=== PATIENT | male | born 1960 | race Caucasian/White ===

== ENCOUNTER 2019-06-27 16:36 | Outpatient (CLI) | payer MEDICARE, SELFPAY ==
--- NOTE | 2019-06-27 | XR_ITS ---
WS: [id number] Left shoulder, 3 views, 06/27/2019 Clinical Data: LEFT SHOULDER PAIN Comparison: None. Findings: No fractures or dislocations are seen. The AC joint is normal. The adjacent left clavicle, left scapu la and ribs are normal. The soft tissues are unremarkable. XR/XR shoulder LT min 2V* [id number] Impression: Negative left shoulder.
== END 2019-06-27 16:37 | disposition home or self-care (01) ==
LOC: RAD 16:43
PROVIDERS: Family Provider Nurse Practitioner Family; PCP Internal Medicine Cardiovascular Disease
DX: M25.512 Pain in left shoulder (principal)
CPT/HCPCS: 73030

== ENCOUNTER 2019-06-27 17:43 | Emergency (ER) | payer MEDICARE, SELFPAY ==
[2019-06-27 17:45] VITALS: BP 108/89; PULSE 104; RESP 16; TEMP 36.8; O2SAT 98; BMI 22.6
--- NOTE | 2019-06-27 17:57 | ED_ITS ---
HPI - Chest Pain General: Chief Complaint: Chest Pain Stated Complaint: Chest pain Time Seen by Provider: 06/27/19 17:54 History of Present Illness: HPI narrative: Patient is a 51-year-old male who comes to the ED for chest pain. He describes the chest pain and its sharp and in the epigastric region and the pain only lasts for about 5 seconds. He has had 2 episodes of this chest pain today and decided to come in to get evaluated. Both times the pain occurred patient was sitting down and not being active. While in the ED currently did not have any chest pain. Patient saw his rehabilitation teacher 2-3 weeks ago and had coronary angiography procedure. Patient was told that the results showed no blockages. Denies any shortness of breath, nausea, vomiting, abdominal pain, dysuria, hematuria, diarrhea, constipation, blood in the stool, fever, chills, upper respiratory symptoms. Review of Systems General: Reports: 10 or more systems reviewed and unremarkable except in HPI and below PFSH ED PFSH: Statuses (acute, chronic, etc) shown below reflect problem list status a s previously entered and may not be historically accurate Medical History Anxiety (Acute) CAD (coronary artery disease) (Acute) Carotid stenosis (Acute) Chest pain (Acute) CKD (chronic kidney disease) (Acute) COPD (chronic obstructive pulmonary disease) (Acute) CVA (cerebral vascular accident) (Acute) Epigastric abdominal pain (Acute) GERD (gastroesophageal reflux disease) (Acute) HTN (hypertension) (Acute) Hyperlipidemia (Acute) Hypoxia (Acute) Iliac artery occlusion (Acute) Obstructive apnea (Acute) Palpitation (Acute) PVD (peripheral vascular disease) (Acute) Shortness of breath (Acute) Umbilical hernia (Acute) Family History Other CAD (coronary artery disease) Cancer Social History Smoking and tobacco status: current every day smoker Quit status (tobacco): has quit using tobacco Year quit tobacco: 2009 Physical Exam Const: COMMON NORMALS: oriented x3 HENMT: COMMON NORMALS: normocephalic HEAD & SCALP: normocephalic MOUTH: oral and palatal mucosa normal THROAT: posterior oropharynx normal and uvula midline Neck/C-Spine: COMMON NORMALS: supple GENERAL: Yes normal visual inspection Resp: COMMON NORMALS: normal respiratory effort, no retractions, no use of accessory muscles and clear to auscultation bilaterally AUSCULTATION: clear to auscultation bilaterally and diminished lung sounds (bases) bilateral Cardio: COMMON NORMALS: regular rate, regular rhythm, S1 normal heart sound, S2 normal heart sound, no gallops, no clicks, no murmurs and peripheral pulses 2+ throughout RATE: regular rate RHYTHM: regular rhythm HEART SOUNDS: S1 normal and S2 normal PERIPHERAL PULSES: pulses 2+ throughout GI: COMMON NORMALS: normal to inspection, nondistended, normoactive bowel sounds, soft to palpation, non-tender and no masses PALPATION: Yes soft : COMMON NORMALS: Yes no CVA tenderness BLADDER/KIDNEY EXAM: Yes no CVA tenderness Back/Pelvis: COMMON NORMALS: no CVA tenderness Neuro: COMMON NORMALS: oriented x3 and moves all extremities Course ED course: EKG showed normal sinus rhythm and troponin was negative. Ruling out any cardiac cause of chest pain. Vital Signs: Vital signs: Vital Signs Temperature 98.4 F 06/27/19 19:37 Pulse Rate 88 06/27/19 19:37 Respiratory Rate 14 06/27/19 19:37 Blood Pressure 132/79 06/27/19 19:37 Pulse Oximetry 97 06/27/19 19:37 MDM - Chest Pain Lab Data: Attestation: I reviewed the patient's lab results. Labs: Lab Results 06/27/19 06/27/19 06/27/19 Range/Units 18:29 18:29 18:29 WBC 11.7 H (4.0-10.0) 10^3/ uL RBC 5.30 (4.1-5.3) 10^6/u L Hgb 15.3 (11.7-16.6) g/dL Hct 48.2 (42.0-52.0) % MCV 90.9 (80-94) fL MCH 28.9 (28.0-34.0) pg MCHC 31.7 (30.0-36.0) g/dL RDW 13.3 (12.1-15.1) % Plt Count 316 (130-400) 10^3/c mm MPV 11.1 H (7.4-10.4) fL Neut % (Auto) 73.4 % Lymph % (Auto) 15.7 % [place] % (Auto) 8.0 % Eos % (Auto) 2.0 % Baso % (Auto) 0.6 % Neut # (Auto) 8.6 H (1.8-7.7) 10^3/u L Lymph # (Auto) 1.8 (0.8-4.8) 10^3/u L [place] # (Auto) 0.9 (0.2-0.9) 10^3/u L Eos # (Auto) 0.2 (0.0-0.8) 10^3/u L Baso # (Auto) 0.1 (0.0-0.1) 10^3/u L Nucleated RBC % (a uto) 0 % Nucleated RBCs # 0.0 /100WBC Sodium 139 (136-145) mmol/L Potassium 3.5 (3.5-5.1) mmol/L Chloride 100 (98-107) mmol/L Carbon Dioxide 25 (22-29) mmol/L Anion Gap 17.5 (5-19) BUN 10 (6-20) mg/dL Creatinine 1.0 (0.7-1.2) mg/dL GFR Calculation 76.7 L (90-130) mL/min Glucose 124 H (74-109) mg/dL Calcium 10.3 H (8.6-10.0) mg/Dl Total Bilirubin 0.4 (0.15-1.2) mg/dL AST 18 (0-40) U/L ALT 18 (0-41) U/L Alkaline Phosphata se 121 (40-130) IU/L Troponin T Baselin e 11 (0-15) ng/mL Total Protein 7.8 (6.6-8.7) g/dL Albumin 4.6 (3.5-5.2) g/dL Globulin 3.2 (1.3-4.6) g/dL Imaging Data^: CXR: Attestation: I personally reviewed and interpreted this imaging study as follow s: My impression: No acute findings. Patient has hyperinflated lungs bilaterally. Pending final radiology report. EKG Data^: EKG 1: Attestation: I personally reviewed and interpreted this EKG as follows: EKG interpretation date: 06/27/19 Interpretation: Normal sinus rhythm with a rate of [address] elevation or depression seen. P waves present throughout. Computer generated interpretation: Normal sinus rhythm Discharge Plan Discharge Patient Disposition: Home, Self-Care Clinical Impression: Chest pain, precordial Condition: Stable Prescriptions: No Action aspirin [Adult Low Dose Aspirin] 81 mg tablet,delayed release (DR/EC) 81 mg PO QDAY RF: 0 Symbicort 160-4.5 mcg/actuation HFA aerosol inhaler 2 puff INHALATION BID RF: 0 albuterol sulfate 2.5 mg /3 mL (0.083 %) solution for nebulization 2.5 mg INHALATION Q4H PRNRF: 0 amlodipine 10 mg tablet 10 mg PO QDAY RF: 0 clonidine HCl 0.1 mg tablet 0.1 mg PO DAILY PRN (Reason: hypertensive emergency) RF: 0 Discharge Orders: Discharge Order (Routine); Ordered 06/27/19 Ordered By: João Lane Referrals: Didi Olivares APN [Family Provider] - Maira Arana MD [Primary Care Provider] - Discharge Diet: Regular Discharge Activity: Resume usual activity Activity Restrictions/Additional Instructions: Follow-up with your primary care doctor in 7 days for reevaluation. We were able to rule out cardiac cause of chest pain. Talk with your primary care doctor about this epigastric pain to discuss possible medication options for indigestion treatment. Discharge Date/Time: 06/27/19 19:38 Coding Level of Care Code ED Nanotechnology Engineering Technologist for Kedar Mae
--- NOTE | 2019-06-27 18:07 | ECG_ITS ---
Measurements Intervals [place] Rate: 85 P: 67 IA: 173 QRS: 87 QRSD: 86 T: 73 QT: 354 QTc: 421 SINUS RHYTHM WARNING: DATA QUALITY MAY AFFECT INTERPRETATION Compared to ECG 06/08/2019 16:03:23 ST (T wave) deviation no longer present Electronically Signed On 06-28-2019 10:51:25 MACHINE HEDDLE CLEANER by Maira Arana M.D. [id number] f
--- NOTE | 2019-06-27 18:07 | XR_ITS ---
WS: [id number] Portable AP upright chest, 06/27/2019 Clinical Data: chest pain Comparison: Portable chest, 06/08/2019. Findings: No nodules, masses or effusions are seen. The heart is normal. The pulmonary vascularity is not increased. No pneumonia or pneumothorax is seen. Monitor leads on the chest wall. The diaphragms are flattened. The aortic arch is mildly tortuous. XR/XR chest 1V portable [id number] Impression: Atherosclerosis and hyperinflation.
[2019-06-27] MEDS: sodium chloride 0.9% 500 ML 999 ML IV (18:21)
[2019-06-27 18:38] LABS: Basophils # 0.1 10^3/uL (0.0-0.1); Basophils % 0.6 %; Eosinophils # 0.2 10^3/uL (0.0-0.8); Hematocrit 48.2 % (42.0-52.0); Hemoglobin 15.3 g/dL (11.7-16.6); Lymphocytes # 1.8 10^3/uL (0.8-4.8); Lymphocytes % 15.7 %; Mean Corpuscular HGB Conc 31.7 g/dL (30.0-36.0); Mean Corpuscular Hemoglobin 28.9 pg (28.0-34.0); Mean Corpuscular Volume 90.9 fL (80-94); Mean Platelet Volume 11.1 fL (7.4-10.4); Monocytes # 0.9 10^3/uL (0.2-0.9); Neutrophils # 8.6 10^3/uL (1.8-7.7); Neutrophils % 73.4 %; Nucleated Red Blood Cells % 0 %; Platelet Count 316 10^3/cmm (130-400); Red Cell Distribution Width 13.3 % (12.1-15.1); White Blood Count 11.7 10^3/uL (4.0-10.0)
[2019-06-27 18:54] LABS: Alanine Aminotransferase 18 U/L (0-41); Albumin Level 4.6 g/dL (3.5-5.2); Alkaline Phosphatase 121 IU/L (40-130); Anion Gap 17.5 (5-19); Aspartate Amino Transferase 18 U/L (0-40); Blood Urea Nitrogen 10 mg/dL (6-20); Calcium 10.3 mg/Dl (8.6-10.0); Carbon Dioxide 25 mmol/L (22-29); Chloride 100 mmol/L (98-107); Globulin 3.2 g/dL (1.3-4.6); Glomerular Filtration Rate 76.7 mL/min (90-130); Glucose 124 mg/dL (74-109); Potassium 3.5 mmol/L (3.5-5.1); Sodium 139 mmol/L (136-145); Total Bilirubin 0.4 mg/dL (0.15-1.2); Total Protein 7.8 g/dL (6.6-8.7)
[2019-06-27 18:55] LABS: Troponin(5th) Baseline 11 ng/mL (0-15)
[2019-06-27 19:37] VITALS: BP 132/79; PULSE 88; RESP 14; TEMP 36.9; O2SAT 97
--- NOTE | 2019-06-28 14:07 | DCPLANNER ---
loan operations manager had message to schedule a follow up appointment for patient with [facility]. loan operations manager called [facility], spoke with Ruthy, a follow up appointment is scheduled for 2019 at 12:45 with CLAMP JIG ASSEMBLER, Yazmin Rodriguez. loan operations manager called patient at the phone number [phone], unable to speak with patient or leave a voicemail, does not have a voicemail box set up. loan operations manager called the phone number [phone], Em, a friend listed on face sheet. loan operations manager left a phone number for patient to call. loan operations manager sent a letter to patient with the appointment information.
--- NOTE | 2019-07-16 11:11 | DCPLANNER ---
Patient did not attend the appointment scheduled for 2.3.
--- NOTE | 2019-08-13 14:06 | DCPLANNER ---
Patient did not attend appointment scheduled for 07.15.19 at [facility].
== END 2019-06-27 19:38 | disposition home or self-care (01) ==
PROVIDERS: Emergency Provider Physician Assistant; Family Provider Nurse Practitioner Family; PCP Internal Medicine Cardiovascular Disease
DX: R07.2 Precordial pain (principal); Z79.82 Long term (current) use of aspirin; I25.10 Atherosclerotic heart disease of native coronary artery without angina pectoris; J44.9 Chronic obstructive pulmonary disease, unspecified; Z86.73 Personal history of transient ischemic attack (TIA), and cerebral infarction without residual deficits; I10 Essential (primary) hypertension; E78.5 Hyperlipidemia, unspecified; F17.210 Nicotine dependence, cigarettes, uncomplicated; K21.9 Gastro-esophageal reflux disease without esophagitis
CPT/HCPCS: 71045; 80053; 84484; 85025; 93005; 96360; 99282; J7040

== ENCOUNTER 2019-06-29 00:48 | Emergency (ER) | payer MEDICARE, SELFPAY ==
[2019-06-29 00:49] VITALS: BP 138/73; PULSE 81; RESP 86; TEMP 37.1
[2019-06-29 00:50] VITALS: BP 135/85; PULSE 107; RESP 20; O2SAT 94; BMI 22.6
--- NOTE | 2019-06-29 01:09 | ECG_ITS ---
Measurements Intervals [place] Rate: 94 P: 75 TN: 144 QRS: 91 QRSD: 90 T: 75 QT: 329 QTc: 412 SINUS RHYTHM BORDERLINE RIGHT AXIS DEVIATION [QRS AXIS > 90] Compared to ECG 06/27/2019 17:58:18 No significant changes Electronically Signed On 06-29-2019 11:28:57 HOT STICK MAN by Chris Perez M.D. [id number] f
--- NOTE | 2019-06-29 01:09 | ED_ITS ---
HPI - Chest Pain General: Chief Complaint: Chest Pain Stated Complaint: CHEST PAINS Time Seen by Provider: 06/29/19 01:02 History of Present Illness: HPI narrative: Patient complains of chest pain substernal central chest happened once yesterday and happen again tonight lasted for about 1 to 2 minutes he said is very sharp had a angiogram done couple weeks ago he has only 20% blockage in one vessel the rest of heart looks good. Patient denies any relation to heartburn. That he has been taking acetaminophen 500 mg once a day and thinks that might be the cause but unsure. Denies any shortness of breath. MD complaint: chest pain Timing of current episode: episodic and now resolved Onset: during rest Pain location: substernal Pain radiation: none Severity: severe Pain scale (0-10): 15 Quality: sharp Relieving factors: nothing Exacerbating factors: nothing Associated symptoms: Reports no associated symptoms; Deny abdominal pain, dyspnea, fever(s), nausea or vomiting Review of Systems Const: Denies: fever, chills or body aches Eyes: Denies: change in vision or blurry vision ENMT: Denies: throat pain or nasal congestion Card: Reports: chest pain (Intermittent chest pains 2 over the last 24 hours lasting briefly); Denies: shortness of breath on exertion Resp: Denies: shortness of breath, productive cough or non-productive cough GI: Denies: abdominal pain, nausea or vomiting : Denies: difficulty urinating Musc: Denies: extremity pain Skin/Breast: Denies: rash Neuro: Denies: headache Psych: Denies: anxiety or depression Gera/Lymph: Denies: easy bruising PFSH ED PFSH: Statuses (acute, chronic, etc) shown below reflect problem list status as previously entered and may not be historically accurate Social History Smoking and tobacco status: former smoker Quit status (tobacco): has quit using tobacco Year quit tobacco: 2009 Physical Exam Const: COMMON NORMALS: no apparent distress, average body habitus and oriented x3 HENMT: COMMON NORMALS: normocephalic HEAD & SCALP: normal to inspection and normocephalic FACE & SINUS: normal facial exam Eye: COMMON NORMALS: conjunctivae normal GENERAL EYE: normal appearance of both eyes CONJUNCTIVA: Yes conjunctivae normal Neck/C-Spine: COMMON NORMALS: no JVD Chest: COMMONS NORMALS: inspection of chest normal Resp: COMMON NORMALS: normal respiratory effort and clear to auscultation bilaterally AUSCULTATION: clear to auscultation bilaterally Cardio: COMMON NORMALS: no JVD, regular rate and regular rhythm RATE: regular rate RHYTHM: regular rhythm GI: COMMON NORMALS: normal to inspection, nondistended, normoactive bowel sounds Extremity: COMMON NORMALS: normal to inspection and full ROM Neuro: COMMON NORMALS: oriented x3 Course Vital Signs: Vital signs: Vital Signs Pulse Rate 107 H 06/29/19 00:50 Respiratory Rate 20 H 06/29/19 00:50 Blood Pressure 135/85 06/29/19 00:50 Pulse Oximetry 94 06/29/19 00:50 Discharge Plan Discharge Prescriptions: No Action aspirin [Adult Low Dose Aspirin] 81 mg tablet,delayed release (DR/EC) 81 mg PO QDAY RF: 0 Symbicort 160-4.5 mcg/actuation HFA aerosol inhaler 2 puff INHALATION BID RF: 0 albuterol sulfate 2.5 mg /3 mL (0.083 %) solution for nebulization 2.5 mg INHALATION Q4H PRNRF: 0 amlodipine 10 mg tablet 10 mg PO QDAY RF: 0 clonidine HCl 0.1 mg tablet 0.1 mg PO DAILY PRN (Reason: hypertensive emergency) RF: 0 Coding Level of Care Code ED Hospital Cleaning Specialist for Kedar Mae
[2019-06-29 01:24] LABS: Basophils # 0.1 10^3/uL (0.0-0.1); Basophils % 0.5 %; Eosinophils # 0.5 10^3/uL (0.0-0.8); Eosinophils % 4.2 %; Hemoglobin 14.8 g/dL (11.7-16.6); Lymphocytes # 2.3 10^3/uL (0.8-4.8); Lymphocytes % 19.7 %; Mean Corpuscular HGB Conc 32.2 g/dL (30.0-36.0); Mean Corpuscular Hemoglobin 28.4 pg (28.0-34.0); Mean Corpuscular Volume 88.1 fL (80-94); Mean Platelet Volume 10.8 fL (7.4-10.4); Monocytes # 1.2 10^3/uL (0.2-0.9); Monocytes % 10.5 %; Neutrophils # 7.7 10^3/uL (1.8-7.7); Neutrophils % 64.8 %; Nucleated Red Blood Cells % 0 %; Platelet Count 313 10^3/cmm (130-400); Red Blood Count 5.22 10^6/uL (4.1-5.3); Red Cell Distribution Width 13.2 % (12.1-15.1); White Blood Count 11.9 10^3/uL (4.0-10.0)
--- NOTE | 2019-06-29 01:41 | PC.NURSE ---
Introduced self to patient and initiated vital signs. Pt is A&O x 4 and agreeable. Pt states that the reason for the ER visit today is due to chest pain which has been going on for quite some time. Pt also complaining of ....... Reassured patient of needs and will continue to monitor. Awaiting provider at bedside.
[2019-06-29 01:50] LABS: Alanine Aminotransferase 20 U/L (0-41); Albumin Level 4.5 g/dL (3.5-5.2); Alkaline Phosphatase 119 IU/L (40-130); Anion Gap 18.7 (5-19); Aspartate Amino Transferase 16 U/L (0-40); Blood Urea Nitrogen 18 mg/dL (6-20); Calcium 10.3 mg/Dl (8.6-10.0); Carbon Dioxide 22 mmol/L (22-29); Chloride 102 mmol/L (98-107); Globulin 2.5 g/dL (1.3-4.6); Glomerular Filtration Rate 48.1 mL/min (90-130); Glucose 120 mg/dL (74-109); Potassium 3.7 mmol/L (3.5-5.1); Sodium 139 mmol/L (136-145); Total Bilirubin 0.2 mg/dL (0.15-1.2)
[2019-06-29 01:52] LABS: Troponin T (5th) Once 9 ng/mL (0-15)
--- NOTE | 2019-07-01 10:38 | DCPLANNER ---
it applications manager attempted to call patient again, phone number [phone] (does not have a voicemail set up) was unable to speak with patient or leave a voicemail. it applications manager called [phone] (Em a friend) a voicemail was left for patient to return casework specialist phone call. it applications manager was going to inform patient of the appointment scheduled for him in July. Please refer to notes on visit 06.27.19, that has appointment information.
== END 2019-06-29 02:22 | disposition home or self-care (01) ==
PROVIDERS: Nurse Practitioner Family; Emergency Provider Emergency Medicine; Family Provider Nurse Practitioner Family; PCP Internal Medicine Cardiovascular Disease
DX: R07.9 Chest pain, unspecified (principal); Z79.82 Long term (current) use of aspirin; Z87.891 Personal history of nicotine dependence
CPT/HCPCS: 80053; 84484; 85025; 93005; 99281; 99282

== ENCOUNTER 2019-07-13 01:19 | Emergency (ER) | payer MEDICARE, SELFPAY ==
[2019-07-13 01:32] VITALS: BP 143/74; PULSE 95; RESP 18; TEMP 36.4; O2SAT 96; BMI 22.4
--- NOTE | 2019-07-13 01:36 | ED_ITS ---
Entered by Anila Gomez, acting as scribe for Ariel Azar DO Jul 13, 2019 01:19 HPI - Chest Pain General: Chief Complaint: Chest Pain Stated Complaint: CHEST PAIN Time Seen by Provider: 07/13/19 01:36 Source: patient Mode of arrival: ambulatory Limitations: no limitations History of Present Illness: HPI narrative: 59 yo m came to the er for chest pa in. Onset was 2 days ago. Pt states that he has a flutter in his chest. Pt states that he has not been having pain. The fluttering has been hapening on and off for 2 days. MD complaint: other (chest flutter) Onset (ago): day(s) (2 days ago) Timing of current episode: episodic Onset: during rest Pain radiation: none Severity: mild Exacerbating factors: nothing Associated symptoms: Reports dyspnea, nausea and palpitations; Deny abdominal pain, fever(s) or vomiting Risk Factors: Coronary artery disease risk factors: none Review of Systems Const: Denies: fever or chills Eyes: Denies: change in vision or blurry vision ENMT: Denies: post nasal drip or facial/sinus pain Card: Reports: palpitations, edema, swelling of feet/ankles and shortness of breath on exertion; Denies: chest pain, irregular heart rhythm or shortness of breath when lying down Resp: Reports: shortness of breath, non-productive cough and wheezing; Denies: productive cough GI: Reports: nausea; Denies: abdominal pain, vomiting, rectal pain or black tarry stool : Denies: difficulty urinating Musc: Reports: neck pain and back pain; Denies: redness or joint warmth Skin/Breast: Denies: rash, itching or redness Neuro: Denies: headache, dizziness, vertigo or confusion Psych: Reports: anxiety PFSH ED PFSH: Statuses (acute, chronic, etc) shown below reflect problem list status as previously entered and may not be historically accurate Medical History Anxiety (Acute) CAD (coronary artery disease) (Acute) Carotid stenosis (Acute) Chest pain (Acute) CKD (chronic kidney disease) (Acute) COPD (chronic obstructive pulmonary disease) (Acute) CVA (cerebral vascular accident) (Acute) Epigastric abdominal pain (Acute) GERD (gastroesophageal reflux disease) (Acute) HTN (hypertension) (Acute) Hyperlipidemia (Acute) Hypoxia (Acute) Iliac artery occlusion (Acute) Obstructive apnea (Acute) Palpitation (Acute) PVD (peripheral vascular disease) (Acute) Shortness of breath (Acute) Umbilical hernia (Acute) Family History Other CAD (coronary artery disease) Cancer Social History Smoking and tobacco status: former smoker Quit status (tobacco): has quit using tobacco Year quit tobacco: 2009 Physical Exam Const: GENERAL APPEARANCE: well developed ORIENTATION/CONSCIOUSNESS: Yes oriented to person, Yes oriented to place and Yes oriented to time HENMT: COMMON NORMALS: normocephalic, external ears normal and external nose normal HEAD & SCALP: normocephalic; no scalp tenderness FACE & SINUS: normal facial exam NOSE: external nose normal and no nasal discharge EXTERNAL EAR: Yes external ears normal Eye: COMMON NORMALS: PERRL and EOMs intact bilaterally EYELID: eyelids normal PUPIL: Yes PERRL Neck/C-Spine: COMMON NORMALS: full ROM GENERAL: No tracheal deviation Chest: COMMONS NORMALS: inspection of chest normal CHEST: Yes tenderness Resp: COMMON NORMALS: clear to auscultation bilaterally EFFORT & INSPECTION: No tachypneic, No respiratory distress, No retractions, No uses accessory muscles and No tracheal deviation AUSCULTATION: clear to auscultation bilaterally, no rhonchi, no wheezes and lung sounds not diminished Cardio: COMMON NORMALS: regular rate and regular rhythm RATE: regular rate RHYTHM: regular rhythm HEART SOUNDS: no murmurs PERIPHERAL PULSES: radial pulses present GI: INSPECTION: No abdominal distension AUSCULTATION: No hyperactive bowel sounds and No hypoactive bowel sounds PALPATION: No guarding and No rigid PERCUSSION: no dullness to percussion and no tympanic to percussion Neuro: SENSORIUM/ORIENTATION: Yes oriented to person, Yes oriented to place and Yes oriented to time Psych: COMMON NORMALS: mental status grossly normal Skin: COMMON NORMALS: no rashes or lesions noted GENERAL SKIN EXAM: no rashes or lesions noted Course ED course: Patient's resting heart rate was around 100 when he got here. Saturations normal. He refused metoprolol for rate control. He also refused a GI cocktail. His chest x-ray shows chronic COPD changes. His EKG is completely normal. His troponin Vital Signs: Vital signs: Vital Signs Temperature 97.6 F 07/13/19 01:32 Pulse Rate 92 07/13/19 04:34 Respiratory Rate 18 07/13/19 04:34 Blood Pressure 134/62 07/13/19 04:34 Pulse Oximetry 97 07/13/19 04:34 MDM - Chest Pain Lab Data: Labs: Lab Results 07/13/19 07/13/19 07/13/19 Range/Units 01:52 01:52 01:52 WBC 10.7 H (4.0-10.0) 10^3/ uL RBC 5.08 (4.1-5.3) 10^6/u L Hgb 14.1 (11.7-16.6) g/dL Hct 44.6 (42.0-52.0) % MCV 87.8 (80-94) fL MCH 27.8 L (28.0-34.0) pg MCHC 31.6 (30.0-36.0) g/dL RDW 13.2 (12.1-15.1) % Plt Count 337 (130-400) 10^3/c mm MPV 10.3 (7.4-10.4) fL Neut % (Auto) 61.2 % Lymph % (Auto) 22.0 % [place] % (Auto) 11.1 % Eos % (Auto) 4.6 % Baso % (Auto) 0.7 % Neut # (Auto) 6.6 (1.8-7.7) 10^3/u L Lymph # (Auto) 2.4 (0.8-4.8) 10^3/u L [place] # (Auto) 1.2 H (0.2-0.9) 10^3/u L Eos # (Auto) 0.5 (0.0-0.8) 10^3/u L Baso # (Auto) 0.1 (0.0-0.1) 10^3/u L Nucleated RBC % (a uto) 0 % Nucleated RBCs # 0.0 /100WBC Sodium 140 (136-145) mmol/L Potassium 4.0 (3.5-5.1) mmol/L Chloride 102 (98-107) mmol/L Carbon Dioxide 27 (22-29) mmol/L Anion Gap 15.0 (5-19) BUN 17 (6-20) mg/dL Creatinine 1.1 (0.7-1.2) mg/dL GFR Calculation 68.8 L (90-130) mL/min Glucose 115 H (74-109) mg/dL Calcium 10.3 (8.5-10.5) mg/dL Total Bilirubin 0.2 (0.15-1.2) mg/dL AST 22 (0-40) U/L ALT 30 (0-41) U/L Alkaline Phosphata se 130 (40-130) IU/L Creatine Kinase 59 (39-308) U/L Troponin T Baselin e 10 (0-15) ng/mL Total Protein 7.1 (6.6-8.7) g/dL Albumin 4.4 (3.5-5.2) g/dL Globulin 2.7 (1.3-4.6) g/dL Discharge Plan Discharge Patient Disposition: Home, Self-Care Clinical Impression: Heart palpitations Condition: Stable Prescriptions: No Action aspirin [Adult Low Dose Aspirin] 81 mg tablet,delayed release (DR/EC) 81 mg PO QDAY RF: 0 Symbicort 160-4.5 mcg/actuation HFA aerosol inhaler 2 puff INHALATION BID RF: 0 amlodipine 10 mg tablet 10 mg PO QDAY RF: 0 clonidine HCl 0.1 mg tablet 0.1 mg PO DAILY PRN (Reason: hypertensive emergency) RF: 0 albuterol sulfate 2.5 mg /3 mL (0.083 %) solution for nebulization 2.5 mg INHALATION Q4H PRN (Reason: shortness of breath or wheezing) Qty: 180 RF: 0 Discharge Orders: Discharge Order (Routine); Ordered 07/13/19 Ordered By: Ariel Azar Referrals: Maira Arana MD [Primary Care Provider] - Discharge Diet: Usual diet Discharge Activity: Increase activity as tolerated Patient Instructions: Palpitations (ED) Discharge Date/Time: 07/13/19 04:31 Coding Level of Care Code ED Warp Knitter Helper for Chg Fwryan The documentation recorded by the Jason miller Stephanie Lyn, accurately reflects the service I personally performed and the decisions made by me, Ariel Azar, Jul 13, 2019 01:19
--- NOTE | 2019-07-13 01:38 | PC.NURSE ---
Performed EKG at 0135 and shown to ER doctor and took UA to lab.
--- NOTE | 2019-07-13 01:44 | XRR_ITS ---
PROCEDURE INFORMATION: Exam: XR Chest, 1 View Exam date and time: 07/13/2019 1:58 AM Age: 59 years old Clinical indication: Other: Palpatations; Patient HX: HX copd; Additional info: Palpitations TECHNIQUE: Imaging protocol: XR of the chest Views: 1 view. COMPARISON: CR XR chest 1V portable [id number] 06/27/2019 6:17 PM FINDINGS: Lungs: COPD without infiltrate. Pleural space: Unremarkable. No pleural effusion. No pneumothorax. Heart/Mediastinum: Unremarkable. No cardiomegaly. Bones/joints: No acute fracture. XR/XR chest 1V portable [id number] IMPRESSION: COPD without infiltrate.
--- NOTE | 2019-07-13 01:44 | ECG_ITS ---
Measurements Intervals [place] Rate: 85 P: 65 MI: 148 QRS: 84 QRSD: 86 T: 77 QT: 344 QTc: 411 SINUS RHYTHM Compared to ECG 06/29/2019 01:00:48 No significant changes Electronically Signed On 07-13-2019 16:23:37 SENIOR ELECTRICAL DESIGN ENGINEER by Jose Alejandro Patterson M.D. [id number] f
--- NOTE | 2019-07-13 02:05 | PC.NURSE ---
Patient refused metoprolol, states he doesn't need it because his heart rate is always that high and doesn't want it to bring his blood pressure down low and feel like crap. Also refused the GI cocktail because his stomach is fine right now.
[2019-07-13 02:16] LABS: Basophils # 0.1 10^3/uL (0.0-0.1); Basophils % 0.7 %; Eosinophils # 0.5 10^3/uL (0.0-0.8); Eosinophils % 4.6 %; Hematocrit 44.6 % (42.0-52.0); Hemoglobin 14.1 g/dL (11.7-16.6); Lymphocytes # 2.4 10^3/uL (0.8-4.8); Mean Corpuscular HGB Conc 31.6 g/dL (30.0-36.0); Mean Corpuscular Hemoglobin 27.8 pg (28.0-34.0); Mean Corpuscular Volume 87.8 fL (80-94); Mean Platelet Volume 10.3 fL (7.4-10.4); Monocytes # 1.2 10^3/uL (0.2-0.9); Monocytes % 11.1 %; Neutrophils # 6.6 10^3/uL (1.8-7.7); Neutrophils % 61.2 %; Nucleated Red Blood Cells % 0 %; Platelet Count 337 10^3/cmm (130-400); Red Blood Count 5.08 10^6/uL (4.1-5.3); Red Cell Distribution Width 13.2 % (12.1-15.1); White Blood Count 10.7 10^3/uL (4.0-10.0)
[2019-07-13 02:35] LABS: Alanine Aminotransferase 30 U/L (0-41); Albumin Level 4.4 g/dL (3.5-5.2); Alkaline Phosphatase 130 IU/L (40-130); Aspartate Amino Transferase 22 U/L (0-40); Blood Urea Nitrogen 17 mg/dL (6-20); Calcium 10.3 mg/dL (8.5-10.5); Carbon Dioxide 27 mmol/L (22-29); Chloride 102 mmol/L (98-107); Creatine Phosphokinase 59 U/L (39-308); Globulin 2.7 g/dL (1.3-4.6); Glomerular Filtration Rate 68.8 mL/min (90-130); Glucose 115 mg/dL (74-109); Sodium 140 mmol/L (136-145); Total Bilirubin 0.2 mg/dL (0.15-1.2); Total Protein 7.1 g/dL (6.6-8.7)
[2019-07-13 03:20] VITALS: PULSE 84; RESP 17; O2SAT 96
[2019-07-13 03:26] VITALS: PULSE 83; O2SAT 98
[2019-07-13 03:27] LABS: Troponin(5th) Baseline 10 ng/mL (0-15)
[2019-07-13 04:34] VITALS: BP 134/62; PULSE 92; RESP 18; O2SAT 97
--- NOTE | 2019-07-16 11:19 | DCPLANNER ---
nutrition manager had message to schedule a follow up appointment for patient with [facility]. nutrition manager had scheduled a follow up appointment for patient with [facility], was unable to reach patient by phone, sent patient a letter with the appointment information, scheduled for 07.15.19 and patient did not attend the appointment. nutrition manager spoke with Coby, it was decided that keycase assembler would mail patient a letter asking patient to call keycase assembler to talk about scheduling a follow up appointment. Patient does have appointments scheduled with [facility] in the future.
== END 2019-07-13 04:31 | disposition home or self-care (01) ==
PROVIDERS: Emergency Provider Emergency Medicine; PCP Internal Medicine Cardiovascular Disease
DX: R00.2 Palpitations (principal); Z79.82 Long term (current) use of aspirin; I25.10 Atherosclerotic heart disease of native coronary artery without angina pectoris; J44.9 Chronic obstructive pulmonary disease, unspecified; Z86.73 Personal history of transient ischemic attack (TIA), and cerebral infarction without residual deficits; I10 Essential (primary) hypertension; E78.5 Hyperlipidemia, unspecified; I73.9 Peripheral vascular disease, unspecified; Z87.891 Personal history of nicotine dependence; K21.9 Gastro-esophageal reflux disease without esophagitis
CPT/HCPCS: 71045; 80053; 82550; 84484; 85025; 93005; 94640; 99281; 99284; J7611

== ENCOUNTER 2019-07-16 09:13 | Outpatient (CLI) | payer MEDICARE, SELFPAY ==
--- NOTE | 2019-07-16 09:23 | MR_ITS ---
WS: [id number] MRI LEFT SHOULDER HISTORY: SHOULDER PAIN COMPARISON: 06/27/2019 TECHNIQUE: Multiplanar sequences of the shoulder joint are submitted. Study is significantly compromised by breathing. There is significant breathing artifact due to patie nt's emphysema. Osteochondral lesion involving the superior humeral head extends over a width of 3.3 cm. There is flu id like signal around the osteochondral lesion but no loose fragment or displacement. Moderate AC joint hypertrophy. Bone and soft tissue hypertrophy without significant encroachment upon the rotator cuff. No significant subacromial or subdeltoid bursal distention. There is a 3 mm osteop hyte along the distal undersurface of the acromion with only minimal impingement upon the distal rota tor cuff. No definite rotator cuff tears are identified. No muscle atrophy or retraction. Mild increa sed signal along the bursal surface of the supraspinatus at the level of the acromion osteophyte. No labral tear or abnormality is appreciated. Biceps tendon remains in normal position at the bicipital groove. MR/MR shoulder LT wo con* [id number] IMPRESSION: 1. Moderate-sized osteochondral lesion involving the superior humeral head wit h a maximum diameter of 3.3 cm. No loose fragment at this time. 2. Mild encroachment upon the distal supraspinatus tendon by a and acromion os teophyte. 3. No rotator cuff tear is identified. 4. Mild AC joint arthritis. 5. Study is moderately compromised by breathing artifact.
== END 2019-07-16 09:14 | disposition home or self-care (01) ==
DX: M25.512 Pain in left shoulder (principal); M75.92 Shoulder lesion, unspecified, left shoulder; M13.812 Other specified arthritis, left shoulder
CPT/HCPCS: 73221

== ENCOUNTER 2019-07-16 10:11 | Outpatient (CLI) | payer MEDICARE, SELFPAY ==
--- NOTE | 2019-07-16 11:30 | USCV_ITS ---
Hai Aparicio Age: 59 Gender: M : 1960 Exam Date: 07/16/2019 11:35 Ordering Phys: Maira Arana MD ([email or web address]) Technologist: Deny Miller [place] [facility] [place]: CAROTID STENOSIS Risk Factors: Previous Vascular Surgery: Right Brachial BP: / Left Brachial BP: / Right Left Velocity (cm/s) Spectral Plaque Velocity (cm/s) Spectral Plaque Syst/Diast Broadening Syst/Diast Broadening 157.10/18.10 Prox CCA 140.00/ 26.10 112.40/21.80 Mid CCA 115.90/ 24.00 106.30/20.60 Distal CCA 82.00 / 20.50 78.80/ 17.40 Prox ICA 101.40/ 18.70 100.40/22.40 Mid ICA 78.30 / 19.80 86.30/ 24.10 Distal ICA 145.90/ 38.10 167.20 ECA 127.90 0.89 ICA/CCA 1.26 Antegrade Vertebral Antegrade 77.10/ 17.40 cm/s 99.90/ 31.60 cm/s Bi Subclavian Bi 100.6 131.5 0 0 FINDINGS Moderate atherosclerotic change of both carotid bifurcations and internal carotid artery origins. CONCLUSIONS Negative for occlusions or significant right internal carotid artery stenosis. Mild stenosis of the left internal carotid artery origin. Dr. Violetta Cancino MD (Electronically Signed) Final Date: 16 July 2019 14:52 S
== END 2019-07-16 10:12 | disposition home or self-care (01) ==
LOC: RAD 10:15
PROVIDERS: Visit Provider Internal Medicine Cardiovascular Disease
DX: I65.22 Occlusion and stenosis of left carotid artery (principal)
CPT/HCPCS: 93880

== ENCOUNTER 2019-07-16 12:28 | Emergency (ER) | payer MEDICARE, SELFPAY ==
[2019-07-16 13:05] VITALS: BP 127/99; PULSE 102; RESP 16; TEMP 36.5; O2SAT 97; BMI 22.4
== END 2019-07-16 19:09 | disposition left against medical advice (07) ==
PROVIDERS: Emergency Provider Emergency Medicine
DX: M79.632 Pain in left forearm (principal); F41.9 Anxiety disorder, unspecified; R00.2 Palpitations; G47.33 Obstructive sleep apnea (adult) (pediatric); E78.5 Hyperlipidemia, unspecified; J44.9 Chronic obstructive pulmonary disease, unspecified; I73.9 Peripheral vascular disease, unspecified; I25.10 Atherosclerotic heart disease of native coronary artery without angina pectoris; I10 Essential (primary) hypertension; Z53.21 Procedure and treatment not carried out due to patient leaving prior to being seen by health care provider
CPT/HCPCS: 99281

== ENCOUNTER → 2019-08-12 11:08 | Outpatient (BNVA) | payer MEDICARE, SELFPAY | PROVIDERS: Visit Provider Specialist | DX: M25.512 Pain in left shoulder (principal); G89.29 Other chronic pain | CPT/HCPCS: 73030 ==

== ENCOUNTER 2019-08-29 12:50 | Emergency (ER) | payer MEDICARE, SELFPAY ==
[2019-08-29 13:08] VITALS: BP 129/90; PULSE 103; RESP 16; TEMP 36.6; O2SAT 95; BMI 22.4
--- NOTE | 2019-08-29 13:31 | W.ED.NAVMDI ---
Documented by User: ALEAH Maria 08/30/19 07:14 HPI - Nausea/Vomiting/Diarrhea General: Chief complaint: Nausea/Vomiting/Diarrhea Stated complaint: Poss C-diff Time Seen by Provider: 08/29/19 13:31 Source: patient Mode of arrival: ambulatory Limitations: no limitations History of Present Illness: HPI Narrative: Patient comes in today for complaints of 3-day history of nausea and diarrhea. Patient reports previous history with C. difficile. Patient also reports that his girlfriend has been dealing with the infection for the last month. Patient appears mildly unwell. Patient appears in no acute distress. Patient has a history of anxiety, peripheral vascular disease, hyperlipidemia, hypertension, and CAD. Patient appears in no pain. Associated nausea: Yes Associated symtoms: Reports nausea Review of Systems General: Reports: 10 or more systems reviewed and unremarkable except in HPI and below GI: Reports: nausea and diarrhea [facility] ED PFSH: Medical History Anxiety CAD (coronary artery disease) Carotid stenosis Chest pain CKD (chronic kidney disease) COPD (chronic obstructive pulmonary disease) CVA (cerebral vascular accident) Epigastric abdominal pain GERD (gastroesophageal reflux disease) HTN (hypertension) Hyperlipidemia Hypoxia Iliac artery occlusion Obstructive apnea Palpitation PVD (peripheral vascular disease) Shortness of breath Umbilical hernia Family History Other CAD (coronary artery disease) Cancer Social History Smoking and tobacco status: former smoker Quit status (tobacco): has quit using tobacco Year quit tobacco: 2009 Alcohol intake: never Physical Exam Const: COMMON NORMALS: no apparent distress and oriented x3 GENERAL APPEARANCE: cooperative HENMT: COMMON NORMALS: normocephalic, external ears normal, EAC's normal, TM's normal bilaterally and external nose normal HEAD & SCALP: normal to inspection and normocephalic FACE & SINUS: normal facial exam NOSE: external nose normal GENERAL EAR: hearing not grossly impaired EXTERNAL EAR: Yes external ears normal EXTERNAL AUDITORY CANAL: EAC's normal TYMPANIC MEMBRANE: TM's normal bilaterally MOUTH: oral and palatal mucosa normal THROAT: posterior oropharynx normal Eye: COMMON NORMALS: PERRL and EOMs intact bilaterally PUPIL: Yes PERRL Neck/C-Spine: COMMON NORMALS: full ROM and no lymphadenopathy Lymph: LYMPHATIC: no lymphedema noted Chest: COMMONS NORMALS: inspection of chest normal and palpation of chest normal Resp: COMMON NORMALS: normal respiratory effort and clear to auscultation bilaterally AUSCULTATION: clear to auscultation bilaterally Cardio: COMMON NORMALS: regular rate and regular rhythm RATE: regular rate RHYTHM: regular rhythm GI: COMMON NORMALS: normal to inspection, nondistended, normoactive bowel sounds and non-tender : COMMON NORMALS: Yes no CVA tenderness BLADDER/KIDNEY EXAM: Yes no CVA tenderness Back/Pelvis: COMMON NORMALS: no CVA tenderness and thoracic and lumbar spine normal to inspection Extremity: COMMON NORMALS: normal to inspection GENERAL: No edema Neuro: COMMON NORMALS: oriented x3, moves all extremities and no focal motor deficits Psych: COMMON NORMALS: mental status grossly normal and cooperative Skin: COMMON NORMALS: no rashes or lesions noted GENERAL SKIN EXAM: no rashes or lesions noted Course Vital Signs: Vital signs: Vital Signs Temperature 98 F 08/29/19 13:08 Pulse Rate 73 08/29/19 19:12 Respiratory Rate 17 08/29/19 19:12 Blood Pressure 146/58 08/29/19 19:12 Pulse Oximetry 96 08/29/19 19:12 MDM - Nausea/Vomiting/Diarrhea MDM Narrative: Medical decision making narrative: Patient comes in today with complaints of nausea and diarrhea for the last 3 days. Exam noted abdomen soft nontender. Bowel sounds were present. Skin is warm and dry. Vital signs are normal. Differential diagnosis gastroenteritis, C. difficile colitis, diverticulitis, dehydration. Laboratory values were not significant for abnormalities. C. difficile by PCR was negative. Laboratory values were reviewed with patient recommendations for treatment and follow-up. Patient reported understanding. Lab Data: Labs: Lab Results 08/29/19 08/29/19 Range/Units 13:51 13:51 WBC 9.8 (4.0-10.0) 10^3/ uL RBC 5.73 H (4.1-5.3) 10^6/u L Hgb 16.1 (11.7-16.6) g/dL Hct 50.2 (42.0-52.0) % MCV 87.6 (80-94) fL MCH 28.1 (28.0-34.0) pg MCHC 32.1 (30.0-36.0) g/dL RDW 13.4 (12.1-15.1) % Plt Count 325 (130-400) 10^3/c mm MPV 10.8 H (7.4-10.4) fL Neut % (Auto) 74.5 % Lymph % (Auto) 15.2 % [place] % (Auto) 8.5 % Eos % (Auto) 1.0 % Baso % (Auto) 0.6 % Neut # (Auto) 7.3 (1.8-7.7) 10^3/u L Lymph # (Auto) 1.5 (0.8-4.8) 10^3/u L [place] # (Auto) 0.8 (0.2-0.9) 10^3/u L Eos # (Auto) 0.1 (0.0-0.8) 10^3/u L Baso # (Auto) 0.1 (0.0-0.1) 10^3/u L Nucleated RBC % (a uto) 0 % Nucleated RBCs # 0.0 /100WBC Sodium 141 (136-145) mmol/L Potassium 4.1 (3.5-5.1) mmol/L Chloride 101 (98-107) mmol/L Carbon Dioxide 32 H (22-29) mmol/L Anion Gap 12.1 (5-19) BUN 9 (6-20) mg/dL Creatinine 1.2 (0.7-1.2) mg/dL GFR Calculation 62.2 L (90-130) mL/min Glucose 109 (65-115) mg/dL Calculated Osmolal ity 289 (285-295) mOsm/k g Calcium 10.2 (8.5-10.5) mg/dL Total Bilirubin 0.5 (0.15-1.2) mg/dL AST 17 (0-40) U/L ALT 15 (0-41) U/L Alkaline Phosphata se 125 (40-130) IU/L Total Protein 7.9 (6.6-8.7) g/dL Albumin 4.2 (3.5-5.2) g/dL Globulin 3.7 (1.3-4.6) g/dL Lipase 27 (13-60) U/L Discharge Plan Discharge Patient Disposition: Home, Self-Care Clinical Impression: Gastroenteritis Condition: Stable Prescriptions: No Action aspirin [Adult Low Dose Aspirin] 81 mg tablet,delayed release (DR/EC) 81 mg PO DAILY RF: 0 Symbicort 160-4.5 mcg/actuation HFA aerosol inhaler 2 puff INHALATION BID RF: 0 clonidine HCl 0.1 mg tablet 0.1 mg PO DAILY PRN (Reason: hypertensive emergency) RF: 0 albuterol sulfate 2.5 mg /3 mL (0.083 %) solution for nebulization 2.5 mg INHALATION Q4H PRN (Reason: shortness of breath or wheezing) Qty: 225 RF: 1 amlodipine 10 mg tablet 10 mg PO DAILY RF: 0 Discharge Orders: Discharge Order (Routine); Ordered 08/29/19 Ordered By: João Lane Referrals: Huan Limon [Primary Care Provider] - Discharge Diet: Regular Discharge Activity: Resume usual activity Patient Instructions: Gastroenteritis (ED) Activity Restrictions/Additional Instructions: Follow-up with primary care doctor in 5 to 7 days for reevaluation. Drink plenty of fluids and stay hydrated. Take Tylenol or ibuprofen for fevers. Discharge Date/Time: 08/29/19 19:13 Sign Out Sign Out Data: Patient Sign Out occurred on 08/29/19 at 17:10. Patient's care was discussed, and care was transferred from Quentin Cain to KYLAH Wellington. Sign Out Comment: Awaiting for C.Diff result, treat as needed. and home, wjw Last updated by Quentin Cain FNP at 08/29/19 17:06 Coding Level of Care Code ED Retail Assistant for Chg Fwd Exam Comprehensive Documented by User: KYLAH Wellington 08/30/19 03:42 HPI - Nausea/Vomiting/Diarrhea General: Chief complaint: Nausea/Vomiting/Diarrhea Stated complaint: Poss C-diff Time Seen by Provider: 08/29/19 13:31 PFSH ED PFSH: Medical History Anxiety CAD (coronary artery disease) Carotid stenosis Chest pain CKD (chronic kidney disease) COPD (chronic obstructive pulmonary disease) CVA (cerebral vascular accident) Epigastric abdominal pain GERD (gastroesophageal reflux disease) HTN (hypertension) Hyperlipidemia Hypoxia Iliac artery occlusion Obstructive apnea Palpitation PVD (peripheral vascular disease) Shortness of breath Umbilical hernia Family History Other CAD (coronary artery disease) Cancer Social History Smoking and tobacco status: former smoker Quit status (tobacco): has quit using tobacco Year quit tobacco: 2009 Alcohol intake: never Course Vital Signs: Vital signs: Vital Signs Temperature 98 F 08/29/19 13:08 Pulse Rate 73 08/29/19 19:12 Respiratory Rate 17 08/29/19 19:12 Blood Pressure 146/58 08/29/19 19:12 Pulse Oximetry 96 08/29/19 19:12 MDM - Nausea/Vomiting/Diarrhea Lab Data: Attestation: I reviewed the patient's lab results. Labs: Lab Results 08/29/19 08/29/19 Range/Units 13:51 13:51 WBC 9.8 (4.0-10.0) 10^3/ uL RBC 5.73 H (4.1-5.3) 10^6/u L Hgb 16.1 (11.7-16.6) g/dL Hct 50.2 (42.0-52.0) % MCV 87.6 (80-94) fL MCH 28.1 (28.0-34.0) pg MCHC 32.1 (30.0-36.0) g/dL RDW 13.4 (12.1-15.1) % Plt Count 325 (130-400) 10^3/c mm MPV 10.8 H (7.4-10.4) fL Neut % (Auto) 74.5 % Lymph % (Auto) 15.2 % [place] % (Auto) 8.5 % Eos % (Auto) 1.0 % Baso % (Auto) 0.6 % Neut # (Auto) 7.3 (1.8-7.7) 10^3/u L Lymph # (Auto) 1.5 (0.8-4.8) 10^3/u L [place] # (Auto) 0.8 (0.2-0.9) 10^3/u L Eos # (Auto) 0.1 (0.0-0.8) 10^3/u L Baso # (Auto) 0.1 (0.0-0.1) 10^3/u L Nucleated RBC % (a uto) 0 % Nucleated RBCs # 0.0 /100WBC Sodium 141 (136-145) mmol/L Potassium 4.1 (3.5-5.1) mmol/L Chloride 101 (98-107) mmol/L Carbon Dioxide 32 H (22-29) mmol/L Anion Gap 12.1 (5-19) BUN 9 (6-20) mg/dL Creatinine 1.2 (0.7-1.2) mg/dL GFR Calculation 62.2 L (90-130) mL/min Glucose 109 (65-115) mg/dL Calculated Osmolal ity 289 (285-295) mOsm/k g Calcium 10.2 (8.5-10.5) mg/dL Total Bilirubin 0.5 (0.15-1.2) mg/dL AST 17 (0-40) U/L ALT 15 (0-41) U/L Alkaline Phosphata se 125 (40-130) IU/L Total Protein 7.9 (6.6-8.7) g/dL Albumin 4.2 (3.5-5.2) g/dL Globulin 3.7 (1.3-4.6) g/dL Lipase 27 (13-60) U/L C-Diff lab was negative. Discharge Plan Discharge Patient Disposition: Home, Self-Care Clinical Impression: Gastroenteritis Condition: Stable Prescriptions: No Action aspirin [Adult Low Dose Aspirin] 81 mg tablet,delayed release (DR/EC) 81 mg PO DAILY RF: 0 Symbicort 160-4.5 mcg/actuation HFA aerosol inhaler 2 puff INHALATION BID RF: 0 clonidine HCl 0.1 mg tablet 0.1 mg PO DAILY PRN (Reason: hypertensive emergency) RF: 0 albuterol sulfate 2.5 mg /3 mL (0.083 %) solution for nebulization 2.5 mg INHALATION Q4H PRN (Reason: shortness of breath or wheezing) Qty: 225 RF: 1 amlodipine 10 mg tablet 10 mg PO DAILY RF: 0 Discharge Orders: Discharge Order (Routine); Ordered 08/29/19 Ordered By: João Lane Referrals: Huan Limon [Primary Care Provider] - Discharge Diet: Regular Discharge Activity: Resume usual activity Patient Instructions: Gastroenteritis (ED) Activity Restrictions/Additional Instructions: Follow-up with primary care doctor in 5 to 7 days for reevaluation. Drink plenty of fluids and stay hydrated. Take Tylenol or ibuprofen for fevers. Discharge Date/Time: 08/29/19 19:13 Sign Out Sign Out Data: Patient Sign Out occurred on 08/29/19 at 17:10. Patient's care was discussed, and care was transferred from Quentin Cain to KYLA[facility] Wellington. Sign Out Comment: Awaiting for C.Diff result, treat as needed. and home, wjw Last updated by Quentin Cain FNP at 08/29/19 17:06 Coding Level of Care Code ED Retail Assistant for Chg Fwd Exam Comprehensive
--- NOTE | 2019-08-29 13:56 | XR_ITS ---
WS: [id number] XR chest 1V portable [id number] REASON FOR EXAM: CoPd, cough FINDINGS: Hyper aerated lungs are seen. The heart is not enlarged. A mild scoliotic curve convex to the right. The hilum and apices are normal. There is no pneumonia, pleural effusion, pulmonary edema, or mass effect. [place] no pneumothorax. XR/XR chest 1V portable [id number] IMPRESSION: Obstructive pulmonary disease.
[2019-08-29 14:07] LABS: Basophils # 0.1 10^3/uL (0.0-0.1); Basophils % 0.6 %; Eosinophils # 0.1 10^3/uL (0.0-0.8); Hematocrit 50.2 % (42.0-52.0); Hemoglobin 16.1 g/dL (11.7-16.6); Lymphocytes # 1.5 10^3/uL (0.8-4.8); Lymphocytes % 15.2 %; Mean Corpuscular HGB Conc 32.1 g/dL (30.0-36.0); Mean Corpuscular Hemoglobin 28.1 pg (28.0-34.0); Mean Corpuscular Volume 87.6 fL (80-94); Mean Platelet Volume 10.8 fL (7.4-10.4); Monocytes # 0.8 10^3/uL (0.2-0.9); Monocytes % 8.5 %; Neutrophils # 7.3 10^3/uL (1.8-7.7); Neutrophils % 74.5 %; Nucleated Red Blood Cells % 0 %; Platelet Count 325 10^3/cmm (130-400); Red Blood Count 5.73 10^6/uL (4.1-5.3); Red Cell Distribution Width 13.4 % (12.1-15.1); White Blood Count 9.8 10^3/uL (4.0-10.0)
[2019-08-29] MEDS: sodium chloride 0.9% 1,000 ML 999 ML IV (14:08)
[2019-08-29] MEDS: ondansetron 2 mg/ML SDV 2 mL 4 MG IVP (14:10)
[2019-08-29 14:21] LABS: Alanine Aminotransferase 15 U/L (0-41); Albumin Level 4.2 g/dL (3.5-5.2); Alkaline Phosphatase 125 IU/L (40-130); Anion Gap 12.1 (5-19); Aspartate Amino Transferase 17 U/L (0-40); Blood Urea Nitrogen 9 mg/dL (6-20); Calcium 10.2 mg/dL (8.5-10.5); Carbon Dioxide 32 mmol/L (22-29); Chloride 101 mmol/L (98-107); Globulin 3.7 g/dL (1.3-4.6); Glomerular Filtration Rate 62.2 mL/min (90-130); Glucose 109 mg/dL (65-115); Lipase 27 U/L (13-60); Osmolality Calculated 289 mOsm/kg (285-295); Potassium 4.1 mmol/L (3.5-5.1); Sodium 141 mmol/L (136-145); Total Bilirubin 0.5 mg/dL (0.15-1.2); Total Protein 7.9 g/dL (6.6-8.7)
--- NOTE | 2019-08-29 16:29 | PC.NURSE ---
PT DOES NOT WANT 8MG ZOFRAN, ASKING FOR 4 INSTEAD, SPOKE WITH JANIA, JANIA SAID IT IS OK TO GIVE 4MG
[2019-08-29] MEDS: ondansetron 2 mg/ML SDV 2 mL 8 MG IVP (16:37)
[2019-08-29 19:12] VITALS: BP 146/58; PULSE 73; RESP 17; O2SAT 96
== END 2019-08-29 19:13 | disposition home or self-care (01) ==
PROVIDERS: Emergency Medicine; Emergency Provider Physician Assistant
DX: K52.9 Noninfective gastroenteritis and colitis, unspecified (principal); E78.5 Hyperlipidemia, unspecified; I25.10 Atherosclerotic heart disease of native coronary artery without angina pectoris; I12.9 Hypertensive chronic kidney disease with stage 1 through stage 4 chronic kidney disease, or unspecified chronic kidney disease; N18.9 Chronic kidney disease, unspecified; J44.9 Chronic obstructive pulmonary disease, unspecified; Z79.51 Long term (current) use of inhaled steroids; Z86.73 Personal history of transient ischemic attack (TIA), and cerebral infarction without residual deficits; Z87.891 Personal history of nicotine dependence
CPT/HCPCS: 12345; 36415; 71045; 80053; 83690; 85025; 87493; 96361; 96374; 96375; 96376; 99283; J2405; J7030

== ENCOUNTER 2019-09-22 14:22 | Emergency (ER) | payer MEDICARE, SELFPAY ==
[2019-09-22 14:36] VITALS: BP 140/90; PULSE 100; RESP 18; TEMP 36.6; O2SAT 98; BMI 22.6
--- NOTE | 2019-09-22 15:02 | ECG_ITS ---
Measurements Intervals [place] Rate: 79 P: 67 LA: 148 QRS: 91 QRSD: 90 T: 75 QT: 348 QTc: 400 SINUS RHYTHM WITH SINUS ARRHYTHMIA BORDERLINE RIGHT AXIS DEVIATION [QRS AXIS > 90] Compared to ECG 07/13/2019 01:37:10 No significant changes Electronically Signed On 09-23-2019 7:59:33 CDT by Chris Perez M.D. [email or web address]
--- NOTE | 2019-09-22 15:03 | XR_ITS ---
WS: [id number] CHEST 2 VIEWS HISTORY: chest pain, SOB COMPARISON: 08/29/2019 Lungs: Moderate pulmonary hyperinflation. No pneumonia. Normal vasculature. Cardiac size: Normal. Mediastinum/Aorta: Normal mediastinum. Bones: Normal. XR/XR chest 2V* [id number] IMPRESSION: Chronic emphysema. No pneumonia.
[2019-09-22 15:21] LABS: Basophils % 0.4 %; Eosinophils # 0.1 10^3/uL (0.0-0.8); Eosinophils % 1.3 %; Hematocrit 50.7 % (42.0-52.0); Lymphocytes # 1.5 10^3/uL (0.8-4.8); Lymphocytes % 13.8 %; Mean Corpuscular HGB Conc 31.6 g/dL (30.0-36.0); Mean Corpuscular Hemoglobin 27.8 pg (28.0-34.0); Mean Corpuscular Volume 88.2 fL (80-94); Mean Platelet Volume 10.4 fL (7.4-10.4); Monocytes % 8.9 %; Neutrophils # 8.4 10^3/uL (1.8-7.7); Neutrophils % 75.2 %; Nucleated Red Blood Cells % 0 %; Platelet Count 330 10^3/cmm (130-400); Red Blood Count 5.75 10^6/uL (4.1-5.3); Red Cell Distribution Width 13.7 % (12.1-15.1); White Blood Count 11.1 10^3/uL (4.0-10.0)
--- NOTE | 2019-09-22 15:29 | W.ED.CHESTPA ---
HPI - Chest Pain General: Chief Complaint: Chest Pain Stated Complaint: cp Time Seen by Provider: 09/22/19 14:36 Source: patient Mode of arrival: EMS Limitations: no limitations History of Present Illness: HPI narrative: Patient presents with chest pain and occasional difficulty breathing that started yesterday. He states that he has a friend who has someone living in his basement who was diagnosed with the coronavirus infection. He went outside of the house to olive picker his car 16 days ago. He is slightly concerned about the infection. No difficulty breathing. No fever. MD complaint: chest pain Onset (ago): day(s) (1) Timing of current episode: episodic Prior episodes: Yes Onset: during rest Pain location: substernal Pain radiation: none Severity: moderate Quality: tightness Relieving factors: nothing Exacerbating factors: nothing Associated symptoms: Reports no associated symptoms; Deny abdominal pain, dyspnea, fever(s), nausea, palpitations or vomiting Treatment prior to arrival: none Review of Systems General: Reports: 10 or more systems reviewed and unremarkable except in HPI and below Const: Denies: fever, chills or body aches Eyes: Denies: change in vision or blurry vision ENMT: Denies: throat pain, enlarged tonsils, painful swallowing, hoarseness, mouth pain or swelling of lips/tongue Card: Reports: chest pain; Denies: palpitations, irregular heart rhythm, edema or swelling of feet/ankles Resp: Denies: shortness of breath, productive cough or non-productive cough GI: Denies: abdominal pain, nausea or vomiting : Denies: flank pain, painful urination, urinary frequency, urinary urgency or urinary hesitancy Musc: Denies: neck pain, back pain or extremity swelling Skin/Breast: Denies: rash, itching or redness Neuro: Denies: headache, numbness in extremities or weakness in extremities Endo: Denies: excessive urination, excessive thirst or tired all the time PFSH ED PFSH: Social History Smoking and tobacco status: former smoker Quit status (tobacco): has quit using tobacco Year quit tobacco: 2009 Alcohol intake: never Physical Exam Const: COMMON NORMALS: no apparent distress, average body habitus, oriented x3, no limitations, healthy appearing, alert and well nourished HENMT: COMMON NORMALS: normocephalic, head/scalp atraumatic and moist oral mucous membranes HEAD & SCALP: normocephalic and atraumatic Eye: COMMON NORMALS: PERRL, EOMs intact bilaterally, conjunctivae normal and no scleral icterus CONJUNCTIVA: Yes conjunctivae normal PUPIL: Yes PERRL Neck/C-Spine: COMMON NORMALS: full ROM, supple, no meningeal signs, no JVD and no carotid bruits Chest: COMMONS NORMALS: inspection of chest normal and palpation of chest normal Resp: COMMON NORMALS: normal respiratory effort, no retractions, no use of accessory muscles, clear to auscultation bilaterally and percussion normal AUSCULTATION: clear to auscultation bilaterally PERCUSSION: percussion normal Cardio: COMMON NORMALS: no JVD, regular rate, regular rhythm, S1 normal heart sound, S2 normal heart sound, no gallops, no clicks, no murmurs, no rub and peripheral pulses 2+ throughout RATE: regular rate RHYTHM: regular rhythm HEART SOUNDS: S1 normal and S2 normal PERIPHERAL PULSES: pulses 2+ throughout GI: COMMON NORMALS: normal to inspection, nondistended, normoactive bowel sounds, soft to palpation, non-tender, no hepatosplenomegaly, no masses and no bruits PALPATION: Yes soft and Yes no hepatosplenomegaly : COMMON NORMALS: Yes no CVA tenderness BLADDER/KIDNEY EXAM: Yes no CVA tenderness Back/Pelvis: COMMON NORMALS: no CVA tenderness Extremity: COMMON NORMALS: normal to inspection, full ROM, normal capillary refill, no calf tenderness and no pedal edema Neuro: COMMON NORMALS: oriented x3 SENSORIUM/ORIENTATION: Yes alert MENINGEAL SIGNS: Yes no meningeal signs Skin: COMMON NORMALS: no rashes or lesions noted, no wounds, skin turgor normal, no jaundice, no petechiae and no mottling GENERAL SKIN EXAM: no rashes or lesions noted and turgor normal Course Reevaluation(s): Reevaluation #1: Discussed his lab and imaging findings with him. Negative for acute findings. Negative high-sensitivity troponin. Negative influenza and strep throat. Advised that due to his clinical status there is no indication to test him for the coronavirus, however he should self isolate for the next 14 days. He voiced understanding and is in agreement with the plan. Time: 16:47 Vital Signs: Vital signs: Vital Signs Temperature 97.8 F 09/22/19 14:36 Pulse Rate 72 09/22/19 16:35 Respiratory Rate 14 09/22/19 16:35 Blood Pressure 137/66 09/22/19 16:35 Pulse Oximetry 95 09/22/19 16:35 MDM - Chest Pain MDM Narrative: Medical decision making narrative: 59-year-old male who presents to the emergency department with chest pain on concerns that he has been exposed to a patient with COVID-19. Evaluation in the ED was unremarkable. I explained to him that there was no indication to test him as clinically he looks good. He is however advised to self isolate for 14 days. He is to return for any concerns. Medical Records: Attestation: I reviewed the patient's medical records. Lab Data: Labs: Lab Results 09/22/19 09/22/19 09/22/19 Range/Units 15:13 15:13 15:13 WBC 11.1 H (4.0-10.0) 10^3/ uL RBC 5.75 H (4.1-5.3) 10^6/u L Hgb 16.0 (11.7-16.6) g/dL Hct 50.7 (42.0-52.0) % MCV 88.2 (80-94) fL MCH 27.8 L (28.0-34.0) pg MCHC 31.6 (30.0-36.0) g/dL RDW 13.7 (12.1-15.1) % Plt Count 330 (130-400) 10^3/c mm MPV 10.4 (7.4-10.4) fL Neut % (Auto) 75.2 % Lymph % (Auto) 13.8 % [place] % (Auto) 8.9 % Eos % (Auto) 1.3 % Baso % (Auto) 0.4 % Neut # (Auto) 8.4 H (1.8-7.7) 10^3/u L Lymph # (Auto) 1.5 (0.8-4.8) 10^3/u L [place] # (Auto) 1.0 H (0.2-0.9) 10^3/u L Eos # (Auto) 0.1 (0.0-0.8) 10^3/u L Baso # (Auto) 0.0 (0.0-0.1) 10^3/u L Nucleated RBC % (a uto) 0 % Nucleated RBCs # 0.0 /100WBC Sodium 138 (136-145) mmol/L Potassium 4.0 (3.5-5.1) mmol/L Chloride 99 (98-107) mmol/L Carbon Dioxide 26 (22-29) mmol/L Anion Gap 17.0 (5-19) BUN 11 (6-20) mg/dL Creatinine 1.0 (0.7-1.2) mg/dL GFR Calculation 76.7 L (90-130) mL/min Glucose 107 (65-115) mg/dL Calculated Osmolal ity 283 L (285-295) mOsm/k g Calcium 10.4 (8.5-10.5) mg/dL Total Bilirubin 0.4 (0.15-1.2) mg/dL AST 20 (0-40) U/L ALT 24 (0-41) U/L Alkaline Phosphata se 127 (40-130) IU/L Troponin T Baselin e 13 (0-15) ng/mL NT-Pro-B Natriuret Pep 21 (0-125) pg/mL Total Protein 7.4 (6.6-8.7) g/dL Albumin 4.3 (3.5-5.2) g/dL Globulin 3.1 (1.3-4.6) g/dL Lipase 31 (13-60) U/L Influenza Type A A g (Negative) Influenza Type B A g (Negative) Group A Strep Rapi d (Negative) 09/22/19 09/22/19 Range/Units 15:35 15:35 WBC (4.0-10.0) 10^3/ uL RBC (4.1-5.3) 10^6/u L Hgb (11.7-16.6) g/dL Hct (42.0-52.0) % MCV (80-94) fL MCH (28.0-34.0) pg MCHC (30.0-36.0) g/dL RDW (12.1-15.1) % Plt Count (130-400) 10^3/c mm MPV (7.4-10.4) fL Neut % (Auto) % Lymph % (Auto) % [place] % (Auto) % Eos % (Auto) % Baso % (Auto) % Neut # (Auto) (1.8-7.7) 10^3/u L Lymph # (Auto) (0.8-4.8) 10^3/u L [place] # (Auto) (0.2-0.9) 10^3/u L Eos # (Auto) (0.0-0.8) 10^3/u L Baso # (Auto) (0.0-0.1) 10^3/u L Nucleated RBC % (a uto) % Nucleated RBCs # /100WBC Sodium (136-145) mmol/L Potassium (3.5-5.1) mmol/L Chloride (98-107) mmol/L Carbon Dioxide (22-29) mmol/L Anion Gap (5-19) BUN (6-20) mg/dL Creatinine (0.7-1.2) mg/dL GFR Calculation (90-130) mL/min Glucose (65-115) mg/dL Calculated Osmolal ity (285-295) mOsm/k g Calcium (8.5-10.5) mg/dL Total Bilirubin (0.15-1.2) mg/dL AST (0-40) U/L ALT (0-41) U/L Alkaline Phosphata se (40-130) IU/L Troponin T Baselin e (0-15) ng/mL NT-Pro-B Natriuret Pep (0-125) pg/mL Total Protein (6.6-8.7) g/dL Albumin (3.5-5.2) g/dL Globulin (1.3-4.6) g/dL Lipase (13-60) U/L Influenza Type A A g Negative (Negative) Influenza Type B A g Negative (Negative) Group A Strep Rapi d Negative (Negative) Imaging Data^: CXR: Attestation: I personally reviewed and interpreted this imaging study as follows: My impression: No acute findings. No consolidation, effusion or other abnormality noted. EKG Data^: EKG 1: Attestation: I personally reviewed and interpreted this EKG as follows: EKG interpretation date: 09/22/19 EKG interpretation time: 14:52 Prior EKG tracings: not available for review Interpretation: Sinus rhythm with sinus arrhythmia. Heart rate 79 bpm Right axis deviation. No ST changes. Discharge Plan Discharge Patient Disposition: Home, Self-Care Clinical Impression: Exposure to COVID-19 virus Chest pain Qualifiers: Chest pain type: other chest pain Qualified Code(s): R07.89 - Other chest pain Condition: Stable Prescriptions: Continued aspirin [Adult Low Dose Aspirin] 81 mg tablet,delayed release (DR/EC) 81 mg PO DAILY RF: 0 Symbicort 160-4.5 mcg/actuation HFA aerosol inhaler 2 puff INHALATION BID RF: 0 clonidine HCl 0.1 mg tablet 0.1 mg PO DAILY PRN (Reason: hypertensive emergency) RF: 0 albuterol sulfate 2.5 mg /3 mL (0.083 %) solution for nebulization 2.5 mg INHALATION Q4H PRN (Reason: shortness of breath or wheezing) Qty: 225 RF: 1 amlodipine 10 mg tablet 10 mg PO DAILY RF: 0 Discharge Orders: Discharge Order (Routine); Ordered 09/22/19 Ordered By: Charline Avila Referrals: Huan Limon [Primary Care Provider] - 4-7 days Discharge Diet: Advance as tolerated and Usual diet Discharge Activity: Increase activity as tolerated Patient Instructions: Chest Pain (ED) Activity Restrictions/Additional Instructions: Return for any new or worsening symptoms. Follow-up with your primary care provider by phone within the next week. You need to self isolate for the next 14 days since you have an exposure to the infection. Continue home medications as before. Discharge Date/Time: 09/22/19 17:04 Coding Level of Care Code ED Mud Jack Nozzle Worker for Chg Fwd Exam Comprehensive
[2019-09-22 16:15] LABS: Rapid Strep A Test Negative (Negative)
[2019-09-22 16:26] LABS: Influenza A by IFA Negative (Negative); Influenza B by IFA Negative (Negative)
[2019-09-22 16:28] LABS: Troponin(5th) Baseline 13 ng/mL (0-15)
[2019-09-22 16:35] VITALS: BP 137/66; PULSE 72; RESP 14; O2SAT 95
[2019-09-22 16:36] LABS: Alanine Aminotransferase 24 U/L (0-41); Albumin Level 4.3 g/dL (3.5-5.2); Alkaline Phosphatase 127 IU/L (40-130); Aspartate Amino Transferase 20 U/L (0-40); Blood Urea Nitrogen 11 mg/dL (6-20); Calcium 10.4 mg/dL (8.5-10.5); Carbon Dioxide 26 mmol/L (22-29); Chloride 99 mmol/L (98-107); Globulin 3.1 g/dL (1.3-4.6); Glomerular Filtration Rate 76.7 mL/min (90-130); Glucose 107 mg/dL (65-115); Lipase 31 U/L (13-60); NT Pro B Type Natriuretic Pept 21 pg/mL (0-125); Osmolality Calculated 283 mOsm/kg (285-295); Sodium 138 mmol/L (136-145); Total Bilirubin 0.4 mg/dL (0.15-1.2); Total Protein 7.4 g/dL (6.6-8.7)
== END 2019-09-22 17:04 | disposition home or self-care (01) ==
PROVIDERS: Emergency Provider Family Medicine
DX: R07.89 Other chest pain (principal); Z20.828 Contact with and (suspected) exposure to other viral communicable diseases; Z79.82 Long term (current) use of aspirin; Z87.891 Personal history of nicotine dependence
CPT/HCPCS: 12345; 36415; 71046; 80053; 83690; 83880; 84484; 85025; 87081; 87804; 87880; 93005; 99282; 99284

== ENCOUNTER 2019-11-05 13:20 | Emergency (ER) | payer MEDICARE, SELFPAY ==
--- NOTE | 2019-11-05 13:22 | XR_ITS ---
WS: [id number] PORTABLE CHEST HISTORY: cp COMPARISON: 09/22/2019 Pulmonary hyperinflation. No pneumonia. Normal vasculature. No pleural effusion or pneumothorax. Cardiac size: Normal. Mediastinum/Aorta: Mild atherosclerosis aorta. No osseous abnormality seen. XR/XR chest 1V portable [id number] IMPRESSION: Severe chronic emphysema. No pneumonia.
--- NOTE | 2019-11-05 13:22 | ECG_ITS ---
Measurements Intervals [place] Rate: 77 P: 66 OK: 151 QRS: 85 QRSD: 90 T: 69 QT: 341 QTc: 386 SINUS RHYTHM Compared to ECG 09/22/2019 14:52:41 Sinus arrhythmia no longer present Electronically Signed On 11-05-2019 21:57:17 CDT by Maira Arana M.D. [id number]
[2019-11-05 13:35] VITALS: BP 143/109; PULSE 81; RESP 14; TEMP 37; BMI 22.8
[2019-11-05 13:40] VITALS: BP 130/80; PULSE 77; RESP 18; O2SAT 98
--- NOTE | 2019-11-05 13:42 | W.ED.CHESTPA ---
HPI - Chest Pain General: Chief Complaint: Chest Pain Stated Complaint: chest pain Time Seen by Provider: 11/05/19 13:31 Source: patient Mode of arrival: ambulatory Limitations: no limitations History of Present Illness: HPI narrative: 59-year-old male states he has been having chest pain over the last 3 days. He states the pain is been sharp in nature and hit him in the center of the chest. Denies any worsening or improving factors. Denies any nausea or shortness of breath. MD complaint: chest pain Onset (ago): day(s) Timing of current episode: episodic Pain radiation: none Severity: moderate Relieving factors: nothing Exacerbating factors: nothing Associated symptoms: Deny abdominal pain, dyspnea, fever(s), nausea or vomiting Review of Systems Const: Denies: fever(s), chills, body aches or change in appetite Eyes: Denies: blurry vision or eye discomfort ENMT: Denies: throat pain or dental pain Card: Reports: chest pain Resp: Denies: dyspnea GI: Denies: abdominal pain, nausea, vomiting or diarrhea : Denies: dysuria Musc: Denies: neck pain or back pain Skin/Breast: Denies: rash Neuro: Denies: headache(s) Psych: Denies: depression Gera/Lymph: Denies: easy bruising All/Imm: Denies: urticaria PFSH ED PFSH: Medical History Anxiety CAD (coronary artery disease) Carotid stenosis Chest pain CKD (chronic kidney disease) COPD (chronic obstructive pulmonary disease) CVA (cerebral vascular accident) Epigastric abdominal pain GERD (gastroesophageal reflux disease) HTN (hypertension) Hyperlipidemia Hypoxia Iliac artery occlusion Obstructive apnea Palpitation PVD (peripheral vascular disease) Shortness of breath Umbilical hernia Family History Other CAD (coronary artery disease) Cancer Social History Smoking and tobacco status: former smoker Quit status (tobacco): has quit using tobacco Year quit tobacco: 2009 Alcohol intake: never Physical Exam Const: COMMON NORMALS: no acute distress, patient oriented x3 and healthy appearing HENMT: COMMON NORMALS: normocephalic and atraumatic HEAD & SCALP: normocephalic and atraumatic Eye: COMMON NORMALS: Equal, round and reactive pupils present and EOMs intact bilaterally PUPIL: Yes Equal, round and reactive pupils present Neck/C-Spine: COMMON NORMALS: full ROM and supple Chest: COMMONS NORMALS: normal inspection of the chest and normal palpation of entire chest wall Resp: COMMON NORMALS: normal respiratory effort, No retractions, No use of accessory muscles and clear to auscultation bilaterally AUSCULTATION: clear to auscultation bilaterally Cardio: COMMON NORMALS: regular rate, regular rhythm and No murmurs present (Cardio) RATE: regular rate RHYTHM: regular rhythm GI: COMMON NORMALS: Normal to inspection, nondistended, normoactive bowel sounds present, Soft to palpation, non-tender and no masses PALPATION: Yes Soft to palpation Extremity: COMMON NORMALS: normal to inspection and full ROM Neuro: COMMON NORMALS: patient oriented x3, moves all extremities and no focal motor deficits Psych: COMMON NORMALS: mental status grossly normal, Normal thought process present and cooperative THOUGHT PROCESS: Normal thought process present Skin: COMMON NORMALS: no rashes or lesions noted and no wounds GENERAL SKIN EXAM: no rashes or lesions noted Course Vital Signs: Vital signs: Vital Signs Temperature 98.6 F 11/05/19 13:35 Pulse Rate 92 11/05/19 14:41 Respiratory Rate 18 11/05/19 14:41 Blood Pressure 134/66 11/05/19 14:41 Pulse Oximetry 96 11/05/19 14:41 MDM - Chest Pain MDM Narrative: Medical decision making narrative: Patient presents here with chest pain that is atypical in nature. Patient's lab work here is normal including normal troponin. Patient's EKG and x-ray are normal. Patient is stable for discharge and is to follow-up with primary care doctor in 3 to 5 days and return if worsening Lab Data: Labs: Lab Results 11/05/19 11/05/19 11/05/19 Range/Units 13:45 13:45 13:45 WBC 10.5 H (4.0-10.0) 10^3/ uL RBC 5.56 H (4.1-5.3) 10^6/u L Hgb 16.0 (11.7-16.6) g/dL Hct 49.7 (42.0-52.0) % MCV 89.4 (80-94) fL MCH 28.8 (28.0-34.0) pg MCHC 32.2 (30.0-36.0) g/dL RDW 14.3 (12.1-15.1) % Plt Count 300 (130-400) 10^3/c mm MPV 10.7 H (7.4-10.4) fL Neut % (Auto) 70.5 % Lymph % (Auto) 16.9 % [place] % (Auto) 8.4 % Eos % (Auto) 2.9 % Baso % (Auto) 0.7 % Neut # (Auto) 7.4 (1.8-7.7) 10^3/u L Lymph # (Auto) 1.8 (0.8-4.8) 10^3/u L [place] # (Auto) 0.9 (0.2-0.9) 10^3/u L Eos # (Auto) 0.3 (0.0-0.8) 10^3/u L Baso # (Auto) 0.1 (0.0-0.1) 10^3/u L Nucleated RBC % (a uto) 0 % Nucleated RBCs # 0.0 /100WBC Sodium 139 (136-145) mmol/L Potassium 4.1 (3.5-5.1) mmol/L Chloride 101 (98-107) mmol/L Carbon Dioxide 25 (22-29) mmol/L Anion Gap 17.1 (5-19) BUN 9 (6-20) mg/dL Creatinine 0.9 (0.7-1.2) mg/dL GFR Calculation 86.7 L (90-130) mL/min Glucose 99 (65-115) mg/dL Calculated Osmolal ity 284 L (285-295) mOsm/k g Calcium 9.4 (8.5-10.5) mg/dL Total Bilirubin 0.4 (0.15-1.2) mg/dL AST 17 (0-40) U/L ALT 19 (0-41) U/L Alkaline Phosphata se 120 (40-130) IU/L Troponin T Baselin e 10 (0-15) ng/mL Total Protein 7.3 (6.6-8.7) g/dL Albumin 4.4 (3.5-5.2) g/dL Globulin 2.9 (1.3-4.6) g/dL Imaging Data^: CXR: Attestation: I personally reviewed and interpreted this imaging study as follows: My impression: no acute abnormality EKG Data^: EKG 1: Attestation: I personally reviewed and interpreted this EKG as follows: EKG interpretation date: 11/05/19 EKG interpretation time: 13:33 Interpretation: nsr hr77 with [address] or t wave abnormalities qrs 90 qtc 372 Discharge Plan Discharge Patient Disposition: Home, Self-Care Clinical Impression: Chest pain Qualifiers: Chest pain type: unspecified Qualified Code(s): R07.9 - Chest pain, unspecified Condition: Stable Prescriptions: No Action aspirin [Adult Low Dose Aspirin] 81 mg tablet,delayed release (DR/EC) 81 mg PO DAILY RF: 0 Symbicort 160-4.5 mcg/actuation HFA aerosol inhaler 2 puff INHALATION BID RF: 0 clonidine HCl 0.1 mg tablet 0.1 mg PO DAILY PRN (Reason: hypertensive emergency) RF: 0 albuterol sulfate 2.5 mg /3 mL (0.083 %) solution for nebulization 2.5 mg INHALATION Q4H PRN (Reason: shortness of breath or wheezing) Qty: 225 RF: 1 amlodipine 10 mg tablet 10 mg PO DAILY RF: 0 Discharge Orders: Discharge Order (Routine); Ordered 11/05/19 Ordered By: Ruth Palm Referrals: Huan Limon [Primary Care Provider] - 4-7 days Discharge Diet: Advance as tolerated Discharge Activity: Resume usual activity Patient Instructions: Chest Pain (ED) Discharge Date/Time: 11/05/19 14:41 Coding Level of Care Code ED Clinical Support Manager for Chg Fwd Exam Comprehensive
[2019-11-05 13:53] LABS: Basophils # 0.1 10^3/uL (0.0-0.1); Basophils % 0.7 %; Eosinophils # 0.3 10^3/uL (0.0-0.8); Eosinophils % 2.9 %; Hematocrit 49.7 % (42.0-52.0); Lymphocytes # 1.8 10^3/uL (0.8-4.8); Lymphocytes % 16.9 %; Mean Corpuscular HGB Conc 32.2 g/dL (30.0-36.0); Mean Corpuscular Hemoglobin 28.8 pg (28.0-34.0); Mean Corpuscular Volume 89.4 fL (80-94); Mean Platelet Volume 10.7 fL (7.4-10.4); Monocytes # 0.9 10^3/uL (0.2-0.9); Monocytes % 8.4 %; Neutrophils # 7.4 10^3/uL (1.8-7.7); Neutrophils % 70.5 %; Nucleated Red Blood Cells % 0 %; Platelet Count 300 10^3/cmm (130-400); Red Blood Count 5.56 10^6/uL (4.1-5.3); Red Cell Distribution Width 14.3 % (12.1-15.1); White Blood Count 10.5 10^3/uL (4.0-10.0)
[2019-11-05 14:09] VITALS: PULSE 86; RESP 20; O2SAT 98
[2019-11-05 14:11] LABS: Alanine Aminotransferase 19 U/L (0-41); Albumin Level 4.4 g/dL (3.5-5.2); Alkaline Phosphatase 120 IU/L (40-130); Anion Gap 17.1 (5-19); Aspartate Amino Transferase 17 U/L (0-40); Blood Urea Nitrogen 9 mg/dL (6-20); Calcium 9.4 mg/dL (8.5-10.5); Carbon Dioxide 25 mmol/L (22-29); Chloride 101 mmol/L (98-107); Globulin 2.9 g/dL (1.3-4.6); Glomerular Filtration Rate 86.7 mL/min (90-130); Glucose 99 mg/dL (65-115); Osmolality Calculated 284 mOsm/kg (285-295); Potassium 4.1 mmol/L (3.5-5.1); Sodium 139 mmol/L (136-145); Total Bilirubin 0.4 mg/dL (0.15-1.2); Total Protein 7.3 g/dL (6.6-8.7)
[2019-11-05 14:12] LABS: Troponin(5th) Baseline 10 ng/mL (0-15)
[2019-11-05 14:18] VITALS: PULSE 79; RESP 20; O2SAT 96
[2019-11-05 14:41] VITALS: BP 134/66; PULSE 92; RESP 18; O2SAT 96
== END 2019-11-05 14:41 | disposition home or self-care (01) ==
PROVIDERS: Emergency Provider Emergency Medicine
DX: R07.9 Chest pain, unspecified (principal); Z79.82 Long term (current) use of aspirin; I25.10 Atherosclerotic heart disease of native coronary artery without angina pectoris; J44.9 Chronic obstructive pulmonary disease, unspecified; Z86.73 Personal history of transient ischemic attack (TIA), and cerebral infarction without residual deficits; I10 Essential (primary) hypertension; E78.5 Hyperlipidemia, unspecified; Z87.891 Personal history of nicotine dependence
CPT/HCPCS: 12345; 36415; 71045; 80053; 84484; 85025; 93005; 94640; 99282; 99284; J7611

== ENCOUNTER 2019-11-06 20:05 | Emergency (ER) | payer MEDICARE, SELFPAY ==
--- NOTE | 2019-11-06 20:12 | XR_ITS ---
WS: [id number] PORTABLE CHEST HISTORY: Chest pain COMPARISON: 11/05/2019 Hyperexpanded lungs with emphysema. No pneumonia. Normal vasculature. No pleural effusion or pneumoth orax. Cardiac size: Normal. Mediastinum/Aorta: Normal mediastinum. No osseous abnormality seen. XR/XR chest 1V portable [id number] IMPRESSION: Chronic emphysema with no pneumonia.
--- NOTE | 2019-11-06 20:13 | ECG_ITS ---
Measurements Intervals [place] Rate: 73 P: 50 RI: 157 QRS: 80 QRSD: 90 T: 69 QT: 370 QTc: 410 SINUS RHYTHM Unusual R wave progression, leads V1 and V2 are likely reversed. Compared to ECG 11/05/2019 13:33:55 Electronically Signed On 11-07-2019 11:47:02 CDT by Chris Perez M.D. [id number]
[2019-11-06 20:42] VITALS: BP 131/83; PULSE 93; RESP 22; TEMP 36.6; O2SAT 97; BMI 23.1
[2019-11-06 21:41] LABS: Basophils # 0.1 10^3/uL (0.0-0.1); Basophils % 0.6 %; Eosinophils # 0.3 10^3/uL (0.0-0.8); Eosinophils % 2.5 %; Hematocrit 50.7 % (42.0-52.0); Hemoglobin 16.4 g/dL (11.7-16.6); Lymphocytes # 2.1 10^3/uL (0.8-4.8); Lymphocytes % 18.5 %; Mean Corpuscular HGB Conc 32.3 g/dL (30.0-36.0); Mean Corpuscular Hemoglobin 28.8 pg (28.0-34.0); Mean Corpuscular Volume 88.9 fL (80-94); Monocytes % 8.8 %; Neutrophils # 7.9 10^3/uL (1.8-7.7); Neutrophils % 69.1 %; Nucleated Red Blood Cells % 0 %; Platelet Count 330 10^3/cmm (130-400); Red Cell Distribution Width 14.4 % (12.1-15.1); White Blood Count 11.5 10^3/uL (4.0-10.0)
[2019-11-06] MEDS: aspirin 325 mg Tablet PO (22:04)
--- NOTE | 2019-11-06 22:06 | W.ED.CHESTPA ---
HPI - Chest Pain General: Chief Complaint: Chest Pain Stated Complaint: cp Time Seen by Provider: 11/06/19 21:38 History of Present Illness: HPI narrative: Hai is a nice 59-year-old male, very well-known to me from previous visits. Comes in complaining of right-sided chest pain described as an ache. States pain lasts just a few seconds and then is gone. He has no other associated symptoms with this. He denies any cough, fever, radiation of his pain, nausea, vomiting, diaphoresis, or worsening of his pain with exertion. He describes the pain as mild and intermittent. Patient states he was seen here yesterday for a different type of pain which was diagnosed as esophageal spasm. He denies having any of that pain today. He is unaware of anything that makes his symptoms better or worse. Associated symptoms: Deny abdominal pain, diaphoresis, dyspnea, fever(s), nausea, palpitations, syncope or vomiting Review of Systems Const: Denies: fever(s), chills, body aches, fatigue, malaise, night sweats or diaphoresis Eyes: Denies: change in vision, blurry vision or blind spots ENMT: Denies: throat pain, odynophagia, hoarseness, ear or mastoid pain, ear discharge, change in hearing or nasal discharge Card: Reports: chest pain; Denies: palpitations, irregular heart rhythm, lightheadedness, syncope, pre-syncope, dyspnea on exertion or orthopnea Resp: Denies: dyspnea, productive cough, non-productive cough, wheezing, hemoptysis or chest congestion GI: Denies: abdominal pain, nausea, vomiting, hematemesis, coffee ground emesis, heartburn, diarrhea, constipation, GI cramping, hematochezia or melena : Denies: flank pain, dysuria, urinary frequency, urinary urgency, oliguria, urinary incontinence or hematuria Musc: Denies: neck pain, back pain, extremity pain, extremity swelling, joint pain, joint swelling, joint redness, joint warmth or joint stiffness Skin/Breast: Denies: rash, pruritus, erythema, skin tenderness or jaundice Neuro: Denies: headache(s), numbness in extremities, weakness in extremities, sensory changes, lack of coordination, difficulty walking, dizziness, vertigo, confusion or Slurred speech present Endo: Denies: polyuria, polydipsia, tired all the time, cold intolerance, excessive sweating, flushing, hot flashes or heat intolerance Gera/Lymph: Denies: easy bruising, easy bleeding, petechiae, purpura or enlarged lymph nodes All/Imm: Denies: urticaria, throat swelling, tongue swelling, facial swelling or acute wheezing PFSH ED PFSH: Medical History Anxiety CAD (coronary artery disease) Carotid stenosis Chest pain CKD (chronic kidney disease) COPD (chronic obstructive pulmonary disease) CVA (cerebral vascular accident) Epigastric abdominal pain GERD (gastroesophageal reflux disease) HTN (hypertension) Hyperlipidemia Hypoxia Iliac artery occlusion Obstructive apnea Palpitation PVD (peripheral vascular disease) Shortness of breath Umbilical hernia Family History Other CAD (coronary artery disease) Cancer Social History Smoking and tobacco status: former smoker Quit status (tobacco): has quit using tobacco Year quit tobacco: 2009 Alcohol intake: never Physical Exam Const: COMMON NORMALS: no acute distress, patient oriented x3, no limitations, healthy appearing and well nourished EXAM LIMITATIONS: no altered mental status GENERAL APPEARANCE: cooperative, well kempt and well developed HENMT: COMMON NORMALS: normocephalic, atraumatic, hearing grossly normal bilaterally, external ears normal, EAC's normal, Normal external nose present and moist oral mucous membranes HEAD & SCALP: normal to inspection, normocephalic and atraumatic FACE & SINUS: normal facial exam and face symmetric NOSE: Normal external nose present and Normal nares present EXTERNAL EAR: Yes external ears normal EXTERNAL AUDITORY CANAL: EAC's normal MOUTH: Normal oral and palatal mucosa present, lip normal and tongue normal Eye: COMMON NORMALS: Equal, round and reactive pupils present, EOMs intact bilaterally, conjunctivae normal and no scleral icterus GENERAL EYE: appearance normal, both eyes and all related structures ALIGNMENT: Yes alignment normal PERIORBITAL: periorbital findings normal EYELID: eyelids normal CONJUNCTIVA: Yes conjunctivae normal SCLERA: sclerae normal PUPIL: Yes Equal, round and reactive pupils present Neck/C-Spine: COMMON NORMALS: full ROM, no lymphadenopathy, supple, no meningeal signs and no JVD GENERAL: Yes normal visual inspection and Yes trachea midline CERVICAL SPINE: Yes cervical ROM normal Chest: COMMONS NORMALS: normal inspection of the chest and normal palpation of entire chest wall Resp: COMMON NORMALS: normal respiratory effort, No retractions, No use of accessory muscles and clear to auscultation bilaterally EFFORT & INSPECTION: Yes able to speak in complete sentences AUSCULTATION: clear to auscultation bilaterally, no crackles, no rales, no rhonchi and no wheezes Cardio: COMMON NORMALS: no JVD, regular rate, regular rhythm, S1 normal heart sound present, S2 normal heart sound present, No gallops present (Cardio), No clicks present (Cardio), No murmurs present (Cardio) and No rub (Cardio) RATE: regular rate RHYTHM: regular rhythm HEART SOUNDS: S1 normal heart sound present, S2 normal heart sound present, no click, no gallops, no murmurs and no rubs GI: COMMON NORMALS: Soft to palpation, non-tender, No hepatosplenomegaly present and no masses PALPATION: Yes Soft to palpation, No Tenderness to palpation present (GI), No Guarding due to palpation present (GI), No Rigid due to palpation, Yes No hepatosplenomegaly present, No Hernia present, No Palpable mass present and No Pulsatile mass present : COMMON NORMALS: Yes no CVA tenderness BLADDER/KIDNEY EXAM: Yes no CVA tenderness Back/Pelvis: COMMON NORMALS: no CVA tenderness, thoracic and lumbar spine normal to inspection, no thoracic nor lumbar tenderness and thoraco-lumbar ROM normal Extremity: COMMON NORMALS: normal to inspection, full ROM, capillary refill normal, no joint enlargement, no clubbing, cyanosis or edema and no calf tenderness Neuro: COMMON NORMALS: patient oriented x3, CN's II-XII intact bilaterally, moves all extremities, no focal motor deficits and no sensory deficits noted MENINGEAL SIGNS: Yes no meningeal signs SPEECH: speech normal Psych: COMMON NORMALS: mental status grossly normal, Normal thought process present, cooperative, normal affect, speech normal and activity/motor behavior normal APPEARANCE: Yes well kempt SPEECH: Yes normal speech THOUGHT PROCESS: Normal thought process present Skin: COMMON NORMALS: no rashes or lesions noted, turgor normal, no jaundice, no petechiae and no mottling GENERAL SKIN EXAM: no rashes or lesions noted and turgor normal Course Vital Signs: Vital signs: Vital Signs Temperature 97.8 F 11/06/19 20:42 Pulse Rate 69 11/07/19 00:29 Respiratory Rate 16 11/07/19 00:29 Blood Pressure 147/85 11/07/19 00:29 Pulse Oximetry 96 11/07/19 00:29 MDM - Chest Pain MDM Narrative: Medical decision making narrative: Hai is feeling better and is ready to go home. He agrees to wait at least until his next troponin is resulted. I have reviewed a heart cath that he had performed in May of last year which shows only a 20% LAD lesion. Because of the location of this I reviewed that finding with Dr. Perez who states that it is no different than a 20% lesion anywhere else. Patient's d-dimer is negative and he continues to have the pain intermittently but his chest x-ray is clear. I do not feel this is likely an acute coronary syndrome, a pulmonary embolism as he is low risk per Wells criteria and his d-dimer is negative. I believe he is safe for discharge and he would like to go home. I will give him 1 dose of Toradol here before he goes and he agrees to return should his symptoms change or worsen. Lab Data: Attestation: I reviewed the patient's lab results. Labs: Lab Results 11/06/19 11/06/19 11/06/19 Range/Units 21:17 21:17 21:17 WBC 11.5 H (4.0-10.0) 10^3/ uL RBC 5.70 H (4.1-5.3) 10^6/u L Hgb 16.4 (11.7-16.6) g/dL Hct 50.7 (42.0-52.0) % MCV 88.9 (80-94) fL MCH 28.8 (28.0-34.0) pg MCHC 32.3 (30.0-36.0) g/dL RDW 14.4 (12.1-15.1) % Plt Count 330 (130-400) 10^3/c mm MPV 11.0 H (7.4-10.4) fL Neut % (Auto) 69.1 % Lymph % (Auto) 18.5 % [place] % (Auto) 8.8 % Eos % (Auto) 2.5 % Baso % (Auto) 0.6 % Neut # (Auto) 7.9 H (1.8-7.7) 10^3/u L Lymph # (Auto) 2.1 (0.8-4.8) 10^3/u L [place] # (Auto) 1.0 H (0.2-0.9) 10^3/u L Eos # (Auto) 0.3 (0.0-0.8) 10^3/u L Baso # (Auto) 0.1 (0.0-0.1) 10^3/u L Nucleated RBC % (a uto) 0 % Nucleated RBCs # 0.0 /100WBC D-Dimer (0-0.59) ug/mIFE U Sodium 137 (136-145) mmol/L Potassium 3.8 (3.5-5.1) mmol/L Chloride 99 (98-107) mmol/L Carbon Dioxide 24 (22-29) mmol/L Anion Gap 17.8 (5-19) BUN 11 (6-20) mg/dL Creatinine 1.0 (0.7-1.2) mg/dL GFR Calculation 76.7 L (90-130) mL/min Glucose 100 (65-115) mg/dL Calculated Osmolal ity 280 L (285-295) mOsm/k g Calcium 9.8 (8.5-10.5) mg/dL Magnesium 1.9 (1.7-2.3) mg/dL Total Bilirubin 0.4 (0.15-1.2) mg/dL AST 16 (0-40) U/L ALT 17 (0-41) U/L Alkaline Phosphata se 124 (40-130) IU/L Troponin T Baselin e 11 (0-15) ng/mL Troponin T 120 Min smiley (0-15) ng/mL Delta Troponin T (0-10) ABS# Total Protein 7.6 (6.6-8.7) g/dL Albumin 4.6 (3.5-5.2) g/dL Globulin 3.0 (1.3-4.6) g/dL Lipase 29 (13-60) U/L 11/06/19 11/06/19 Range/Units 21:17 23:27 WBC (4.0-10.0) 10^3/ uL RBC (4.1-5.3) 10^6/u L Hgb (11.7-16.6) g/dL Hct (42.0-52.0) % MCV (80-94) fL MCH (28.0-34.0) pg MCHC (30.0-36.0) g/dL RDW (12.1-15.1) % Plt Count (130-400) 10^3/c mm MPV (7.4-10.4) fL Neut % (Auto) % Lymph % (Auto) % [place] % (Auto) % Eos % (Auto) % Baso % (Auto) % Neut # (Auto) (1.8-7.7) 10^3/u L Lymph # (Auto) (0.8-4.8) 10^3/u L [place] # (Auto) (0.2-0.9) 10^3/u L Eos # (Auto) (0.0-0.8) 10^3/u L Baso # (Auto) (0.0-0.1) 10^3/u L Nucleated RBC % (a uto) % Nucleated RBCs # /100WBC D-Dimer <= 0.27 (0-0.59) ug/mIFE U Sodium (136-145) mmol/L Potassium (3.5-5.1) mmol/L Chloride (98-107) mmol/L Carbon Dioxide (22-29) mmol/L Anion Gap (5-19) BUN (6-20) mg/dL Creatinine (0.7-1.2) mg/dL GFR Calculation (90-130) mL/min Glucose (65-115) mg/dL Calculated Osmolal ity (285-295) mOsm/k g Calcium (8.5-10.5) mg/dL Magnesium (1.7-2.3) mg/dL Total Bilirubin (0.15-1.2) mg/dL AST (0-40) U/L ALT (0-41) U/L Alkaline Phosphata se (40-130) IU/L Troponin T Baselin e (0-15) ng/mL Troponin T 120 Min smiley 9.35 (0-15) ng/mL Delta Troponin T -1.65 L (0-10) ABS# Total Protein (6.6-8.7) g/dL Albumin (3.5-5.2) g/dL Globulin (1.3-4.6) g/dL Lipase (13-60) U/L Imaging Data^: CXR: My impression: No acute cardiopulmonary findings. Findings consistent with COPD. EKG Data^: EKG 1: Attestation: I personally reviewed and interpreted this EKG as follows: EKG interpretation date: 11/06/19 EKG interpretation time: 20:54 Interpretation: Normal sinus rhythm at 83 beats a minute, no acute ST or T wave changes. Similar to previous. EKG 2: Attestation: I personally reviewed and interpreted this EKG as follows: EKG interpretation date: 11/06/19 EKG interpretation time: 22:17 Interpretation: Normal sinus rhythm at 73 beats a minute, nonspecific ST-T wave changes. Similar to previous. Discharge Plan Discharge Patient Disposition: Home, Self-Care Clinical Impression: Costalchondritis Chest pain Qualifiers: Chest pain type: chest pain on breathing Qualified Code(s): R07.1 - Chest pain on breathing Condition: Stable Prescriptions: No Action aspirin [Adult Low Dose Aspirin] 81 mg tablet,delayed release (DR/EC) 81 mg PO DAILY RF: 0 Symbicort 160-4.5 mcg/actuation HFA aerosol inhaler 2 puff INHALATION BID RF: 0 clonidine HCl 0.1 mg tablet 0.1 mg PO DAILY PRN (Reason: hypertensive emergency) RF: 0 albuterol sulfate 2.5 mg /3 mL (0.083 %) solution for nebulization 2.5 mg INHALATION Q4H PRN (Reason: shortness of breath or wheezing) Qty: 225 RF: 1 amlodipine 10 mg tablet 10 mg PO DAILY RF: 0 Discharge Orders: Discharge Order (Routine); Ordered 11/06/19 Ordered By: Tawnya Talley Referrals: Huan Limon [Primary Care Provider] - 1-3 days Discharge Diet: Advance as tolerated Discharge Activity: Increase activity as tolerated Patient Instructions: Chest Pain (ED), Costochondritis (ED) Activity Restrictions/Additional Instructions: Please return to the ER immediately for any of the signs or symptoms listed on your discharge instruction sheets, worsening/changing of your symptoms, you are not getting better as quickly as expected, or for ANY other cause or concerns. You are welcome to return at any time for recheck of your heart or for any further cause for concern. Discharge Date/Time: 11/07/19 00:34 Coding Level of Care Code ED Video Production Coordinator for Kedar Fwryan Exam Comprehensive
[2019-11-06] MEDS: sodium chloride 0.9% 1,000 ML 100 ML IV (22:11)
--- NOTE | 2019-11-06 22:13 | ECG_ITS ---
Measurements Intervals [place] Rate: 83 P: 51 ND: 143 QRS: 76 QRSD: 83 T: 64 QT: 350 QTc: [address] ELEVATION, inferior leads consider injury versus early repolarization INTERPRETATION BASED ON A DEFAULT AGE OF 40 YEARS Compared to ECG 11/05/2019 13:33:55 ST (T wave) deviation now present Electronically Signed On 11-07-2019 11:48:58 CDT by Chris Perez M.D. [id number]
[2019-11-06 22:15] LABS: Alanine Aminotransferase 17 U/L (0-41); Albumin Level 4.6 g/dL (3.5-5.2); Alkaline Phosphatase 124 IU/L (40-130); Anion Gap 17.8 (5-19); Aspartate Amino Transferase 16 U/L (0-40); Blood Urea Nitrogen 11 mg/dL (6-20); Calcium 9.8 mg/dL (8.5-10.5); Carbon Dioxide 24 mmol/L (22-29); Chloride 99 mmol/L (98-107); Glomerular Filtration Rate 76.7 mL/min (90-130); Glucose 100 mg/dL (65-115); Lipase 29 U/L (13-60); Magnesium 1.9 mg/dL (1.7-2.3); Osmolality Calculated 280 mOsm/kg (285-295); Potassium 3.8 mmol/L (3.5-5.1); Sodium 137 mmol/L (136-145); Total Bilirubin 0.4 mg/dL (0.15-1.2); Total Protein 7.6 g/dL (6.6-8.7)
--- NOTE | 2019-11-06 22:15 | PC.NURSE ---
rn in room at this time
[2019-11-06 22:17] LABS: Troponin(5th) Baseline 11 ng/mL (0-15)
[2019-11-06 22:40] LABS: D Dimer <= 0.27 ug/mIFEU (0-0.59)
[2019-11-06 23:41] VITALS: BP 138/82; PULSE 79; RESP 20; O2SAT 97
[2019-11-06 23:45] LABS: Troponin 5 2HR 9.35 ng/mL (0-15)
[2019-11-06 23:46] LABS: Troponin 5 2HR Delta -1.65 ABS# (0-10)
[2019-11-07] MEDS: ketorolac 30 mg/mL INJ 10 MG IVP (00:25)
[2019-11-07 00:29] VITALS: BP 147/85; PULSE 69; RESP 16; O2SAT 96
== END 2019-11-07 00:34 | disposition home or self-care (01) ==
PROVIDERS: Emergency Provider Emergency Medicine
DX: M94.0 Chondrocostal junction syndrome [Tietze] (principal); R07.1 Chest pain on breathing; Z79.82 Long term (current) use of aspirin; I25.10 Atherosclerotic heart disease of native coronary artery without angina pectoris; J44.9 Chronic obstructive pulmonary disease, unspecified; Z86.73 Personal history of transient ischemic attack (TIA), and cerebral infarction without residual deficits; I10 Essential (primary) hypertension; E78.5 Hyperlipidemia, unspecified; Z87.891 Personal history of nicotine dependence
CPT/HCPCS: 12345; 36415; 71045; 80053; 83690; 83735; 84484; 85025; 85378; 93005; 96361; 96374; 99283; 99284; J1885; J7030

== ENCOUNTER 2019-12-17 16:21 | Emergency (ER) | payer MEDICARE, SELFPAY ==
[2019-12-17 16:34] VITALS: BMI 23.7
[2019-12-17 16:37] VITALS: BP 144/85; PULSE 94; RESP 18; TEMP 36.5; O2SAT 97
--- NOTE | 2019-12-17 17:12 | W.ED.BACK ---
HPI - Back Pain/Injury General: Chief Complaint: Back Pain/Injury Stated Complaint: BACK PAIN Time Seen by Provider: 12/17/19 17:12 History of Present Illness: HPI Narrative: Patient is a 16-year-old male who comes to the ED with thoracic back pain. Symptoms started 2 days ago. He denies any acute injury, trauma or accident to cause pain. He states that he has been active and has been lifting some things and possibly strained his back. Associated symptoms: Deny abdominal pain, chills, dysuria, fatigue, fever(s), hematuria, nausea or vomiting Review of Systems Const: Denies: fever(s), chills or fatigue Eyes: Denies: change in vision or eye discomfort ENMT: Denies: throat pain, odynophagia, nasal discharge or nasal congestion Card: Denies: chest pain, palpitations, edema, swelling of feet/ankles, dyspnea on exertion or orthopnea Resp: Denies: dyspnea, productive cough or non-productive cough GI: Denies: abdominal pain, nausea, vomiting, diarrhea, constipation or hematochezia : Denies: flank pain, difficulty urinating, dysuria or hematuria Musc: Reports: back pain; Denies: neck pain or extremity swelling Skin/Breast: Denies: rash or new lesions Neuro: Denies: headache(s), numbness in extremities or weakness in extremities PFS ED PFSH: Medical History Anxiety CAD (coronary artery disease) Carotid stenosis Chest pain CKD (chronic kidney disease) COPD (chronic obstructive pulmonary disease) CVA (cerebral vascular accident) Epigastric abdominal pain GERD (gastroesophageal reflux disease) HTN (hypertension) Hyperlipidemia Hypoxia Iliac artery occlusion Obstructive apnea Palpitation PVD (peripheral vascular disease) Shortness of breath Umbilical hernia Family History Other CAD (coronary artery disease) Cancer Social History Smoking and tobacco status: former smoker Quit status (tobacco): has quit using tobacco Year quit tobacco: 2009 Alcohol intake: never Physical Exam Const: COMMON NORMALS: no acute distress and patient oriented x3 GENERAL APPEARANCE: cooperative and comfortable HENMT: COMMON NORMALS: normocephalic HEAD & SCALP: normocephalic MOUTH: Normal oral and palatal mucosa present THROAT: posterior oropharynx normal and uvula midline Neck/C-Spine: COMMON NORMALS: supple GENERAL: Yes normal visual inspection Resp: COMMON NORMALS: normal respiratory effort, No retractions, No use of accessory muscles and clear to auscultation bilaterally AUSCULTATION: clear to auscultation bilaterally Cardio: COMMON NORMALS: regular rate, regular rhythm, S1 normal heart sound present, S2 normal heart sound present, No gallops present (Cardio), No clicks present (Cardio), No murmurs present (Cardio) and Peripheral pulses 2+ throughout RATE: regular rate RHYTHM: regular rhythm HEART SOUNDS: S1 normal heart sound present and S2 normal heart sound present PERIPHERAL PULSES: Peripheral pulses 2+ throughout GI: COMMON NORMALS: Normal to inspection, nondistended, normoactive bowel sounds present, Soft to palpation, non-tender and no masses PALPATION: Yes Soft to palpation : COMMON NORMALS: Yes no CVA tenderness BLADDER/KIDNEY EXAM: Yes no CVA tenderness Back/Pelvis: COMMON NORMALS: no CVA tenderness THORACIC SPINE/UPPER BACK: Yes paraspinal muscle tenderness Extremity: COMMON NORMALS: normal to inspection and no pedal edema Neuro: COMMON NORMALS: patient oriented x3 and moves all extremities Skin: COMMON NORMALS: no rashes or lesions noted GENERAL SKIN EXAM: no rashes or lesions noted and dry skin Course Vital Signs: Vital signs: Vital Signs Temperature 97.7 F 12/17/19 16:37 Pulse Rate 75 12/17/19 18:23 Respiratory Rate 16 12/17/19 18:23 Blood Pressure 144/85 12/17/19 16:37 Pulse Oximetry 97 12/17/19 16:37 MDM - Back Pain/Injury MDM Narrative: Medical decision making narrative: Patient is a 59-year-old male comes to the ED with thoracic back pain. Physical exam showed bilateral para spinal muscle tenderness on back. Chest x-ray showed no acute findings and EKG showed normal sinus rhythm with no ST segment elevation or depression seen. Patient was given injection of Toradol and his back pain improved. Patient was diagnosed with thoracic back pain and discharged and told to follow-up with PCP in 7 to 10 days for reevaluation. He was told to take ibuprofen for pain and apply ice and/or heat on back to help with symptoms. Return to the ED if symptoms worsen. Patient understood and agreed with plan. Imaging Data^: CXR: Attestation: I personally reviewed and interpreted this imaging study as follows: My impression: Chest x-ray showed no acute findings. Pending final radiology report. EKG Data^: EKG 1: Attestation: I personally reviewed and interpreted this EKG as follows: EKG interpretation date: 12/17/19 Interpretation: Normal sinus rhythm, 73 bpm, no ST segment elevation or depression seen. Discharge Plan Discharge Patient Disposition: Home, Self-Care Clinical Impression: Back pain, thoracic Qualifiers: Chronicity: acute Back pain laterality: bilateral Qualified Code(s): M54.6 - Pain in thoracic spine Condition: Stable Prescriptions: No Action aspirin [Adult Low Dose Aspirin] 81 mg tablet,delayed release (DR/EC) 81 mg PO DAILY RF: 0 clonidine HCl 0.1 mg tablet 0.1 mg PO DAILY PRN (Reason: hypertensive emergency) RF: 0 Symbicort 160-4.5 mcg/actuation HFA aerosol inhaler 2 puff INHALATION BID Qty: 10.2 RF: 3 amlodipine 10 mg tablet 10 mg PO DAILY Qty: 90 RF: 1 albuterol sulfate 2.5 mg /3 mL (0.083 %) solution for nebulization 2.5 mg INHALATION Q4H PRN (Reason: shortness of breath or wheezing) Qty: 225 RF: 1 Discharge Orders: Discharge Order (Routine); Ordered 12/17/19 Ordered By: João Lane Referrals: Huan Limon [Primary Care Provider] - Discharge Diet: Regular Discharge Activity: Increase activity as tolerated Patient Instructions: Back Pain (ED) Activity Restrictions/Additional Instructions: Follow-up with medical provider as directed in 7-10 days. Take ibuprofen up to 800 mg dose 3 times a day. Rest and apply ice and/or heat on back to help with pain. Return to the ER or your medical provider if condition worsens. Please read and understand discharge instructions. If any questions, please ask. 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
--- NOTE | 2019-12-17 17:21 | ECG_ITS ---
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 Measurements Intervals [place] Rate: 73 P: 72 TX: 162 QRS: 87 QRSD: 92 T: 75 QT: 350 QTc: 387 Interpretive Statements SINUS RHYTHM POSSIBLE RIGHT VENTRICULAR CONDUCTION DELAY [RSR (QR) IN V1/V2] SEPTAL MYOCARDIAL INFARCTION , OF INDETERMINATE AGE [40+ ms Q WAVE IN V1/V2] Compared to ECG 11/06/2019 22:17:27 Myocardial infarct finding now present Poor R-wave progression no longer present Electronically Signed On 12-19-2019 17:14:53 CDT by Maira Arana M.D. [id number]
--- NOTE | 2019-12-17 17:21 | XR_ITS ---
WS: [id number] PORTABLE CHEST HISTORY: left lower rib pain COMPARISON: 11/06/2019 Mild pulmonary hyperinflation. No pneumonia. Normal vasculature. No pleural effusion or pneumothorax. Cardiac size: Normal. Mediastinum/Aorta: Normal mediastinum. No osseous abnormality seen. XR/XR chest 1V portable [id number] IMPRESSION: Chronic emphysema. No pneumonia.
[2019-12-17] MEDS: ketorolac 30 mg/mL INJ IM (17:45)
[2019-12-17 18:23] VITALS: PULSE 75; RESP 16
== END 2019-12-17 18:23 | disposition home or self-care (01) ==
PROVIDERS: Emergency Provider Physician Assistant
DX: M54.6 Pain in thoracic spine (principal); Z79.02 Long term (current) use of antithrombotics/antiplatelets; I25.10 Atherosclerotic heart disease of native coronary artery without angina pectoris; J44.9 Chronic obstructive pulmonary disease, unspecified; Z86.73 Personal history of transient ischemic attack (TIA), and cerebral infarction without residual deficits; I10 Essential (primary) hypertension; E78.5 Hyperlipidemia, unspecified; Z87.891 Personal history of nicotine dependence
CPT/HCPCS: 12345; 71045; 93005; 96372; 99281; 99283; J1885

== ENCOUNTER 2019-12-18 03:17 | Emergency (ER) | payer MEDICARE, SELFPAY ==
[2019-12-18] VITALS (7 sets, daily range): BP systolic 116–155; BP diastolic 60–99; PULSE 68–98; RESP 16–18; TEMP 36.4–36.7; O2SAT 96–99; BMI 23.7
--- NOTE | 2019-12-18 03:28 | XR_ITS ---
WS: [id number] PORTABLE CHEST HISTORY: cp COMPARISON: 12/17/2019 Moderate pulmonary hyperexpansion. No pulmonary mass or nodule. Normal vascularity. No pleural effusi on or pneumothorax. Cardiac size: Normal. Mediastinum/Aorta: Normal mediastinum. No osseous abnormality seen. XR/XR chest 1V portable [id number] IMPRESSION: Mild chronic emphysema. No acute cardiopulmonary disease.
--- NOTE | 2019-12-18 03:29 | ECG_ITS ---
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 Measurements Intervals [place] Rate: 93 P: 66 AR: 153 QRS: 92 QRSD: 90 T: 63 QT: 284 QTc: 355 Interpretive Statements SINUS RHYTHM BORDERLINE RIGHT AXIS DEVIATION [QRS AXIS > 90] SEPTAL MYOCARDIAL INFARCTION , OF INDETERMINATE AGE [40+ ms Q WAVE IN V1/V2] Compared to ECG 12/17/2019 17:37:35 No significant changes Electronically Signed On 12-19-2019 17:12:02 CDT by Maira Arana M.D. [id number]
--- NOTE | 2019-12-18 03:32 | W.ED.CHESTPA ---
Documented by User: Tawnya Talley 12/18/19 05:43 HPI - Chest Pain General: Chief Complaint: Chest Pain Stated Complaint: cp Time Seen by Provider: 12/18/19 03:26 Source: patient Mode of arrival: ambulatory Limitations: no limitations History of Present Illness: HPI narrative: Hai is a 59-year-old male well-known to me who comes in complaining of chest pain. He describes the pain as a sharp left-sided chest pain that does not radiate. He denies any shortness of breath, nausea vomiting, diaphoresis, or exertional component that makes his pain better or worse. Patient has had this pain numerous times in the past and has been worked up numerous times but no cause can be found. Patient had a heart cath in May of last year which showed only a 20% left main blockage but otherwise no abnormalities were seen. Associated symptoms: Deny abdominal pain, diaphoresis, dyspnea, fever(s), nausea, palpitations, syncope or vomiting Review of Systems Const: Denies: fever(s), chills, body aches, fatigue, malaise or diaphoresis Eyes: Denies: change in vision, blurry vision, blind spots, photophobia, eye discharge or eye redness ENMT: Denies: throat pain, odynophagia, hoarseness, swelling of lips/tongue, oral sores, ear or mastoid pain, ear discharge, change in hearing or nasal discharge Card: Reports: chest pain; Denies: palpitations, irregular heart rhythm, edema, lightheadedness, syncope, pre-syncope, dyspnea on exertion or orthopnea Resp: Denies: dyspnea, productive cough, non-productive cough, wheezing, hemoptysis or chest congestion GI: Denies: abdominal pain, nausea, vomiting, hematemesis, coffee ground emesis, heartburn, diarrhea, constipation, GI cramping, hematochezia or melena : Denies: flank pain, dysuria, urinary frequency, urinary urgency or hematuria Musc: Denies: neck pain, back pain, extremity pain, extremity swelling, joint pain, joint swelling, joint redness, joint warmth or joint stiffness Skin/Breast: Denies: rash, pruritus, erythema, skin tenderness or jaundice Neuro: Denies: headache(s), numbness in extremities, weakness in extremities, sensory changes, lack of coordination, difficulty walking, dizziness, vertigo, confusion, Slurred speech present or seizure-like activity Gera/Lymph: Denies: easy bruising, easy bleeding, petechiae, purpura or enlarged lymph nodes All/Imm: Denies: urticaria, throat swelling, tongue swelling, facial swelling or acute wheezing PFSH ED PFSH: Medical History Anxiety CAD (coronary artery disease) Carotid stenosis Chest pain CKD (chronic kidney disease) COPD (chronic obstructive pulmonary disease) CVA (cerebral vascular accident) Epigastric abdominal pain GERD (gastroesophageal reflux disease) HTN (hypertension) Hyperlipidemia Hypoxia Iliac artery occlusion Obstructive apnea Palpitation PVD (peripheral vascular disease) Shortness of breath Umbilical hernia Family History Other CAD (coronary artery disease) Cancer Social History Smoking and tobacco status: former smoker Quit status (tobacco): has quit using tobacco Year quit tobacco: 2009 Alcohol intake: never Physical Exam Const: COMMON NORMALS: no acute distress, patient oriented x3, no limitations, healthy appearing and well nourished GENERAL APPEARANCE: cooperative, well kempt and well developed HENMT: COMMON NORMALS: normocephalic, atraumatic, external ears normal, EAC's normal and Normal external nose present HEAD & SCALP: normal to inspection, normocephalic and atraumatic FACE & SINUS: normal facial exam and face symmetric NOSE: Normal external nose present and Normal nares present EXTERNAL EAR: Yes external ears normal EXTERNAL AUDITORY CANAL: EAC's normal MOUTH: Normal oral and palatal mucosa present, lip normal and tongue normal Eye: COMMON NORMALS: Equal, round and reactive pupils present and conjunctivae normal GENERAL EYE: appearance normal, both eyes and all related structures ALIGNMENT: Yes alignment normal PERIORBITAL: periorbital findings normal EYELID: eyelids normal CONJUNCTIVA: Yes conjunctivae normal SCLERA: sclerae normal PUPIL: Yes Equal, round and reactive pupils present Neck/C-Spine: COMMON NORMALS: full ROM, no lymphadenopathy, supple, no meningeal signs and no JVD GENERAL: Yes normal visual inspection and Yes trachea midline Chest: COMMONS NORMALS: normal inspection of the chest CHEST: Yes tenderness costochondral junction (Left side) Resp: COMMON NORMALS: normal respiratory effort, No retractions and No use of accessory muscles EFFORT & INSPECTION: Yes able to speak in complete sentences and Yes symmetric chest movement AUSCULTATION: no crackles, no rales, no rhonchi and no wheezes Cardio: COMMON NORMALS: no JVD, regular rate, regular rhythm, S1 normal heart sound present and S2 normal heart sound present RATE: regular rate RHYTHM: regular rhythm HEART SOUNDS: S1 normal heart sound present, S2 normal heart sound present, no click, no gallops, no murmurs, no rubs and abnormal split S2 GI: COMMON NORMALS: Soft to palpation and No hepatosplenomegaly present PALPATION: Yes Soft to palpation, No Tenderness to palpation present (GI), No Guarding due to palpation present (GI), No Rigid due to palpation, Yes No hepatosplenomegaly present, No Hernia present, No Palpable mass present and No Pulsatile mass present : COMMON NORMALS: Yes no CVA tenderness BLADDER/KIDNEY EXAM: Yes no CVA tenderness Back/Pelvis: COMMON NORMALS: no CVA tenderness, thoracic and lumbar spine normal to inspection, no thoracic nor lumbar tenderness and thoraco-lumbar ROM normal Extremity: COMMON NORMALS: normal to inspection, full ROM, capillary refill normal, no joint enlargement, no clubbing, cyanosis or edema and no calf tenderness Neuro: COMMON NORMALS: patient oriented x3, CN's II-XII intact bilaterally, moves all extremities, no focal motor deficits and no sensory deficits noted MENINGEAL SIGNS: Yes no meningeal signs SPEECH: speech normal Psych: COMMON NORMALS: mental status grossly normal, Normal thought process present, cooperative, normal affect, speech normal and activity/motor behavior normal APPEARANCE: Yes well kempt SPEECH: Yes normal speech THOUGHT PROCESS: Normal thought process present Skin: COMMON NORMALS: no rashes or lesions noted, turgor normal, no jaundice, no petechiae and no mottling GENERAL SKIN EXAM: no rashes or lesions noted and turgor normal Course Vital Signs: Vital signs: Vital Signs Temperature 98.1 F 12/18/19 06:43 Pulse Rate 84 12/18/19 06:43 Respiratory Rate 18 12/18/19 06:43 Blood Pressure 122/76 12/18/19 06:43 Pulse Oximetry 99 12/18/19 06:43 MDM - Chest Pain MDM Narrative: Medical decision making narrative: Patient has no sign of blockage here. First troponin and EKG were normal. The second EKG and troponin are normal we will discharge the patient home. Currently he is chest pain-free. Lab Data: Labs: Lab Results 12/18/19 12/18/19 12/18/19 Range/Units 03:40 03:40 03:40 WBC 10.3 H (4.0-10.0) 10^3/ uL RBC 5.37 H (4.1-5.3) 10^6/u L Hgb 15.4 (11.7-16.6) g/dL Hct 48.4 (42.0-52.0) % MCV 90.1 (80-94) fL MCH 28.7 (28.0-34.0) pg MCHC 31.8 (30.0-36.0) g/dL RDW 14.2 (12.1-15.1) % Plt Count 296 (130-400) 10^3/c mm MPV 10.9 H (7.4-10.4) fL Neut % (Auto) 62.7 % Lymph % (Auto) 20.7 % [place] % (Auto) 11.3 % Eos % (Auto) 4.3 % Baso % (Auto) 0.6 % Neut # (Auto) 6.5 (1.8-7.7) 10^3/u L Lymph # (Auto) 2.1 (0.8-4.8) 10^3/u L [place] # (Auto) 1.2 H (0.2-0.9) 10^3/u L Eos # (Auto) 0.4 (0.0-0.8) 10^3/u L Baso # (Auto) 0.1 (0.0-0.1) 10^3/u L Nucleated RBC % (a uto) 0 % Nucleated RBCs # 0.0 /100WBC D-Dimer (0-0.59) ug/mIFE U Sodium 140 (136-145) mmol/L Potassium 3.8 (3.5-5.1) mmol/L Chloride 102 (98-107) mmol/L Carbon Dioxide 26 (22-29) mmol/L Anion Gap 15.8 (5-19) BUN 12 (6-20) mg/dL Creatinine 1.0 (0.7-1.2) mg/dL GFR Calculation 76.7 L (90-130) mL/min Glucose 118 H (65-115) mg/dL Calculated Osmolal ity 287 (285-295) mOsm/k g Calcium 10.4 (8.5-10.5) mg/dL Magnesium 1.7 (1.7-2.3) mg/dL Total Bilirubin 0.2 (0.15-1.2) mg/dL AST 24 (0-40) U/L ALT 26 (0-41) U/L Alkaline Phosphata se 116 (40-130) IU/L Troponin T Baselin e 11 (0-15) ng/L Troponin T 120 Min [place] (0-15) ng/L Delta Troponin T (0-10) ABS# Total Protein 7.0 (6.6-8.7) g/dL Albumin 4.5 (3.5-5.2) g/dL Globulin 2.5 (1.3-4.6) g/dL Lipase 40 (13-60) U/L 12/18/19 12/18/19 Range/Units 03:40 05:25 WBC (4.0-10.0) 10^3/ uL RBC (4.1-5.3) 10^6/u L Hgb (11.7-16.6) g/dL Hct (42.0-52.0) % MCV (80-94) fL MCH (28.0-34.0) pg MCHC (30.0-36.0) g/dL RDW (12.1-15.1) % Plt Count (130-400) 10^3/c mm MPV (7.4-10.4) fL Neut % (Auto) % Lymph % (Auto) % [place] % (Auto) % Eos % (Auto) % Baso % (Auto) % Neut # (Auto) (1.8-7.7) 10^3/u L Lymph # (Auto) (0.8-4.8) 10^3/u L [place] # (Auto) (0.2-0.9) 10^3/u L Eos # (Auto) (0.0-0.8) 10^3/u L Baso # (Auto) (0.0-0.1) 10^3/u L Nucleated RBC % (a uto) % Nucleated RBCs # /100WBC D-Dimer <= 0.27 (0-0.59) ug/mIFE U Sodium (136-145) mmol/L Potassium (3.5-5.1) mmol/L Chloride (98-107) mmol/L Carbon Dioxide (22-29) mmol/L Anion Gap (5-19) BUN (6-20) mg/dL Creatinine (0.7-1.2) mg/dL GFR Calculation (90-130) mL/min Glucose (65-115) mg/dL Calculated Osmolal ity (285-295) mOsm/k g Calcium (8.5-10.5) mg/dL Magnesium (1.7-2.3) mg/dL Total Bilirubin (0.15-1.2) mg/dL AST (0-40) U/L ALT (0-41) U/L Alkaline Phosphata se (40-130) IU/L Troponin T Baselin e (0-15) ng/L Troponin T 120 Min [place] 9.91 (0-15) ng/L Delta Troponin T -1.09 L (0-10) ABS# Total Protein (6.6-8.7) g/dL Albumin (3.5-5.2) g/dL Globulin (1.3-4.6) g/dL Lipase (13-60) U/L Imaging Data^: CXR: My impression: No acute cardiopulmonary findings. EKG Data^: EKG 1: Attestation: I personally reviewed and interpreted this EKG as follows: EKG interpretation date: 12/18/19 EKG interpretation time: 03:38 Interpretation: Normal sinus rhythm and 93 beats a minute, normal axis, no acute ST-T wave changes. Discharge Plan Discharge Patient Disposition: Home, Self-Care Clinical Impression: Atypical chest pain Condition: Stable Prescriptions: No Action aspirin [Adult Low Dose Aspirin] 81 mg tablet,delayed release (DR/EC) 81 mg PO DAILY RF: 0 clonidine HCl 0.1 mg tablet 0.1 mg PO DAILY PRN (Reason: hypertensive emergency) RF: 0 Symbicort 160-4.5 mcg/actuation HFA aerosol inhaler 2 puff INHALATION BID Qty: 10.2 RF: 3 amlodipine 10 mg tablet 10 mg PO DAILY Qty: 90 RF: 1 albuterol sulfate 2.5 mg /3 mL (0.083 %) solution for nebulization 2.5 mg INHALATION Q4H PRN (Reason: shortness of breath or wheezing) Qty: 225 RF: 1 Referrals: Huan Limon [Primary Care Provider] - Discharge Diet: Advance as tolerated Discharge Activity: Resume usual activity Activity Restrictions/Additional Instructions: Follow-up with your primary care doctor as needed Discharge Date/Time: 12/18/19 06:44 Sign Out Sign Out Data: Patient Sign Out occurred on 12/18/19 at 06:10. Patient's care was discussed, and care was transferred from Tawnya Talley to Elvis Sharma DO. Sign Out Comment: Case turned over to Dr. Sharma at change of shift. Last updated by Tawnya Talley at 12/18/19 05:46 Coding Level of Care Code ED Blow Molding Machine Tender for Chg Fwd Exam Comprehensive Documented by User: Elvis Sharma DO 12/18/19 08:54 HPI - Chest Pain General: Chief Complaint: Chest Pain Stated Complaint: cp Time Seen by Provider: 12/18/19 03:26 PFSH ED PFSH: Medical History Anxiety CAD (coronary artery disease) Carotid stenosis Chest pain CKD (chronic kidney disease) COPD (chronic obstructive pulmonary disease) CVA (cerebral vascular accident) Epigastric abdominal pain GERD (gastroesophageal reflux disease) HTN (hypertension) Hyperlipidemia Hypoxia Iliac artery occlusion Obstructive apnea Palpitation PVD (peripheral vascular disease) Shortness of breath Umbilical hernia Family History Other CAD (coronary artery disease) Cancer Social History Smoking and tobacco status: former smoker Quit status (tobacco): has quit using tobacco Year quit tobacco: 2009 Alcohol intake: never Course Vital Signs: Vital signs: Vital Signs Temperature 98.1 F 12/18/19 06:43 Pulse Rate 84 12/18/19 06:43 Respiratory Rate 18 12/18/19 06:43 Blood Pressure 122/76 12/18/19 06:43 Pulse Oximetry 99 12/18/19 06:43 MDM - Chest Pain MDM Narrative: Medical decision making narrative: Hai is well-known to our services. He is second troponin is negative EKG shows no changes we will go and discharge him home continue his current regimen for medical management and have him follow-up with his primary care doctor. Reviewing his chart the only thing I am seeing that he would benefit from is being placed on a statin. He does not listed as an allergy. 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 He states he took a statin in the past but it made him ache a lot. I did not start him in the emergency room on 1 based on that. I did encourage him to take continue take his aspirin daily. Lab Data: Labs: Lab Results 12/18/19 12/18/19 12/18/19 Range/Units 03:40 03:40 03:40 WBC 10.3 H (4.0-10.0) 10^3/ uL RBC 5.37 H (4.1-5.3) 10^6/u L Hgb 15.4 (11.7-16.6) g/dL Hct 48.4 (42.0-52.0) % MCV 90.1 (80-94) fL MCH 28.7 (28.0-34.0) pg MCHC 31.8 (30.0-36.0) g/dL RDW 14.2 (12.1-15.1) % Plt Count 296 (130-400) 10^3/c mm MPV 10.9 H (7.4-10.4) fL Neut % (Auto) 62.7 % Lymph % (Auto) 20.7 % [place] % (Auto) 11.3 % Eos % (Auto) 4.3 % Baso % (Auto) 0.6 % Neut # (Auto) 6.5 (1.8-7.7) 10^3/u L Lymph # (Auto) 2.1 (0.8-4.8) 10^3/u L [place] # (Auto) 1.2 H (0.2-0.9) 10^3/u L Eos # (Auto) 0.4 (0.0-0.8) 10^3/u L Baso # (Auto) 0.1 (0.0-0.1) 10^3/u L Nucleated RBC % (a uto) 0 % Nucleated RBCs # 0.0 /100WBC D-Dimer (0-0.59) ug/mIFE U Sodium 140 (136-145) mmol/L Potassium 3.8 (3.5-5.1) mmol/L Chloride 102 (98-107) mmol/L Carbon Dioxide 26 (22-29) mmol/L Anion Gap 15.8 (5-19) BUN 12 (6-20) mg/dL Creatinine 1.0 (0.7-1.2) mg/dL GFR Calculation 76.7 L (90-130) mL/min Glucose 118 H (65-115) mg/dL Calculated Osmolal ity 287 (285-295) mOsm/k g Calcium 10.4 (8.5-10.5) mg/dL Magnesium 1.7 (1.7-2.3) mg/dL Total Bilirubin 0.2 (0.15-1.2) mg/dL AST 24 (0-40) U/L ALT 26 (0-41) U/L Alkaline Phosphata se 116 (40-130) IU/L Troponin T Baselin e 11 (0-15) ng/L Troponin T 120 Min [place] (0-15) ng/L Delta Troponin T (0-10) ABS# Total Protein 7.0 (6.6-8.7) g/dL Albumin 4.5 (3.5-5.2) g/dL Globulin 2.5 (1.3-4.6) g/dL Lipase 40 (13-60) U/L 12/18/19 12/18/19 Range/Units 03:40 05:25 WBC (4.0-10.0) 10^3/ uL RBC (4.1-5.3) 10^6/u L Hgb (11.7-16.6) g/dL Hct (42.0-52.0) % MCV (80-94) fL MCH (28.0-34.0) pg MCHC (30.0-36.0) g/dL RDW (12.1-15.1) % Plt Count (130-400) 10^3/c mm MPV (7.4-10.4) fL Neut % (Auto) % Lymph % (Auto) % [place] % (Auto) % Eos % (Auto) % Baso % (Auto) % Neut # (Auto) (1.8-7.7) 10^3/u L Lymph # (Auto) (0.8-4.8) 10^3/u L [place] # (Auto) (0.2-0.9) 10^3/u L Eos # (Auto) (0.0-0.8) 10^3/u L Baso # (Auto) (0.0-0.1) 10^3/u L Nucleated RBC % (a uto) % Nucleated RBCs # /100WBC D-Dimer <= 0.27 (0-0.59) ug/mIFE U Sodium (136-145) mmol/L Potassium (3.5-5.1) mmol/L Chloride (98-107) mmol/L Carbon Dioxide (22-29) mmol/L Anion Gap (5-19) BUN (6-20) mg/dL Creatinine (0.7-1.2) mg/dL GFR Calculation (90-130) mL/min Glucose (65-115) mg/dL Calculated Osmolal ity (285-295) mOsm/k g Calcium (8.5-10.5) mg/dL Magnesium (1.7-2.3) mg/dL Total Bilirubin (0.15-1.2) mg/dL AST (0-40) U/L ALT (0-41) U/L Alkaline Phosphata se (40-130) IU/L Troponin T Baselin e (0-15) ng/L Troponin T 120 Min [place] 9.91 (0-15) ng/L Delta Troponin T -1.09 L (0-10) ABS# Total Protein (6.6-8.7) g/dL Albumin (3.5-5.2) g/dL Globulin (1.3-4.6) g/dL Lipase (13-60) U/L Discharge Plan Discharge Patient Disposition: Home, Self-Care Clinical Impression: Atypical chest pain Condition: Stable Prescriptions: No Action aspirin [Adult Low Dose Aspirin] 81 mg tablet,delayed release (DR/EC) 81 mg PO DAILY RF: 0 clonidine HCl 0.1 mg tablet 0.1 mg PO DAILY PRN (Reason: hypertensive emergency) RF: 0 Symbicort 160-4.5 mcg/actuation HFA aerosol inhaler 2 puff INHALATION BID Qty: 10.2 RF: 3 amlodipine 10 mg tablet 10 mg PO DAILY Qty: 90 RF: 1 albuterol sulfate 2.5 mg /3 mL (0.083 %) solution for nebulization 2.5 mg INHALATION Q4H PRN (Reason: shortness of breath or wheezing) Qty: 225 RF: 1 Referrals: Huan Limon [Primary Care Provider] - Discharge Diet: Advance as tolerated Discharge Activity: Resume usual activity Activity Restrictions/Additional Instructions: Follow-up with your primary care doctor as needed Discharge Date/Time: 12/18/19 06:44 Sign Out Sign Out Data: Patient Sign Out occurred on 12/18/19 at 06:10. Patient's care was discussed, and care was transferred from Tawnya Talley to Elvis Sharma DO. Sign Out Comment: Case turned over to Dr. Sharma at change of shift. Last updated by Tawnya Talley at 12/18/19 05:46 Coding Level of Care Code ED Blow Molding Machine Tender for Chg Fwd Exam Comprehensive
[2019-12-18] MEDS: ondansetron 2 mg/ML SDV 2 mL 4 MG IVP (03:54)
[2019-12-18 03:59] LABS: Basophils # 0.1 10^3/uL (0.0-0.1); Basophils % 0.6 %; Eosinophils # 0.4 10^3/uL (0.0-0.8); Eosinophils % 4.3 %; Hematocrit 48.4 % (42.0-52.0); Hemoglobin 15.4 g/dL (11.7-16.6); Lymphocytes # 2.1 10^3/uL (0.8-4.8); Lymphocytes % 20.7 %; Mean Corpuscular HGB Conc 31.8 g/dL (30.0-36.0); Mean Corpuscular Hemoglobin 28.7 pg (28.0-34.0); Mean Corpuscular Volume 90.1 fL (80-94); Mean Platelet Volume 10.9 fL (7.4-10.4); Monocytes # 1.2 10^3/uL (0.2-0.9); Monocytes % 11.3 %; Neutrophils # 6.5 10^3/uL (1.8-7.7); Neutrophils % 62.7 %; Nucleated Red Blood Cells % 0 %; Platelet Count 296 10^3/cmm (130-400); Red Blood Count 5.37 10^6/uL (4.1-5.3); Red Cell Distribution Width 14.2 % (12.1-15.1); White Blood Count 10.3 10^3/uL (4.0-10.0)
[2019-12-18 04:15] LABS: Alanine Aminotransferase 26 U/L (0-41); Albumin Level 4.5 g/dL (3.5-5.2); Alkaline Phosphatase 116 IU/L (40-130); Anion Gap 15.8 (5-19); Aspartate Amino Transferase 24 U/L (0-40); Blood Urea Nitrogen 12 mg/dL (6-20); Calcium 10.4 mg/dL (8.5-10.5); Carbon Dioxide 26 mmol/L (22-29); Chloride 102 mmol/L (98-107); Creatinine Clr Calc Pharmacy 91.7931; D Dimer <= 0.27 ug/mIFEU (0-0.59); Globulin 2.5 g/dL (1.3-4.6); Glomerular Filtration Rate 76.7 mL/min (90-130); Glucose 118 mg/dL (65-115); Lipase 40 U/L (13-60); Magnesium 1.7 mg/dL (1.7-2.3); Osmolality Calculated 287 mOsm/kg (285-295); Potassium 3.8 mmol/L (3.5-5.1); Sodium 140 mmol/L (136-145); Total Bilirubin 0.2 mg/dL (0.15-1.2)
[2019-12-18 04:17] LABS: Troponin(5th) Baseline 11 ng/L (0-15)
[2019-12-18 04:19] LABS: Slide Review Slide Review Perform
[2019-12-18] MEDS: morphine 4 mg/mL SDV 1 mL IVP (04:35)
[2019-12-18] MEDS: morphine 4 mg/mL SDV 1 mL 2 MG IVP (05:07)
--- NOTE | 2019-12-18 05:29 | ECG_ITS ---
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 Measurements Intervals [place] Rate: 61 P: 61 NH: 160 QRS: 78 QRSD: 93 T: 73 QT: 390 QTc: 395 Interpretive Statements SINUS RHYTHM EARLY REPOLARIZATION [ST ELEVATION WITH NORMALLY INFLECTED T WAVE] Compared to ECG 12/18/2019 03:38:40 Early repolarization now present Myocardial infarct finding no longer present Electronically Signed On 12-19-2019 17:24:30 CDT by Maira Arana M.D. [id number]
[2019-12-18 06:09] LABS: Troponin 5 2HR 9.91 ng/L (0-15)
[2019-12-18 06:24] LABS: Troponin 5 2HR Delta -1.09 ABS# (0-10)
== END 2019-12-18 06:44 | disposition home or self-care (01) ==
PROVIDERS: Emergency Medicine; Emergency Provider Family Medicine
DX: R07.89 Other chest pain (principal); Z79.82 Long term (current) use of aspirin; I25.10 Atherosclerotic heart disease of native coronary artery without angina pectoris; J44.9 Chronic obstructive pulmonary disease, unspecified; Z86.73 Personal history of transient ischemic attack (TIA), and cerebral infarction without residual deficits; I10 Essential (primary) hypertension; E78.5 Hyperlipidemia, unspecified; Z87.891 Personal history of nicotine dependence
CPT/HCPCS: 12345; 71045; 80053; 83690; 83735; 84484; 85025; 85378; 93005; 96374; 96375; 96376; 99283; 99284; J2270; J2405

== ENCOUNTER 2020-01-01 09:34 | Emergency (ER) | payer MEDICARE, SELFPAY ==
[2020-01-01 09:48] VITALS: BP 139/86; PULSE 91; RESP 18; TEMP 37.1; O2SAT 98; BMI 23.7
--- NOTE | 2020-01-01 09:59 | ECG_ITS ---
[facility] Test Date: 2020-01-01 Pat Name: Hai Aparicio Department: Room: Gender: Male Director Of Rehabilitation: : 1960 Requested By: Elvis Mahmood Order Number: [id number] Zay MD: Jose Alejandro Patterson M.D. Measurements Intervals [place] Rate: 78 P: 60 CO: 156 QRS: 85 QRSD: 88 T: 69 QT: 342 QTc: 391 Interpretive Statements SINUS RHYTHM WITH SINUS ARRHYTHMIA EARLY REPOLARIZATION [ST ELEVATION WITH NORMALLY INFLECTED T WAVE] Compared to ECG 12/18/2019 05:43:02 No significant changes Electronically Signed On 01-01-2020 20:31:51 CDT by Jose Alejandro Patterson M.D. [id number]
[2020-01-01 10:01] VITALS: O2SAT 97
[2020-01-01 10:16] LABS: Basophils # 0.1 10^3/uL (0.0-0.1); Basophils % 0.6 %; Eosinophils # 0.2 10^3/uL (0.0-0.8); Eosinophils % 2.4 %; Hematocrit 49.8 % (42.0-52.0); Hemoglobin 15.6 g/dL (11.7-16.6); Lymphocytes # 1.7 10^3/uL (0.8-4.8); Lymphocytes % 16.6 %; Mean Corpuscular HGB Conc 31.3 g/dL (30.0-36.0); Mean Corpuscular Hemoglobin 28.3 pg (28.0-34.0); Mean Corpuscular Volume 90.4 fL (80-94); Mean Platelet Volume 10.6 fL (7.4-10.4); Monocytes # 0.9 10^3/uL (0.2-0.9); Monocytes % 8.9 %; Neutrophils # 7.13 10^3/uL (1.8-7.7); Nucleated Red Blood Cells % 0 %; Platelet Count 326 10^3/cmm (130-400); Red Blood Count 5.51 10^6/uL (4.1-5.3); Red Cell Distribution Width 13.9 % (12.1-15.1)
[2020-01-01 10:35] LABS: Alanine Aminotransferase 24 U/L (0-41); Albumin Level 4.5 g/dL (3.5-5.2); Alkaline Phosphatase 125 IU/L (40-130); Anion Gap 14.1 (5-19); Aspartate Amino Transferase 25 U/L (0-40); Blood Urea Nitrogen 9 mg/dL (6-20); Calcium 9.5 mg/dL (8.5-10.5); Carbon Dioxide 30 mmol/L (22-29); Chloride 102 mmol/L (98-107); Creatinine Clr Calc Pharmacy 91.7931; Globulin 3.3 g/dL (1.3-4.6); Glomerular Filtration Rate 76.7 mL/min (90-130); Glucose 110 mg/dL (65-115); Osmolality Calculated 291 mOsm/kg (285-295); Potassium 4.1 mmol/L (3.5-5.1); Sodium 142 mmol/L (136-145); Total Bilirubin 0.2 mg/dL (0.15-1.2); Total Protein 7.8 g/dL (6.6-8.7)
[2020-01-01 10:36] LABS: Troponin(5th) Baseline 11 ng/L (0-15)
[2020-01-01 11:21] VITALS: BP 129/68; PULSE 77; RESP 21; O2SAT 98
--- NOTE | 2020-01-01 11:59 | ECG_ITS ---
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 Measurements Intervals [place] Rate: 77 P: 65 VT: 158 QRS: 89 QRSD: 88 T: 79 QT: 348 QTc: 395 Interpretive Statements SINUS RHYTHM POSSIBLE RIGHT VENTRICULAR CONDUCTION DELAY [RSR (QR) IN V1/V2] MODERATE ST DEPRESSION [0.05+ mV ST DEPRESSION] Compared to ECG 01/01/2020 10:58:17 ST (T wave) deviation now present Sinus arrhythmia no longer present Early repolarization no longer present Electronically Signed On 01-01-2020 20:38:30 CDT by Jose Alejandro Patterson M.D. [id number]
--- NOTE | 2020-01-01 12:40 | W.ED.CHESTPA ---
HPI - Chest Pain General: Chief Complaint: Chest Pain Stated Complaint: cp Time Seen by Provider: 01/01/20 09:45 History of Present Illness: HPI narrative: 39-year-old male who is well-known to the department comes in today complaining of left-sided chest pain is reproducible with palpation across the left pectoral muscle and medially. He has frequent complaints of chest pain he has had extensive cardiac work-up in the past including a normal angiogram. He does have COPD. MD complaint: chest pain Onset (ago): hour(s) Timing of current episode: episodic Prior episodes: Yes Onset: during rest Pain location: left chest Pain radiation: none Severity: moderate Quality: sharp Relieving factors: nothing Exacerbating factors: palpation and movement Associated symptoms: Reports sense of impending doom; Deny abdominal pain, dyspnea, fever(s), nausea or vomiting Treatment prior to arrival: none Review of Systems Const: Denies: fever(s), chills, body aches, change in appetite, fatigue or malaise ENMT: Denies: throat pain, ear or mastoid pain, nasal discharge or nasal congestion Card: Denies: chest pain, edema, dyspnea on exertion or orthopnea Resp: Denies: dyspnea, productive cough or non-productive cough GI: Denies: abdominal pain, nausea, vomiting, hematemesis, coffee ground emesis, diarrhea, constipation, bloating, hematochezia or melena : Denies: flank pain, dysuria, urinary frequency or urinary urgency Skin/Breast: Denies: rash or pruritus PFSH ED PFSH: Medical History Anxiety CAD (coronary artery disease) Carotid stenosis Chest pain CKD (chronic kidney disease) COPD (chronic obstructive pulmonary disease) CVA (cerebral vascular accident) Epigastric abdominal pain GERD (gastroesophageal reflux disease) HTN (hypertension) Hyperlipidemia Hypoxia Iliac artery occlusion Obstructive apnea Palpitation PVD (peripheral vascular disease) Shortness of breath Umbilical hernia Family History Other CAD (coronary artery disease) Cancer Social History Smoking and tobacco status: former smoker Quit status (tobacco): has quit using tobacco Year quit tobacco: 2010 Alcohol intake: never Physical Exam Const: COMMON NORMALS: no acute distress GENERAL APPEARANCE: cooperative and comfortable ORIENTATION/CONSCIOUSNESS: Yes awake, Yes oriented to person, Yes oriented to place and Yes oriented to time Eye: COMMON NORMALS: Equal, round and reactive pupils present, EOMs intact bilaterally, conjunctivae normal and no scleral icterus CONJUNCTIVA: Yes conjunctivae normal PUPIL: Yes Equal, round and reactive pupils present Neck/C-Spine: COMMON NORMALS: full ROM, no lymphadenopathy, supple and no JVD Lymph: LYMPHATIC: no lymphadenopathy noted and no lymphedema noted Chest: OTHER: Palpation of the left chest wall along the pectoralis muscle at the level of the nipple line reproduces the chest pain. Resp: COMMON NORMALS: normal respiratory effort, No retractions, No use of accessory muscles and clear to auscultation bilaterally AUSCULTATION: clear to auscultation bilaterally Cardio: COMMON NORMALS: no JVD, regular rate, regular rhythm and No murmurs present (Cardio) RATE: regular rate RHYTHM: regular rhythm GI: COMMON NORMALS: Soft to palpation and No hepatosplenomegaly present AUSCULTATION: Yes normoactive bowel sounds PALPATION: Yes Soft to palpation, No Tenderness to palpation present (GI), No Guarding due to palpation present (GI) and Yes No hepatosplenomegaly present Extremity: COMMON NORMALS: normal to inspection, capillary refill normal, no clubbing, cyanosis or edema, no calf tenderness and no pedal edema Neuro: SENSORIUM/ORIENTATION: Yes oriented to person, Yes oriented to place and Yes oriented to time Skin: COMMON NORMALS: no rashes or lesions noted GENERAL SKIN EXAM: no rashes or lesions noted Course Vital Signs: Vital signs: Vital Signs Temperature 98.7 F 01/01/20 09:48 Pulse Rate 77 01/01/20 11:21 Respiratory Rate 21 H 01/01/20 11:21 Blood Pressure 129/68 01/01/20 11:21 Pulse Oximetry 98 01/01/20 11:21 MDM - Chest Pain MDM Narrative: Medical decision making narrative: Chest pain reproducible with palpation serial enzymes negative we will go ahead and discharge home follow-up with primary care doctor can use ice or heat [id number] Tylenol ibuprofen for the discomfort chest and is completely reproducible with palpation today. Lab Data: Labs: Lab Results 01/01/20 01/01/20 01/01/20 Range/Units 10:10 10:10 10:10 WBC 10.0 (4.0-10.0) 10^3/ uL RBC 5.51 H (4.1-5.3) 10^6/u L Hgb 15.6 (11.7-16.6) g/dL Hct 49.8 (42.0-52.0) % MCV 90.4 (80-94) fL MCH 28.3 (28.0-34.0) pg MCHC 31.3 (30.0-36.0) g/dL RDW 13.9 (12.1-15.1) % Plt Count 326 (130-400) 10^3/c mm MPV 10.6 H (7.4-10.4) fL Neut % (Auto) 71.0 % Lymph % (Auto) 16.6 % [place] % (Auto) 8.9 % Eos % (Auto) 2.4 % Baso % (Auto) 0.6 % Neut # (Auto) 7.13 (1.8-7.7) 10^3/u L Lymph # (Auto) 1.7 (0.8-4.8) 10^3/u L [place] # (Auto) 0.9 (0.2-0.9) 10^3/u L Eos # (Auto) 0.2 (0.0-0.8) 10^3/u L Baso # (Auto) 0.1 (0.0-0.1) 10^3/u L Nucleated RBC % (a uto) 0 % Nucleated RBCs # 0.0 /100WBC Sodium 142 (136-145) mmol/L Potassium 4.1 (3.5-5.1) mmol/L Chloride 102 (98-107) mmol/L Carbon Dioxide 30 H (22-29) mmol/L Anion Gap 14.1 (5-19) BUN 9 (6-20) mg/dL Creatinine 1.0 (0.7-1.2) mg/dL GFR Calculation 76.7 L (90-130) mL/min Glucose 110 (65-115) mg/dL Calculated Osmolal ity 291 (285-295) mOsm/k g Calcium 9.5 (8.5-10.5) mg/dL Total Bilirubin 0.2 (0.15-1.2) mg/dL AST 25 (0-40) U/L ALT 24 (0-41) U/L Alkaline Phosphata se 125 (40-130) IU/L Troponin T Baselin e 11 (0-15) ng/L Troponin T 120 Min [place] (0-15) ng/L Delta Troponin T (0-10) ABS# Total Protein 7.8 (6.6-8.7) g/dL Albumin 4.5 (3.5-5.2) g/dL Globulin 3.3 (1.3-4.6) g/dL 01/01/20 Range/Units 12:19 WBC (4.0-10.0) 10^3/ uL RBC (4.1-5.3) 10^6/u L Hgb (11.7-16.6) g/dL Hct (42.0-52.0) % MCV (80-94) fL MCH (28.0-34.0) pg MCHC (30.0-36.0) g/dL RDW (12.1-15.1) % Plt Count (130-400) 10^3/c mm MPV (7.4-10.4) fL Neut % (Auto) % Lymph % (Auto) % [place] % (Auto) % Eos % (Auto) % Baso % (Auto) % Neut # (Auto) (1.8-7.7) 10^3/u L Lymph # (Auto) (0.8-4.8) 10^3/u L [place] # (Auto) (0.2-0.9) 10^3/u L Eos # (Auto) (0.0-0.8) 10^3/u L Baso # (Auto) (0.0-0.1) 10^3/u L Nucleated RBC % (a uto) % Nucleated RBCs # /100WBC Sodium (136-145) mmol/L Potassium (3.5-5.1) mmol/L Chloride (98-107) mmol/L Carbon Dioxide (22-29) mmol/L Anion Gap (5-19) BUN (6-20) mg/dL Creatinine (0.7-1.2) mg/dL GFR Calculation (90-130) mL/min Glucose (65-115) mg/dL Calculated Osmolal ity (285-295) mOsm/k g Calcium (8.5-10.5) mg/dL Total Bilirubin (0.15-1.2) mg/dL AST (0-40) U/L ALT (0-41) U/L Alkaline Phosphata se (40-130) IU/L Troponin T Baselin e (0-15) ng/L Troponin T 120 Min [place] 10.35 (0-15) ng/L Delta Troponin T -0.65 L (0-10) ABS# Total Protein (6.6-8.7) g/dL Albumin (3.5-5.2) g/dL Globulin (1.3-4.6) g/dL Discharge Plan Discharge Patient Disposition: Home, Self-Care Clinical Impression: Chest wall pain Condition: Stable Prescriptions: No Action aspirin [Adult Low Dose Aspirin] 81 mg tablet,delayed release (DR/EC) 81 mg PO DAILY RF: 0 clonidine HCl 0.1 mg tablet 0.1 mg PO DAILY PRN (Reason: hypertensive emergency) RF: 0 Symbicort 160-4.5 mcg/actuation HFA aerosol inhaler 2 puff INHALATION BID Qty: 10.2 RF: 3 amlodipine 10 mg tablet 10 mg PO DAILY Qty: 90 RF: 1 albuterol sulfate 2.5 mg /3 mL (0.083 %) solution for nebulization 2.5 mg INHALATION Q4H PRN (Reason: shortness of breath or wheezing) Qty: 225 RF: 1 Referrals: Huan Limon [Primary Care Provider] - Discharge Diet: Advance as tolerated Discharge Activity: Resume usual activity Activity Restrictions/Additional Instructions: Follow-up with your primary care doctor as needed Coding Level of Care Code 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
[2020-01-01 12:42] LABS: Troponin 5 2HR 10.35 ng/L (0-15)
--- NOTE | 2020-01-01 12:43 | XR_ITS ---
WS: [id number] PORTABLE CHEST HISTORY: dyspnea/cough COMPARISON: 12/18/2019 Hyperexpanded lungs. No pneumonia. Normal vasculature. No pleural effusion or pneumothorax. Cardiac size: Normal. Mediastinum/Aorta: Normal mediastinum. No osseous abnormality seen. XR/XR chest 1V portable [id number] IMPRESSION: Emphysema. No pneumonia.
[2020-01-01 12:56] LABS: Troponin 5 2HR Delta -0.65 ABS# (0-10)
[2020-01-01] MEDS: acetaminophen 500 mg Tablet 1000 MG PO (13:33)
[2020-01-01 13:35] VITALS: BP 132/81; PULSE 89; RESP 18; O2SAT 97
== END 2020-01-01 13:35 | disposition home or self-care (01) ==
PROVIDERS: Emergency Provider Family Medicine
DX: R07.89 Other chest pain (principal); Z79.82 Long term (current) use of aspirin; I25.10 Atherosclerotic heart disease of native coronary artery without angina pectoris; J44.9 Chronic obstructive pulmonary disease, unspecified; Z86.73 Personal history of transient ischemic attack (TIA), and cerebral infarction without residual deficits; I10 Essential (primary) hypertension; E78.5 Hyperlipidemia, unspecified; Z87.891 Personal history of nicotine dependence
CPT/HCPCS: 12345; 36415; 71045; 80053; 84484; 85025; 93005; 99282; 99284

== ENCOUNTER 2020-01-31 13:41 | Outpatient (CLI) | payer MEDICARE, SELFPAY ==
--- NOTE | 2020-01-31 13:49 | XR_ITS ---
WS: [id number] EXAM: Chest: PA and lateral DATE OF EXAMINATION: 01/31/2020, 1406 hours COMPARISON: Chest x-ray from 01/01/2020 HISTORY: Patient is 59 years old with acute back pain. FINDINGS: The heart size is normal. The mediastinal contours are similar. Slight calcified plaque in the aorta . Pulmonary vascularity is within normal limits. Slight chronic lung changes seen. Lungs are hyperinf lated but otherwise clear. No effusion, or pneumothorax. Scattered changes of arthritis are seen in the spine. XR/XR chest 2V* [id number] IMPRESSION: Chronic lung changes with slight hyperinflation. NO ACUTE PULMONARY DISEASE.
== END 2020-01-31 13:42 | disposition home or self-care (01) ==
LOC: RADWPI 13:47
PROVIDERS: Family Provider Family Medicine
DX: M54.6 Pain in thoracic spine (principal)
CPT/HCPCS: 71046

== ENCOUNTER → 2020-03-09 10:07 | Outpatient (BNVA) | payer MEDICARE, SELFPAY | PROVIDERS: Family Provider Family Medicine; Visit Provider Family Medicine | DX: J44.9 Chronic obstructive pulmonary disease, unspecified (principal) | CPT/HCPCS: 71046 ==

== ENCOUNTER 2020-03-10 11:19 | Emergency (ER) | payer MEDICARE, SELFPAY ==
[2020-03-10 11:24] VITALS: BP 128/81; PULSE 92; RESP 24; TEMP 36.4; O2SAT 98; BMI 23.7
--- NOTE | 2020-03-10 11:25 | XRR_ITS ---
PROCEDURE INFORMATION: Exam: XR Chest, 1 View Exam date and time: 03/10/2020 11:50 AM Age: 60 years old Clinical indication: Chest pain; Additional info: Cp TECHNIQUE: Imaging protocol: XR of the chest Views: 1 view. COMPARISON: CR XR chest 2V* [id number] 03/09/2020 10:10 AM FINDINGS: Lungs: Emphysema Lungs are well aerated without a focal area of consolidation. Pleural space: Unremarkable. No pleural effusion. No pneumothorax. Heart/Mediastinum: Unremarkable. No cardiomegaly. Bones/joints: Unremarkable. XR/XR chest 1V portable [id number] IMPRESSION: Lungs are well aerated without a focal area of consolidation.
--- NOTE | 2020-03-10 11:26 | ECG_ITS ---
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 Measurements Intervals [place] Rate: 85 P: 63 ND: 161 QRS: 83 QRSD: 88 T: 66 QT: 350 QTc: 417 Interpretive Statements SINUS RHYTHM WITH SINUS ARRHYTHMIA POSSIBLE RIGHT VENTRICULAR CONDUCTION DELAY [RSR (QR) IN V1/V2] Compared to ECG 01/01/2020 12:10:16 ST (T wave) deviation no longer present Electronically Signed On 03-11-2020 18:35:03 CDT by Lauren Freeman M.D. [id number] f
--- NOTE | 2020-03-10 11:43 | ED_ITS ---
HPI - Chest Pain General: Chief Complaint: Chest Pain Stated Complaint: CHEST PAIN Time Seen by Provider: 03/10/20 11:39 Source: patient Mode of arrival: ambulatory Limitations: no limitations History of Present Illness: HPI narrative: Hai is a 60-year-old male who is well-known to the ER states he has been having chest pain for the last 2 weeks. He states is episodic in nature and is a cramping type pain in his left chest. He denies any worsening or improving factors. Denies any shortness of breath. He states pain is sharp in nature currently and rates it a 7 out of 10. Denies any vomiting or diarrhea. Associated symptoms: Deny abdominal pain, dyspnea, fever(s), nausea or vomiting Review of Systems Const: Denies: fever(s), chills, body aches or change in appetite Eyes: Denies: blurry vision or eye discomfort ENMT: Denies: throat pain or dental pain Card: Reports: chest pain Resp: Denies: dyspnea GI: Denies: abdominal pain, nausea, vomiting or diarrhea : Denies: dysuria Musc: Denies: neck pain or back pain Skin/Breast: Denies: rash Neuro: Denies: headache(s) Psych: Denies: depression Gera/Lymph: Denies: easy bruising All/Imm: Denies: urticaria PFSH ED PFSH: Medical History Anxiety CAD (coronary artery disease) Carotid stenosis Chest pain CKD (chronic kidney disease) COPD (chronic obstructive pulmonary disease) CVA (cerebral vascular accident) Epigastric abdominal pain GERD (gastroesophageal reflux disease) HTN (hypertension) Hyperlipidemia Hypoxia Iliac artery occlusion Obstructive apnea Palpitation PVD (peripheral vascular disease) Shortness of breath Umbilical hernia Family History Other CAD (coronary artery disease) Cancer Social History Smoking and tobacco status: former smoker Quit status (tobacco): has quit using tobacco Year quit tobacco: 2009 Alcohol intake: never Physical Exam 2 Const: COMMON NORMALS: no acute distress, patient oriented x3 and healthy appearing HENMT: COMMON NORMALS: normocephalic and atraumatic HEAD & SCALP: normocephalic and atraumatic Eye: COMMON NORMALS: Equal, round and reactive pupils present and EOMs intact bilaterally PUPIL: Yes Equal, round and reactive pupils present Neck/C-Spine: COMMON NORMALS: full ROM and supple Chest: COMMONS NORMALS: normal inspection of the chest and normal palpation of entire chest wall Resp: COMMON NORMALS: normal respiratory effort, No retractions, No use of accessory muscles and clear to auscultation bilaterally AUSCULTATION: clear to auscultation bilaterally Cardio: COMMON NORMALS: regular rate, regular rhythm and No murmurs present (Cardio) RATE: regular rate RHYTHM: regular rhythm GI: COMMON NORMALS: Normal to inspection, nondistended, normoactive bowel sounds present, Soft to palpation, non-tender and no masses PALPATION: Yes Soft to palpation Extremity: COMMON NORMALS: normal to inspection and full ROM Neuro: COMMON NORMALS: patient oriented x3, moves all extremities and no focal motor deficits Psych: COMMON NORMALS: mental status grossly normal, Normal thought process present and cooperative THOUGHT PROCESS: Normal thought process present Skin: COMMON NORMALS: no rashes or lesions noted and no wounds GENERAL SKIN EXAM: no rashes or lesions noted Course Vital Signs: Vital signs: Vital Signs Temperature 97.6 F 03/10/20 11:24 Pulse Rate 92 03/10/20 11:24 Respiratory Rate 24 H 03/10/20 11:24 Blood Pressure 128/81 03/10/20 11:24 Pulse Oximetry 98 03/10/20 11:24 MDM - Chest Pain MDM Narrative: Medical decision making narrative: Hai presents here with chest pain that is atypical in nature. He is well-appearing here and troponin EKG and x-ray are normal. Patient's pain is been going on for weeks. He has no signs of coronary cause and no signs of pulmonary embolism or dissection. Patient is stable for discharge and return if worsening. Lab Data: Labs: Lab Results 03/10/20 03/10/20 03/10/20 Range/Units 11:39 11:39 11:39 WBC 10.0 (4.0-10.0) 10^3/ uL RBC 5.73 H (4.1-5.3) 10^6/u L Hgb 16.4 (11.7-16.6) g/dL Hct 50.7 (42.0-52.0) % MCV 88.5 (80-94) fL MCH 28.6 (28.0-34.0) pg MCHC 32.3 (30.0-36.0) g/dL RDW 14.1 (12.1-15.1) % Plt Count 319 (130-400) 10^3/c mm MPV 10.7 H (7.4-10.4) fL Neut % (Auto) 69.3 % Lymph % (Auto) 18.2 % [place] % (Auto) 9.1 % Eos % (Auto) 2.2 % Baso % (Auto) 0.6 % Neut # (Auto) 6.92 (1.8-7.7) 10^3/u L Lymph # (Auto) 1.8 (0.8-4.8) 10^3/u L [place] # (Auto) 0.9 (0.2-0.9) 10^3/u L Eos # (Auto) 0.2 (0.0-0.8) 10^3/u L Baso # (Auto) 0.1 (0.0-0.1) 10^3/u L Nucleated RBC % (a uto) 0 % Nucleated RBCs # 0.0 /100WBC Sodium 138 (136-145) mmol/L Potassium 4.2 (3.5-5.1) mmol/L Chloride 102 (98-107) mmol/L Carbon Dioxide 24 (22-29) mmol/L Anion Gap 16.2 (5-19) BUN 11 (6-20) mg/dL Creatinine 1.0 (0.7-1.2) mg/dL GFR Calculation 76.5 L (90-130) mL/min Glucose 107 (65-115) mg/dL Calculated Osmolal ity 286 (285-295) mOsm/k g Calcium 10.3 (8.5-10.5) mg/dL Total Bilirubin 0.3 (0.15-1.2) mg/dL AST 23 (0-40) U/L ALT 23 (0-41) U/L Alkaline Phosphata se 123 (40-130) IU/L Troponin T Baselin e 13 (0-15) ng/L Total Protein 7.5 (6.6-8.7) g/dL Albumin 4.4 (3.5-5.2) g/dL Globulin 3.1 (1.3-4.6) g/dL Imaging Data^: CXR: Attestation: I personally reviewed and interpreted this imaging study as follows: My impression: no acute abnormality EKG Data^: EKG 1: Attestation: I personally reviewed and interpreted this EKG as follows: EKG interpretation date: 03/10/20 EKG interpretation time: 11:25 Interpretation: nsr hr [address] or t wave abnormalities qrs 85 qtc 392 Discharge Plan Discharge Patient Disposition: Home Clinical Impression: Atypical chest pain Condition: Stable Prescriptions: No Action aspirin [Adult Low Dose Aspirin] 81 mg tablet,delayed release (DR/EC) 81 mg PO DAILY RF: 0 clonidine HCl 0.1 mg tablet 0.1 mg PO DAILY PRN (Reason: hypertensive emergency) RF: 0 Symbicort 160-4.5 mcg/actuation HFA aerosol inhaler 2 puff INHALATION BID Qty: 10.2 RF: 3 amlodipine 10 mg tablet 10 mg PO DAILY Qty: 90 RF: 1 albuterol sulfate 2.5 mg /3 mL (0.083 %) solution for nebulization 2.5 mg INHALATION Q4H PRN (Reason: shortness of breath or wheezing) Qty: 225 RF: 1 Discharge Orders: Discharge Order (Routine); Ordered 03/10/20 Ordered By: Ruth Palm Referrals: Huan Limon [Primary Care Provider] - Aniket Encinas MD [Family Provider] - Discharge Diet: Advance as tolerated Discharge Activity: Resume usual activity Patient Instructions: Chest Pain (ED) Coding Level of Care Code ED Housekeeping/Laundry for Chg Fwd Exam Comprehensive
[2020-03-10 11:46] LABS: Basophils # 0.1 10^3/uL (0.0-0.1); Basophils % 0.6 %; Eosinophils # 0.2 10^3/uL (0.0-0.8); Eosinophils % 2.2 %; Hematocrit 50.7 % (42.0-52.0); Hemoglobin 16.4 g/dL (11.7-16.6); Lymphocytes # 1.8 10^3/uL (0.8-4.8); Lymphocytes % 18.2 %; Mean Corpuscular HGB Conc 32.3 g/dL (30.0-36.0); Mean Corpuscular Hemoglobin 28.6 pg (28.0-34.0); Mean Corpuscular Volume 88.5 fL (80-94); Mean Platelet Volume 10.7 fL (7.4-10.4); Monocytes # 0.9 10^3/uL (0.2-0.9); Monocytes % 9.1 %; Neutrophils # 6.92 10^3/uL (1.8-7.7); Neutrophils % 69.3 %; Nucleated Red Blood Cells % 0 %; Platelet Count 319 10^3/cmm (130-400); Red Blood Count 5.73 10^6/uL (4.1-5.3); Red Cell Distribution Width 14.1 % (12.1-15.1)
[2020-03-10 12:01] LABS: Alanine Aminotransferase 23 U/L (0-41); Albumin Level 4.4 g/dL (3.5-5.2); Alkaline Phosphatase 123 IU/L (40-130); Blood Urea Nitrogen 11 mg/dL (6-20); Calcium 10.3 mg/dL (8.5-10.5); Carbon Dioxide 24 mmol/L (22-29); Chloride 102 mmol/L (98-107); Globulin 3.1 g/dL (1.3-4.6); Glomerular Filtration Rate 76.5 mL/min (90-130); Glucose 107 mg/dL (65-115); Osmolality Calculated 286 mOsm/kg (285-295); Sodium 138 mmol/L (136-145); Total Bilirubin 0.3 mg/dL (0.15-1.2); Total Protein 7.5 g/dL (6.6-8.7)
[2020-03-10 12:02] LABS: Troponin(5th) Baseline 13 ng/L (0-15)
[2020-03-10 12:04] LABS: Anion Gap 16.2 (5-19); Aspartate Amino Transferase 23 U/L (0-40); Potassium 4.2 mmol/L (3.5-5.1)
[2020-03-10] MEDS: ketorolac 30 mg/mL INJ 15 MG IM (12:48)
[2020-03-10 13:03] VITALS: BP 135/67; PULSE 82; RESP 18; O2SAT 99
== END 2020-03-10 13:06 | disposition home or self-care (01) ==
PROVIDERS: Emergency Provider Emergency Medicine; Family Provider Family Medicine
DX: R07.89 Other chest pain (principal); Z79.82 Long term (current) use of aspirin; I25.10 Atherosclerotic heart disease of native coronary artery without angina pectoris; J44.9 Chronic obstructive pulmonary disease, unspecified; Z86.73 Personal history of transient ischemic attack (TIA), and cerebral infarction without residual deficits; I10 Essential (primary) hypertension; E78.5 Hyperlipidemia, unspecified; Z87.891 Personal history of nicotine dependence
CPT/HCPCS: 12345; 36415; 71045; 80053; 84484; 85025; 93005; 96372; 99281; 99283; J1885

== ENCOUNTER 2020-03-18 05:51 | Emergency (ER) | payer MEDICARE, SELFPAY ==
[2020-03-18 05:58] VITALS: BP 125/95; PULSE 79; RESP 16; TEMP 36.3; O2SAT 97; BMI 23.7
--- NOTE | 2020-03-18 06:10 | XR_ITS ---
WS: [id number] XR chest 1V portable [id number] REASON FOR EXAM: sob FINDINGS: The heart and mediastinum are within normal limits. No active pulmonary parenchymal pleural disease is noted. The chest is unchanged compared to previous examination of 03/10/2020. XR/XR chest 1V portable [id number] IMPRESSION: No acute chest abnormality.
[2020-03-18 06:11] VITALS: BP 125/95; PULSE 82; O2SAT 96
--- NOTE | 2020-03-18 06:11 | ECG_ITS ---
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 Measurements Intervals [place] Rate: 76 P: 68 VA: 159 QRS: 85 QRSD: 89 T: 77 QT: 371 QTc: 418 Interpretive Statements SINUS RHYTHM Compared to ECG 03/10/2020 11:25:03 Sinus arrhythmia no longer present Electronically Signed On 03-18-2020 21:32:06 CDT by Jose Alejandro Patterson M.D. [id number]
--- NOTE | 2020-03-18 06:28 | ED_ITS ---
HPI - SOB/Dyspnea General: Chief Complaint: Shortness of Breath/Dyspnea Stated Complaint: cp Time Seen by Provider: 03/18/20 06:10 History of Present Illness: HPI Narrative: 60-year-old male presents emergency room with complaint of shortness of breath and left-sided chest pain. Patient states he has had this pain intermittently for the last month or more and it is been worse this morning. He has not sharp what he describes as tapping like a stabbing pain or every 10 to 15 seconds it was stabbing on the left side and through his back. Is worse when he takes a deep breath. He denies any fever cough but has had some diarrhea overnight. Unfortunately patient has had multiple visits to the emergency room chart reviewed including his cardiology note earlier this year. He continually presents with complaints of chest pain. He has had thorough cardiac work-up he had 20% ostial disease of the left main according to cardiology notes. His description of his chest pain is noncardiac in nature describing it again as jolts of pain that are tapping like his describe it this way similarly in the past. MD elicited complaint: shortness of breath and chest pain Pertinent past history: COPD Onset (ago): week(s) Context: anxiety Timing: intermittent Severity: mild Exacerbating factors: nothing Relieving factors: nothing Associated symptoms: Reports chest pain and palpitations; Deny abdominal pain, chest congestion, cough, diaphoresis, dizziness, extremity pain, fever(s), hemoptysis, lightheadedness, myalgias, nausea, orthopnea, paresthesias, polydipsia, polyuria, rash, sense of impending doom, syncope or vomiting Treatment prior to arrival: none Review of Systems Const: Denies: fever(s) or diaphoresis ENMT: Denies: throat pain, ear or mastoid pain, nasal discharge or nasal congestion Card: Reports: chest pain and palpitations; Denies: lightheadedness, syncope or orthopnea Resp: Denies: hemoptysis or chest congestion GI: Reports: diarrhea; Denies: abdominal pain, nausea or vomiting : Denies: flank pain, dysuria, urinary frequency or urinary urgency Musc: Denies: extremity pain Skin/Breast: Denies: rash or pruritus Neuro: Denies: dizziness Endo: Denies: polyuria or polydipsia PFS ED PFSH: Medical History Anxiety CAD (coronary artery disease) Carotid stenosis Chest pain CKD (chronic kidney disease) COPD (chronic obstructive pulmonary disease) CVA (cerebral vascular accident) Epigastric abdominal pain GERD (gastroesophageal reflux disease) HTN (hypertension) Hyperlipidemia Hypoxia Iliac artery occlusion Obstructive apnea Palpitation PVD (peripheral vascular disease) Shortness of breath Umbilical hernia Family History Other CAD (coronary artery disease) Cancer Social History Smoking and tobacco status: former smoker Quit status (tobacco): has quit using tobacco Year quit tobacco: 2009 Alcohol intake: never Physical Exam Const: COMMON NORMALS: no acute distress GENERAL APPEARANCE: cooperative and comfortable ORIENTATION/CONSCIOUSNESS: Yes awake, Yes oriented to person, Yes oriented to place and Yes oriented to time HENMT: COMMON NORMALS: normocephalic, atraumatic and hearing grossly normal bilaterally HEAD & SCALP: normocephalic and atraumatic Neck/C-Spine: COMMON NORMALS: no JVD Resp: COMMON NORMALS: normal respiratory effort, No retractions, No use of accessory muscles and clear to auscultation bilaterally AUSCULTATION: clear to auscultation bilaterally Cardio: COMMON NORMALS: no JVD, regular rate, regular rhythm and No murmurs present (Cardio) RATE: regular rate RHYTHM: regular rhythm GI: COMMON NORMALS: Soft to palpation and No hepatosplenomegaly present AUSCULTATION: Yes normoactive bowel sounds PALPATION: Yes Soft to palpation, No Tenderness to palpation present (GI), No Guarding due to palpation present (GI) and Yes No hepatosplenomegaly present Extremity: COMMON NORMALS: normal to inspection, capillary refill normal, no clubbing, cyanosis or edema, no calf tenderness and no pedal edema Neuro: SENSORIUM/ORIENTATION: Yes oriented to person, Yes oriented to place and Yes oriented to time Skin: COMMON NORMALS: no rashes or lesions noted GENERAL SKIN EXAM: no rashes or lesions noted Course Vital Signs: Vital signs: Vital Signs Temperature 97.3 F L 03/18/20 05:58 Pulse Rate 69 03/18/20 08:05 Respiratory Rate 18 03/18/20 08:05 Blood Pressure 137/79 03/18/20 08:05 Pulse Oximetry 96 03/18/20 08:05 MDM - SOB/Dyspnea Lab Data: Labs: Lab Results 03/18/20 03/18/20 03/18/20 Range/Units 06:41 06:41 06:41 WBC 11.7 H (4.0-10.0) 10^3/ uL RBC 5.48 H (4.1-5.3) 10^6/u L Hgb 15.6 (11.7-16.6) g/dL Hct 49.0 (42.0-52.0) % MCV 89.4 (80-94) fL MCH 28.5 (28.0-34.0) pg MCHC 31.8 (30.0-36.0) g/dL RDW 14.1 (12.1-15.1) % Plt Count 311 (130-400) 10^3/c mm MPV 11.0 H (7.4-10.4) fL Neut % (Auto) 72.7 % Lymph % (Auto) 14.6 % [place] % (Auto) 8.7 % Eos % (Auto) 3.0 % Baso % (Auto) 0.7 % Neut # (Auto) 8.50 H (1.8-7.7) 10^3/u L Lymph # (Auto) 1.7 (0.8-4.8) 10^3/u L [place] # (Auto) 1.0 H (0.2-0.9) 10^3/u L Eos # (Auto) 0.4 (0.0-0.8) 10^3/u L Baso # (Auto) 0.1 (0.0-0.1) 10^3/u L Nucleated RBC % (a uto) 0 % Nucleated RBCs # 0.0 /100WBC PT 11.80 L (12.1-14.9) SECO NDS INR 0.84 (0.8-1.2) Specimen Type Sample Site ABG pH (7.35-7.45) ABG pCO2 (35-45) mmHg ABG pO2 (80.0-100.0) mmH g ABG HCO3 (22-26) mmol/L ABG Base Excess (-2.0-2.0) mmol/ L Jorge Test Hematocrit (42-52) % O2 Delivery Device O2 Liters/Min % Brush Loader And Handle Attacher ID Sodium 140 (136-145) mmol/L Potassium 4.3 (3.5-5.1) mmol/L Chloride 104 (98-107) mmol/L Carbon Dioxide 22 (22-29) mmol/L Anion Gap 18.3 (5-19) BUN 14 (6-20) mg/dL Creatinine 0.9 (0.7-1.2) mg/dL GFR Calculation 86.4 L (90-130) mL/min Glucose 117 H (65-115) mg/dL Calculated Osmolal ity 292 (285-295) mOsm/k g Lactic Acid (0.5-2.2) mmol/L Calcium 10.2 (8.5-10.5) mg/dL Magnesium 1.8 (1.7-2.3) mg/dL Total Bilirubin 0.2 (0.15-1.2) mg/dL AST 24 (0-40) U/L ALT 30 (0-41) U/L Alkaline Phosphata se 127 (40-130) IU/L Troponin T Baselin e (0-15) ng/L Troponin T 120 Min augustine (0-15) ng/L Delta Troponin T (0-10) ABS# NT-Pro-B Natriuret Pep 22 (0-125) pg/mL Total Protein 7.0 (6.6-8.7) g/dL Albumin 4.7 (3.5-5.2) g/dL Globulin 2.3 (1.3-4.6) g/dL SARS-CoV-2 RNA (RT -PCR) (NOT DETECTED) 03/18/20 03/18/20 03/18/20 Range/Units 06:41 06:41 06:41 WBC (4.0-10.0) 10^3/ uL RBC (4.1-5.3) 10^6/u L Hgb (11.7-16.6) g/dL Hct (42.0-52.0) % MCV (80-94) fL MCH (28.0-34.0) pg MCHC (30.0-36.0) g/dL RDW (12.1-15.1) % Plt Count (130-400) 10^3/c mm MPV (7.4-10.4) fL Neut % (Auto) % Lymph % (Auto) % [place] % (Auto) % Eos % (Auto) % Baso % (Auto) % Neut # (Auto) (1.8-7.7) 10^3/u L Lymph # (Auto) (0.8-4.8) 10^3/u L [place] # (Auto) (0.2-0.9) 10^3/u L Eos # (Auto) (0.0-0.8) 10^3/u L Baso # (Auto) (0.0-0.1) 10^3/u L Nucleated RBC % (a uto) % Nucleated RBCs # /100WBC PT (12.1-14.9) SECO NDS INR (0.8-1.2) Specimen Type Sample Site ABG pH (7.35-7.45) ABG pCO2 (35-45) mmHg ABG pO2 (80.0-100.0) mmH g ABG HCO3 (22-26) mmol/L ABG Base Excess (-2.0-2.0) mmol/ L Jorge Test Hematocrit (42-52) % O2 Delivery Device O2 Liters/Min % Brush Loader And Handle Attacher ID Sodium (136-145) mmol/L Potassium (3.5-5.1) mmol/L Chloride (98-107) mmol/L Carbon Dioxide (22-29) mmol/L Anion Gap (5-19) BUN (6-20) mg/dL Creatinine (0.7-1.2) mg/dL GFR Calculation (90-130) mL/min Glucose (65-115) mg/dL Calculated Osmolal ity (285-295) mOsm/k g Lactic Acid 1.4 (0.5-2.2) mmol/L Calcium (8.5-10.5) mg/dL Magnesium (1.7-2.3) mg/dL Total Bilirubin (0.15-1.2) mg/dL AST (0-40) U/L ALT (0-41) U/L Alkaline Phosphata se (40-130) IU/L Troponin T Baselin e 8 (0-15) ng/L Troponin T 120 Min augustine (0-15) ng/L Delta Troponin T (0-10) ABS# NT-Pro-B Natriuret Pep (0-125) pg/mL Total Protein (6.6-8.7) g/dL Albumin (3.5-5.2) g/dL Globulin (1.3-4.6) g/dL SARS-CoV-2 RNA (RT -PCR) Not detected (NOT DETECTED) 03/18/20 03/18/20 Range/Units 06:47 07:55 WBC (4.0-10.0) 10^3/ uL RBC (4.1-5.3) 10^6/u L Hgb (11.7-16.6) g/dL Hct (42.0-52.0) % MCV (80-94) fL MCH (28.0-34.0) pg MCHC (30.0-36.0) g/dL RDW (12.1-15.1) % Plt Count (130-400) 10^3/c mm MPV (7.4-10.4) fL Neut % (Auto) % Lymph % (Auto) % [place] % (Auto) % Eos % (Auto) % Baso % (Auto) % Neut # (Auto) (1.8-7.7) 10^3/u L Lymph # (Auto) (0.8-4.8) 10^3/u L [place] # (Auto) (0.2-0.9) 10^3/u L Eos # (Auto) (0.0-0.8) 10^3/u L Baso # (Auto) (0.0-0.1) 10^3/u L Nucleated RBC % (a uto) % Nucleated RBCs # /100WBC PT (12.1-14.9) SECO NDS INR (0.8-1.2) Specimen Type Arterial Sample Site Brachial, left ABG pH 7.42 (7.35-7.45) ABG pCO2 40.0 (35-45) mmHg ABG pO2 78.3 L (80.0-100.0) mmH g ABG HCO3 26.0 (22-26) mmol/L ABG Base Excess 1.4 (-2.0-2.0) mmol/ L Jorge Test N/a Hematocrit 48.0 (42-52) % O2 Delivery Device Nc O2 Liters/Min 3.0 % Brush Loader And Handle Attacher ID Harkr Sodium (136-145) mmol/L Potassium (3.5-5.1) mmol/L Chloride (98-107) mmol/L Carbon Dioxide (22-29) mmol/L Anion Gap (5-19) BUN (6-20) mg/dL Creatinine (0.7-1.2) mg/dL GFR Calculation (90-130) mL/min Glucose (65-115) mg/dL Calculated Osmolal ity (285-295) mOsm/k g Lactic Acid (0.5-2.2) mmol/L Calcium (8.5-10.5) mg/dL Magnesium (1.7-2.3) mg/dL Total Bilirubin (0.15-1.2) mg/dL AST (0-40) U/L ALT (0-41) U/L Alkaline Phosphata se (40-130) IU/L Troponin T Baselin e (0-15) ng/L Troponin T 120 Min augustine 8.53 (0-15) ng/L Delta Troponin T 0.53 (0-10) ABS# NT-Pro-B Natriuret Pep (0-125) pg/mL Total Protein (6.6-8.7) g/dL Albumin (3.5-5.2) g/dL Globulin (1.3-4.6) g/dL SARS-CoV-2 RNA (RT -PCR) (NOT DETECTED) Discharge Plan Discharge Patient Disposition: Home Clinical Impression: Atypical chest pain, COPD (chronic obstructive pulmonary disease) Condition: Stable Prescriptions: No Action aspirin [Adult Low Dose Aspirin] 81 mg tablet,delayed release (DR/EC) 81 mg PO DAILY RF: 0 clonidine HCl 0.1 mg tablet 0.1 mg PO DAILY PRN (Reason: hypertensive emergency) RF: 0 Symbicort 160-4.5 mcg/actuation HFA aerosol inhaler 2 puff INHALATION BID Qty: 10.2 RF: 3 amlodipine 10 mg tablet 10 mg PO DAILY Qty: 90 RF: 1 albuterol sulfate 2.5 mg /3 mL (0.083 %) solution for nebulization 2.5 mg INHALATION Q4H PRN (Reason: shortness of breath or wheezing) Qty: 225 RF: 1 Discharge Orders: Discharge Order (Routine); Ordered 03/18/20 Ordered By: Elvis Sharma Referrals: Huan Limon [Primary Care Provider] - Discharge Diet: Usual diet Discharge Activity: Limit activity as instructed Activity Restrictions/Additional Instructions: You were tested for COVID-19 today. Please maintain self quarantine until the results are available. You will be called in 2 to 3 days when they are result ed. Discharge Date/Time: 03/18/20 08:05 Coding Level of Care Code ED Web Content & Social Media Manager for Sandrag Fwd Exam Comprehensive
[2020-03-18 06:48] VITALS: BP 148/84; PULSE 75; O2SAT 96
[2020-03-18 06:58] LABS: ABG PH Result 7.42 (7.35-7.45); Base Excess ABG 1.4 mmol/L (-2.0-2.0); Blood Gas Operator Identificat HARKR; Blood Gas Sample Site Brachial, left; Blood Gas Sample Type Arterial; Oxygen Device NC; PO2 ABG 78.3 mmHg (80.0-100.0)
[2020-03-18 06:58] LABS: Basophils # 0.1 10^3/uL (0.0-0.1); Basophils % 0.7 %; Eosinophils # 0.4 10^3/uL (0.0-0.8); Hemoglobin 15.6 g/dL (11.7-16.6); Lymphocytes # 1.7 10^3/uL (0.8-4.8); Lymphocytes % 14.6 %; Mean Corpuscular HGB Conc 31.8 g/dL (30.0-36.0); Mean Corpuscular Hemoglobin 28.5 pg (28.0-34.0); Mean Corpuscular Volume 89.4 fL (80-94); Monocytes % 8.7 %; Neutrophils % 72.7 %; Nucleated Red Blood Cells % 0 %; Platelet Count 311 10^3/cmm (130-400); Red Blood Count 5.48 10^6/uL (4.1-5.3); Red Cell Distribution Width 14.1 % (12.1-15.1); White Blood Count 11.7 10^3/uL (4.0-10.0)
[2020-03-18 07:18] LABS: INR 0.84 (0.8-1.2); Lactic Sepsis W/Reflex 1.4 mmol/L (0.5-2.2)
[2020-03-18 07:22] LABS: Troponin(5th) Baseline 8 ng/L (0-15)
[2020-03-18 07:31] LABS: Alanine Aminotransferase 30 U/L (0-41); Albumin Level 4.7 g/dL (3.5-5.2); Alkaline Phosphatase 127 IU/L (40-130); Anion Gap 18.3 (5-19); Aspartate Amino Transferase 24 U/L (0-40); Blood Urea Nitrogen 14 mg/dL (6-20); Calcium 10.2 mg/dL (8.5-10.5); Carbon Dioxide 22 mmol/L (22-29); Chloride 104 mmol/L (98-107); Creatinine Clr Calc Pharmacy 100.7485; Globulin 2.3 g/dL (1.3-4.6); Glomerular Filtration Rate 86.4 mL/min (90-130); Glucose 117 mg/dL (65-115); Magnesium 1.8 mg/dL (1.7-2.3); NT Pro B Type Natriuretic Pept 22 pg/mL (0-125); Osmolality Calculated 292 mOsm/kg (285-295); Potassium 4.3 mmol/L (3.5-5.1); Sodium 140 mmol/L (136-145); Total Bilirubin 0.2 mg/dL (0.15-1.2)
[2020-03-18 07:37] VITALS: BP 137/79; PULSE 64; RESP 18; O2SAT 96
[2020-03-18 08:05] VITALS: BP 137/79; PULSE 69; RESP 18; O2SAT 96
[2020-03-18 08:15] LABS: Troponin 5 2HR 8.53 ng/L (0-15); Troponin 5 2HR Delta 0.53 ABS# (0-10)
[2020-03-20 14:43] LABS: Quest SARS-CoV-2 RNA NOT DETECTED (NOT DETECTED)
--- NOTE | 2020-03-21 12:28 | PC.NURSE ---
Pt called and notified of negative COVID result.
== END 2020-03-18 08:05 | disposition home or self-care (01) ==
PROVIDERS: Emergency Medicine; Emergency Provider Family Medicine
DX: J44.9 Chronic obstructive pulmonary disease, unspecified (principal); R07.89 Other chest pain; Z79.82 Long term (current) use of aspirin; I25.10 Atherosclerotic heart disease of native coronary artery without angina pectoris; Z86.73 Personal history of transient ischemic attack (TIA), and cerebral infarction without residual deficits; I10 Essential (primary) hypertension; E78.5 Hyperlipidemia, unspecified; Z87.891 Personal history of nicotine dependence
CPT/HCPCS: 12345; 36600; 71045; 80053; 82803; 83605; 83735; 83880; 84484; 85025; 85610; 87635; 93005; 99283; 99284

== ENCOUNTER 2020-04-05 19:13 | Emergency (ER) | payer MEDICARE, SELFPAY ==
[2020-04-05 19:19] VITALS: BP 125/82; PULSE 108; RESP 20; TEMP 36.4; O2SAT 97; BMI 23.7
--- NOTE | 2020-04-05 19:24 | ECG_ITS ---
[facility] Test Date: 2020-04-05 Pat Name: Hai Aparicio Department: Room: Gender: Male Engraver Automatic: : 1960 Requested By: Charline Avila I Order Number: [id number] Zay MD: Maira Arana M.D. Measurements Intervals [place] Rate: 92 P: 58 MO: 155 QRS: 84 QRSD: 84 T: 68 QT: 334 QTc: 415 Interpretive Statements SINUS RHYTHM Compared to ECG 03/18/2020 05:59:19 No significant changes Electronically Signed On 04-07-2020 7:22:33 CDT by Maira Arana M.D. [id number]
[2020-04-05 20:19] VITALS: BP 123/79; PULSE 105; RESP 20; O2SAT 96
--- NOTE | 2020-04-05 20:43 | XR_ITS ---
WS: [id number] PORTABLE CHEST HISTORY: Acute chest pain. COMPARISON: 03/18/2020 Marked pulmonary hyperexpansion. No pneumonia. No pleural effusion or pneumothorax. Cardiac size: Normal. Mediastinum/Aorta: Normal mediastinum. No osseous abnormality seen. XR/XR chest 1V portable [id number] IMPRESSION: Chronic emphysema with no pneumonia.
[2020-04-05 21:09] VITALS: BP 164/128; PULSE 91; RESP 17; O2SAT 97
[2020-04-05 21:13] LABS: Basophils # 0.1 10^3/uL (0.0-0.1); Basophils % 0.7 %; Eosinophils # 0.2 10^3/uL (0.0-0.8); Eosinophils % 1.8 %; Hematocrit 47.5 % (42.0-52.0); Hemoglobin 15.3 g/dL (11.7-16.6); Lymphocytes # 2.3 10^3/uL (0.8-4.8); Lymphocytes % 17.7 %; Mean Corpuscular HGB Conc 32.2 g/dL (30.0-36.0); Mean Corpuscular Hemoglobin 28.7 pg (28.0-34.0); Mean Corpuscular Volume 89.1 fL (80-94); Mean Platelet Volume 10.8 fL (7.4-10.4); Monocytes # 1.1 10^3/uL (0.2-0.9); Monocytes % 8.2 %; Neutrophils # 9.23 10^3/uL (1.8-7.7); Neutrophils % 71.1 %; Nucleated Red Blood Cells % 0 %; Platelet Count 324 10^3/cmm (130-400); Red Blood Count 5.33 10^6/uL (4.1-5.3)
[2020-04-05 21:27] LABS: D Dimer <= 0.27 ug/mIFEU (0-0.59)
[2020-04-05 21:33] LABS: Troponin(5th) Baseline 9 ng/L (0-15)
[2020-04-05 21:41] LABS: Alanine Aminotransferase 29 U/L (0-41); Albumin Level 4.4 g/dL (3.5-5.2); Alkaline Phosphatase 123 IU/L (40-130); Aspartate Amino Transferase 22 U/L (0-40); Blood Urea Nitrogen 12 mg/dL (6-20); Calcium 9.4 mg/dL (8.5-10.5); Carbon Dioxide 24 mmol/L (22-29); Chloride 101 mmol/L (98-107); Creatine Phosphokinase 68 U/L (39-308); Globulin 2.9 g/dL (1.3-4.6); Glomerular Filtration Rate 98.9 mL/min (90-130); Glucose 106 mg/dL (65-115); NT Pro B Type Natriuretic Pept 39 pg/mL (0-125); Osmolality Calculated 286 mOsm/kg (285-295); Sodium 138 mmol/L (136-145); Total Bilirubin 0.2 mg/dL (0.15-1.2); Total Protein 7.3 g/dL (6.6-8.7)
[2020-04-05 21:54] LABS: Anion Gap 16.8 (5-19); Potassium 3.8 mmol/L (3.5-5.1)
--- NOTE | 2020-04-05 22:05 | W.ED.CHESTPA ---
HPI - Chest Pain General: Chief Complaint: Chest Pain Stated Complaint: CP/ feels like hes being shocked Time Seen by Provider: 04/05/20 20:15 History of Present Illness: HPI narrative: 60-year-old male, a patient in the ER frequently because of chest pain related complaints, presents with chest discomfort. He notes there is a pain in the left side of his chest that is very intermittent. There are 2 different types of pain, one that is more dull and deep, and causes him nausea. Another is in the left upper chest, and is a newer pain. He says it is like an electric shock. It does not provoke the nausea the other pain does. These are very short-lived, maybe 10 seconds, and intermittent. He has not had any more pain since he is checked into the ER. He denies any fever, overt short of breath, chest congestion, etc. He does have a history of COPD. He had a recent cardiac catheterization showing only 20% minimal stenosis of his ostium MD complaint: chest pain Onset (ago): hour(s) Timing of current episode: episodic Prior episodes: Yes Onset: during rest Pain location: left chest Pain radiation: back Quality: sharp and dull Relieving factors: nothing Exacerbating factors: nothing Associated symptoms: Reports nausea; Deny diaphoresis, dyspnea, fever(s), leg edema, palpitations or vomiting Treatment prior to arrival: none Review of Systems Const: Denies: fever(s) or diaphoresis Eyes: Denies: change in vision ENMT: Denies: odynophagia, epistaxis or sinus pain Card: Denies: palpitations Resp: Denies: dyspnea or wheezing GI: Reports: nausea; Denies: vomiting : Denies: difficulty urinating or hematuria Musc: Reports: back pain; Denies: neck pain Skin/Breast: Denies: rash or erythema Neuro: Denies: headache(s), dizziness or vertigo Psych: Denies: anxiety PFSH ED PFSH: Medical History (Updated 04/05/20 @ 22:21 by Ariel Azar DO) Anxiety CAD (coronary artery disease) Carotid stenosis Chest pain CKD (chronic kidney disease) COPD (chronic obstructive pulmonary disease) CVA (cerebral vascular accident) Epigastric abdominal pain GERD (gastroesophageal reflux disease) HTN (hypertension) Hyperlipidemia Hypoxia Iliac artery occlusion Obstructive apnea Palpitation PVD (peripheral vascular disease) Shortness of breath Umbilical hernia Family History Other CAD (coronary artery disease) Cancer Social History Smoking and tobacco status: former smoker Quit status (tobacco): has quit using tobacco Year quit tobacco: 2009 Alcohol intake: never Physical Exam Const: GENERAL APPEARANCE: well developed ORIENTATION/CONSCIOUSNESS: Yes oriented to person, Yes oriented to place and Yes oriented to time HENMT: COMMON NORMALS: normocephalic, external ears normal and Normal external nose present HEAD & SCALP: normocephalic FACE & SINUS: normal facial exam NOSE: Normal external nose present and No nasal discharge present EXTERNAL EAR: Yes external ears normal Eye: COMMON NORMALS: Equal, round and reactive pupils present, EOMs intact bilaterally and conjunctivae normal EYELID: eyelids normal CONJUNCTIVA: Yes conjunctivae normal PUPIL: Yes Equal, round and reactive pupils present Neck/C-Spine: GENERAL: No tracheal deviation Chest: COMMONS NORMALS: normal inspection of the chest CHEST: No tenderness Resp: COMMON NORMALS: clear to auscultation bilaterally EFFORT & INSPECTION: No tachypneic, No respiratory distress, No retractions, No uses accessory muscles and No tracheal deviation AUSCULTATION: clear to auscultation bilaterally, no rhonchi, no wheezes and lung sounds not diminished Cardio: COMMON NORMALS: regular rate and regular rhythm RATE: regular rate RHYTHM: regular rhythm HEART SOUNDS: no murmurs PERIPHERAL PULSES: radial pulses present GI: INSPECTION: No abdominal distension AUSCULTATION: No Hyperactive bowel sounds present and No Hypoactive bowel sounds present PALPATION: No Guarding due to palpation present (GI) and No Rigid due to palpation PERCUSSION: no dullness to percussion and no tympanic to percussion Neuro: SENSORIUM/ORIENTATION: Yes oriented to person, Yes oriented to place and Yes oriented to time Psych: COMMON NORMALS: mental status grossly normal Skin: COMMON NORMALS: no rashes or lesions noted GENERAL SKIN EXAM: no rashes or lesions noted Course Vital Signs: Vital signs: Vital Signs Temperature 97.5 F L 04/05/20 19:19 Pulse Rate 95 04/05/20 23:02 Respiratory Rate 20 H 04/05/20 23:02 Blood Pressure 117/69 04/05/20 23:02 Pulse Oximetry 95 04/05/20 23:02 MDM - Chest Pain MDM Narrative: Medical decision making narrative: Tenderness is not really reproducible. Patient has been sinus rhythm in the 90s on the monitor. Blood pressures have been normal, 131/77 currently. Saturations 95% on room air. He is having no trouble breathing. He is in no distress. White blood cell count is 13 with no shift. His other laboratory including troponin and D-dimer are normal. His EKG shows a sinus rhythm with a normal axis and a rate of [address] changes. He will be allowed home. I do not know if this is a pleuritic pain, anxiety, or much less likely GI related. His chest x-ray is negative Lab Data: Labs: Lab Results 04/05/20 04/05/20 04/05/20 Range/Units 21:08 21:08 21:08 WBC 13.0 H (4.0-10.0) 10^3/ uL RBC 5.33 H (4.1-5.3) 10^6/u L Hgb 15.3 (11.7-16.6) g/dL Hct 47.5 (42.0-52.0) % MCV 89.1 (80-94) fL MCH 28.7 (28.0-34.0) pg MCHC 32.2 (30.0-36.0) g/dL RDW 14.0 (12.1-15.1) % Plt Count 324 (130-400) 10^3/c mm MPV 10.8 H (7.4-10.4) fL Neut % (Auto) 71.1 % Lymph % (Auto) 17.7 % [place] % (Auto) 8.2 % Eos % (Auto) 1.8 % Baso % (Auto) 0.7 % Neut # (Auto) 9.23 H (1.8-7.7) 10^3/u L Lymph # (Auto) 2.3 (0.8-4.8) 10^3/u L [place] # (Auto) 1.1 H (0.2-0.9) 10^3/u L Eos # (Auto) 0.2 (0.0-0.8) 10^3/u L Baso # (Auto) 0.1 (0.0-0.1) 10^3/u L Nucleated RBC % (a uto) 0 % Nucleated RBCs # 0.0 /100WBC D-Dimer <= 0.27 (0-0.59) ug/mIFE U Sodium 138 (136-145) mmol/L Potassium 3.8 (3.5-5.1) mmol/L Chloride 101 (98-107) mmol/L Carbon Dioxide 24 (22-29) mmol/L Anion Gap 16.8 (5-19) BUN 12 (6-20) mg/dL Creatinine 0.8 (0.7-1.2) mg/dL GFR Calculation 98.9 (90-130) mL/min Glucose 106 (65-115) mg/dL Calculated Osmolal ity 286 (285-295) mOsm/k g Calcium 9.4 (8.5-10.5) mg/dL Total Bilirubin 0.2 (0.15-1.2) mg/dL AST 22 (0-40) U/L ALT 29 (0-41) U/L Alkaline Phosphata se 123 (40-130) IU/L Creatine Kinase 68 (39-308) U/L Troponin T Baselin e (0-15) ng/L NT-Pro-B Natriuret Pep 39 (0-125) pg/mL Total Protein 7.3 (6.6-8.7) g/dL Albumin 4.4 (3.5-5.2) g/dL Globulin 2.9 (1.3-4.6) g/dL 1025/20 Range/Units 21:08 WBC (4.0-10.0) 10^3/ uL RBC (4.1-5.3) 10^6/u L Hgb (11.7-16.6) g/dL Hct (42.0-52.0) % MCV (80-94) fL MCH (28.0-34.0) pg MCHC (30.0-36.0) g/dL RDW (12.1-15.1) % Plt Count (130-400) 10^3/c mm MPV (7.4-10.4) fL Neut % (Auto) % Lymph % (Auto) % [place] % (Auto) % Eos % (Auto) % Baso % (Auto) % Neut # (Auto) (1.8-7.7) 10^3/u L Lymph # (Auto) (0.8-4.8) 10^3/u L [place] # (Auto) (0.2-0.9) 10^3/u L Eos # (Auto) (0.0-0.8) 10^3/u L Baso # (Auto) (0.0-0.1) 10^3/u L Nucleated RBC % (a uto) % Nucleated RBCs # /100WBC D-Dimer (0-0.59) ug/mIFE U Sodium (136-145) mmol/L Potassium (3.5-5.1) mmol/L Chloride (98-107) mmol/L Carbon Dioxide (22-29) mmol/L Anion Gap (5-19) BUN (6-20) mg/dL Creatinine (0.7-1.2) mg/dL GFR Calculation (90-130) mL/min Glucose (65-115) mg/dL Calculated Osmolal ity (285-295) mOsm/k g Calcium (8.5-10.5) mg/dL Total Bilirubin (0.15-1.2) mg/dL AST (0-40) U/L ALT (0-41) U/L Alkaline Phosphata se (40-130) IU/L Creatine Kinase (39-308) U/L Troponin T Baselin e 9 (0-15) ng/L NT-Pro-B Natriuret Pep (0-125) pg/mL Total Protein (6.6-8.7) g/dL Albumin (3.5-5.2) g/dL Globulin (1.3-4.6) g/dL Discharge Plan Discharge Patient Disposition: Home Clinical Impression: Atypical chest pain Condition: Stable Prescriptions: New prednisone 10 mg tablets,dose pack See Rx Instructions .ROUTE .COMPLEX Qty: 21 RF: 0 No Action aspirin [Adult Low Dose Aspirin] 81 mg tablet,delayed release (DR/EC) 81 mg PO DAILY RF: 0 clonidine HCl 0.1 mg tablet 0.1 mg PO DAILY PRN (Reason: hypertensive emergency) RF: 0 Symbicort 160-4.5 mcg/actuation HFA aerosol inhaler 2 puff INHALATION BID Qty: 10.2 RF: 3 amlodipine 10 mg tablet 10 mg PO DAILY Qty: 90 RF: 1 meloxicam 15 mg tablet 15 mg PO DAILY Qty: 30 RF: 0 albuterol sulfate 2.5 mg /3 mL (0.083 %) solution for nebulization 2.5 mg INHALATION Q4H PRN (Reason: shortness of breath or wheezing) Qty: 225 RF: 1 Discharge Orders: Discharge Order (Routine); Ordered 04/05/20 Ordered By: Ariel Azar Referrals: Huan Limon [Primary Care Provider] - 4-7 days Discharge Diet: Advance as tolerated Discharge Activity: Increase activity as tolerated Patient Instructions: Chest Pain (ED) Activity Restrictions/Additional Instructions: Medication as directed for pleuritic chest pain. Return for shortness of breath, worsening chest pain despite treatment, fever greater than 100, cough, sputum production, other concerning symptoms. Discharge Date/Time: 04/05/20 23:03 Coding Level of Care Code ED Visual Aid Expert for Sandrag Fwd Exam Comprehensive
[2020-04-05 23:02] VITALS: BP 117/69; PULSE 95; RESP 20; O2SAT 95
== END 2020-04-05 23:03 | disposition home or self-care (01) ==
PROVIDERS: Emergency Provider Emergency Medicine
DX: R07.89 Other chest pain (principal); Z79.82 Long term (current) use of aspirin; I25.10 Atherosclerotic heart disease of native coronary artery without angina pectoris; J44.9 Chronic obstructive pulmonary disease, unspecified; Z86.73 Personal history of transient ischemic attack (TIA), and cerebral infarction without residual deficits; I10 Essential (primary) hypertension; E78.5 Hyperlipidemia, unspecified; Z87.891 Personal history of nicotine dependence
CPT/HCPCS: 12345; 71045; 80053; 82550; 83880; 84484; 85025; 85378; 93005; 99283

== ENCOUNTER 2020-08-27 16:50 | Emergency (ER) | payer MEDICARE, SELFPAY ==
[2020-08-27 17:30] VITALS: BP 105/75; PULSE 111; RESP 18; TEMP 36.6; O2SAT 94; BMI 25.0
--- NOTE | 2020-08-27 19:15 | ECG_ITS ---
[facility] Test Date: 2020-08-27 Pat Name: Hai Aparicio Department: Room: Gender: Male Ship Pilot: : 1960 Requested By: Ruth Palm Order Number: [id number] Zay MD: Jose Alejandro Patterson M.D. Measurements Intervals [place] Rate: 80 P: 76 [place]: 159 QRS: 92 QRSD: 89 T: 78 QT: 350 QTc: 404 Interpretive Statements SINUS RHYTHM WITH OCCASIONAL SUPRAVENTRICULAR PREMATURE COMPLEXES BORDERLINE RIGHT AXIS DEVIATION [QRS AXIS > 90] POSSIBLE RIGHT VENTRICULAR CONDUCTION DELAY [RSR (QR) IN V1/V2] SEPTAL MYOCARDIAL INFARCTION , OF INDETERMINATE AGE [40+ ms Q WAVE IN V1/V2] Compared to ECG 04/05/2020 19:27:52 Myocardial infarct finding now present Electronically Signed On 08-28-2020 23:07:37 CDT by Jose Alejandro Patterson M.D. [id number]
--- NOTE | 2020-08-27 19:15 | XR_ITS ---
WS: [id number] XR chest 1V portable [id number] REASON FOR EXAM: cough FINDINGS: Chest is unchanged compared to previous examination of 04/05/2020. Mild tortuosity of the thoracic ao rta without aneurysmal dilatation. Normal heart size. Calcified granulomatous changes in both hemithoraces. No active pulmonary parenchymal or pleural disease. There is flattening of both hemidiaphragms indica ting hyperexpansion/obstructive lung disease. No significant abnormality of the bony thorax. XR/XR chest 1V portable [id number] IMPRESSION: No acute chest abnormality.
--- NOTE | 2020-08-27 19:16 | ED_ITS ---
HPI - General Adult General: Chief complaint: General Medical Stated complaint: General Sickness/Weak/COPD Time Seen by Provider: 08/27/20 19:04 Source: patient Mode of arrival: ambulatory Limitations: no limitations History of Present Illness: HPI narrative: 60-year-old male who states that he has been having generalized malaise and not feeling well over the last 2 to 3 days. He states he has felt like he had the flu but he has been afebrile and has not had a cough. He states he just feels very weak and is felt sick and has had a very low energy. He states he had his blood donor shot 2 weeks ago and felt ill for 1 day after that but is felt improved until last 3 days. He has had no sick contacts. Again denies any vomiting or diarrhea denies any fevers. Associated symptoms: Reports malaise and nausea; Deny chest pain, dyspnea, headache(s), rash or vomiting Review of Systems Const: Reports: body aches and malaise; Denies: fever(s), chills or change in appetite Eyes: Denies: blurry vision or eye discomfort ENMT: Denies: throat pain or dental pain Card: Denies: chest pain Resp: Denies: dyspnea GI: Reports: nausea; Denies: abdominal pain, vomiting or diarrhea : Denies: dysuria Musc: Denies: neck pain or back pain Skin/Breast: Denies: rash Neuro: Denies: headache(s) Psych: Denies: depression Gera/Lymph: Denies: easy bruising All/Imm: Denies: urticaria PFSH ED PFSH: Medical History (Updated 08/27/20 @ 20:32 by Ruth Palm MD) Anxiety CAD (coronary artery disease) Carotid stenosis Chest pain CKD (chronic kidney disease) COPD (chronic obstructive pulmonary disease) CVA (cerebral vascular accident) Epigastric abdominal pain GERD (gastroesophageal reflux disease) HTN (hypertension) Hyperlipidemia Hypoxia Iliac artery occlusion Obstructive apnea Palpitation PVD (peripheral vascular disease) Shortness of breath Umbilical hernia Family History Other CAD (coronary artery disease) Cancer Social History Smoking and tobacco status: former smoker Quit status (tobacco): has quit using tobacco Year quit tobacco: 2009 - 2PPD x 37 Years Alcohol intake: never Caregiver/support person: Yes Household members: none Marital status: Unknown Current occupational status: unemployed Previous occupational history: [employer] History of recent travel: No Current gender identity: Male Physical Exam Const: COMMON NORMALS: no acute distress, patient oriented x3 and healthy appearing HENMT: COMMON NORMALS: normocephalic and atraumatic HEAD & SCALP: normocephalic and atraumatic Eye: COMMON NORMALS: Equal, round and reactive pupils present and EOMs intact bilaterally PUPIL: Yes Equal, round and reactive pupils present Neck/C-Spine: COMMON NORMALS: full ROM and supple Chest: COMMONS NORMALS: normal inspection of the chest and normal palpation of entire chest wall Resp: COMMON NORMALS: normal respiratory effort, No retractions, No use of accessory muscles and clear to auscultation bilaterally AUSCULTATION: clear to auscultation bilaterally Cardio: COMMON NORMALS: regular rate, regular rhythm and No murmurs present (Cardio) RATE: regular rate RHYTHM: regular rhythm GI: COMMON NORMALS: Normal to inspection, nondistended, normoactive bowel sounds present, Soft to palpation, non-tender and no masses PALPATION: Yes Soft to palpation Extremity: COMMON NORMALS: normal to inspection and full ROM Neuro: COMMON NORMALS: patient oriented x3, moves all extremities and no focal motor deficits Psych: COMMON NORMALS: mental status grossly normal, Normal thought process present and cooperative THOUGHT PROCESS: Normal thought process present Skin: COMMON NORMALS: no rashes or lesions noted and no wounds GENERAL SKIN EXAM: no rashes or lesions noted Course Vital Signs: Vital signs: Vital Signs Temperature 97.9 F 08/27/20 20:53 Pulse Rate 98 08/27/20 20:53 Respiratory Rate 21 H 08/27/20 20:53 Blood Pressure 131/85 08/27/20 20:53 Pulse Oximetry 99 08/27/20 20:53 MDM - General Adult MDM Narrative: Medical decision making narrative: Hai presents here with generalized illness. He is well-appearing here and has no fever and his vital signs are all normal. He has no signs of pneumonia and his x-ray is normal. Patient is stable for discharge and return if worsening. Lab Data: Labs: Lab Results 08/27/20 08/27/20 08/27/20 Range/Units 19:25 19:25 19:28 WBC 11.8 H (4.0-10.0) 10^3/ uL RBC 6.18 H (4.1-5.3) 10^6/u L Hgb 17.5 H (11.7-16.6) g/dL Hct 53.6 H (42.0-52.0) % MCV 86.7 (80-94) fL MCH 28.3 (28.0-34.0) pg MCHC 32.6 (30.0-36.0) g/dL RDW 13.3 (12.1-15.1) % Plt Count 354 (130-400) 10^3/c mm MPV 10.7 H (7.4-10.4) fL Neut % (Auto) 70.4 % Lymph % (Auto) 18.6 % Sebastian % (Auto) 8.3 % Eos % (Auto) 1.7 % Baso % (Auto) 0.6 % Neut # (Auto) 8.30 H (1.8-7.7) 10^3/u L Lymph # (Auto) 2.2 (0.8-4.8) 10^3/u L Sebastian # (Auto) 1.0 H (0.2-0.9) 10^3/u L Eos # (Auto) 0.2 (0.0-0.8) 10^3/u L Baso # (Auto) 0.1 (0.0-0.1) 10^3/u L Nucleated RBC % (a uto) 0 % Nucleated RBCs # 0.0 /100WBC Sodium 137 (136-145) mmol/L Potassium 3.6 (3.5-5.1) mmol/L Chloride 99 (98-107) mmol/L Carbon Dioxide 25 (22-29) mmol/L Anion Gap 16.6 (5-19) BUN 12 (6-20) mg/dL Creatinine 1.0 (0.7-1.2) mg/dL GFR Calculation 76.5 L (90-130) mL/min Glucose 99 (65-115) mg/dL Calculated Osmolal ity 284 L (285-295) mOsm/k g Calcium 10.0 (8.5-10.5) mg/dL Total Bilirubin 0.3 (0.15-1.2) mg/dL AST 19 (0-40) U/L ALT 27 (0-41) U/L Alkaline Phosphata se 141 H (40-130) IU/L Total Protein 8.0 (6.6-8.7) g/dL Albumin 4.5 (3.5-5.2) g/dL Globulin 3.5 (1.3-4.6) g/dL Urine Color (Yellow) Urine Appearance (CLEAR) Urine pH (5-7) Ur Specific Gravit y (1.005-1.030) Urine Protein (Negative) Urine Glucose (UA) (Normal) Urine Ketones (Negative) Urine Blood (Negative) Urine Nitrate (Negative) Urine Bilirubin (Negative) Urine Urobilinogen (Negative) mg/dL Ur Leukocyte [place] (Negative) Influenza Type A A g Negative (Negative) Influenza Type B A g Negative (Negative) 08/27/20 Range/Units 20:15 WBC (4.0-10.0) 10^3/ uL RBC (4.1-5.3) 10^6/u L Hgb (11.7-16.6) g/dL Hct (42.0-52.0) % MCV (80-94) fL MCH (28.0-34.0) pg MCHC (30.0-36.0) g/dL RDW (12.1-15.1) % Plt Count (130-400) 10^3/c mm MPV (7.4-10.4) fL Neut % (Auto) % Lymph % (Auto) % Sebastian % (Auto) % Eos % (Auto) % Baso % (Auto) % Neut # (Auto) (1.8-7.7) 10^3/u L Lymph # (Auto) (0.8-4.8) 10^3/u L Sebastian # (Auto) (0.2-0.9) 10^3/u L Eos # (Auto) (0.0-0.8) 10^3/u L Baso # (Auto) (0.0-0.1) 10^3/u L Nucleated RBC % (a uto) % Nucleated RBCs # /100WBC Sodium (136-145) mmol/L Potassium (3.5-5.1) mmol/L Chloride (98-107) mmol/L Carbon Dioxide (22-29) mmol/L Anion Gap (5-19) BUN (6-20) mg/dL Creatinine (0.7-1.2) mg/dL GFR Calculation (90-130) mL/min Glucose (65-115) mg/dL Calculated Osmolal ity (285-295) mOsm/k g Calcium (8.5-10.5) mg/dL Total Bilirubin (0.15-1.2) mg/dL AST (0-40) U/L ALT (0-41) U/L Alkaline Phosphata se (40-130) IU/L Total Protein (6.6-8.7) g/dL Albumin (3.5-5.2) g/dL Globulin (1.3-4.6) g/dL Urine Color Yellow (Yellow) Urine Appearance Clear (CLEAR) Urine pH 5 (5-7) Ur Specific Gravit y 1.015 (1.005-1.030) Urine Protein Neg (Negative) Urine Glucose (UA) Norm (Normal) Urine Ketones Negative (Negative) Urine Blood Neg (Negative) Urine Nitrate Negative (Negative) Urine Bilirubin Neg (Negative) Urine Urobilinogen Norm (Negative) mg/dL Ur Leukocyte [place] Negative (Negative) Influenza Type A A g (Negative) Influenza Type B A g (Negative) Discharge Plan Discharge Patient Disposition: Home Clinical Impression: General ill feeling Condition: Stable Prescriptions: No Action aspirin [Adult Low Dose Aspirin] 81 mg tablet,delayed release (DR/EC) See Rx Instructions .ROUTE .COMPLEX RF: 0 clonidine HCl 0.1 mg tablet 0.1 mg PO DAILY PRN (Reason: hypertensive emergency) RF: 0 meloxicam 15 mg tablet 15 mg PO DAILY Qty: 30 RF: 0 albuterol sulfate 2.5 mg /3 mL (0.083 %) solution for nebulization 2.5 mg INHALATION Q4H PRN (Reason: Shortness Of Breath) RF: 0 Trelegy Ellipta 100-62.5-25 mcg blister with device 1 inh INHALATION Q24H 30 Days Qty: 60 RF: 3 Tylenol Extra Strength 500 mg Tablet 500 mg PO PRN RF: 0 amlodipine 10 mg tablet 10 mg PO DAILY@14 RF: 0 Symbicort 160-4.5 mcg/actuation HFA aerosol inhaler 2 puff inhalation BID RF: 0 Discharge Orders: Discharge ED (Routine); Ordered 08/27/20 Ordered By: Ruth Palm Referrals: Huan Limon [Primary Care Provider] - 1-3 days Discharge Diet: Advance as tolerated Discharge Activity: Resume usual activity Patient Instructions: Viral Syndrome (ED) Coding Level of Care Code ED Kennel Assistant for Sandrag Fwd Exam Comprehensive
[2020-08-27] MEDS: sodium chloride 0.9% 1,000 ML 999 ML IV (19:29)
[2020-08-27 19:42] LABS: Basophils # 0.1 10^3/uL (0.0-0.1); Basophils % 0.6 %; Eosinophils # 0.2 10^3/uL (0.0-0.8); Eosinophils % 1.7 %; Hematocrit 53.6 % (42.0-52.0); Hemoglobin 17.5 g/dL (11.7-16.6); Lymphocytes # 2.2 10^3/uL (0.8-4.8); Lymphocytes % 18.6 %; Mean Corpuscular HGB Conc 32.6 g/dL (30.0-36.0); Mean Corpuscular Hemoglobin 28.3 pg (28.0-34.0); Mean Corpuscular Volume 86.7 fL (80-94); Mean Platelet Volume 10.7 fL (7.4-10.4); Monocytes % 8.3 %; Neutrophils % 70.4 %; Nucleated Red Blood Cells % 0 %; Platelet Count 354 10^3/cmm (130-400); Red Blood Count 6.18 10^6/uL (4.1-5.3); Red Cell Distribution Width 13.3 % (12.1-15.1); White Blood Count 11.8 10^3/uL (4.0-10.0)
[2020-08-27 19:47] VITALS: BP 134/90; PULSE 88; RESP 27; O2SAT 98
[2020-08-27 20:00] VITALS: BP 150/98; PULSE 99; RESP 21; O2SAT 98
[2020-08-27 20:02] LABS: Alanine Aminotransferase 27 U/L (0-41); Albumin Level 4.5 g/dL (3.5-5.2); Alkaline Phosphatase 141 IU/L (40-130); Anion Gap 16.6 (5-19); Aspartate Amino Transferase 19 U/L (0-40); Blood Urea Nitrogen 12 mg/dL (6-20); Carbon Dioxide 25 mmol/L (22-29); Chloride 99 mmol/L (98-107); Globulin 3.5 g/dL (1.3-4.6); Glomerular Filtration Rate 76.5 mL/min (90-130); Glucose 99 mg/dL (65-115); Osmolality Calculated 284 mOsm/kg (285-295); Potassium 3.6 mmol/L (3.5-5.1); Sodium 137 mmol/L (136-145); Total Bilirubin 0.3 mg/dL (0.15-1.2)
[2020-08-27 20:04] LABS: Influenza A by IFA Negative (Negative); Influenza B by IFA Negative (Negative)
[2020-08-27 20:42] LABS: Add Urine Microscopic? NO; Bilirubin Urine Neg (Negative); Blood Urine Neg (Negative); Glucose Urine UA Norm (Normal); Ketones Urine Negative (Negative); Leukocyte Esterase Urine Negative (Negative); Nitrate Urine Negative (Negative); Protein Urine Neg (Negative); Specific Gravity, Urine 1.015 (1.005-1.030); Urine Appearance Clear (CLEAR); Urine Color Yellow (Yellow); Urobilinogen Urine Norm (Negative); pH Urine 5 (5-7)
[2020-08-27 20:53] VITALS: BP 131/85; PULSE 98; RESP 21; TEMP 36.6; O2SAT 99
== END 2020-08-27 20:56 | disposition home or self-care (01) ==
PROVIDERS: Emergency Provider Emergency Medicine
DX: R53.81 Other malaise (principal); I25.10 Atherosclerotic heart disease of native coronary artery without angina pectoris; J44.9 Chronic obstructive pulmonary disease, unspecified; Z86.73 Personal history of transient ischemic attack (TIA), and cerebral infarction without residual deficits; I10 Essential (primary) hypertension; E78.5 Hyperlipidemia, unspecified; Z87.891 Personal history of nicotine dependence
CPT/HCPCS: 71045; 80053; 81003; 85025; 87804; 93005; 96360; 99283; J7030

== ENCOUNTER → 2020-09-29 09:06 | Outpatient (BNVA) | payer MEDICARE, SELFPAY | PROVIDERS: Visit Provider Orthopaedic Surgery | DX: M54.5 Low back pain (principal) | CPT/HCPCS: 72110 ==

== ENCOUNTER 2020-10-22 03:05 | Emergency (ER) | payer MEDICARE, SELFPAY ==
--- NOTE | 2020-10-22 03:07 | XRR_ITS ---
PROCEDURE INFORMATION: Exam: XR Chest Exam date and time: 10/22/2020 3:13 AM Age: 60 years old Clinical indication: Chest pressure; Patient HX: Chest pain; Additional info: Cp TECHNIQUE: Imaging protocol: XR of the chest. Views: 1 view. COMPARISON: CR XR chest 1V portable [id number] 08/27/2020 7:21 PM FINDINGS: Lungs: The lungs are somewhat hyperinflated, likely representing COPD. No evidence of focal consolidation to suggest pneumonia. Pleural spaces: Unremarkable. No pleural effusion. No pneumothorax. Heart/Mediastinum: Stable cardiomediastinal silhouette. Bones/joints: Unremarkable. XR/XR chest 1V portable [id number] IMPRESSION: No evidence of focal consolidation. COPD changes.
--- NOTE | 2020-10-22 03:07 | ECG_ITS ---
[facility] Test Date: 2020-10-22 Pat Name: Hai Aparicio Department: Room: Gender: Male Manager Unit: : 1960 Requested By: Ruth Palm Order Number: [id number] Zay MD: Ivan Graves M.D. Measurements Intervals [place] Rate: 73 P: 131 NC: 155 QRS: 102 QRSD: 92 T: 113 QT: 372 QTc: 412 Interpretive Statements SINUS RHYTHM ARM LEADS REVERSED [INVERTED P AND QRS IN I] INTERPRETATION BASED ON A DEFAULT AGE OF 40 YEARS Compared to ECG 08/27/2020 19:33:29 Myocardial infarct finding no longer present Electronically Signed On 10-22-2020 19:26:31 CDT by Ivan Graves M.D. [id number] f
[2020-10-22 03:19] VITALS: BP 146/82; PULSE 87; RESP 16; TEMP 36.4; O2SAT 98; BMI 24.4
--- NOTE | 2020-10-22 03:28 | ED_ITS ---
HPI - Chest Pain General: Chief Complaint: Chest Pain Stated Complaint: chest pain Time Seen by Provider: 10/22/20 03:11 Source: patient Mode of arrival: ambulatory Limitations: no limitations History of Present Illness: HPI narrative: 60-year-old male who has a history of chronic chest pain. He states he started having a sharp pain in his chest roughly 4 hours ago. He states that it subsided he has been pain-free but he was concerned as it was very sharp and severe when he had it. He states it lasted just minutes. He denies any shortness of breath. Denies any worsening improving factors. Denies any vomiting or diarrhea. Associated symptoms: Deny abdominal pain, dyspnea, fever(s), nausea or vomiting Review of Systems Const: Denies: fever(s), chills, body aches or change in appetite Eyes: Denies: blurry vision or eye discomfort ENMT: Denies: throat pain or dental pain Card: Reports: chest pain Resp: Denies: dyspnea GI: Denies: abdominal pain, nausea, vomiting or diarrhea : Denies: dysuria Musc: Denies: neck pain or back pain Skin/Breast: Denies: rash Neuro: Denies: headache(s) Psych: Denies: depression Gera/Lymph: Denies: easy bruising All/Imm: Denies: urticaria PFSH ED PFSH: Medical History (Updated 10/22/20 @ 04:10 by Ruth Palm MD) Anxiety CAD (coronary artery disease) Carotid stenosis Chest pain CKD (chronic kidney disease) COPD (chronic obstructive pulmonary disease) CVA (cerebral vascular accident) Epigastric abdominal pain GERD (gastroesophageal reflux disease) HTN (hypertension) Hyperlipidemia Hypoxia Iliac artery occlusion Obstructive apnea Palpitation PVD (peripheral vascular disease) Shortness of breath Umbilical hernia Family History Other CAD (coronary artery disease) Cancer Social History Smoking and tobacco status: former smoker Quit status (tobacco): has quit using tobacco Year quit tobacco: 2009 - 2PPD x 37 Years Alcohol intake: never Caregiver/support person: Yes Household members: none Marital status: Unknown Current occupational status: unemployed Previous occupational history: [employer] History of recent travel: No Current gender identity: Male Physical Exam Const: COMMON NORMALS: no acute distress, patient oriented x3 and healthy appearing HENMT: COMMON NORMALS: normocephalic and atraumatic HEAD & SCALP: normocep halic and atraumatic Eye: COMMON NORMALS: Equal, round and reactive pupils present and EOMs intact bilaterally PUPIL: Yes Equal, round and reactive pupils present Neck/C-Spine: COMMON NORMALS: full ROM and supple Chest: COMMONS NORMALS: normal inspection of the chest and normal palpation of entire chest wall Resp: COMMON NORMALS: normal respiratory effort, No retractions, No use of accessory muscles and clear to auscultation bilaterally AUSCULTATION: clear to auscultation bilaterally Cardio: COMMON NORMALS: regular rate, regular rhythm and No murmurs present (Cardio) RATE: regular rate RHYTHM: regular rhythm GI: COMMON NORMALS: Normal to inspection, nondistended, normoactive bowel sounds present, Soft to palpation, non-tender and no masses PALPATION: Yes Soft to palpation Extremity: COMMON NORMALS: normal to inspection and full ROM Neuro: COMMON NORMALS: patient oriented x3, moves all extremities and no focal motor deficits Psych: COMMON NORMALS: mental status grossly normal, Normal thought process present and cooperative THOUGHT PROCESS: Normal thought process present Skin: COMMON NORMALS: no rashes or lesions noted and no wounds GENERAL SKIN EXAM: no rashes or lesions noted Course Vital Signs: Vital signs: Vital Signs Temperature 97.6 F 10/22/20 03:19 Pulse Rate 87 10/22/20 03:19 Respiratory Rate 16 10/22/20 03:19 Blood Pressure 146/82 10/22/20 03:19 Pulse Oximetry 98 10/22/20 03:19 MDM - Chest Pain MDM Narrative: Medical decision making narrative: Hai presents with chest pain with atypical in nature. His troponin here is negative. He had a stress test in the last year that was normal. 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 He has no signs of pulmonary embolism or aortic dissection. He has no signs of acute coronary syndrome. Lab Data: Labs: Lab Results 10/22/20 10/22/20 10/22/20 Range/Units 03:36 03:36 03:36 WBC 11.1 H (4.0-10.0) 10^3/ uL RBC 5.60 H (4.1-5.3) 10^6/u L Hgb 15.9 (11.7-16.6) g/dL Hct 48.9 (42.0-52.0) % MCV 87.3 (80-94) fL MCH 28.4 (28.0-34.0) pg MCHC 32.5 (30.0-36.0) g/dL RDW 13.9 (12.1-15.1) % Plt Count 363 (130-400) 10^3/c mm MPV 10.5 H (7.4-10.4) fL Neut % (Auto) 70.4 % Lymph % (Auto) 16.7 % [place] % (Auto) 8.8 % Eos % (Auto) 2.8 % Baso % (Auto) 0.8 % Neut # (Auto) 7.82 H (1.8-7.7) 10^3/u L Lymph # (Auto) 1.9 (0.8-4.8) 10^3/u L [place] # (Auto) 1.0 H (0.2-0.9) 10^3/u L Eos # (Auto) 0.3 (0.0-0.8) 10^3/u L Baso # (Auto) 0.1 (0.0-0.1) 10^3/u L Nucleated RBC % (a uto) 0 % Nucleated RBCs # 0.0 /100WBC Sodium 137 (136-145) mmol/L Potassium 4.1 (3.5-5.1) mmol/L Chloride 101 (98-107) mmol/L Carbon Dioxide 27 (22-29) mmol/L Anion Gap 13.1 (5-19) BUN 14 (6-20) mg/dL Creatinine 1.1 (0.7-1.2) mg/dL GFR Calculation 68.5 L (90-130) mL/min Glucose 113 (65-115) mg/dL Calculated Osmolal ity 285 (285-295) mOsm/k g Calcium 9.2 (8.5-10.5) mg/dL Total Bilirubin 0.3 (0.15-1.2) mg/dL AST 16 (0-40) U/L ALT 19 (0-41) U/L Alkaline Phosphata se 117 (40-130) IU/L Troponin T Baselin e 9 (0-15) ng/L Total Protein 7.2 (6.6-8.7) g/dL Albumin 4.4 (3.5-5.2) g/dL Globulin 2.8 (1.3-4.6) g/dL Imaging Data^: CXR: Attestation: I personally reviewed and interpreted this imaging study as follows: My impression: no acute abnormality EKG Data^: EKG 1: Attestation: I personally reviewed and interpreted this EKG as follows: EKG interpretation date: 10/22/20 EKG interpretation time: 03:45 Interpretation: Sinus rhythm heart rate [address] elevation QRS 86 QTC 388 Discharge Plan Discharge Patient Disposition: Home Clinical Impression: Chest pain Qualifiers: Chest pain type: unspecified Qualified Code(s): R07.9 - Chest pain, unspecified Condition: Stable Prescriptions: No Action prednisone 20 mg tablet 20 mg PO BID 5 Days Qty: 10 RF: 0 aspirin [Adult Low Dose Aspirin] 81 mg tablet,delayed release (DR/EC) See Rx Instructions .ROUTE .COMPLEX RF: 0 clonidine HCl 0.1 mg tablet 0.1 mg PO DAILY PRN (Reason: hypertensive emergency) RF: 0 meloxicam 15 mg tablet 15 mg PO DAILY Qty: 30 RF: 0 albuterol sulfate 2.5 mg /3 mL (0.083 %) solution for nebulization 2.5 mg INHALATION Q4H PRN (Reason: Shortness Of Breath) RF: 0 Trelegy Ellipta 100-62.5-25 mcg blister with device 1 inh INHALATION Q24H 30 Days Qty: 60 RF: 3 Tylenol Extra Strength 500 mg Tablet 500 mg PO PRN RF: 0 amlodipine 10 mg tablet 10 mg PO DAILY@14 RF: 0 Symbicort 160-4.5 mcg/actuation HFA aerosol inhaler 2 puff inhalation BID RF: 0 Discharge Orders: Discharge ED (Routine); Ordered 10/22/20 Ordered By: Ruth Palm Discharge Diet: Advance as tolerated Discharge Activity: Resume usual activity Patient Instructions: Chest Pain (ED) Coding Level of Care Code ED Creative Services Specialist for Chg Fwd Exam Comprehensive
[2020-10-22 03:50] LABS: Basophils # 0.1 10^3/uL (0.0-0.1); Basophils % 0.8 %; Eosinophils # 0.3 10^3/uL (0.0-0.8); Eosinophils % 2.8 %; Hematocrit 48.9 % (42.0-52.0); Hemoglobin 15.9 g/dL (11.7-16.6); Lymphocytes # 1.9 10^3/uL (0.8-4.8); Lymphocytes % 16.7 %; Mean Corpuscular HGB Conc 32.5 g/dL (30.0-36.0); Mean Corpuscular Hemoglobin 28.4 pg (28.0-34.0); Mean Corpuscular Volume 87.3 fL (80-94); Mean Platelet Volume 10.5 fL (7.4-10.4); Monocytes % 8.8 %; Neutrophils # 7.82 10^3/uL (1.8-7.7); Neutrophils % 70.4 %; Nucleated Red Blood Cells % 0 %; Platelet Count 363 10^3/cmm (130-400); Red Cell Distribution Width 13.9 % (12.1-15.1); White Blood Count 11.1 10^3/uL (4.0-10.0)
[2020-10-22 04:01] LABS: Alanine Aminotransferase 19 U/L (0-41); Albumin Level 4.4 g/dL (3.5-5.2); Alkaline Phosphatase 117 IU/L (40-130); Anion Gap 13.1 (5-19); Aspartate Amino Transferase 16 U/L (0-40); Blood Urea Nitrogen 14 mg/dL (6-20); Calcium 9.2 mg/dL (8.5-10.5); Carbon Dioxide 27 mmol/L (22-29); Chloride 101 mmol/L (98-107); Globulin 2.8 g/dL (1.3-4.6); Glomerular Filtration Rate 68.5 mL/min (90-130); Glucose 113 mg/dL (65-115); Osmolality Calculated 285 mOsm/kg (285-295); Potassium 4.1 mmol/L (3.5-5.1); Sodium 137 mmol/L (136-145); Total Bilirubin 0.3 mg/dL (0.15-1.2); Total Protein 7.2 g/dL (6.6-8.7)
[2020-10-22 04:03] LABS: Troponin(5th) Baseline 9 ng/L (0-15)
[2020-10-22 04:30] VITALS: BP 135/80; PULSE 85; RESP 18; O2SAT 98
== END 2020-10-22 04:30 | disposition home or self-care (01) ==
PROVIDERS: Emergency Provider Emergency Medicine
DX: R07.9 Chest pain, unspecified (principal); Z79.82 Long term (current) use of aspirin; I25.10 Atherosclerotic heart disease of native coronary artery without angina pectoris; J44.9 Chronic obstructive pulmonary disease, unspecified; Z86.73 Personal history of transient ischemic attack (TIA), and cerebral infarction without residual deficits; I10 Essential (primary) hypertension; E78.5 Hyperlipidemia, unspecified; Z87.891 Personal history of nicotine dependence
CPT/HCPCS: 71045; 80053; 84484; 85025; 93005; 99283

== ENCOUNTER 2020-10-26 12:20 | Outpatient (CLI) | payer MEDICARE, SELFPAY ==
[2020-10-26] MEDS: iohexol 300 mg/mL 100 mL Btl IV (12:52)
--- NOTE | 2020-10-26 13:00 | CT_ITS ---
WS: [id number] CT ABDOMEN AND PELVIS WITH CONTRAST HISTORY: Acute flank pain/Abd pain TECHNIQUE: Imaging performed of the abdomen and pelvis with IV contrast. Single phase imaging of the abdomen. Coronal and sagittal reformats are submitted. All CT scans at [facility] use at least one of these dose optimization techniques: automated exposure control; mA and/or kV adjustment per patient size (includes targeted exams where dose is matched to clinical indication); or iterativ e reconstruction. IV CONTRAST: Omnipaque 300; 95 mL IV. Oral contrast: No DLP: 706.34 mGy.cm COMPARISON: 03/11/2019 Lower thorax: Chronic emphysematous changes at the lung bases. Heart is normal size. Small hiatal her rose. Liver/biliary system: Normal size with no intrahepatic dilatation. Gallbladder: Normal. No gallstones or wall thickening. No pericholecystic fluid. Pancreas: Normal size pancreas and pancreatic duct. No adjacent inflammation. Spleen: Normal size spleen with several granulomata. Adrenal glands: Mild nodularity medial limb of the RIGHT adrenal gland. Nodule measures 9 mm and is u nchanged. Negative LEFT adrenal gland. Right kidney: Normal. Left kidney: Normal. Aorta: Hepatic and splenic arteries arise separately from the aorta. Normal SMA. Mild atherosclerosis aorta. Lymphadenopathy: None. Free fluid: None. GI tract: Normal appendix. Appendix is just medial to the RIGHT lower lobe of the liver. Mild constip ation. No wall thickening or GI tract obstruction. No significant diverticular disease. Abdominal wall: Fat containing umbilical hernia. Pelvis: No free fluid or adenopathy within the pelvis. Heavily calcified and occluded LEFT common marky ac arteries similar to the prior study. Reconstitution over the humeral head. Bones: Bilateral femoral head osteonecrosis. Similar to the prior examination. CT/CT abdomen pelvis w con* [id number] IMPRESSION: 1. No acute abdominal or pelvic abnormalities are identified. 2. No renal obstruction. 3. Normal appendix. 4. Known chronic occlusion of the LEFT common iliac artery.
== END 2020-10-26 12:21 | disposition home or self-care (01) ==
LOC: RADWPI 12:24
PROVIDERS: Visit Provider Nurse Practitioner Family
DX: R10.32 Left lower quadrant pain (principal); I74.5 Embolism and thrombosis of iliac artery
CPT/HCPCS: 74177; 80053; 81000; 84443; 85025; Q9967

== ENCOUNTER 2020-11-18 13:40 | Outpatient (CLI) | payer MEDICARE, SELFPAY ==
--- NOTE | 2020-11-18 13:54 | XR_ITS ---
WS: [id number] Left hip, 2 views, 11/18/2020 Clinical Data: Pain Comparison: Pelvis and left hip, 01/08/2019. Findings: There are sclerotic lines in the left femoral head consistent with osteonecrosis. These lines appear the same when compared with the prior study. No fractures are seen. There is an acetabular lip. The l eft SI joint and pubic symphysis are unremarkable. Soft tissues are normal. XR/XR hip LT 2-3V wo/w pel* [id number] Impression: Osteonecrosis of the left femoral head unchanged. Tonnis classification: grade 1: sclerosis of femoral head and acetabulum or sli ght joint space narrowing or slight lipping at joint margins
== END 2020-11-18 13:41 | disposition home or self-care (01) ==
PROVIDERS: Visit Provider Nurse Practitioner Family
DX: M25.552 Pain in left hip (principal); M87.852 Other osteonecrosis, left femur
CPT/HCPCS: 73502

== ENCOUNTER → 2020-12-18 15:47 | Outpatient (BNVA) | payer MEDICARE, SELFPAY | PROVIDERS: PCP Internal Medicine; Visit Provider Nurse Practitioner Family | DX: I10 Essential (primary) hypertension (principal); J44.9 Chronic obstructive pulmonary disease, unspecified; R07.81 Pleurodynia; E78.5 Hyperlipidemia, unspecified; I25.10 Atherosclerotic heart disease of native coronary artery without angina pectoris | CPT/HCPCS: 80053; 80061; 84443; 85025 ==

== ENCOUNTER 2021-03-19 21:48 | Emergency (ER) | payer MEDICARE, SELFPAY ==
[2021-03-19 22:00] VITALS: BP 162/79; PULSE 92; RESP 18; TEMP 36.5; O2SAT 96
[2021-03-19 22:20] VITALS: BP 145/86; PULSE 89; RESP 16; O2SAT 96
--- NOTE | 2021-03-19 22:34 | XRR_ITS ---
PROCEDURE INFORMATION: Exam: XR Chest Exam date and time: 03/19/2021 10:34 PM Age: 61 years old Clinical indication: Chest wall pain; Additional info: Cp TECHNIQUE: Imaging protocol: XR of the chest. Views: 1 view. COMPARISON: CR XR chest 1V portable [id number] 10/22/2020 3:12 AM FINDINGS: Lungs: The lungs are hyperinflated, consistent with COPD. No consolidative pulmonary infiltrates are noted. Pleural spaces: No pleural effusion. No pneumothorax. Heart/Mediastinum: No cardiomegaly. Bones/joints: Unremarkable. XR/XR chest 1V portable [id number] IMPRESSION: 1. The lungs are hyperinflated, consistent with COPD. 2. No acute abnormality demonstrated. 3. There is no interval change from the prior examination. Radiation Dose CTDIVOL = (mGy): DLP = (mGy-cm)
--- NOTE | 2021-03-19 22:34 | ECG_ITS ---
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 Measurements Intervals [place] Rate: 85 P: 65 SC: 162 QRS: 87 QRSD: 85 T: 79 QT: 337 QTc: 401 Interpretive Statements SINUS RHYTHM Compared to ECG 10/22/2020 03:47:50 NO SIGNIFICANT CHANGES ARE NOTED Electronically Signed On 03-20-2021 21:30:05 CDT by Ivan Graves M.D. [email or web address] [email or web address]/store/[id number] f
[2021-03-19 22:40] LABS: Basophils # 0.1 10^3/uL (0.0-0.1); Basophils % 0.6 %; Eosinophils # 0.3 10^3/uL (0.0-0.8); Eosinophils % 2.7 %; Hematocrit 49.6 % (42.0-52.0); Hemoglobin 16.3 g/dL (11.7-16.6); Lymphocytes # 2.2 10^3/uL (0.8-4.8); Lymphocytes % 22.9 %; Mean Corpuscular HGB Conc 32.9 g/dL (30.0-36.0); Mean Corpuscular Hemoglobin 28.6 pg (28.0-34.0); Mean Corpuscular Volume 87.2 fl (80-94); Mean Platelet Volume 10.3 fL (7.4-10.4); Monocytes # 0.9 10^3/uL (0.2-0.9); Monocytes % 9.8 %; Neutrophils # 5.99 10^3/uL (1.8-7.7); Neutrophils % 63.5 %; Nucleated Red Blood Cells % 0 %; Platelet Count 329 10^3/cmm (130-400); Red Blood Count 5.69 10^6/uL (4.1-5.3); Red Cell Distribution Width 13.8 % (12.1-15.1); White Blood Count 9.4 10^3/uL (4.0-10.0)
[2021-03-19 23:00] LABS: Troponin(5th) Baseline 9 ng/L (0-15)
[2021-03-19 23:08] LABS: Alanine Aminotransferase 26 U/L (0-41); Albumin Level 4.1 g/dL (3.5-5.2); Alkaline Phosphatase 136 IU/L (40-130); Anion Gap 13.1 (5-19); Aspartate Amino Transferase 18 U/L (0-40); Blood Urea Nitrogen 13 mg/dL (8-23); Calcium 9.4 mg/dL (8.5-10.5); Carbon Dioxide 25 mmol/L (22-29); Chloride 102 mmol/L (98-107); Globulin 2.8 g/dL (1.3-4.6); Glomerular Filtration Rate 86.1 mL/min (90-130); Glucose 110 mg/dL (65-115); NT Pro B Type Natriuretic Pept 22 pg/mL (0-125); Osmolality Calculated 283 mOsm/kg (285-295); Potassium 4.1 mmol/L (3.5-5.1); Sodium 136 mmol/L (136-145); Total Bilirubin 0.2 mg/dL (0.15-1.2); Total Protein 6.9 g/dL (6.6-8.7)
--- NOTE | 2021-03-19 23:52 | W.ED.CHESTPA ---
HPI - Chest Pain General: Chief Complaint: Chest Pain Stated Complaint: cp Time Seen by Provider: 03/19/21 22:26 History of Present Illness: HPI narrative: 61-year-old male with a long history of chest discomfort on and off. He presents to the emergency room with left-sided sharp chest pain that seems to come and go in waves he is not overly short of breath. Is not been coughing more than usual no fever. Nothing seems to relieve the pain. He gets these pains from time to time, but they usually only last for a few minutes and then are gone. He notes about an hour and 1/2 to 2 hours of pain prior to coming into the hospital MD complaint: chest pain Pertinent past history: coronary artery disease (Nonocclusive 10% on last cath in 2019.) Onset (ago): hour(s) Prior episodes: Yes Onset: during rest Pain location: left chest Pain radiation: none Quality: sharp Associated symptoms: Deny abdominal pain, dyspnea, fever(s), leg edema, palpitations or vomiting Treatment prior to arrival: aspirin Review of Systems Const: Denies: fever(s) Card: Reports: chest pain; Denies: palpitations or edema Resp: Denies: dyspnea GI: Denies: abdominal pain or vomiting [facility] ED PFSH: Medical History Anxiety CAD (coronary artery disease) Carotid stenosis Chest pain CKD (chronic kidney disease) COPD (chronic obstructive pulmonary disease) CVA (cerebral vascular accident) Epigastric abdominal pain GERD (gastroesophageal reflux disease) HTN (hypertension) Hyperlipidemia Hypoxia Iliac artery occlusion Obstructive apnea Palpitation PVD (peripheral vascular disease) Shortness of breath Umbilical hernia Family History Other CAD (coronary artery disease) Cancer Social History Quit status (tobacco): has quit using tobacco Year quit tobacco: 2009 - 2PPD x 37 Years Second hand smoke exposure: No Alcohol intake: never Caregiver/support person: Yes Lives independently: Yes Household members: none Marital status: Unknown service: No Current occupational status: unemployed Previous occupational history: [employer] History of recent travel: No Current gender identity: Male Special karli needs: No Physical Exam Const: COMMON NORMALS: patient oriented x3 and alert GENERAL APPEARANCE: anxious Chest: COMMONS NORMALS: normal inspection of the chest CHEST: Yes tenderness (Left chest wall tenderness reproduces left-sided chest pain.) Breast/axilla inspection: Yes no chest deformity, asymmetry, normal contours, no nodules, masses, tenderness Resp: COMMON NORMALS: normal respiratory effort and No use of accessory muscles Cardio: COMMON NORMALS: regular rate RATE: regular rate GI: COMMON NORMALS: Normal to inspection, nondistended, normoactive bowel sounds present, Soft to palpation and non-tender PALPATION: Yes Soft to palpation Neuro: COMMON NORMALS: patient oriented x3 SENSORIUM/ORIENTATION: Yes alert Course Vital Signs: Vital signs: Vital Signs Temperature 97.7 F 03/19/21 22:00 Pulse Rate 89 03/19/21 22:20 Respiratory Rate 16 03/19/21 22:20 Blood Pressure 145/86 03/19/21 22:20 Pulse Oximetry 96 03/19/21 22:20 MDM - Chest Pain MDM Narrative: Medical decision making narrative: 61-year-old man presenting with pleuritic left-sided chest pain. He is nonhypoxic, nontachycardic. Pain is reproducible on palpation of the chest wall his EKG shows a normal sinus rhythm without acute ST-T wave changes. His chest x-ray is negative. His troponin is 9. His other laboratory is benign. He will be allowed discharge to follow-up as an outpatient. Lab Data: Labs: Lab Results 03/19/21 03/19/21 03/19/21 22:30 22:30 22:30 WBC 9.4 10^3/uL 10^3/ uL (4.0-10.0) RBC 5.69 10^6/uL H 10 ^6/uL (4.1-5.3) Hgb 16.3 g/dL g/dL (11.7-16.6) Hct 49.6 % % (42.0-52.0) MCV 87.2 fl fl (80-94) MCH 28.6 pg pg (28.0-34.0) MCHC 32.9 g/dL g/dL (30.0-36.0) RDW 13.8 % % (12.1-15.1) Plt Count 329 10^3/cmm 10^3 /cmm (130-400) MPV 10.3 fL fL (7.4-10.4) Neut % (Auto) 63.5 % % Lymph % (Auto) 22.9 % % [place] % (Auto) 9.8 % % Eos % (Auto) 2.7 % % Baso % (Auto) 0.6 % % Neut # (Auto) 5.99 10^3/uL 10^3 /uL (1.8-7.7) Lymph # (Auto) 2.2 10^3/uL 10^3/ uL (0.8-4.8) [place] # (Auto) 0.9 10^3/uL 10^3/ uL (0.2-0.9) Eos # (Auto) 0.3 10^3/uL 10^3/ uL (0.0-0.8) Baso # (Auto) 0.1 10^3/uL 10^3/ uL (0.0-0.1) Nucleated RBC % (a uto) 0 % % Nucleated RBCs # 0.0 /100WBC /100W BC Sodium 136 mmol/L mmol/L (136-145) Potassium 4.1 mmol/L mmol/L (3.5-5.1) Chloride 102 mmol/L mmol/L (98-107) Carbon Dioxide 25 mmol/L mmol/L (22-29) Anion Gap 13.1 (5-19) BUN 13 mg/dL mg/dL (8-23) Creatinine 0.9 mg/dL mg/dL (0.7-1.2) GFR Calculation 86.1 mL/min L mL/ min (90-130) Glucose 110 mg/dL mg/dL (65-115) Calculated Osmolal ity 283 mOsm/kg L mOs m/kg (285-295) Calcium 9.4 mg/dL mg/dL (8.5-10.5) Total Bilirubin 0.2 mg/dL mg/dL (0.15-1.2) AST 18 U/L U/L (0-40) ALT 26 U/L U/L (0-41) Alkaline Phosphata se 136 IU/L H IU/L (40-130) Troponin T Baselin e 9 ng/L ng/L (0-15) NT-Pro-B Natriuret Pep 22 pg/mL pg/mL (0-125) Total Protein 6.9 g/dL g/dL (6.6-8.7) Albumin 4.1 g/dL g/dL (3.5-5.2) Globulin 2.8 g/dL g/dL (1.3-4.6) Discharge Plan Discharge Patient Disposition: Home Clinical Impression: Atypical chest pain Condition: Stable Prescriptions: No Action aspirin [Adult Low Dose Aspirin] 81 mg tablet,delayed release (DR/EC) See Rx Instructions .ROUTE .COMPLEX RF: 0 amlodipine 10 mg tablet 10 mg PO DAILY Qty: 90 RF: 1 Symbicort 160-4.5 mcg/actuation HFA aerosol inhaler 2 puff inhalation BID Qty: 10.2 RF: 5 prednisone 10 mg tablets,dose pack See Rx Instructions PO PER PKG DIR Qty: 21 RF: 0 amoxicillin-pot clavulanate [Augmentin] 875-125 mg tablet 1 tab PO BID 10 Days Qty: 20 RF: 0 Tylenol Extra Strength 500 mg Tablet 500 mg PO PRN RF: 0 Discharge Orders: Discharge ED (Routine); Ordered 03/19/21 Ordered By: Ariel Azar Referrals: Humberto Mcintyre MD [Primary Care Provider] - 1-3 days Discharge Diet: Advance as tolerated Discharge Activity: Increase activity as tolerated Patient Instructions: Chest Pain (ED) Activity Restrictions/Additional Instructions: Return for worsening shortness of breath, worsening pain, fever greater than 100, other concerning symptoms. Coding Level of Care Code ED Polymerization Kettle Operator for Kedar Fwd Exam Detailed
[2021-03-20 00:05] VITALS: BP 146/77; PULSE 77; RESP 19; O2SAT 95
[2021-03-20] MEDS: acetaminophen 325 mg Tablet 650 MG PO (00:14)
[2021-03-20 00:17] VITALS: BP 146/77; PULSE 77; RESP 19; TEMP 36.5; O2SAT 95
== END 2021-03-20 00:17 | disposition home or self-care (01) ==
PROVIDERS: Emergency Provider Emergency Medicine; PCP Internal Medicine
DX: R07.89 Other chest pain (principal); Z79.82 Long term (current) use of aspirin; I25.10 Atherosclerotic heart disease of native coronary artery without angina pectoris; J44.9 Chronic obstructive pulmonary disease, unspecified; Z86.73 Personal history of transient ischemic attack (TIA), and cerebral infarction without residual deficits; I10 Essential (primary) hypertension; E78.5 Hyperlipidemia, unspecified; Z87.891 Personal history of nicotine dependence
CPT/HCPCS: 71045; 80053; 83880; 84484; 85025; 93005; 99283

== ENCOUNTER 2021-05-13 01:00 | Emergency (ER) | payer MEDICARE, SELFPAY ==
--- NOTE | 2021-05-13 01:11 | ECG_ITS ---
[facility] Test Date: 2021-05-13 Pat Name: Hai Aparicio Department: Room: Gender: Male Industrial Therapist: : 1960 Requested By: Ruth Palm Order Number: [id number] Zay MD: Maira Arana M.D. Measurements Intervals Novelty Rate: 78 P: 64 CT: 158 QRS: 84 QRSD: 86 T: 76 QT: 355 QTc: 407 Interpretive Statements SINUS RHYTHM POSSIBLE RIGHT VENTRICULAR CONDUCTION DELAY [RSR (QR) IN V1/V2] Compared to ECG 03/19/2021 21:59:05 No significant changes Electronically Signed On 05-13-2021 16:04:40 GERIATRIC CARE MANAGER by Maira Arana M.D. [id number]
--- NOTE | 2021-05-13 01:11 | XRR_ITS ---
PROCEDURE INFORMATION: Exam: XR Chest Exam date and time: 05/13/2021 1:11 AM Age: 61 years old Clinical indication: Chest pressure; Patient HX: Anterior chest pain. History of copd. ; Additional info: Cp TECHNIQUE: Imaging protocol: XR of the chest. Views: 1 view. COMPARISON: CR XR chest 1V portable [id number] 03/19/2021 10:39 PM FINDINGS: Lungs: Continued hyperinflation of the lungs. Interval appearance of minimal atelectasis along the lateral aspect of the left hemidiaphragm. Small calcified granulomata in the medial right upper lobe still possible. No change in the slight fullness of the left hilum. Still no consolidation. Pleural spaces: Still no pneumothorax or apparent pleural fluid. Heart/Mediastinum: Still no cardiomegaly. Bones/joints: Diffuse osteopenia still likely. No suggestion of acute bony disease. XR/XR chest 1V portable [id number] IMPRESSION: Emphysema again apparent. Interval minimal atelectasis in the left lateral lung base. Other findings detailed above. Radiation Dose CTDIVOL = (mGy): DLP = (mGy-cm)
--- NOTE | 2021-05-13 01:15 | ED_ITS ---
HPI - Chest Pain General: Stated Complaint: Quivering In Chest Time Seen by Provider: 05/13/21 01:11 History of Present Illness: HPI narrative: 61-year-old male patient comes in tonight with complaints of left sided chest discomfort. Patient reports that this is not pain. It just feels like quivering in his chest. Patient has a history of COPD, coronary artery disease, hypertension, hyperlipidemia. Patient had recent cardio angiogram that just showed a 20% reduction in the artery flow. Patient does report a history of PACs but does not think this is the problem. Patient just came in to be checked out. Patient appears well. Patient appears in no pain. Patient states nothing makes the pain better or worse. No event makes the symptoms come on. Associated symptoms: Reports palpitations Review of Systems General: Reports: 10 or more systems reviewed and unremarkable except in HPI and below Card: Reports: palpitations PFS ED PFSH: Medical History Anxiety CAD (coronary artery disease) Carotid stenosis Chest pain CKD (chronic kidney disease) COPD (chronic obstructive pulmonary disease) CVA (cerebral vascular accident) Epigastric abdominal pain GERD (gastroesophageal reflux disease) HTN (hypertension) Hyperlipidemia Hypoxia Iliac artery occlusion Obstructive apnea Palpitation PVD (peripheral vascular disease) Shortness of breath Umbilical hernia Family History Other CAD (coronary artery disease) Cancer Social History Smoking and tobacco status: former smoker Quit status (tobacco): has quit using tobacco Year quit tobacco: 2009 - 2PPD x 37 Years Second hand smoke exposure: No Alcohol intake: never Caregiver/support person: Yes Lives independently: Yes Household members: none Marital status: Unknown service: No Current occupational status: unemployed Previous occupational history: [employer] History of recent travel: No Current gender identity: Male Special karli needs: No Physical Exam Const: COMMON NORMALS: no acute distress and patient oriented x3 GENERAL APPEARANCE: cooperative HENMT: COMMON NORMALS: normocephalic, TM's normal bilaterally and Normal external nose present HEAD & SCALP: normal to inspection and normocephalic NOSE: Normal external nose present TYMPANIC MEMBRANE: TM's normal bilaterally MOUTH: Normal oral and palatal mucosa present THROAT: posterior oropharynx normal Eye: GENERAL EYE: other (Abnormal right eye which is chronic) Neck/C-Spine: COMMON NORMALS: full ROM Lymph: LYMPHATIC: no lymphadenopathy noted Chest: COMMONS NORMALS: normal inspection of the chest Resp: COMMON NORMALS: normal respiratory effort EFFORT & INSPECTION: Yes able to speak in complete sentences Cardio: COMMON NORMALS: regular rate and regular rhythm RATE: regular rate RHYTHM: regular rhythm GI: COMMON NORMALS: non-tender : COMMON NORMALS: Yes no CVA tenderness BLADDER/KIDNEY EXAM: Yes no CVA tenderness Back/Pelvis: COMMON NORMALS: no CVA tenderness and thoracic and lumbar spine normal to inspection Extremity: COMMON NORMALS: normal to inspection Neuro: COMMON NORMALS: patient oriented x3 and moves all extremities Psych: COMMON NORMALS: mental status grossly normal and cooperative Skin: COMMON NORMALS: no rashes or lesions noted GENERAL SKIN EXAM: no rashes or lesions noted Course Vital Signs: Vital signs: Vital Signs Pulse Rate 74 05/13/21 01:50 Respiratory Rate 16 05/13/21 01:50 Blood Pressure 143/70 05/13/21 01:50 Pulse Oximetry 96 05/13/21 01:50 MDM - Chest Pain MDM Narrative: Medical decision making narrative: Patient comes in today with complaints of some quivering in my chest . Patient states that it does not feel like pain. Patient does have a history of coronary artery disease and COPD. On exam lungs are clear to auscultation. Heart rates regular. Skin is warm and dry. No edema is noted. Vital signs are normal. Differential diagnosis includes but not limited to ACS, ectopic beats, palpitations, anxiety, electrolyte imbalance. Laboratory values were unremarkable except for some mild decrease in his potassium at 3.4. Chest x-ray was normal. We will go ahead and treat for hypokalemia with 10 mEq in the ER today and then 8 mEq daily for 1 week. Recommend recheck with primary care in 1 week for repeat potassium level. This may be the patient's cause of his palpitations but most likely I believe it could be his anxiety. Recommended patient strongly talk with his primary care if he does have improvement and resolution of the palpitation most likely that this was secondary to some mild hypokalemia. May want to consider Holter monitor for 7 to 28 days. Lab Data: Labs: Lab Results 12/08/0205/13/21 05/13/21 01:35 01:35 01:35 WBC 10.4 10^3/uL H 10 ^3/uL (4.0-10.0) RBC 5.57 10^6/uL H 10 ^6/uL (4.1-5.3) Hgb 15.5 g/dL g/dL (11.7-16.6) Hct 47.7 % % (42.0-52.0) MCV 85.6 fl fl (80-94) MCH 27.8 pg L pg (28.0-34.0) MCHC 32.5 g/dL g/dL (30.0-36.0) RDW 14.0 % % (12.1-15.1) Plt Count 331 10^3/cmm 10^3 /cmm (130-400) MPV 10.4 fL fL (7.4-10.4) Neut % (Auto) 64.4 % % Lymph % (Auto) 21.4 % % [place] % (Auto) 10.3 % % Eos % (Auto) 2.8 % % Baso % (Auto) 0.8 % % Neut # (Auto) 6.70 10^3/uL 10^3 /uL (1.8-7.7) Lymph # (Auto) 2.2 10^3/uL 10^3/ uL (0.8-4.8) [place] # (Auto) 1.1 10^3/uL H 10^ 3/uL (0.2-0.9) Eos # (Auto) 0.3 10^3/uL 10^3/ uL (0.0-0.8) Baso # (Auto) 0.1 10^3/uL 10^3/ uL (0.0-0.1) Nucleated RBC % (a uto) 0 % % Nucleated RBCs # 0.0 /100WBC /100W BC Sodium 138 mmol/L mmol/L (136-145) Potassium 3.4 mmol/L L mmol /L (3.5-5.1) Chloride 103 mmol/L mmol/L (98-107) Carbon Dioxide 22 mmol/L mmol/L (22-29) Anion Gap 16.4 (5-19) BUN 12 mg/dL mg/dL (8-23) Creatinine 0.7 mg/dL mg/dL (0.7-1.2) GFR Calculation 115.0 mL/min mL/m in (90-130) Glucose 96 mg/dL mg/dL (65-115) Calculated Osmolal ity 286 mOsm/kg mOsm/ kg (285-295) Calcium 8.9 mg/dL mg/dL (8.5-10.5) Total Bilirubin 0.2 mg/dL mg/dL (0.15-1.2) AST 24 U/L U/L (0-40) ALT 31 U/L U/L (0-41) Alkaline Phosphata se 128 IU/L IU/L (40-130) Troponin T Baselin e 8 ng/L ng/L (0-15) Total Protein 6.4 g/dL L g/dL (6.6-8.7) Albumin 4.3 g/dL g/dL (3.5-5.2) Globulin 2.1 g/dL g/dL (1.3-4.6) EKG Data^: EKG 1: Attestation: I personally reviewed and interpreted this EKG as follows: (EKG shows a sinus rhythm with a regular rate at [address] elevation or ectopy is noted. There is mild artifact on the EKG reading. Computer interpretation reports a right ventricular conduction delay. No prior exam was available for comparison at this time.) Discharge Plan Discharge Patient Disposition: Home Clinical Impression: Palpitation, Hypokalemia Condition: Stable Prescriptions: New potassium chloride 8 mEq capsule, extended release 8 meq PO DAILY Qty: 7 RF: 0 No Action diclofenac sodium [Voltaren Arthritis Pain] 1 % gel 2 g topical QID Qty: 100 RF: 0 aspirin [Adult Low Dose Aspirin] 81 mg tablet,delayed release (DR/EC) See Rx Instructions .ROUTE .COMPLEX RF: 0 amlodipine 10 mg tablet 10 mg PO DAILY Qty: 90 RF: 1 Symbicort 160-4.5 mcg/actuation HFA aerosol inhaler 2 puff inhalation BID Qty: 10.2 RF: 5 Tylenol Extra Strength 500 mg Tablet 500 mg PO PRN RF: 0 Discharge Orders: Discharge ED (Routine); Ordered 05/13/21 Ordered By: Quentin Cain Referrals: Humberto Mcintyre MD [Primary Care Provider] - Discharge Diet: Usual diet Discharge Activity: Increase activity as tolerated Patient Instructions: Hypokalemia (ED), Opioid Safety Activity Restrictions/Additional Instructions: Healthy diet and activity. Continue with routine medications. Follow-up with primary care in 1 week for recheck of potassium level. Return to the ER for new concerns such as high fever, chest pain, or shortness of breath. Coding Level of Care Code ED Scientologist for Kedar Fwd Exam Comprehensive
[2021-05-13 01:18] VITALS: BP 169/70; PULSE 78; RESP 18; O2SAT 97; BMI 24.5
[2021-05-13 01:50] VITALS: BP 143/70; PULSE 74; RESP 16; O2SAT 96
[2021-05-13 01:50] LABS: Basophils # 0.1 10^3/uL (0.0-0.1); Basophils % 0.8 %; Eosinophils # 0.3 10^3/uL (0.0-0.8); Eosinophils % 2.8 %; Hematocrit 47.7 % (42.0-52.0); Hemoglobin 15.5 g/dL (11.7-16.6); Lymphocytes # 2.2 10^3/uL (0.8-4.8); Lymphocytes % 21.4 %; Mean Corpuscular HGB Conc 32.5 g/dL (30.0-36.0); Mean Corpuscular Hemoglobin 27.8 pg (28.0-34.0); Mean Corpuscular Volume 85.6 fl (80-94); Mean Platelet Volume 10.4 fL (7.4-10.4); Monocytes # 1.1 10^3/uL (0.2-0.9); Monocytes % 10.3 %; Neutrophils % 64.4 %; Nucleated Red Blood Cells % 0 %; Platelet Count 331 10^3/cmm (130-400); Red Blood Count 5.57 10^6/uL (4.1-5.3); White Blood Count 10.4 10^3/uL (4.0-10.0)
[2021-05-13 02:08] LABS: Troponin(5th) Baseline 8 ng/L (0-15)
[2021-05-13 02:09] LABS: Alanine Aminotransferase 31 U/L (0-41); Albumin Level 4.3 g/dL (3.5-5.2); Alkaline Phosphatase 128 IU/L (40-130); Anion Gap 16.4 (5-19); Aspartate Amino Transferase 24 U/L (0-40); Blood Urea Nitrogen 12 mg/dL (8-23); Calcium 8.9 mg/dL (8.5-10.5); Carbon Dioxide 22 mmol/L (22-29); Chloride 103 mmol/L (98-107); Globulin 2.1 g/dL (1.3-4.6); Glucose 96 mg/dL (65-115); Osmolality Calculated 286 mOsm/kg (285-295); Potassium 3.4 mmol/L (3.5-5.1); Sodium 138 mmol/L (136-145); Total Bilirubin 0.2 mg/dL (0.15-1.2); Total Protein 6.4 g/dL (6.6-8.7)
[2021-05-13] MEDS: potassium chloride ER 10 mEq Tablet PO (02:39)
[2021-05-13 02:40] VITALS: BP 127/72; PULSE 84; RESP 18; O2SAT 97
== END 2021-05-13 02:47 | disposition home or self-care (01) ==
PROVIDERS: Emergency Medicine; Emergency Provider Nurse Practitioner Family; PCP Internal Medicine
DX: R00.2 Palpitations (principal); E87.6 Hypokalemia; Z79.82 Long term (current) use of aspirin; I25.10 Atherosclerotic heart disease of native coronary artery without angina pectoris; J44.9 Chronic obstructive pulmonary disease, unspecified; Z86.73 Personal history of transient ischemic attack (TIA), and cerebral infarction without residual deficits; I10 Essential (primary) hypertension; E78.5 Hyperlipidemia, unspecified; Z87.891 Personal history of nicotine dependence
CPT/HCPCS: 71045; 80053; 84484; 85025; 93005; 99284

== ENCOUNTER → 2021-07-07 17:44 | Outpatient (BNVA) | payer MEDICARE, SELFPAY | PROVIDERS: PCP Internal Medicine; Visit Provider Nurse Practitioner Family | DX: I10 Essential (primary) hypertension (principal); J44.9 Chronic obstructive pulmonary disease, unspecified; M54.6 Pain in thoracic spine; R07.81 Pleurodynia; L98.9 Disorder of the skin and subcutaneous tissue, unspecified; E78.2 Mixed hyperlipidemia | CPT/HCPCS: 80053; 80061; 82306; 82607; 84443; 85025 ==

== ENCOUNTER 2021-07-09 13:18 | Outpatient (CLI) | payer MEDICARE, SELFPAY ==
--- NOTE | 2021-07-09 13:30 | XRR_ITS ---
PROCEDURE INFORMATION: Exam: XR Thoracic Spine Exam date and time: 07/09/2021 1:30 PM Age: 61 years old Clinical indication: Pain/pleurodynia. Pain in upper back and ribs when taking deep breaths. TECHNIQUE: Imaging protocol: XR of the thoracic spine. Views: 3 views. COMPARISON: CR XR chest 1V portable [id number] 05/13/2021 1:26 AM FINDINGS: Bones/joints: The thoracic kyphosis is maintained. Mild wedging of a lower thoracic vertebral body appears chronic or physiologic. No acute appearing fracture is identified. Mild degenerative disc disease. Soft tissues: No gross soft tissue swelling XR/XR thoracic spine 3V* [id number] IMPRESSION: No acute appearing fracture is identified.
--- NOTE | 2021-07-09 13:30 | XRR_ITS ---
PROCEDURE INFORMATION: Exam: XR Chest Exam date and time: 07/09/2021 1:30 PM Age: 61 years old Clinical indication: Pain/pleurodynia. TECHNIQUE: Imaging protocol: XR of the chest. Views: 1 view. COMPARISON: CR XR chest 1V portable [id number] 05/13/2021 1:26 AM FINDINGS: Lungs: The lungs appear hyperinflated; query COPD, asthma or other obstructive lung disease. Mild scarring at the left base. No lew consolidation is appreciated. Pleural spaces: No pleural effusion. No pneumothorax. Heart/Mediastinum: The cardiac silhouette is unchanged. No gross evidence of pneumomediastinum. Bones/joints: No gross fracture. Soft tissues: No gross soft tissue swelling. XR/XR ribs BI mn 4V w CXR1V [id number] IMPRESSION: 1. The lungs appear hyperinflated; query COPD, asthma or other obstructive lung disease. 2. No gross acute fracture is identified.
== END 2021-07-09 13:19 | disposition home or self-care (01) ==
LOC: RAD 13:24
PROVIDERS: PCP Internal Medicine; Visit Provider Nurse Practitioner Family
DX: M54.6 Pain in thoracic spine (principal); R07.81 Pleurodynia
CPT/HCPCS: 71111; 72072

== ENCOUNTER → 2021-10-18 15:58 | Outpatient (BNVA) | payer MEDICARE, SELFPAY | PROVIDERS: PCP Internal Medicine; Visit Provider Nurse Practitioner Family | DX: M87.852 Other osteonecrosis, left femur (principal); M25.552 Pain in left hip | CPT/HCPCS: 73502 ==

== ENCOUNTER 2021-10-26 06:00 | Outpatient (RCR) | payer MEDICARE, SELFPAY | END 2021-11-09 23:59 | disposition home or self-care (01) | LOC: TPT 06:00 | PROVIDERS: PCP Internal Medicine; Referring Provider Nurse Practitioner Family; Visit Provider Nurse Practitioner Family | DX: M25.552 Pain in left hip (principal) | CPT/HCPCS: 97032; 97110; 97163 ==

== ENCOUNTER 2021-11-10 06:00 | Outpatient (RCR) | payer MEDICARE, SELFPAY | END 2021-12-09 23:59 | disposition home or self-care (01) | LOC: TPT 06:00 | PROVIDERS: PCP Internal Medicine; Referring Provider Nurse Practitioner Family; Visit Provider Nurse Practitioner Family | DX: M25.552 Pain in left hip (principal) | CPT/HCPCS: 97032; 97110; 97140 ==

== ENCOUNTER → 2021-11-29 13:40 | Outpatient (BNVA) | payer MEDICARE, SELFPAY | PROVIDERS: PCP Internal Medicine; Visit Provider Internal Medicine Cardiovascular Disease | DX: R07.9 Chest pain, unspecified (principal); R00.2 Palpitations; I25.10 Atherosclerotic heart disease of native coronary artery without angina pectoris; I73.9 Peripheral vascular disease, unspecified; I10 Essential (primary) hypertension; E78.2 Mixed hyperlipidemia; G47.33 Obstructive sleep apnea (adult) (pediatric); F41.9 Anxiety disorder, unspecified; J44.9 Chronic obstructive pulmonary disease, unspecified; Z87.891 Personal history of nicotine dependence | CPT/HCPCS: 99214 ==

== ENCOUNTER 2021-12-17 14:35 | Outpatient (RCR) | payer MEDICARE, SELFPAY | END 2022-01-09 23:59 | disposition home or self-care (01) | LOC: TPT 14:35 | PROVIDERS: PCP Internal Medicine; Referring Provider Nurse Practitioner Family; Visit Provider Nurse Practitioner Family | DX: M25.552 Pain in left hip (principal) | CPT/HCPCS: 97032; 97110 ==

== ENCOUNTER 2021-12-22 07:32 | Outpatient (CLI) | payer MEDICARE, SELFPAY ==
--- NOTE | 2021-12-22 12:00 | USCV_ITS ---
Hai Aparicio Age: 61 Gender: M : 1960 Exam Date: 12/22/2021 09:29 Ordering Phys: Maira Arana MD ([email or web address]) Technologist: Exam Location: [facility] [place] Indication: perf arterial disease RIGHT LEFT Brachial 131.00 mmHg Brachial 131.00 mmHg Pressure (mmHg) Waveform Pressure (mmHg) Waveform 151.00 Above Knee 141.00 159.00 Below Knee 178.00 140.00 SCRAP CRUSHER 93.00 136.00 DPA 97.00 1.20 Ankle/Brachial Index 0.74 133.00 Pre-Exercise Toe Pressure 0.74 1.20 Pre-Exercise Toe/Brachial Index 0.52 FINDINGS Resting SARAHI of 1.2 on the right and 0.74 on the left resting TBI of 1.2 on the right and 0.52 on the left Well PVR waveforms revealed a low amplitude waveforms on the left side CONCLUSIONS 1. Features of moderate peripheral artery disease in the left side 2. No significant arterial obstruction on the right side of the Dr Jose Alejandro Patterson MD [facility] (Electronically Signed) Final Date: 22 December 2021 22:03 S
== END 2021-12-22 07:33 | disposition home or self-care (01) ==
PROVIDERS: PCP Internal Medicine; Visit Provider Internal Medicine Cardiovascular Disease
DX: I25.10 Atherosclerotic heart disease of native coronary artery without angina pectoris (principal); I74.5 Embolism and thrombosis of iliac artery; I73.9 Peripheral vascular disease, unspecified
CPT/HCPCS: 93923

== ENCOUNTER 2021-12-22 07:39 | Outpatient (CLI) | payer MEDICARE, SELFPAY ==
--- NOTE | 2021-12-22 08:00 | MR_ITS ---
WS: [id number] MRI LEFT HIP NONCONTRAST TECHNIQUE: Axial T1, axial T2 fat sat, coronal T1, coronal STIR, sagittal T2 fat sat, sagittal T1, an d sagittal T2 fat sat, of both hips. CLINICAL INFORMATION: M87.852 - Other osteonecrosis, left femur COMPARISON: None. FINDINGS: Again seen is serpiginous decreased T1 and increased T2 signal involving the LEFT femoral head compat ible with avascular necrosis. This does not appear significantly changed since the CT abdomen pelvis October 26, 2020. No displaced osteochondral fragments. No fragmentation or subchondral collapse.Small am ount of edema involving the LEFT greater trochanter can be seen with trochanteric bursitis. Additional small bony infarct involving the LEFT proximal femur. This is unchanged from the prior rad iograph.. Similar-appearing avascular necrosis involving the RIGHT femoral head. No subchondral collapse. Mild edema. Visualized sacrum and pelvic bony structures appear normal. MR/MR hip LT wo con* [id number] IMPRESSION: 1. Avascular necrosis involving both femoral heads involving the articular brett face. Mild associated edema. No evidence of fragmentation or subchondral collap se. 2. Small stable bone infarct involving the LEFT proximal femur measuring 15 mm . 3. Small amount of edema involving the LEFT greater trochanter can be seen wit h trochanteric bursitis. 4. No other acute findings.
== END 2021-12-22 07:40 | disposition home or self-care (01) ==
PROVIDERS: PCP Internal Medicine; Visit Provider Family Medicine
DX: M25.552 Pain in left hip (principal); M87.852 Other osteonecrosis, left femur; M87.851 Other osteonecrosis, right femur; M25.452 Effusion, left hip
CPT/HCPCS: 73721

== ENCOUNTER → 2021-12-27 10:20 | Outpatient (BNVA) | payer MEDICARE, SELFPAY | PROVIDERS: PCP Internal Medicine; Referring Provider Family Medicine; Visit Provider Specialist | DX: M53.3 Sacrococcygeal disorders, not elsewhere classified (principal); G89.29 Other chronic pain; M87.051 Idiopathic aseptic necrosis of right femur; M87.052 Idiopathic aseptic necrosis of left femur; M25.552 Pain in left hip; M87.852 Other osteonecrosis, left femur | CPT/HCPCS: 73502; 99204; 99205 ==

== ENCOUNTER 2022-01-21 12:32 | Outpatient (CLI) | payer MEDICARE, SELFPAY ==
--- NOTE | 2022-01-21 12:45 | USCV_ITS ---
Hai Aparicio Age: 61 Gender: M : 1960 Exam Date: 01/21/2022 12:45 Ordering Phys: Maira Arana MD ([email or web address]) Technologist: Kristin Alejandro Exam Location: [facility] [place] Indication: RECHECK OF CCA STENOSIS Risk Factors: Smoker stopped 12 years ago Previous Vascular Surgery: Unknown Right Brachial BP: / Left Brachial BP: / Right Left Velocity (cm/s) Spectral Plaque Velocity (cm/s) Spectral Plaque Syst/Diast Broadening Syst/Diast Broadening 134.50/18.70 Prox CCA 98.30 / 19.10 79.40/ 25.40 Mid CCA 75.90 / 17.85 66.20/ 13.20 Distal CCA / 111.40/28.70 Prox ICA 77.80 / 17.90 110.30/28.70 Mid ICA 352.90/ 114.60 91.60/ 28.60 Distal ICA 401.20/ 126.70 125.70 ECA 136.60 1.40 ICA/CCA 5.15 Antegrade Vertebral Antegrade 71.00/ 17.80 cm/s 39.60/ 26.80 cm/s Bi Subclavian [place] 186.9 250.1 0 0 FINDINGS Comparison: 07/16/19 Severe obstructive lesions noted in the left internal carotid artery estimated at 70-99% stenosis. Marked elevation of diastolic velocity. Beginning in the mid ICA there is extensive irregular plaque with turbulent stenosis. Progressed since the prior exam. Dampened waveform left CCA. Diffuse irregular plaque left carotid system. Mild right carotid atherosclerosis. No stenosis. Bilateral antegrade vertebral arteries. CONCLUSIONS Left ICA stenosis 70-99%. Significant progression since the prior exam with irregular plaque. Right ICA stenosis < 50%. Dr. Nadine Alaniz DO (Electronically Signed) Final Date: 21 January 2022 14:44 S
[2022-01-21 13:13] LABS: Blood Urea Nitrogen 7 mg/dL (8-23); Glomerular Filtration Rate 68.3 mL/min (90-130)
[2022-01-21] MEDS: iohexol 350 mg/mL 100 mL Btl IV (13:25)
--- NOTE | 2022-01-21 13:30 | CT_ITS ---
WS: [id number] CTA ABDOMINAL AORTA WITH RUNOFF TECHNIQUE: Contrast enhanced CTA of the abdominal aorta with bilateral lower extremity runoff. Multip lanar reformatted images were obtained. MIP reformats were also reviewed. 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 FINDINGS: Normal caliber abdominal aorta. Moderate aortic atheromatous disease in the distal abdomina l aorta with a small amount of peripheral mural thrombus. No aneurysm. Celiac and SMA are patent. Rep laced splenic artery with mild stenosis of the origin. Both renal arteries are patent. Normal renal p arenchymal enhancement. No hydronephrosis. Fat-containing umbilical hernia. Normal liver. Portal vein and splenic vein are patent. Normal GE junction. Normal pancreas. Adrenal g lands are normal. Emphysematous changes in the lung bases Sigmoid diverticulosis. Mild diffuse bladder wall thickening can be seen with cystitis or chronic rina dder outlet obstruction. Prominent prostate measuring 3.5 CM. Avascular necrosis involving both femor al heads. RIGHT: RIGHT common iliac artery is patent. External and internal iliac arteries are patent with mode rate calcification. RIGHT common femoral artery is patent. Superficial femoral artery and deep femora l arteries are patent. Superficial femoral artery is patent to the adductor hiatus. Mild narrowing of the proximal popliteal artery with calcification. Popliteal artery is patent to the trifurcation. Th ree-vessel runoff to the ankle. LEFT: LEFT common iliac artery is occluded. External and internal iliac arteries are occluded. Common femoral artery reconstitutes via collaterals. Additional femoral artery and deep femoral arteries ar e patent. Superficial femoral artery is patent to the adductor hiatus. Popliteal artery is patent to the trifurcation. Three-vessel runoff to the ankle. CT/CT angio abd aorta runof [id number] IMPRESSION: 1. No flow-limiting stenosis RIGHT lower extremity. 2. LEFT common iliac artery is occluded. Common femoral artery reconstitutes v ia collaterals. Superficial femoral artery and deep femoral arteries are patent . Superficial femoral artery is patent to the adductor hiatus. Popliteal artery is patent to the trifurcation. Three-vessel runoff to the ankle. 3. Normal caliber abdominal aorta. Moderate atheromatous disease in the distal abdominal aorta with peripheral thrombus and calcification. No aneurysm. 4. Prominent prostate with bladder wall thickening can be seen with cystitis o r bladder outlet obstruction.Correlation PSA. 5. Avascular necrosis both femoral heads. 6. Nonvascular findings as described above.
== END 2022-01-21 12:33 | disposition home or self-care (01) ==
LOC: RAD 12:33
PROVIDERS: PCP Internal Medicine; Visit Provider Internal Medicine Cardiovascular Disease
DX: I73.9 Peripheral vascular disease, unspecified (principal); I74.5 Embolism and thrombosis of iliac artery; I65.23 Occlusion and stenosis of bilateral carotid arteries; Z87.891 Personal history of nicotine dependence
CPT/HCPCS: 75635; 82565; 84520; 93880

== ENCOUNTER → 2022-01-24 10:56 | Outpatient (BNVA) | payer MEDICARE, SELFPAY | PROVIDERS: PCP Internal Medicine; Visit Provider Anesthesiology Pain Medicine | DX: Z87.891 Personal history of nicotine dependence (principal); G89.29 Other chronic pain; M54.16 Radiculopathy, lumbar region; M87.051 Idiopathic aseptic necrosis of right femur; M87.052 Idiopathic aseptic necrosis of left femur; M54.6 Pain in thoracic spine; M87.852 Other osteonecrosis, left femur | CPT/HCPCS: 99204 ==

== ENCOUNTER 2022-02-08 03:41 | Emergency (ER) | payer MEDICARE, SELFPAY ==
[2022-02-08 03:44] VITALS: BP 178/88; PULSE 91; RESP 24; TEMP 36.6; O2SAT 97; BMI 25.2
--- NOTE | 2022-02-08 03:48 | ECG_ITS ---
[facility] Test Date: 2022-02-08 Pat Name: Hai Aparicio Department: Room: Gender: Male Record Label Intern: : 1960 Requested By: Ruth Palm Order Number: [id number] Zay MD: Ivan Graves M.D. Measurements Intervals [place] Rate: 85 P: 62 DE: 153 QRS: 86 QRSD: 93 T: 54 QT: 328 QTc: 391 Interpretive Statements SINUS RHYTHM POSSIBLE RIGHT VENTRICULAR CONDUCTION DELAY [RSR (QR) IN V1/V2] NONSPECIFIC T-WAVE ABNORMALITY Compared to ECG 05/13/2021 01:24:41 T-wave abnormality now present Electronically Signed On 02-08-2022 16:32:30 CDT by Ivan Graves M.D. [email or web address] [id number]
--- NOTE | 2022-02-08 03:50 | XRR_ITS ---
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 Views: 1 view. COMPARISON: CR XR ribs BI mn 4V w CXR1V [id number] 07/09/2021 1:44 PM FINDINGS: Lungs: No focal airspace disease. Pleural spaces: Unremarkable. No pleural effusion. No pneumothorax. Heart/Mediastinum: Cardiomediastinal silhouette is within normal limits. Bones/joints: Unremarkable. XR/XR chest 1V portable [id number] IMPRESSION: No acute cardiopulmonary abnormality.
[2022-02-08 03:58] LABS: Basophils # 0.1 10^3/uL (0.0-0.1); Basophils % 0.7 %; Eosinophils # 0.3 10^3/uL (0.0-0.8); Eosinophils % 2.9 %; Hematocrit 49.3 % (42.0-52.0); Hemoglobin 15.6 g/dL (11.7-16.6); Lymphocytes # 2.5 10^3/uL (0.8-4.8); Lymphocytes % 22.8 %; Mean Corpuscular HGB Conc 31.6 g/dL (30.0-36.0); Mean Corpuscular Hemoglobin 28.2 pg (28.0-34.0); Mean Platelet Volume 10.7 fL (7.4-10.4); Monocytes # 1.2 10^3/uL (0.2-0.9); Neutrophils # 6.91 10^3/uL (1.8-7.7); Neutrophils % 62.1 %; Nucleated Red Blood Cells % 0 %; Platelet Count 309 10^3/cmm (130-400); Red Blood Count 5.54 10^6/uL (4.1-5.3); Red Cell Distribution Width 13.9 % (12.1-15.1); White Blood Count 11.1 10^3/uL (4.0-10.0)
[2022-02-08 04:00] VITALS: BP 153/80; PULSE 83; RESP 19
--- NOTE | 2022-02-08 04:04 | W.ED.CHESTPA ---
HPI - Chest Pain General: Chief Complaint: Chest Pain Stated Complaint: cp Time Seen by Provider: 02/08/22 03:50 Source: patient Mode of arrival: ambulatory Limitations: no limitations History of Present Illness: 61-year-old male states he started having chest pain roughly 1 to 2 hours ago he states has had some intermittent pain over the last 4 to 5 days states that tonight he is feeling some pain in his left chest he states he also feels like he is having a burning sensation in his throat he states he been eating jalapeno chips denies any shortness of breath denies any vomiting denies any worsening improving factors. States the pain is currently a 3 out of 10 Associated symptoms: Deny abdominal pain, dyspnea, fever(s), nausea or vomiting Review of Systems Const: Denies: fever(s), chills, body aches or change in appetite Eyes: Denies: blurry vision or eye discomfort ENMT: Denies: throat pain or dental pain Card: Reports: chest pain Resp: Denies: dyspnea GI: Denies: abdominal pain, nausea, vomiting or diarrhea : Denies: dysuria Musc: Denies: neck pain or back pain Skin/Breast: Denies: rash Neuro: Denies: headache(s) Psych: Denies: depression Gera/Lymph: Denies: easy bruising All/Imm: Denies: urticaria PFSH ED PFSH: Medical History Anxiety CAD (coronary artery disease) Carotid stenosis Chest pain CKD (chronic kidney disease) COPD (chronic obstructive pulmonary disease) CVA (cerebral vascular accident) Epigastric abdominal pain GERD (gastroesophageal reflux disease) HTN (hypertension) Hyperlipidemia Hypoxia Iliac artery occlusion Obstructive apnea Palpitation PVD (peripheral vascular disease) Shortness of breath Umbilical hernia Family History Other CAD (coronary artery disease) Cancer Social History Smoking and tobacco status: former smoker Quit status (tobacco): has quit using tobacco Year quit tobacco: 2009 - 2PPD x 37 Years Second hand smoke exposure: No Alcohol intake: never Caregiver/support person: Yes Lives independently: Yes Household members: none Marital status: Unknown service: No Current occupational status: unemployed Previous occupational history: [employer] History of recent travel: No Current gender identity: Male Special karli needs: No Physical Exam Const: COMMON NORMALS: no acute distress, patient oriented x3 and healthy appearing HENMT: COMMON NORMALS: normocephalic and atraumatic HEAD & SCALP: normocephalic and atraumatic Eye: COMMON NORMALS: Equal, round and reactive pupils present and EOMs intact bilaterally PUPIL: Yes Equal, round and reactive pupils present Neck/C-Spine: COMMON NORMALS: full ROM and supple Chest: COMMONS NORMALS: normal inspection of the chest and normal palpation of entire chest wall Resp: COMMON NORMALS: normal respiratory effort, No retractions, No use of accessory muscles and clear to auscultation bilaterally AUSCULTATION: clear to auscultation bilaterally Cardio: COMMON NORMALS: regular rate, regular rhythm and No murmurs present (Cardio) RATE: regular rate RHYTHM: regular rhythm GI: COMMON NORMALS: Normal to inspection, nondistended, normoactive bowel sounds present, Soft to palpation, non-tender and no masses PALPATION: Yes Soft to palpation Extremity: COMMON NORMALS: normal to inspection and full ROM Neuro: COMMON NORMALS: patient oriented x3, moves all extremities and no focal motor deficits Psych: COMMON NORMALS: mental status grossly normal, Normal thought process present and cooperative THOUGHT PROCESS: Normal thought process present Skin: COMMON NORMALS: no rashes or lesions noted and no wounds GENERAL SKIN EXAM: no rashes or lesions noted Course Vital Signs: Vital signs: Vital Signs Temperature 97.9 F 02/08/22 03:44 Pulse Rate 83 02/08/22 04:00 Respiratory Rate 19 H 02/08/22 04:00 Blood Pressure 153/80 02/08/22 04:00 Pulse Oximetry 97 02/08/22 03:44 Oxygen Delivery Me thod 02/08/22 03:44 MDM - Chest Pain Medical Decision Making Patient presents for chest pains atypical in nature initial repeat troponins here are negative he is well-appearing here and is stable for discharge 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 Lab Data : 02/08/22 03:54 02/08/22 03:54 Radiology Impressions Chest X-Ray 02/08/22 03:50 IMPRESSION: No acute cardiopulmonary abnormality. Laboratory Results WBC 11.1 10^3/uL (4.0-10.0) H 02/08/22 03:54 RBC 5.54 10^6/uL (4.1-5.3) H 02/08/22 03:54 Hgb 15.6 g/dL (11.7-16.6) 02/08/22 03:54 Hct 49.3 % (42.0-52.0) 02/08/22 03:54 MCV 89.0 fl (80-94) 02/08/22 03:54 MCH 28.2 pg (28.0-34.0) 02/08/22 03:54 MCHC 31.6 g/dL (30.0-36.0) 02/08/22 03:54 RDW 13.9 % (12.1-15.1) 02/08/22 03:54 Plt Count 309 10^3/cmm (130-400) 02/08/22 03:54 MPV 10.7 fL (7.4-10.4) H 02/08/22 03:54 Neut % (Auto) 62.1 % 02/08/22 03:54 Lymph % (Auto) 22.8 % 02/08/22 03:54 [place] % (Auto) 11.0 % 02/08/22 03:54 Eos % (Auto) 2.9 % 02/08/22 03:54 Baso % (Auto) 0.7 % 02/08/22 03:54 Neut # (Auto) 6.91 10^3/uL (1.8-7.7) 02/08/22 03:54 Lymph # (Auto) 2.5 10^3/uL (0.8-4.8) 02/08/22 03:54 [place] # (Auto) 1.2 10^3/uL (0.2-0.9) H 02/08/22 03:54 Eos # (Auto) 0.3 10^3/uL (0.0-0.8) 02/08/22 03:54 Baso # (Auto) 0.1 10^3/uL (0.0-0.1) 02/08/22 03:54 Nucleated RBC % (auto) 0 % 02/08/22 03:54 Nucleated RBCs # 0.0 /100WBC 02/08/22 03:54 Sodium 140 mmol/L (136-145) 02/08/22 03:54 Potassium 3.6 mmol/L (3.5-5.1) 02/08/22 03:54 Chloride 102 mmol/L (98-107) 02/08/22 03:54 Carbon Dioxide 28 mmol/L (22-29) 02/08/22 03:54 Anion Gap 13.6 (5-19) 02/08/22 03:54 BUN 13 mg/dL (8-23) 02/08/22 03:54 Creatinine 0.9 mg/dL (0.7-1.2) 02/08/22 03:54 GFR Calculation 86.1 mL/min (90-130) L 02/08/22 03:54 Glucose 108 mg/dL (65-115) 02/08/22 03:54 Calculated Osmolality 291 mOsm/kg (285-295) 02/08/22 03:54 Calcium 9.7 mg/dL (8.5-10.5) 02/08/22 03:54 Total Bilirubin 0.3 mg/dL (0.15-1.2) 02/08/22 03:54 AST 35 U/L (0-40) 02/08/22 03:54 ALT 32 U/L (0-41) 02/08/22 03:54 Alkaline Phosphatase 165 U/L (40-130) H 02/08/22 03:54 Troponin T Baseline 10 ng/L (0-15) 02/08/22 03:54 Troponin T 120 Minute 15.92 ng/L (0-15) H 02/08/22 05:22 Delta Troponin T 5.92 ABS# (0-10) 02/08/22 05:22 Total Protein 7.3 g/dL (6.6-8.7) 02/08/22 03:54 Albumin 4.5 g/dL (3.5-5.2) 02/08/22 03:54 Globulin 2.8 g/dL (1.3-4.6) 02/08/22 03:54 EKG Data EKG 1: I personally reviewed and interpreted this EKG as follows: EKG interpretation date: 02/08/22 EKG interpretation time: 03:48 Interpretation: nsr hr [address] or t wave abnormalities qrs 93 qtc 370 Discharge Plan Discharge Patient Disposition: Home Clinical Impression: Chest pain Condition: Stable Prescriptions: No Action aspirin [Adult Low Dose Aspirin] 81 mg tablet,delayed release (DR/EC) See Rx Instructions .ROUTE .COMPLEX Rx Instructions: see pharmacy comments budesonide-formoterol [Symbicort] 160-4.5 mcg/actuation HFA aerosol inhaler 2 puff inhalation BID Qty: 10.2 5RF amlodipine 10 mg tablet 10 mg PO DAILY Qty: 90 0RF Tylenol Extra Strength 500 mg Tablet 500 mg PO PRN Discharge Orders: Discharge ED (Routine); Ordered 02/08/22 Ordered By: Ruth Palm Referrals: Humberto Mcintyre MD [Primary Care Provider] - Maira Arana MD [Physician] - 1-3 days Discharge Diet: Advance as tolerated Discharge Activity: Resume usual activity Patient Instructions: Chest Pain (ED) Coding Level of Care Code ED Special Procedure Tech for Kedar Fwd Exam Comprehensive
[2022-02-08 04:15] LABS: Alanine Aminotransferase 32 U/L (0-41); Albumin Level 4.5 g/dL (3.5-5.2); Alkaline Phosphatase 165 U/L (40-130); Aspartate Amino Transferase 35 U/L (0-40); Blood Urea Nitrogen 13 mg/dL (8-23); Calcium 9.7 mg/dL (8.5-10.5); Carbon Dioxide 28 mmol/L (22-29); Chloride 102 mmol/L (98-107); Globulin 2.8 g/dL (1.3-4.6); Glomerular Filtration Rate 86.1 mL/min (90-130); Glucose 108 mg/dL (65-115); Osmolality Calculated 291 mOsm/kg (285-295); Sodium 140 mmol/L (136-145); Total Bilirubin 0.3 mg/dL (0.15-1.2); Total Protein 7.3 g/dL (6.6-8.7)
[2022-02-08 04:18] LABS: Troponin(5th) Baseline 10 ng/L (0-15)
[2022-02-08] MEDS: lidocaine 2% viscous 15 ML, aluminum-mag hydrox-simethicon 30 ML, sucralfate oral liq 1 GM PO (04:19)
[2022-02-08 04:28] LABS: Anion Gap 13.6 (5-19)
[2022-02-08 04:29] LABS: Potassium 3.6 mmol/L (3.5-5.1)
[2022-02-08] MEDS: aspirin 81 mg Chew Tablet 324 MG PO (05:42)
[2022-02-08 05:51] LABS: Troponin 5 2HR 15.92 ng/L (0-15)
[2022-02-08 05:53] LABS: Troponin 5 2HR Delta 5.92 ABS# (0-10)
== END 2022-02-08 06:02 | disposition home or self-care (01) ==
PROVIDERS: Emergency Provider Emergency Medicine; PCP Internal Medicine
DX: R07.9 Chest pain, unspecified (principal); Z79.82 Long term (current) use of aspirin; Z87.891 Personal history of nicotine dependence; I25.10 Atherosclerotic heart disease of native coronary artery without angina pectoris; J44.9 Chronic obstructive pulmonary disease, unspecified; Z86.73 Personal history of transient ischemic attack (TIA), and cerebral infarction without residual deficits; I10 Essential (primary) hypertension; E78.5 Hyperlipidemia, unspecified
CPT/HCPCS: 71045; 80053; 84484; 85025; 93005; 99285

== ENCOUNTER 2022-03-03 14:53 | Outpatient (CLI) | payer MEDICARE, SELFPAY ==
[2022-03-03] MEDS: iohexol 350 mg/mL 100 mL Btl IV (16:14)
--- NOTE | 2022-03-03 16:30 | CT_ITS ---
WS: [id number] CTA NECK TECHNIQUE: Contrast enhanced CTA of the neck with coronal and sagittal reformatted images and maximum intensity projection (MIP) images. NASCET criteria utilized. CLINICAL INFORMATION: Progression of left carotid stenosis on US COMPARISON: Ultrasound carotid January 21, 2022 DLP: 387.[address] scans at [facility] use at least one of these dose optimization techniques: automated e xposure control; mA and/or kV adjustment per patient size (includes targeted exams where dose is matc hed to clinical indication); or iterative reconstruction. FINDINGS: RIGHT: RIGHT common carotid artery is patent. No significant RIGHT ICA stenosis. ICA is patent to the skull base. LEFT: LEFT common carotid artery is patent. Mild approximately 25% stenosis involving the mid LEFT co mmon carotid artery with eccentric plaque. Mild calcified plaque LEFT carotid bulb extending into the ICA. Irregular atheromatous plaque approximately 2.3 cm distal to the origin with ICA stenosis measu ring 70-75%. Tiny lumen measuring 1.4 mm. Slightly reduced caliber of the LEFT ICA to the skull base which remains patent. I LEFT dominant vertebral artery. Tiny hypoplastic RIGHT vertebral artery occluded at the origin and re constitutes at C5. Proximal basilar artery is patent. Normal vascularity to the [employer] territory bilater ally. Both ICAs are patent at the skull base. Normal partially visualized [place]. Moderate stenosis LEFT proximal subclavian just proximal to the RIGHT vertebral artery origin measuring approx imately 60%. Distal subclavian remains patent. Irregular atheromatous plaque in this location. Reversal the normal cervical lordosis. Mild spondylitic changes. Moderate emphysematous changes in th e lung apices. Calcified granuloma RIGHT upper lobe. Mastoid air cells well aerated. Normal posterior nasopharynx. Normal parapharyngeal fat. MPRESSION: 1. Significant LEFT ICA stenosis measures approximately 70-75% with irregular calcified atheromatous plaque approximately 2.3 cm distal to the origin. 2. No significant RIGHT ICA stenosis. 3. LEFT dominant vertebral artery. 4. 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 5. Partially visualized proximal [place] appears normal. 6. Moderate stenosis LEFT proximal subclavian just proximal to the RIGHT vertebral artery origin [place] approximately 60%. Distal subclavian remains patent. Irregular atheromatous plaque in this loc ation. LEFT vertebral artery remains antegrade on the recent ultrasound although with reduced velocit y, suspicious for early subclavian steal
== END 2022-03-03 14:54 | disposition home or self-care (01) ==
PROVIDERS: PCP Internal Medicine; Visit Provider Internal Medicine Cardiovascular Disease
DX: I65.22 Occlusion and stenosis of left carotid artery (principal); I70.8 Atherosclerosis of other arteries
CPT/HCPCS: 70498

== ENCOUNTER 2022-03-03 14:53 | Outpatient (CLI) | payer MEDICARE, SELFPAY ==
--- NOTE | 2022-03-03 15:15 | MR_ITS ---
WS: [id number] MRI LUMBAR SPINE NONCONTRAST HISTORY: M54.16 - Radiculopathy, lumbar region COMPARISON: None available. TECHNIQUE: Sagittal and axial multisequence imaging is submitted. Mild reversal the normal cervical lordosis centered at C5-6 with disc space narrowing. Normal lumbar alignment with no compression fractures or marrow edema. Mild disc space narrowing and desiccation at L4-5 and L5-S1. Small amount of marrow edema LEFT latera l L5 and S1 endplates. Conus terminates normally at L1. L1-L2: Normal. L2-L3: Normal. L3-L4: Mild ligamentum flavum hypertrophy. Very mild encroachment and narrowing of the thecal sac. L4-L5: Mild annular disc bulge with a central disc protrusion. Additional bilateral foraminal disc pr otrusions RIGHT greater than LEFT. Mild contact and encroachment upon the traversing L5 nerve roots b ilaterally. Mild central with moderate subarticular recess stenosis. Central fissure and LEFT foramin al annular fissure. L5-S1: Mild annular disc bulge with a moderate central disc protrusion. Disc extends slightly greater to the LEFT. There is disc contact and displacement of the LEFT S1 nerve root. Minimal contact with no displacement on the RIGHT S1 nerve root. LEFT foraminal disc protrusion contacts and deforms the e xiting LEFT S1 nerve root. Central and bilateral subarticular recess stenosis is mild. Moderate LEFT foraminal stenosis. MR/MR lumbar spine wo con* [id number] IMPRESSION: 1. Mild central and moderate bilateral subarticular recess stenosis at L4-5 wi th disc protrusions contacting the traversing L5 nerve roots bilaterally. 2. Additional bilateral foraminal disc protrusions at L4-5, RIGHT greater than LEFT. 3. Moderate central disc protrusion at L5-S1 with disc contacting and displaci ng the LEFT S1 nerve root. Disc contacts but does not displace the RIGHT S1 ner ve root. 4. LEFT foraminal disc protrusion resulting in mild LEFT foraminal stenosis at L5-S1. Significant disc contact on the LEFT exiting L5 nerve root.
== END 2022-03-03 14:54 | disposition home or self-care (01) ==
PROVIDERS: PCP Internal Medicine; Visit Provider Anesthesiology Pain Medicine
DX: M54.16 Radiculopathy, lumbar region (principal); M48.061 Spinal stenosis, lumbar region without neurogenic claudication; M51.27 Other intervertebral disc displacement, lumbosacral region; M48.07 Spinal stenosis, lumbosacral region
CPT/HCPCS: 72148

== ENCOUNTER 2022-03-09 10:59 | Emergency (ER) | payer MEDICARE, SELFPAY ==
--- NOTE | 2022-03-09 11:13 | ECG_ITS ---
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 Measurements Intervals [place] Rate: 87 P: 68 SD: 151 QRS: 88 QRSD: 89 T: 70 QT: 344 QTc: 415 Interpretive Statements SINUS RHYTHM POSSIBLE RIGHT VENTRICULAR CONDUCTION DELAY [RSR (QR) IN V1/V2] Compared to ECG 02/08/2022 03:48:48 T-wave abnormality no longer present Electronically Signed On 03-09-2022 14:05:46 CDT by Ivan Graves M.D. [email or web address] of [email or web address] methodist [email or web address]/store/OM/[id number]
[2022-03-09 11:15] VITALS: BP 124/79; PULSE 88; RESP 15; TEMP 36.4; O2SAT 98; BMI 25.0
[2022-03-09 11:35] VITALS: BP 118/89; PULSE 94; RESP 18; O2SAT 100
--- NOTE | 2022-03-09 11:50 | XR_ITS ---
WS: [id number] Exam: XR chest 1V portable [id number] Date/Time of Exam: 03/09/2022 11:54 AM Reason For Exam: dyspnea/cough Comparison 02/08/2022. Findings: The lungs are clear and fully expanded. Costophrenic angles are sharp. No infiltrates. Bronchovascula r relief appears normal. Cardiac silhouette is unremarkable. Bony elements are intact. XR/XR chest 1V portable [id number] IMPRESSION: Unremarkable chest radiograph.
--- NOTE | 2022-03-09 12:51 | ED_ITS ---
HPI - Chest Pain General: Chief Complaint: Chest Pain Stated Complaint: Chest pain Time Seen by Provider: 03/09/22 11:03 Source: patient Mode of arrival: ambulatory History of Present Illness: 62-year-old male presents emergency room with complaints of chest discomfort left upper chest radiating to his back worse with motion in his left arm palpation of the left upper chest or with deep breathing. Is been going on for the last several days. He denies shortness of breath cough or fever. No nausea vomiting or diarrhea. MD complaint: chest pain Onset (ago): day(s) Timing of current episode: episodic Prior episodes: Yes Pain location: left chest Pain radiation: back Severity: moderate Quality: sharp Relieving factors: remaining still Exacerbating factors: inspiration, palpation and movement Associated symptoms: Deny abdominal pain, diaphoresis, dyspnea, fever(s), leg edema, nausea, palpitations, sense of impending doom, syncope or vomiting Treatment prior to arrival: none Review of Systems Const: Denies: fever(s), chills, fatigue, malaise or diaphoresis ENMT: Denies: throat pain, ear or mastoid pain, nasal discharge or nasal congestion Card: Reports: chest pain; Denies: palpitations or syncope Resp: Denies: dyspnea, productive cough, non-productive cough or wheezing GI: Denies: abdominal pain, nausea or vomiting : Denies: flank pain, difficulty urinating, dysuria, urinary frequency or urinary urgency Musc: Reports: back pain; Denies: neck pain Skin/Breast: Denies: rash or pruritus PFS ED PFSH: Medical History Anxiety CAD (coronary artery disease) Carotid stenosis Chest pain CKD (chronic kidney disease) COPD (chronic obstructive pulmonary disease) CVA (cerebral vascular accident) Epigastric abdominal pain GERD (gastroesophageal reflux disease) HTN (hypertension) Hyperlipidemia Hypoxia Iliac artery occlusion Obstructive apnea Palpitation PVD (peripheral vascular disease) Shortness of breath Umbilical hernia Family History Other CAD (coronary artery disease) Cancer Social History Smoking and tobacco status: former smoker Quit status (tobacco): has quit using tobacco Year quit tobacco: 2009 - 2PPD x 37 Years Second hand smoke exposure: No Alcohol intake: never Caregiver/support person: Yes Lives independently: Yes Household members: none Marital status: Unknown service: No Current occupational status: unemployed Previous occupational history: [employer] History of recent travel: No Current gender identity: Male Special karli needs: No Physical Exam Const: GENERAL APPEARANCE: cooperative and comfortable ORIENTATION/CONSCIOUSNESS: Yes awake, Yes oriented to person, Yes oriented to place and Yes oriented to time HENMT: COMMON NORMALS: normocephalic, atraumatic and hearing grossly normal bilaterally HEAD & SCALP: normocephalic and atraumatic Chest: CHEST: Yes tenderness (Left upper chest) Resp: COMMON NORMALS: normal respiratory effort, No retractions, No use of accessory muscles and clear to auscultation bilaterally AUSCULTATION: clear to auscultation bilaterally Cardio: COMMON NORMALS: regular rate, regular rhythm and No murmurs present (Cardio) RATE: regular rate RHYTHM: regular rhythm GI: COMMON NORMALS: Soft to palpation and No hepatosplenomegaly present AUSCULTATION: Yes normoactive bowel sounds PALPATION: Yes Soft to palpation, No Tenderness to palpation present (GI), No Guarding due to palpation present (GI) and Yes No hepatosplenomegaly present Extremity: COMMON NORMALS: normal to inspection, capillary refill normal, no clubbing, cyanosis or edema, no calf tenderness and no pedal edema Neuro: SENSORIUM/ORIENTATION: Yes oriented to person, Yes oriented to place and Yes oriented to time Skin: COMMON NORMALS: no rashes or lesions noted GENERAL SKIN EXAM: no rashes or lesions noted Course Vital Signs: Vital signs: Vital Signs Temperature 97.6 F 03/09/22 11:15 Pulse Rate 94 03/09/22 11:35 Respiratory Rate 18 03/09/22 11:35 Blood Pressure 118/89 03/09/22 11:35 Pulse Oximetry 100 03/09/22 11:35 Oxygen Delivery Me thod 03/09/22 11:35 MDM - Chest Pain Medical Decision Making EKG does not show any acute changes. Chest x-ray unremarkable. Pain reproducible with musculoskeletal movement palpation and deep inspiration discharge patient home diclofenac to use as needed follow-up as needed Lab Data Radiology Impressions Chest X-Ray 03/09/22 11:50 IMPRESSION: Unremarkable chest radiograph. Discharge Plan Discharge Patient Disposition: Home Clinical Impression: Chest pain, pleuritic Condition: Stable Prescriptions: New diclofenac sodium 75 mg tablet,delayed release (DR/EC) 75 mg PO Q12H PRN (Reason: pain) Qty: 20 0RF No Action aspirin [Adult Low Dose Aspirin] 81 mg tablet,delayed release (DR/EC) 81 mg PO DAILY budesonide-formoterol [Symbicort] 160-4.5 mcg/actuation HFA aerosol inhaler 2 puff inhalation BID Qty: 10.2 5RF amlodipine 10 mg tablet 10 mg PO DAILY Qty: 90 0RF acetaminophen [Tylenol Extra Strength] 500 mg Tablet 500 mg PO PRN Discharge Orders: Discharge ED (Routine); Ordered 03/09/22 Ordered By: Elvis Sharma Referrals: Humberto Mcintyre MD [Primary Care Provider] - Discharge Diet: Usual diet Discharge Activity: Resume usual activity Patient Instructions: Opioid Safety, Pain Management Coding Level of Care Code ED Rotary Driller for Kedar Mae
[2022-03-09 12:56] VITALS: BP 113/76; PULSE 78; RESP 19; O2SAT 97
== END 2022-03-09 13:05 | disposition home or self-care (01) ==
PROVIDERS: Emergency Provider Family Medicine; PCP Internal Medicine
DX: R07.81 Pleurodynia (principal); Z79.82 Long term (current) use of aspirin; I25.10 Atherosclerotic heart disease of native coronary artery without angina pectoris; J44.9 Chronic obstructive pulmonary disease, unspecified; Z86.73 Personal history of transient ischemic attack (TIA), and cerebral infarction without residual deficits; I10 Essential (primary) hypertension; E78.5 Hyperlipidemia, unspecified; Z87.891 Personal history of nicotine dependence
CPT/HCPCS: 71045; 93005; 99284

== ENCOUNTER 2022-03-12 08:30 | Emergency (ER) | payer MEDICARE, SELFPAY ==
[2022-03-12 08:53] VITALS: BMI 25.0
[2022-03-12 08:56] VITALS: BP 105/75; PULSE 92; RESP 18; TEMP 36.4; O2SAT 96
--- NOTE | 2022-03-12 09:06 | ECG_ITS ---
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 Measurements Intervals [place] Rate: 90 P: 50 OK: 156 QRS: 79 QRSD: 85 T: 30 QT: 344 QTc: 421 Interpretive Statements SINUS RHYTHM POSSIBLE RIGHT VENTRICULAR CONDUCTION DELAY [RSR (QR) IN V1/V2] INTERPRETATION BASED ON A DEFAULT AGE OF 40 YEARS Compared to ECG 03/09/2022 11:13:32 No significant changes Electronically Signed On 03-13-2022 22:03:41 CDT by Ivan Graves M.D. [email or web address] grady memorial [email or web address].[email or web address]/store/NU/[id number]
[2022-03-12 09:28] VITALS: BP 109/77; O2SAT 96
[2022-03-12 09:30] VITALS: BP 109/77; O2SAT 95
--- NOTE | 2022-03-12 09:44 | W.ED.CHESTPA ---
HPI - Chest Pain General: Chief Complaint: Chest Pain Stated Complaint: chest pain and pain in the back Time Seen by Provider: 03/12/22 09:05 Source: patient Mode of arrival: ambulatory History of Present Illness: 62-year-old male well-known to our service presents emergency room complaining of chest pain. Chest pain is reproducible with palpation and movement in the upper chest. Patient has had extensive cardiac work-up in the past all of which recently has been negative. No associated shortness of breath no radiation of the pain. MD complaint: chest pain Onset (ago): day(s) Timing of current episode: episodic Prior episodes: Yes Onset: during rest Pain location: left chest Pain radiation: left shoulder Severity: moderate Quality: sharp Relieving factors: rest Exacerbating factors: palpation and movement Associated symptoms: Reports sense of impending doom; Deny abdominal pain, diaphoresis, dyspnea, fever(s), leg edema, nausea, palpitations, syncope or vomiting Treatment prior to arrival: none Review of Systems Const: Denies: fever(s), chills, fatigue, malaise or diaphoresis ENMT: Denies: throat pain, ear or mastoid pain, nasal discharge or nasal congestion Card: Reports: chest pain; Denies: palpitations, irregular heart rhythm, edema, swelling of feet/ankles or syncope Resp: Denies: dyspnea GI: Denies: abdominal pain, nausea or vomiting : Denies: flank pain, difficulty urinating, dysuria, urinary frequency or urinary urgency Skin/Breast: Denies: rash or pruritus PFSH ED PFSH: Medical History Anxiety CAD (coronary artery disease) Carotid stenosis Chest pain CKD (chronic kidney disease) COPD (chronic obstructive pulmonary disease) CVA (cerebral vascular accident) Epigastric abdominal pain GERD (gastroesophageal reflux disease) HTN (hypertension) Hyperlipidemia Hypoxia Iliac artery occlusion Obstructive apnea Palpitation PVD (peripheral vascular disease) Shortness of breath Umbilical hernia Family History Other CAD (coronary artery disease) Cancer Social History Smoking and tobacco status: former smoker (12 years ago) Quit status (tobacco): has quit using tobacco Year quit tobacco: 2009 - 2PPD x 37 Years Second hand smoke exposure: No Alcohol intake: never Caregiver/support person: Yes Lives independently: Yes Household members: none Marital status: Unknown service: No Current occupational status: unemployed Previous occupational history: [employer] History of recent travel: No Current gender identity: Male Special karli needs: No Physical Exam Const: COMMON NORMALS: no acute distress GENERAL APPEARANCE: cooperative and comfortable ORIENTATION/CONSCIOUSNESS: Yes awake, Yes oriented to person, Yes oriented to place and Yes oriented to time HENMT: COMMON NORMALS: normocephalic, atraumatic and hearing grossly normal bilaterally HEAD & SCALP: normocephalic and atraumatic Resp: COMMON NORMALS: normal respiratory effort, No retractions, No use of accessory muscles and clear to auscultation bilaterally AUSCULTATION: clear to auscultation bilaterally Cardio: COMMON NORMALS: regular rate, regular rhythm and No murmurs present (Cardio) RATE: regular rate RHYTHM: regular rhythm GI: COMMON NORMALS: Soft to palpation and No hepatosplenomegaly present AUSCULTATION: Yes normoactive bowel sounds PALPATION: Yes Soft to palpation, No Tenderness to palpation present (GI), No Guarding due to palpation present (GI) and Yes No hepatosplenomegaly present Extremity: COMMON NORMALS: normal to inspection, capillary refill normal, no clubbing, cyanosis or edema, no calf tenderness and no pedal edema Neuro: SENSORIUM/ORIENTATION: Yes oriented to person, Yes oriented to place and Yes oriented to time Skin: COMMON NORMALS: no rashes or lesions noted GENERAL SKIN EXAM: no rashes or lesions noted Course Vital Signs: Vital signs: Vital Signs Temperature 97.6 F 03/12/22 08:56 Pulse Rate 75 03/12/22 10:00 Respiratory Rate 16 03/12/22 10:00 Blood Pressure 148/78 03/12/22 10:00 Pulse Oximetry 97 03/12/22 10:00 Oxygen Delivery Me thod 03/12/22 08:56 MDM - Chest Pain Medical Decision Making Labs and EKG unremarkable. Pain reproducible with palpation discharge home follow-up with primary care Medical Records I reviewed the patient's medical records. Lab Data I reviewed the patient's lab results. Discharge Plan Discharge Patient Disposition: Home Clinical Impression: Anterior chest wall pain Condition: Stable Prescriptions: No Action aspirin [Adult Low Dose Aspirin] 81 mg tablet,delayed release (DR/EC) 81 mg PO DAILY budesonide-formoterol [Symbicort] 160-4.5 mcg/actuation HFA aerosol inhaler 2 puff inhalation BID Qty: 10.2 5RF amlodipine 10 mg tablet 10 mg PO DAILY Qty: 90 0RF acetaminophen [Tylenol Extra Strength] 500 mg Tablet 500 mg PO PRN diclofenac sodium 75 mg tablet,delayed release (DR/EC) 75 mg PO Q12H PRN (Reason: pain) Qty: 20 0RF Discharge Orders: Discharge ED (Routine); Ordered 03/12/22 Ordered By: Elvis Sharma Referrals: Humberto Mcintyre MD [Primary Care Provider] - Discharge Diet: Usual diet Discharge Activity: Resume usual activity Patient Instructions: Opioid Safety, Pain Management Coding Level of Care Code ED Welding Pantograph Machine Operator for Kedar Mae
[2022-03-12 09:45] VITALS: BP 128/79; PULSE 82; RESP 19; O2SAT 96
[2022-03-12 10:00] VITALS: BP 148/78; PULSE 75; RESP 16; O2SAT 97
== END 2022-03-12 10:17 | disposition home or self-care (01) ==
PROVIDERS: Emergency Provider Family Medicine; PCP Internal Medicine
DX: R07.89 Other chest pain (principal)
CPT/HCPCS: 93005; 99283

== ENCOUNTER → 2022-03-15 15:11 | Outpatient (BNVA) | payer MEDICARE, SELFPAY | PROVIDERS: PCP Internal Medicine; Visit Provider Nurse Practitioner Family | DX: R07.9 Chest pain, unspecified (principal); Z87.891 Personal history of nicotine dependence | CPT/HCPCS: 99213 ==

== ENCOUNTER → 2022-03-22 09:56 | Outpatient (BNVA) | payer MEDICARE, SELFPAY | PROVIDERS: PCP Internal Medicine; Visit Provider Anesthesiology Pain Medicine | DX: G89.29 Other chronic pain (principal); M54.6 Pain in thoracic spine; M87.051 Idiopathic aseptic necrosis of right femur; M87.052 Idiopathic aseptic necrosis of left femur; M87.852 Other osteonecrosis, left femur; Z87.891 Personal history of nicotine dependence | CPT/HCPCS: 99214 ==

== ENCOUNTER → 2022-04-07 13:18 | Outpatient (BNVA) | payer MEDICARE, SELFPAY | PROVIDERS: PCP Internal Medicine; Visit Provider Thoracic Surgery (Cardiothoracic Vascular Surgery) | DX: I65.29 Occlusion and stenosis of unspecified carotid artery (principal); Z87.891 Personal history of nicotine dependence | CPT/HCPCS: 99203; 99204 ==

== ENCOUNTER 2022-05-24 13:39 | Emergency (ER) | payer MEDICARE, SELFPAY ==
[2022-05-24 13:55] VITALS: BP 119/78; PULSE 110; RESP 16; TEMP 37.1; O2SAT 96; BMI 24.0
--- NOTE | 2022-05-24 14:42 | ECG_ITS ---
[facility] Test Date: 2022-05-24 Pat Name: Hai Aparicio Department: Room: Gender: Male Ham Doctor: : 1960 Requested By: Nupur Downs Order Number: [id number] Collazo MD: Jose Alejandro Patterson M.D. Measurements Intervals [place] Rate: 87 P: 73 [place]: 162 QRS: 90 QRSD: 84 T: 79 QT: 335 QTc: 404 Interpretive Statements SINUS RHYTHM POSSIBLE RIGHT VENTRICULAR CONDUCTION DELAY [RSR (QR) IN V1/V2] Compared to ECG 03/12/2022 09:06:36 No significant changes Electronically Signed On 05-25-2022 0:03:52 BULK STATION AGENT by Jose Alejandro Patterson M.D. [id number]
--- NOTE | 2022-05-24 14:42 | ED_ITS ---
Documented by User: VINICIUS Fontaine 05/24/22 16:48 HPI - COVID General: Chief Complaint: COVID symptoms Stated Complaint: sob, n/v Time Seen by Provider: 05/24/22 14:02 History of Present Illness: Patient reports that he is feeling terrible. He reports that for the past 3 days he has had an aching in his left side chest. He reports that when that aching starts he often becomes nauseated and sometimes throws up. He reports that the aching comes and goes. He does not notice that it makes him more short of breath. He does report that he has chronic COPD. He reports that he feels generally weak and tired and has felt hot and cold but has not noticed a fever. He does offer that he has 75% occlusion of his carotid artery and is having surgery for this on 21 June. He reports that he came to the ER at 3:00 this morning but sat in his truck and decided not to come in, but he started feeling worse when he got back home so he returned. COVID 19 common symptoms: positive productive cough, dyspnea, nausea and vomiting; negative fever(s), chills, non-productive cough or body aches COVID 19 other sytmptoms: positive chest pain COVID Results: SARS-CoV-2 RNA (RT-PCR) Not detected (NOT DETECTED) 03/18/20 0 6:41 Review of Systems Const: Denies: fever(s), chills or body aches Card: Reports: chest pain; Denies: palpitations or irregular heart rhythm Resp: Reports: dyspnea and productive cough; Denies: non-productive cough GI: Reports: nausea and vomiting : Denies: flank pain, difficulty urinating or dysuria PFSH ED PFSH: Medical History Anxiety CAD (coronary artery disease) Carotid stenosis Chest pain CKD (chronic kidney disease) COPD (chronic obstructive pulmonary disease) CVA (cerebral vascular accident) Epigastric abdominal pain GERD (gastroesophageal reflux disease) HTN (hypertension) Hyperlipidemia Hypoxia Iliac artery occlusion Obstructive apnea Palpitation PVD (peripheral vascular disease) Shortness of breath Umbilical hernia Family History Other CAD (coronary artery disease) Cancer Social History Smoking and tobacco status: former smoker (12 years ago) Quit status (tobacco): has quit using tobacco Year quit tobacco: 2009 - 2PPD x 37 Years Second hand smoke exposure: No Alcohol intake: never Caregiver/support person: Yes Lives independently: Yes Household members: none Marital status: Unknown service: No Current occupational status: unemployed Previous occupational history: [employer] History of recent travel: No Current gender identity: Male Special karli needs: No Physical Exam Const: COMMON NORMALS: patient oriented x3 and alert OTHER: You can tell that patient does not feel well. He is sitting still and continues to rub his chest. Resp: COMMON NORMALS: normal respiratory effort, No use of accessory muscles and clear to auscultation bilaterally AUSCULTATION: clear to auscultation bilaterally Cardio: COMMON NORMALS: regular rate, S1 normal heart sound present, S2 normal heart sound present and No murmurs present (Cardio) RATE: regular rate HEART SOUNDS: S1 normal heart sound present and S2 normal heart sound present Neuro: COMMON NORMALS: patient oriented x3 SENSORIUM/ORIENTATION: Yes alert Course Vital Signs: Vital signs: Vital Signs Temperature 98.8 F 05/24/22 13:55 Pulse Rate 110 H 05/24/22 13:55 Respiratory Rate 16 05/24/22 13:55 Blood Pressure 119/78 05/24/22 13:55 Pulse Oximetry 96 05/24/22 16:25 Oxygen Delivery Me thod 05/24/22 16:25 MDM - COVID Medical Decision Making Consider influenza, COVID, cardiac Swab patient for influenza. Add on troponin and EKGs and basic labs with chest x-ray. Chest x-ray shows hyperinflation EKG no acute ST changes I spoke with Dr. Sharma regarding this patient. Dr. Sharma is very familiar with this patient and his medical history. Patient does not have any acute changes noted on his EKG. Patient is negative for influenza. Patient is well-a ppearing in no acute distress and no current chest pain. Troponins are canceled. Dr. Sharma agrees with plan of care to allow patient to discharge home follow-up with primary care provider. Return to the ER as needed for any new or worsening symptoms. Patient is agreeable with plan of care and feels well to be discharged home. We discussed conservative care for upper respiratory infection at home. Lab Data 05/24/22 14:42 05/24/22 15:05 Radiology Impressions Chest X-Ray 05/24/22 14:58 Impression: Hyperinflation. Laboratory Results WBC 10.9 10^3/uL (4.0-10.0) H 05/24/22 14:42 RBC 5.87 10^6/uL (4.1-5.3) H 05/24/22 14:42 Hgb 16.5 g/dL (11.7-16.6) 05/24/22 14:42 Hct 51.5 % (42.0-52.0) 05/24/22 14:42 MCV 87.7 fl (80-94) 05/24/22 14:42 MCH 28.1 pg (28.0-34.0) 05/24/22 14:42 MCHC 32.0 g/dL (30.0-36.0) 05/24/22 14:42 RDW 13.8 % (12.1-15.1) 05/24/22 14:42 Plt Count 346 10^3/cmm (130-400) 05/24/22 14:42 MPV 10.7 fL (7.4-10.4) H 05/24/22 14:42 Neut % (Auto) 73.1 % 05/24/22 14:42 Lymph % (Auto) 16.7 % 05/24/22 14:42 [place] % (Auto) 8.0 % 05/24/22 14:42 Eos % (Auto) 1.3 % 05/24/22 14:42 Baso % (Auto) 0.5 % 05/24/22 14:42 Neut # (Auto) 7.99 10^3/uL (1.8-7.7) H 05/24/22 14:42 Lymph # (Auto) 1.8 10^3/uL (0.8-4.8) 05/24/22 14:42 [place] # (Auto) 0.9 10^3/uL (0.2-0.9) 05/24/22 14:42 Eos # (Auto) 0.1 10^3/uL (0.0-0.8) 05/24/22 14:42 Baso # (Auto) 0.1 10^3/uL (0.0-0.1) 05/24/22 14:42 Nucleated RBC % (auto) 0 % 05/24/22 14:42 Nucleated RBCs # 0.0 /100WBC 05/24/22 14:42 PT Cancelled 05/24/22 15:05 INR Cancelled 05/24/22 15:05 APTT Cancelled 05/24/22 15:05 Sodium Cancelled 05/24/22 15:05 Potassium Cancelled 05/24/22 15:05 Chloride Cancelled 05/24/22 15:05 Carbon Dioxide Cancelled 05/24/22 15:05 Anion Gap Cancelled 05/24/22 15:05 BUN Cancelled 05/24/22 15:05 Creatinine Cancelled 05/24/22 15:05 GFR Calculation Cancelled 05/24/22 15:05 Glucose Cancelled 05/24/22 15:05 Calculated Osmolality Cancelled 05/24/22 15:05 Calcium Cancelled 05/24/22 15:05 Total Bilirubin Cancelled 05/24/22 15:05 AST Cancelled 05/24/22 15:05 ALT Cancelled 05/24/22 15:05 Alkaline Phosphatase Cancelled 05/24/22 15:05 Troponin T Baseline Cancelled 05/24/22 15:05 Total Protein Cancelled 05/24/22 15:05 Albumin Cancelled 05/24/22 15:05 Globulin Cancelled 05/24/22 15:05 Coronavirus 229E (PCR) Cancelled 05/24/22 15:03 Influenza Type A Ag negative (Negative) 05/24/22 15:03 Influenza Type B Ag negative (Negative) 05/24/22 15:03 SARS-CoV-2 (PCR) Cancelled 05/24/22 15:03 SARS-CoV-2 Ag (Rapid) Cancelled 05/24/22 15:03 SARS-CoV-2 RNA (RT-PCR) Not detected (NOT DETECTED) 03/18/20 0 6:41 Discharge Plan Discharge Patient Disposition: Home Clinical Impression: Acute upper respiratory infection Condition: Stable Prescriptions: No Action aspirin [Adult Low Dose Aspirin] 81 mg tablet,delayed release (DR/EC) 81 mg PO DAILY budesonide-formoterol [Symbicort] 160-4.5 mcg/actuation HFA aerosol inhaler 2 puff inhalation BID Qty: 10.2 5RF amlodipine 10 mg tablet 10 mg PO DAILY Qty: 90 0RF acetaminophen [Tylenol Extra Strength] 500 mg Tablet 500 mg PO PRN Discharge Orders: Discharge ED (Routine); Ordered 05/24/22 Ordered By: Nupur Downs Referrals: Humberto Mcintyre MD [Primary Care Provider] - Discharge Diet: Usual diet Discharge Activity: Resume usual activity Patient Instructions: COPD, Upper Respiratory Infection - Adult Activity Restrictions/Additional Instructions: Make sure that you are getting plenty of rest and staying well-hydrated. Continue your inhalers as previously prescribed at home. Follow-up with your primary care provider as needed. Return to the ER for new or worsening symptoms. Coding Level of Care Code ED Convention Services Director for Chg Fwd Exam Expanded Problem Focused Documented by User: Elvis Sharma DO 05/25/22 07:13 HPI - COVID General: Chief Complaint: COVID symptoms Stated Complaint: sob, n/v Time Seen by Provider: 05/24/22 14:02 COVID Results: SARS-CoV-2 RNA (RT-PCR) Not detected (NOT DETECTED) 03/18/20 0 6:41 [facility] ED PFSH: Medical History Anxiety CAD (coronary artery disease) Carotid stenosis Chest pain CKD (chronic kidney disease) COPD (chronic obstructive pulmonary disease) CVA (cerebral vascular accident) Epigastric abdominal pain GERD (gastroesophageal reflux disease) HTN (hypertension) Hyperlipidemia Hypoxia Iliac artery occlusion Obstructive apnea Palpitation PVD (peripheral vascular disease) Shortness of breath Umbilical hernia Family History Other CAD (coronary artery disease) Cancer Social History Smoking and tobacco status: former smoker (12 years ago) Quit status (tobacco): has quit using tobacco Year quit tobacco: 2009 - 2PPD x 37 Years Second hand smoke exposure: No Alcohol intake: never Caregiver/support person: Yes Lives independently: Yes Household members: none Marital status: Unknown service: No Current occupational status: unemployed Previous occupational history: [employer] History of recent travel: No Current gender identity: Male Special karli needs: No Course Vital Signs: Vital signs: Vital Signs Temperature 98.8 F 05/24/22 13:55 Pulse Rate 110 H 05/24/22 13:55 Respiratory Rate 16 05/24/22 13:55 Blood Pressure 119/78 05/24/22 13:55 Pulse Oximetry 96 05/24/22 16:25 Oxygen Delivery Me thod 05/24/22 16:25 MDM - COVID Medical Decision Making Consider influenza, COVID, cardiac Swab patient for influenza. Add on troponin and EKGs and basic labs with chest x-ray. Chest x-ray shows hyperinflation EKG no acute ST changes I spoke with Dr. Sharma regarding this patient. Dr. Sharma is very familiar with this patient and his medical history. Patient does not have any acute changes noted on his EKG. Patient is negative for influenza. Patient is well- appearing in no acute distress and no current chest pain. Troponins are canceled. Dr. Sharma agrees with plan of care to allow patient to discharge home follow-up with primary care provider. Return to the ER as needed for any new or worsening symptoms. Patient is agreeable with plan of care and feels well to be discharged home. We discussed conservative care for upper respiratory infection at home. Chart reviewed and patient discussed with midlevel. Agree with assessment and p lucy. Lab Data 05/24/22 14:42 05/24/22 15:05 Radiology Impressions Chest X-Ray 05/24/22 14:58 Impression: Hyperinflation. Laboratory Results WBC 10.9 10^3/uL (4.0-10.0) H 05/24/22 14:42 RBC 5.87 10^6/uL (4.1-5.3) H 05/24/22 14:42 Hgb 16.5 g/dL (11.7-16.6) 05/24/22 14:42 Hct 51.5 % (42.0-52.0) 05/24/22 14:42 MCV 87.7 fl (80-94) 05/24/22 14:42 MCH 28.1 pg (28.0-34.0) 05/24/22 14:42 MCHC 32.0 g/dL (30.0-36.0) 05/24/22 14:42 RDW 13.8 % (12.1-15.1) 05/24/22 14:42 Plt Count 346 10^3/cmm (130-400) 05/24/22 14:42 MPV 10.7 fL (7.4-10.4) H 05/24/22 14:42 Neut % (Auto) 73.1 % 05/24/22 14:42 Lymph % (Auto) 16.7 % 05/24/22 14:42 [place] % (Auto) 8.0 % 05/24/22 14:42 Eos % (Auto) 1.3 % 05/24/22 14:42 Baso % (Auto) 0.5 % 05/24/22 14:42 Neut # (Auto) 7.99 10^3/uL (1.8-7.7) H 05/24/22 14:42 Lymph # (Auto) 1.8 10^3/uL (0.8-4.8) 05/24/22 14:42 [place] # (Auto) 0.9 10^3/uL (0.2-0.9) 05/24/22 14:42 Eos # (Auto) 0.1 10^3/uL (0.0-0.8) 05/24/22 14:42 Baso # (Auto) 0.1 10^3/uL (0.0-0.1) 05/24/22 14:42 Nucleated RBC % (auto) 0 % 05/24/22 14:42 Nucleated RBCs # 0.0 /100WBC 05/24/22 14:42 PT Cancelled 05/24/22 15:05 INR Cancelled 05/24/22 15:05 APTT Cancelled 05/24/22 15:05 Sodium Cancelled 05/24/22 15:05 Potassium Cancelled 05/24/22 15:05 Chloride Cancelled 05/24/22 15:05 Carbon Dioxide Cancelled 05/24/22 15:05 Anion Gap Cancelled 05/24/22 15:05 BUN Cancelled 05/24/22 15:05 Creatinine Cancelled 05/24/22 15:05 GFR Calculation Cancelled 05/24/22 15:05 Glucose Cancelled 05/24/22 15:05 Calculated Osmolality Cancelled 05/24/22 15:05 Calcium Cancelled 05/24/22 15:05 Total Bilirubin Cancelled 05/24/22 15:05 AST Cancelled 05/24/22 15:05 ALT Cancelled 05/24/22 15:05 Alkaline Phosphatase Cancelled 05/24/22 15:05 Troponin T Baseline Cancelled 05/24/22 15:05 Total Protein Cancelled 05/24/22 15:05 Albumin Cancelled 05/24/22 15:05 Globulin Cancelled 05/24/22 15:05 Coronavirus 229E (PCR) Cancelled 05/24/22 15:03 Influenza Type A Ag negative (Negative) 05/24/22 15:03 Influenza Type B Ag negative (Negative) 05/24/22 15:03 SARS-CoV-2 (PCR) Cancelled 05/24/22 15:03 SARS-CoV-2 Ag (Rapid) Cancelled 05/24/22 15:03 SARS-CoV-2 RNA (RT-PCR) Not detected (NOT DETECTED) 03/18/20 0 6:41 Discharge Plan Discharge Patient Disposition: Home Clinical Impression: Acute upper respiratory infection Condition: Stable Prescriptions: No Action aspirin [Adult Low Dose Aspirin] 81 mg tablet,delayed release (DR/EC) 81 mg PO DAILY budesonide-formoterol [Symbicort] 160-4.5 mcg/actuation HFA aerosol inhaler 2 puff inhalation BID Qty: 10.2 5RF amlodipine 10 mg tablet 10 mg PO DAILY Qty: 90 0RF acetaminophen [Tylenol Extra Strength] 500 mg Tablet 500 mg PO PRN Discharge Orders: Discharge ED (Routine); Ordered 05/24/22 Ordered By: Nupur Downs Referrals: Humberto Mcintyre MD [Primary Care Provider] - Discharge Diet: Usual diet Discharge Activity: Resume usual activity Patient Instructions: COPD, Upper Respiratory Infection - Adult Activity Restrictions/Additional Instructions: Make sure that you are getting plenty of rest and staying well-hydrated. Continue your inhalers as previously prescribed at home. Follow-up with your primary care provider as needed. Return to the ER for new or worsening symptoms. Coding Level of Care Code ED Convention Services Director for Chg Fwd Exam Expanded Problem Focused
--- NOTE | 2022-05-24 14:58 | XR_ITS ---
WS: [id number] Portable AP upright chest, 05/24/2022 Clinical Data: chest pain Comparison: Portable chest, 03/09/2022 Findings: No nodules, masses or effusions are seen. The heart is normal. The pulmonary vascularity is not increased. No pneumonia or pneumothorax is seen. The diaphragms are flattened. XR/XR chest 1V portable [id number] Impression: Hyperinflation.
[2022-05-24 15:19] LABS: Basophils # 0.1 10^3/uL (0.0-0.1); Basophils % 0.5 %; Eosinophils # 0.1 10^3/uL (0.0-0.8); Eosinophils % 1.3 %; Hematocrit 51.5 % (42.0-52.0); Hemoglobin 16.5 g/dL (11.7-16.6); Lymphocytes # 1.8 10^3/uL (0.8-4.8); Lymphocytes % 16.7 %; Mean Corpuscular Hemoglobin 28.1 pg (28.0-34.0); Mean Corpuscular Volume 87.7 fl (80-94); Mean Platelet Volume 10.7 fL (7.4-10.4); Monocytes # 0.9 10^3/uL (0.2-0.9); Neutrophils # 7.99 10^3/uL (1.8-7.7); Neutrophils % 73.1 %; Nucleated Red Blood Cells % 0 %; Platelet Count 346 10^3/cmm (130-400); Red Blood Count 5.87 10^6/uL (4.1-5.3); Red Cell Distribution Width 13.8 % (12.1-15.1); White Blood Count 10.9 10^3/uL (4.0-10.0)
[2022-05-24 15:35] LABS: Influenza A by IFA negative (Negative); Influenza B by IFA negative (Negative)
[2022-05-24 16:25] VITALS: O2SAT 96
== END 2022-05-24 17:07 | disposition home or self-care (01) ==
PROVIDERS: Emergency Provider Nurse Practitioner Family; PCP Internal Medicine
DX: J06.9 Acute upper respiratory infection, unspecified (principal); Z79.82 Long term (current) use of aspirin; I25.10 Atherosclerotic heart disease of native coronary artery without angina pectoris; I12.9 Hypertensive chronic kidney disease with stage 1 through stage 4 chronic kidney disease, or unspecified chronic kidney disease; N18.9 Chronic kidney disease, unspecified; J44.9 Chronic obstructive pulmonary disease, unspecified; Z86.73 Personal history of transient ischemic attack (TIA), and cerebral infarction without residual deficits; E78.5 Hyperlipidemia, unspecified; Z87.891 Personal history of nicotine dependence
CPT/HCPCS: 71045; 85025; 87804; 93005; 99285

== ENCOUNTER 2022-05-26 03:07 | Emergency (ER) | payer MEDICARE, SELFPAY ==
--- NOTE | 2022-05-26 03:09 | XRR_ITS ---
PROCEDURE INFORMATION: Exam: XR Chest Exam date and time: 05/26/2022 3:26 AM Age: 62 years old Clinical indication: Chest pressure; Patient HX: C/O chest pain; Additional info: Cp TECHNIQUE: Imaging protocol: Radiologic exam of the chest. Views: 1 view. COMPARISON: CR XR chest 1V portable [id number] 05/24/2022 3:07 PM FINDINGS: Lungs: No consolidation. Flattening of the hemidiaphragms suggestive of COPD. Similar-appearing minimal to mild left basilar chronic changes. Pleural spaces: No pleural effusion. No pneumothorax. Heart/Mediastinum: No cardiomegaly. Bones/joints: No acute fracture. XR/XR chest 1V portable [id number] IMPRESSION: No acute cardiopulmonary findings, see above.
--- NOTE | 2022-05-26 03:09 | ECG_ITS ---
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 Measurements Intervals [place] Rate: 80 P: 68 [place]: 161 QRS: 86 QRSD: 91 T: 78 QT: 351 QTc: 406 Interpretive Statements SINUS RHYTHM POSSIBLE RIGHT VENTRICULAR CONDUCTION DELAY [RSR (QR) IN V1/V2] Compared to ECG 05/24/2022 14:50:37 No significant changes Electronically Signed On 05-27-2022 13:50:15 SCREENING SPECIALIST by Ivan Graves M.D. [id number]
[2022-05-26 03:12] VITALS: BP 155/87; PULSE 91; RESP 19; TEMP 36.9; O2SAT 96; BMI 24.0
--- NOTE | 2022-05-26 03:17 | W.ED.CHESTPA ---
HPI - Chest Pain General: Chief Complaint: Chest Pain Stated Complaint: chest pain Time Seen by Provider: 05/26/22 03:10 Source: patient Mode of arrival: ambulatory Limitations: no limitations History of Present Illness: 62-year-old male who has had chronic chest pain for years off and on. States has been having pain over the last 2 to 3 days states it is sharp pain in the left chest denies any radiation he states its been constant nature denies any shortness of breath denies any nausea or vomiting denies any diaphoresis he denies any worsening OR IMproving factors. Associated symptoms: Deny abdominal pain, dyspnea, fever(s), nausea or vomiting Review of Systems Const: Denies: fever(s), chills, body aches or change in appetite Eyes: Denies: blurry vision or eye discomfort ENMT: Denies: throat pain or dental pain Card: Reports: chest pain Resp: Denies: dyspnea GI: Denies: abdominal pain, nausea, vomiting or diarrhea : Denies: dysuria Musc: Denies: neck pain or back pain Skin/Breast: Denies: rash Neuro: Denies: headache(s) Psych: Denies: depression Gera/Lymph: Denies: easy bruising All/Imm: Denies: urticaria PFSH ED PFSH: Medical History Anxiety CAD (coronary artery disease) Carotid stenosis Chest pain CKD (chronic kidney disease) COPD (chronic obstructive pulmonary disease) CVA (cerebral vascular accident) Epigastric abdominal pain GERD (gastroesophageal reflux disease) HTN (hypertension) Hyperlipidemia Hypoxia Iliac artery occlusion Obstructive apnea Palpitation PVD (peripheral vascular disease) Shortness of breath Umbilical hernia Family History Other CAD (coronary artery disease) Cancer Social History Smoking and tobacco status: former smoker (12 years ago) Quit status (tobacco): has quit using tobacco Year quit tobacco: 2009 - 2PPD x 37 Years Second hand smoke exposure: No Alcohol intake: never Caregiver/support person: Yes Lives independently: Yes Household members: none Marital status: Unknown service: No Current occupational status: unemployed Previous occupational history: [employer] History of recent travel: No Current gender identity: Male Special karli needs: No Physical Exam Const: COMMON NORMALS: no acute distress, patient oriented x3 and healthy appearing HENMT: COMMON NORMALS: normocephalic and atraumatic HEAD & SCALP: normocephalic and atraumatic Eye: COMMON NORMALS: Equal, round and reactive pupils present and EOMs intact bilaterally PUPIL: Yes Equal, round and reactive pupils present Neck/C-Spine: COMMON NORMALS: full ROM and supple Chest: COMMONS NORMALS: normal inspection of the chest and normal palpation of entire chest wall Resp: COMMON NORMALS: normal respiratory effort, No retractions, No use of accessory muscles and clear to auscultation bilaterally AUSCULTATION: clear to auscultation bilaterally Cardio: COMMON NORMALS: regular rate, regular rhythm and No murmurs present (Cardio) RATE: regular rate RHYTHM: regular rhythm GI: COMMON NORMALS: Normal to inspection, nondistended, normoactive bowel sounds present, Soft to palpation, non-tender and no masses PALPATION: Yes Soft to palpation Extremity: COMMON NORMALS: normal to inspection and full ROM Neuro: COMMON NORMALS: patient oriented x3, moves all extremities and no focal motor deficits Psych: COMMON NORMALS: mental status grossly normal, Normal thought process present and cooperative THOUGHT PROCESS: Normal thought process present Skin: COMMON NORMALS: no rashes or lesions noted and no wounds GENERAL SKIN EXAM: no rashes or lesions noted Course Vital Signs: Vital signs: Vital Signs Temperature 98.5 F 05/26/22 03:12 Pulse Rate 85 05/26/22 03:24 Respiratory Rate 16 05/26/22 03:24 Blood Pressure 132/79 05/26/22 03:24 Pulse Oximetry 96 05/26/22 03:24 Oxygen Delivery Me thod 05/26/22 03:24 MDM - Chest Pain Medical Decision Making Patient presents for chest pains atypical in nature he is well-appearing here his troponins negative 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 Lab Data 05/26/22 03:18 05/26/22 03:18 Laboratory Results WBC 10.8 10^3/uL (4.0-10.0) H 05/26/22 03:18 RBC 5.56 10^6/uL (4.1-5.3) H 05/26/22 03:18 Hgb 15.8 g/dL (11.7-16.6) 05/26/22 03:18 Hct 48.8 % (42.0-52.0) 05/26/22 03:18 MCV 87.8 fl (80-94) 05/26/22 03:18 MCH 28.4 pg (28.0-34.0) 05/26/22 03:18 MCHC 32.4 g/dL (30.0-36.0) 05/26/22 03:18 RDW 13.9 % (12.1-15.1) 05/26/22 03:18 Plt Count 330 10^3/cmm (130-400) 05/26/22 03:18 MPV 11.2 fL (7.4-10.4) H 05/26/22 03:18 Neut % (Auto) 63.3 % 05/26/22 03:18 Lymph % (Auto) 22.2 % 05/26/22 03:18 [place] % (Auto) 10.4 % 05/26/22 03:18 Eos % (Auto) 3.1 % 05/26/22 03:18 Baso % (Auto) 0.7 % 05/26/22 03:18 Neut # (Auto) 6.85 10^3/uL (1.8-7.7) 05/26/22 03:18 Lymph # (Auto) 2.4 10^3/uL (0.8-4.8) 05/26/22 03:18 [place] # (Auto) 1.1 10^3/uL (0.2-0.9) H 05/26/22 03:18 Eos # (Auto) 0.3 10^3/uL (0.0-0.8) 05/26/22 03:18 Baso # (Auto) 0.1 10^3/uL (0.0-0.1) 05/26/22 03:18 Nucleated RBC % (auto) 0 % 05/26/22 03:18 Nucleated RBCs # 0.0 /100WBC 05/26/22 03:18 Sodium 139 mmol/L (136-145) 05/26/22 03:18 Chloride 103 mmol/L (98-107) 05/26/22 03:18 Carbon Dioxide 24 mmol/L (22-29) 05/26/22 03:18 BUN 17 mg/dL (8-23) 05/26/22 03:18 Creatinine 1.0 mg/dL (0.7-1.2) 05/26/22 03:18 Glucose 104 mg/dL (65-115) 05/26/22 03:18 Calculated Osmolality 290 mOsm/kg (285-295) 05/26/22 03:18 Total Bilirubin 0.3 mg/dL (0.15-1.2) 05/26/22 03:18 AST 15 U/L (0-40) 05/26/22 03:18 ALT 12 U/L (0-41) 05/26/22 03:18 Alkaline Phosphatase 108 U/L (40-130) 05/26/22 03:18 Troponin T Baseline 9 ng/L (0-15) 05/26/22 03:18 Total Protein 7.1 g/dL (6.6-8.7) 05/26/22 03:18 Albumin 4.2 g/dL (3.5-5.2) 05/26/22 03:18 Globulin 2.9 g/dL (1.3-4.6) 05/26/22 03:18 Discharge Plan Discharge Patient Disposition: Home Clinical Impression: Chest pain Condition: Stable Prescriptions: No Action aspirin [Adult Low Dose Aspirin] 81 mg tablet,delayed release (DR/EC) 81 mg PO DAILY budesonide-formoterol [Symbicort] 160-4.5 mcg/actuation HFA aerosol inhaler 2 puff inhalation BID Qty: 10.2 5RF amlodipine 10 mg tablet 10 mg PO DAILY Qty: 90 0RF acetaminophen [Tylenol Extra Strength] 500 mg Tablet 500 mg PO PRN Discharge Orders: Discharge ED (Routine); Ordered 05/26/22 Ordered By: Ruth Palm Referrals: Humberto Mcintyre MD [Primary Care Provider] - Maira Arana MD [Physician] - 1-3 days Discharge Diet: Advance as tolerated Discharge Activity: Resume usual activity Patient Instructions: Chest Pain (ED) Coding Level of Care Code ED Gear Coding Machine Operator for Chg Fwd Exam Comprehensive
[2022-05-26 03:24] VITALS: BP 132/79; PULSE 85; RESP 16; O2SAT 96
[2022-05-26 03:27] LABS: Basophils # 0.1 10^3/uL (0.0-0.1); Basophils % 0.7 %; Eosinophils # 0.3 10^3/uL (0.0-0.8); Eosinophils % 3.1 %; Hematocrit 48.8 % (42.0-52.0); Hemoglobin 15.8 g/dL (11.7-16.6); Lymphocytes # 2.4 10^3/uL (0.8-4.8); Lymphocytes % 22.2 %; Mean Corpuscular HGB Conc 32.4 g/dL (30.0-36.0); Mean Corpuscular Hemoglobin 28.4 pg (28.0-34.0); Mean Corpuscular Volume 87.8 fl (80-94); Mean Platelet Volume 11.2 fL (7.4-10.4); Monocytes # 1.1 10^3/uL (0.2-0.9); Monocytes % 10.4 %; Neutrophils # 6.85 10^3/uL (1.8-7.7); Neutrophils % 63.3 %; Nucleated Red Blood Cells % 0 %; Platelet Count 330 10^3/cmm (130-400); Red Blood Count 5.56 10^6/uL (4.1-5.3); Red Cell Distribution Width 13.9 % (12.1-15.1); White Blood Count 10.8 10^3/uL (4.0-10.0)
[2022-05-26 04:21] LABS: Alanine Aminotransferase 12 U/L (0-41); Albumin Level 4.2 g/dL (3.5-5.2); Alkaline Phosphatase 108 U/L (40-130); Aspartate Amino Transferase 15 U/L (0-40); Blood Urea Nitrogen 17 mg/dL (8-23); Calcium 7.4 mg/dL (8.5-10.5); Carbon Dioxide 24 mmol/L (22-29); Chloride 103 mmol/L (98-107); Globulin 2.9 g/dL (1.3-4.6); Glucose 104 mg/dL (65-115); Osmolality Calculated 290 mOsm/kg (285-295); Sodium 139 mmol/L (136-145); Total Bilirubin 0.3 mg/dL (0.15-1.2); Total Protein 7.1 g/dL (6.6-8.7)
[2022-05-26 04:25] LABS: Troponin(5th) Baseline 9 ng/L (0-15)
[2022-05-26 04:34] LABS: Anion Gap 15.6 (5-19); Potassium 3.6 mmol/L (3.5-5.1)
[2022-05-26 04:38] VITALS: BP 129/74; PULSE 73; RESP 18; O2SAT 96
== END 2022-05-26 04:51 | disposition home or self-care (01) ==
PROVIDERS: Emergency Provider Emergency Medicine; PCP Internal Medicine
DX: R07.9 Chest pain, unspecified (principal); Z79.82 Long term (current) use of aspirin; Z87.891 Personal history of nicotine dependence; I25.10 Atherosclerotic heart disease of native coronary artery without angina pectoris; I12.9 Hypertensive chronic kidney disease with stage 1 through stage 4 chronic kidney disease, or unspecified chronic kidney disease; N18.9 Chronic kidney disease, unspecified; J44.9 Chronic obstructive pulmonary disease, unspecified; Z86.73 Personal history of transient ischemic attack (TIA), and cerebral infarction without residual deficits; E78.5 Hyperlipidemia, unspecified
CPT/HCPCS: 71045; 80053; 84484; 85025; 93005; 99285

== ENCOUNTER → 2022-05-30 15:16 | Outpatient (BNVA) | payer MEDICARE, SELFPAY | PROVIDERS: PCP Internal Medicine; Visit Provider Internal Medicine Cardiovascular Disease | DX: R07.9 Chest pain, unspecified (principal); R00.2 Palpitations; I25.10 Atherosclerotic heart disease of native coronary artery without angina pectoris; I65.29 Occlusion and stenosis of unspecified carotid artery; I73.9 Peripheral vascular disease, unspecified; E78.2 Mixed hyperlipidemia; G47.33 Obstructive sleep apnea (adult) (pediatric); F41.9 Anxiety disorder, unspecified; J44.9 Chronic obstructive pulmonary disease, unspecified; Z87.891 Personal history of nicotine dependence; I12.9 Hypertensive chronic kidney disease with stage 1 through stage 4 chronic kidney disease, or unspecified chronic kidney disease; N18.9 Chronic kidney disease, unspecified | CPT/HCPCS: 99214 ==

== ENCOUNTER 2022-06-21 11:40 | Inpatient (IN) | payer MEDICARE, SELFPAY ==
[2022-06-16 13:15] VITALS: BMI 23.7
[2022-06-16 13:56] LABS: Basophils # 0.1 10^3/uL (0.0-0.1); Basophils % 0.5 %; Eosinophils # 0.2 10^3/uL (0.0-0.8); Eosinophils % 1.5 %; Hematocrit 49.8 % (42.0-52.0); Hemoglobin 16.2 g/dL (11.7-16.6); Lymphocytes % 17.9 %; Mean Corpuscular HGB Conc 32.5 g/dL (30.0-36.0); Mean Corpuscular Hemoglobin 28.4 pg (28.0-34.0); Mean Corpuscular Volume 87.4 fl (80-94); Mean Platelet Volume 11.1 fL (7.4-10.4); Monocytes # 0.9 10^3/uL (0.2-0.9); Monocytes % 7.9 %; Neutrophils # 7.92 10^3/uL (1.8-7.7); Neutrophils % 71.7 %; Nucleated Red Blood Cells % 0 %; Platelet Count 332 10^3/cmm (130-400); Red Cell Distribution Width 13.5 % (12.1-15.1)
--- NOTE | 2022-06-16 14:05 | SUR.PREOP ---
Pre-operative Appointment CBC, BMP, C-T&S, PT/INR drawn today 06/16/22. EKG done 05/26/22, okay to reference this per Dr. Brian. Patient instructed to stop Aspirin starting today until after surgery if ordered. Patient given soap and hibiclens bottle with instructional paper on use. Patient also given copy of Outpatient pre-operative instructions. Patient informed he will be staying overnight for at least one night.
--- NOTE | 2022-06-16 14:19 | ANES.PREANE2 ---
Pre-Anesthetic Assessment Height/Weight: Height 1.85 m Weight 81.647 kg Operation Date: 06/21/22 07:00 Proposed Procedures p Left carotid surgery 72787,I65.23(Left) - Quentin Little MD Familial anesthetic complications: none Was Beta Gulshan taken within 24 hours: N/A Was Clonidine taken within 24 hours: N/A Social No alcohol and No tobacco (h/o smoking) Exam alert, oriented x 3 and regular rate & rhythm Airway Submandibular: within normal limits Cervical ROM: within normal limits Mallampati: Class II Dentition: chipped and false (upper) Comments: Comments: poor dentition on lower arch Pulmonary Chronic Obstructive Pulmonary Disease (Home O2 prn) CV/HEM Coronary Artery Disease, Hypertension and Peripheral Vascular Disease .? Significant LEFT ICA stenosis measures approximately 70-75% with irregular calcified atheromatous plaque approximately 2.3 cm distal to the origin. 2.? No significant RIGHT ICA stenosis. 3.? LEFT dominant vertebral artery. 4.? 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 5.? Partially visualized proximal iliamna of [place] appears normal. 6.? Moderate stenosis LEFT proximal subclavian just proximal to the RIGHT vertebral artery origin measuring approximately 60%. Distal subclavian remains patent. Irregular atheromatous plaque in this location. LEFT vertebral artery remains antegrade on the recent ultrasound although with reduced velocity, suspicious for early subclavian steal Neuropsych Anxiety Anesthetic Plan ASA status: 3 Anesthesia: General Other: a.line Medications/Allergies Home Medications Medication Instructions Recorded Confirmed Last Taken Type aspirin 81 mg tablet,delayed 81 mg PO DAILY 06/27/19 06/16/22 06/15/22 History release (Adult Low Dose Aspirin) acetaminophen 500 mg tablet 500 mg PO PRN 08/27/20 06/16/22 08/26/20 History (Tylenol Extra Strength) budesonide-formoterol HFA 160 2 puff inhalation BID #10.2 grams 07/07/21 06/16/22 06/16/22 Rx mcg-4.5 mcg/actuation aerosol inhaler (Symbicort) amlodipine 10 mg tablet 10 mg PO DAILY #90 tabs 03/29/22 06/16/22 06/16/22 Rx Allergies Allergy/AdvReac Type Severity Reaction Status Date / Time fluticasone [From Flonase] Allergy Unknown Verified 04/07/22 13:32 levofloxacin [From Levaquin] Allergy Unknown Verified 04/07/22 13:32 salmeterol AdvReac ADR-Nausea Verified 04/07/22 13:32 [facility] Anesthesia Medical History Anxiety CAD (coronary artery disease) Carotid stenosis Chest pain CKD (chronic kidney disease) COPD (chronic obstructive pulmonary disease) CVA (cerebral vascular accident) Epigastric abdominal pain GERD (gastroesophageal reflux disease) HTN (hypertension) Hyperlipidemia Hypoxia Iliac artery occlusion Obstructive apnea Palpitation PVD (peripheral vascular disease) Shortness of breath Umbilical hernia Family History Other CAD (coronary artery disease) Cancer Social History Smoking and tobacco status: former smoker (12 years ago) Quit status (tobacco): has quit using tobacco Year quit tobacco: 2009 - 2PPD x 37 Years Second hand smoke exposure: No Alcohol intake: never Caregiver/support person: Yes Lives independently: Yes Household members: none Marital status: Unknown service: No Current occupational status: unemployed Previous occupational history: [employer] History of recent travel: No Current gender identity: Male Special kalri needs: No Data Anesthesia 06/16/22 13:10 06/16/22 13:10 Short CBC 06/16/22 Range/Units 13:10 WBC 11.0 H (4.0-10.0) 10^3/uL Hgb 16.2 (11.7-16.6) g/dL Hct 49.8 (42.0-52.0) % MCV 87.4 (80-94) fl Plt Count 332 (130-400) 10^3/cmm Neut % (Auto) 71.7 % Neut # (Auto) 7.92 H (1.8-7.7) 10^3/uL Cardiac Studies: No Data to Display
[2022-06-16 14:26] LABS: Anion Gap 16.9 (5-19); Blood Urea Nitrogen 11 mg/dL (8-23); Calcium 9.7 mg/dL (8.5-10.5); Carbon Dioxide 24 mmol/L (22-29); Chloride 100 mmol/L (98-107); Glomerular Filtration Rate 98.3 mL/min (90-130); Glucose 104 mg/dL (65-115); Osmolality Calculated 284 mOsm/kg (285-295); Potassium 3.9 mmol/L (3.5-5.1); Sodium 137 mmol/L (136-145)
[2022-06-16 17:22] LABS: INR 0.95 (0.8-1.2)
[2022-06-21] VITALS (40 sets, daily range): BP systolic 88–139; BP diastolic 49–103; PULSE 60–115; RESP 12–21; TEMP 36.4–37; O2SAT 91–99
[2022-06-21] MEDS: sodium chloride 0.9% 1,000 ML 30 ML IV (06:15)
[2022-06-21 06:35] LABS: Add Urine Microscopic? NO; Charge for UA Resulting for Rev
--- NOTE | 2022-06-21 06:35 | W.PM.OPSUD ---
Surgery/Procedure H&P Update DATE OF PROCEDURE: June 21, 2022 DATE H&P PERFORMED: 05/30/22 H&P UPDATE INFORMATION: I have reviewed H&P completed within last 30 days, I have examined patient prior to procedure and No changes to prior documentation PREOP DIAGNOSIS: Left carotid stenosis PRIMARY INDICATION FOR PROCEDURE: Left Carotid endarterectomy PLANNED PROCEDURE: Operation Date: 06/21/22 07:00 Proposed Procedures p Left carotid surgery 20794,I65.23(Left) - Quentin Little MD
--- NOTE | 2022-06-21 06:50 | P.ANESUD_ITS ---
Pre-Anesthetic Update Pre-Anesthetic Assessment: Date of Surgery/Procedure: 06/21/22 Preop Chelsey gnosis: Left carotid stenosis Proposed Procedure: Operation Date: 06/21/22 07:00 Proposed Procedures p Left carotid surgery 40645,I65.23(Left) - Quentin Little MD Any changes to Pre-Anesthetic Assessment?: No Last Intake: Intake Last Liquid Date 06/20/22 Last Liquid Time 23:30 Last Solid Date 06/20/22 Last Solid Time 20:00 Vitals: Temperature 98.6 F 06/21/22 05:52 Temperature Source Temporal Artery S can 06/21/22 05:52 Pulse Rate 93 06/21/22 05:52 Pulse Rhythm 06/21/22 05:52 Pulse Strength 3+ Normal 06/21/22 05:52 Respiratory Rate 18 06/21/22 05:52 Blood Pressure 116/92 06/21/22 05:52 Blood Pressure Paola n 100 06/21/22 05:52 Pulse Oximetry 97 06/21/22 05:52 Oxygen Delivery Me thod 06/21/22 05:52 Exam: Pre-Anes Outpt Exam: alert, oriented x 3, clear to auscultation bilaterally and regular rate & rhythm Cardiac Studies: No Data to Display
[2022-06-21] MEDS: ceFAZolin 2,000 MG in sodium chloride 0.9% (plus) 50 ML 100 MG IV ×3 (07:05→22:42)
[2022-06-21 07:07] LABS: Bilirubin Urine Neg (Negative); Blood Urine Neg (Negative); Glucose Urine UA Norm (Normal); Ketones Urine 1+ (Negative); Leukocyte Esterase Urine Negative (Negative); Nitrate Urine Negative (Negative); Protein Urine Neg (Negative); Urine Appearance Clear (CLEAR); Urine Color Yellow (Yellow); Urobilinogen Urine Norm (Negative); pH Urine 5 (5-7)
[2022-06-21] MEDS: heparin,porcine 1,000 unit/mL INJ 1 mL 1000 UNIT IRRIGATION (08:06)
[2022-06-21] MEDS: lidocaine 1% INJ 20 mL XX (08:07)
[2022-06-21] MEDS: vancomycin 1,000 MG SDV 1000 MG XX (08:08)
--- NOTE | 2022-06-21 09:41 | SUR.OPER ---
8596 PT FAMILY NOTIFIED OF SURGERY PROGRESS
--- NOTE | 2022-06-21 10:47 | PM.OP ---
Operative Report Date of procedure: June 21, 2022 Pre-op diagnosis: Preop Diagnosis Left carotid stenosis Post-op diagnosis: same Procedure done: Left carotid endarterectomy with patch angioplasty Implants: Gera shield patch Specimens removed/disposition: Carotid plaque Pathology: Carotid plaque Surgeon: Quentin Little Anesthesia: General Estimated blood loss (mL): 100 Complications: None: Findings: Portion of the recurrent nerve appeared to traverse anterior to the carotid artery required careful dissection to allow for appropriate exposure to complete the endarterectomy. Condition: stable Disposition: PACU Brief History: Mr. Aparicio is a 62-year-old gentleman referred for a 75% left ICA plaque approximately 2 cm distal to the left carotid bifurcation. He has a history of vascular disease and this lesion was found as part of a surveillance of his carotid arteries. Rationale to consider elective endarterectomy to reduce his statistical increased risk for spontaneous CVA related to this lesion was carefully and frankly discussed. He wished to proceed. Appropriate consents have been reviewed and signed. Procedure: Mr. Aparicio was placed on the OR table and underwent general endotracheal anesthesia with a neurological monitoring endotracheal tube as well as placement of a right radial arterial line. Bihemispheric monitoring pads were placed as well as grounding and sensing pads for nerve conduction evaluation during neck dissection.The entire upper chest and left neck were sterilely prepped and draped. Incision was made along the anterior border of the sternomastoid muscle and carried down to the platysma with cautery. Dissection from this point forward was carried out utilizing Metzenbaum scissors and limited use of bipolar cautery. The internal jugular vein was dissected free and the facial vein was ligated, oversewn, and divided. Dissection was continued down through the ansa cervicalis with preservation of major branches. Minor branches were divided if required to allow for adequate exposure. Nerve conduction evaluation was performed throughout the dissection for protection of the recurrent nerve. We subsequently reached the common carotid artery. Dissection was then continued proximally to distally across the bifurcation. Vessel loops were placed around the common carotid artery, internal carotid artery, and external carotid artery. Distally, the base of the hypoglossal nerve could be identified and was protected. The internal carotid artery disease went fairly high and extended above the level of the mandibular angle. This did require some traction in this region, but great care was taken to minimize pressure to the hypoglossal nerve, which was protected. Care was taken during this dissection to avoid injury to the vagus nerve. There appears to be a branch of the recurrent nerve causing anterior to the carotid artery at the level of the bifurcation. Great care was taken not to disrupt this nerve, though some stretch may have occurred with exposure. The patient was then heparinized with 10,000 units. The systolic blood pressure was elevated to 160. Following this, in a rapid sequenced fashion, the distal internal carotid artery was clamped followed by clamping of the common carotid artery and external carotid artery. #11 scalpel blade was used to open the common carotid artery proximally. Boo scissors were then utilized to extend this arteriotomy across the distal common carotid artery and ulcerated very stenotic plaque and continue this further at the bifurcation across the calcific plaque in the internal carotid artery until we had reached normal intima. The internal carotid artery clamp was briefly flashed with evidence of brisk back bleeding, therefore we elected not to shunt. It should be noted that bi-hemispheric oximetry was recorded throughout the procedure. Next, a freer elevator was utilized to create a dissection plane the plaque from intima at the proximal portion of the arteriotomy. This was then divided with a #11 scalpel blade. This plaque was then further dissected along the intimal plane proximally to distally across the bifurcation. Utilizing an everting technique, plaque was removed from the external carotid artery with brisk flow. This plaque was then dissected free up the internal carotid artery to a feathered edge. Heparinized saline solution was utilized to remove any loose debris. Next, a Hemashield patch was brought into the field and sewn into position utilizing a running 6-0 Prolene suture, thereby completing our patch angioplasty. At the completion of the patch, the external carotid artery was opened followed by the common carotid artery and finally the internal carotid artery, thereby reestablishing cerebral flow. Areas of extravasation were repaired with 6-0 Prolene suture. After 5 minutes, heparin was reversed with protamine. Hemostasis was confirmed. The wound was irrigated with antibiotic solution. A small, flat, Jonathon-Bhardwaj drain was placed in the wound and connected to bulb suction. Sponge and needle count was correct. The wound was then closed in 2 layers of 3-0 Vicryl suture. Skin was reapproximated in a subcuticular manner with 4-0 Monocryl suture. A pressure dressing was then applied. The patient was awakened from anesthesia and spontaneous movement of all extremities as well as movement to command was noted. The patient was then transferred to the ICU in stable condition. I did sexual abuse counsellor with the family at completion of the procedure. Mr. Aparicio will be monitored in the ICU for the next 24 hours.
--- NOTE | 2022-06-21 11:07 | SUR.PHASEI ---
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 STATLOCK TO RT INNER THIGH.
[2022-06-21] MEDS: fentaNYL 50 mcg/mL INJ 2mL IVP (11:18)
--- NOTE | 2022-06-21 11:28 | SUR.PHASEI ---
DR BURDEN AT BEDSIDE PT VERBALIZED APPROPRIATELY AND ASKING APPROPRIATE QUESTIONS, NEURO CHECKS Q 15 MINUTES UNCHANGED FROM ADMIT, DRESSING TO LT NECK REMAINS D/I , GENNY DRAIN COMPRESSED WITH GOOD SUCTION ACHIEVED, MONITOR SR PT C/O OF RT WRIST PAIN, PT REPOSITIONED ART LINE HAND, DISTAL FINGERS PINK WARM WITH CAP REFILL LESS THAN 3 SECONDS. WARM BLANKET TO RT ARM, BP RECORDED PER BP CUFF TO RT UPPER ARM BUT CONTINOUS ARTERIAL LINE MAINTAINED WITH GOOD WAVEFORM AND READINGS WITHIN 20 MG OF PRESSURE IN VARIANCE, VSS. SEE PAIN MED GIVEN FOR LT NECK PAIN , PT NOW STATES PAIN IS MUCH BETTER AND PT DOZING OFF AND ON, WITH NO S/S OF DISTRESS.
--- NOTE | 2022-06-21 12:32 | SUR.PHASEI ---
1147 PT TO ICU PER BED WITH CONTINOUS MONITOR AND O2 SAT, ART LINE MONITORED, PT AWAKE ALERT TALKATIVE NEURO CHECK AND LT NECK SITES UNCHANGED FROM ADMISSION TO PACU , HANDOFF AT BEDSIDE TO LAZARO RN, FAMILY IN WAITING ROOM AND UPDATED PT AWAKE ALERT AND STABLE.
[2022-06-21] MEDS: aspirin 81 mg Chew Tablet PO (12:38)
[2022-06-21] MEDS: ketorolac 30 mg/mL INJ IVP (12:38)
[2022-06-21] MEDS: lactated ringers 1,000 ML 75 ML IV (12:38)
--- NOTE | 2022-06-21 14:01 | ANE.PACU2 ---
Inpatient post-anesthesia follow up: Airway intact: Yes Vital signs: Temperature 97.6 F Pulse Rate 77 Respiratory Rate 16 Blood Pressure 111/56 Pulse Oximetry 98 Oxygen Delivery Me thod Nasal Cannula Oxygen Flow Rate 3 Fraction of Inspir ed Oxygen Hydration adequate: Yes Nausea and vomiting: No Pain level: 1 Mental status: Baseline
[2022-06-21] MEDS: acetaminophen 500 mg Tablet 1000 MG PO (18:38)
[2022-06-22] VITALS (21 sets, daily range): BP systolic 114–151; BP diastolic 58–80; PULSE 58–94; RESP 16–18; TEMP 36.4; O2SAT 91–97
[2022-06-22] MEDS: ceFAZolin 2,000 MG in sodium chloride 0.9% (plus) 50 ML 100 MG IV (06:16)
--- NOTE | 2022-06-22 06:40 | P.DS_ITS ---
Discharge Providers Date of Admission: 06/21/22 11:40 Date of Discharge: June 22, 2022 Attending Provider at Admission: Quentin Little MD Attending Provider at Discharge: Quentin Little MD Primary Care Provider: Shabana Encarnacion MD Reason for Visit Reason for Visit: I65.23 Hospital Course Hospital Course Mr. Aparicio is a 62-year-old gentleman referred to our service for a high-grade left internal carotid artery stenosis. Elective carotid endarterectomy was recommended to reduce his statistical increased risk for stroke related to this high-grade lesion. He was electively admitted on June 21 and underwent left carotid endarterectomy with patch angioplasty. Postoperatively, he convalesced in the ICU where he remained neurologically intact. Which quality is normal. No swallowing difficulties. Low GENNY drain output. GENNY drain was discontinued this morning. He is tolerating a diet well. Only requiring acetaminophen for postoperative discomfort. Neurologically remains intact. Will be discharged to home today in stable condition with scheduled follow-up in our clinic in 1 week. Discharge instructions have been reviewed with him. All questions answered. Physical Exam Const: COMMON NORMALS: patient oriented x3 HENMT: COMMON NORMALS: normocephalic, atraumatic, hearing grossly normal bilaterally and external ears normal HEAD & SCALP: normocephalic and atraumatic EXTERNAL EAR: Yes external ears normal OTHER: Facial features are symmetrical Neck/C-Spine: OTHER: Left neck incision is dry and intact. GENNY drain was discontinued. New dressing applied. Resp: COMMON NORMALS: normal respiratory effort and clear to auscultation bilaterally AUSCULTATION: clear to auscultation bilaterally Cardio: COMMON NORMALS: regular rate, regular rhythm and No murmurs present (Cardio) RATE: regular rate RHYTHM: regular rhythm Extremity: COMMON NORMALS: no clubbing, cyanosis or edema Neuro: COMMON NORMALS: patient oriented x3, moves all extremities, no focal motor deficits and no sensory deficits noted Urinary Catheter Management: Hayes: Cath Placed During This Visit: yes Urinary Catheter Date of Insertion: 06/21/22 Urinary Catheter Time of Insertion: 07:40 Discharge Data Studies Completed and Pending Pending at discharge Category Date Time Status Basic Metabolic Panel Routine Lab 06/21/22 05:35 Uncollected Complete Blood Count w/Auto Routine Lab 06/21/22 05:35 Uncollected Comprehensive Metabolic Panel Routine Lab 06/21/22 05:35 Uncollected Leukocyte Reduced RBC Routine Lab 06/16/22 13:10 Results Type and Screen - Cardiac Routine Lab 06/16/22 13:10 Results Type and Screen Routine Lab 06/21/22 05:35 Uncollected Pathology: Surgical [PTH] Routine Pth 06/21/22 10:13 Received Laboratory Results WBC 11.0 10^3/uL (4.0-10.0) H 06/16/22 13:10 RBC 5.70 10^6/uL (4.1-5.3) H 06/16/22 13:10 Hgb 16.2 g/dL (11.7-16.6) 06/16/22 13:10 Hct 49.8 % (42.0-52.0) 06/16/22 13:10 MCV 87.4 fl (80-94) 06/16/22 13:10 MCH 28.4 pg (28.0-34.0) 06/16/22 13:10 MCHC 32.5 g/dL (30.0-36.0) 06/16/22 13:10 RDW 13.5 % (12.1-15.1) 06/16/22 13:10 Plt Count 332 10^3/cmm (130-400) 06/16/22 13:10 MPV 11.1 fL (7.4-10.4) H 06/16/22 13:10 Neut % (Auto) 71.7 % 06/16/22 13:10 Lymph % (Auto) 17.9 % 06/16/22 13:10 [place] % (Auto) 7.9 % 06/16/22 13:10 Eos % (Auto) 1.5 % 06/16/22 13:10 Baso % (Auto) 0.5 % 06/16/22 13:10 Neut # (Auto) 7.92 10^3/uL (1.8-7.7) H 06/16/22 13:10 Lymph # (Auto) 2.0 10^3/uL (0.8-4.8) 06/16/22 13:10 [place] # (Auto) 0.9 10^3/uL (0.2-0.9) 06/16/22 13:10 Eos # (Auto) 0.2 10^3/uL (0.0-0.8) 06/16/22 13:10 Baso # (Auto) 0.1 10^3/uL (0.0-0.1) 06/16/22 13:10 Nucleated RBC % (auto) 0 % 06/16/22 13:10 Nucleated RBCs # 0.0 /100WBC 06/16/22 13:10 PT 13.00 SECONDS (12.1-14.9) 06/16/22 13:10 INR 0.95 (0.8-1.2) 06/16/22 13:10 Sodium 137 mmol/L (136-145) 06/16/22 13:10 Potassium 3.9 mmol/L (3.5-5.1) 06/16/22 13:10 Chloride 100 mmol/L (98-107) 06/16/22 13:10 Carbon Dioxide 24 mmol/L (22-29) 06/16/22 13:10 Anion Gap 16.9 (5-19) 06/16/22 13:10 BUN 11 mg/dL (8-23) 06/16/22 13:10 Creatinine 0.8 mg/dL (0.7-1.2) 06/16/22 13:10 GFR Calculation 98.3 mL/min (90-130) 06/16/22 13:10 Glucose 104 mg/dL (65-115) 06/16/22 13:10 Calculated Osmolality 284 mOsm/kg (285-295) L 06/16/22 13:10 Calcium 9.7 mg/dL (8.5-10.5) 06/16/22 13:10 Urine Color Yellow (Yellow) 06/21/22 05:46 Urine Appearance Clear (CLEAR) 06/21/22 05:46 Urine pH 5 (5-7) 06/21/22 05:46 Ur Specific Sunshine 1.020 (1.005-1.030) 06/21/22 05:46 Urine Protein Neg (Negative) 06/21/22 05:46 Urine Glucose (UA) Norm (Normal) 06/21/22 05:46 Urine Ketones 1+ (Negative) H 06/21/22 05:46 Urine Blood Neg (Negative) 06/21/22 05:46 Urine Nitrate Negative (Negative) 06/21/22 05:46 Urine Bilirubin Neg (Negative) 06/21/22 05:46 Urine Urobilinogen Norm mg/dL (Negative) 06/21/22 05:46 Ur Leukocyte Esterase Negative (Negative) 06/21/22 05:46 Blood Type A Positive 06/16/22 13:10 Rho(D) Type Positive 06/16/22 13:10 Antibody Screen Negative 06/16/22 13:10 Crossmatch See Detail 06/16/22 13:10 Procedures Performed Left carotid endarterectomy with patch angioplasty on June 21, 2022 Vitals Last Vital Signs Temp 97.5 F L 06/22/22 05:00 Pulse 65 06/22/22 05:30 Resp 17 06/21/22 15:28 BP 138/68 06/22/22 05:30 Pulse Ox 94 06/22/22 05:30 O2 Del Method 06/21/22 15:28 O2 Flow Rate 2 06/21/22 15:28 Discharge Plan Discharge Patient Disposition: Home Condition: Stable Prescriptions: New hydrocodone-acetaminophen 5-325 mg Tablet 1 tab PO Q6H PRN (Reason: Moderate Pain) Qty: 12 0RF Continued aspirin [Adult Low Dose Aspirin] 81 mg tablet,delayed release (DR/EC) 81 mg PO DAILY budesonide-formoterol [Symbicort] 160-4.5 mcg/actuation HFA aerosol inhaler 2 puff inhalation BID Qty: 10.2 5RF amlodipine 10 mg tablet 10 mg PO DAILY Qty: 90 0RF acetaminophen [Tylenol Extra Strength] 500 mg Tablet 500 mg PO PRN Discharge Orders: Discharge Order (Routine); Ordered 06/22/22 Ordered By: Quentin Little Referrals: Quentin Little MD [Physician] - 1 week Discharge Diet: Usual diet Discharge Activity: Limit activity as instructed Patient Instructions: Opioid Safety Activity Restrictions/Additional Instructions: May remove bandage in 2 days May begin daily showers in 3 days Dry incision carefully after showers. May re-cover if desired to prevent irritation from clothing. No swimming or tub baths x 2 weeks No ointments on incision Report drainage, redness, heat, increased pain, or swelling to clinic No heavy lifting x2 weeks Discharge Attestations Time Spent in Discharge Care*: less than 30 min Specific Discharge Activities: educating patient, discussing with pcp/other providers, documenting/other paperwork and evaluating patient/reviewing data Status at Discharge: Cognitive status at discharge: cognitively intact , Behavioral status at discharge: cooperative , Functional status at discharge: independent ambulation , Overall status at discharge: patient is back to baseline Quality Metrics Clinical Quality Measures [ No reported AMI, CVA or VTE this stay] Coding Level of Care Code Acute Chg ARIN DC note
--- NOTE | 2022-06-22 07:25 | PC.NURSE ---
Around 0600 06/22/2022 This RN assisted MD marino to remove GENNY drain from left neck. MD also gave orders to remove strickland as well as to stop IV fluids. This RN stopped fluids and removed strickland around 0620 06/22/2022. Patient tolerated procedure well.
[2022-06-22] MEDS: acetaminophen 500 mg Tablet 1000 MG PO (09:36)
--- NOTE | 2022-06-22 10:08 | PC.NURSE ---
Discharge instructions given to patient, IVs removed. Patient AAOx4, no change in neuro status, VSS. Patient waiting on ride.
--- NOTE | 2022-06-22 11:45 | PC.NURSE ---
Patient wheeled to private vehicle by this nurse, with belongings. Patient's driving.
== END 2022-06-22 11:45 | disposition home or self-care (01) | DRG 39 ==
LOC: ICU 11:41
PROVIDERS: Admitting Provider Thoracic Surgery (Cardiothoracic Vascular Surgery); PCP Family Medicine; Visit Provider Thoracic Surgery (Cardiothoracic Vascular Surgery)
PROC: 03CL0ZZ Extirpation of Matter from Left Internal Carotid Artery, Open Approach (ICD-10-PCS; CPT 35301; principal; 2022-06-21 07:00)
DX: I65.22 Occlusion and stenosis of left carotid artery (principal); Z79.82 Long term (current) use of aspirin; I73.9 Peripheral vascular disease, unspecified; I25.10 Atherosclerotic heart disease of native coronary artery without angina pectoris; E78.5 Hyperlipidemia, unspecified; Z87.891 Personal history of nicotine dependence; I12.9 Hypertensive chronic kidney disease with stage 1 through stage 4 chronic kidney disease, or unspecified chronic kidney disease; N18.9 Chronic kidney disease, unspecified; J44.9 Chronic obstructive pulmonary disease, unspecified; Z86.73 Personal history of transient ischemic attack (TIA), and cerebral infarction without residual deficits; K21.9 Gastro-esophageal reflux disease without esophagitis
CPT/HCPCS: 36415; 51702; 80048; 81003; 85025; 85610; 86850; 86900; 86920; 88304; J0330; J0690; J1100; J1644; J1885; J2370; J2405; J2704; J2720; J3010; J3370; J3490; J7030; J7120

== ENCOUNTER 2022-06-23 13:39 | Emergency (ER) | payer MEDICARE, SELFPAY ==
--- NOTE | 2022-06-23 13:44 | CT_ITS ---
WS: [id number] CT HEAD TECHNIQUE: Noncontrast CT of the head obtained from the skullbase to the vertex. CLINICAL INFORMATION: STROKE ALERT COMPARISON: May 02, 2019 DLP: [id number] scans at [facility] use at least one of these dose optimization techniques: automated e xposure control; mA and/or kV adjustment per patient size (includes targeted exams where dose is matc hed to clinical indication); or iterative reconstruction. FINDINGS: No evidence of intracranial hemorrhage. Ventricular system and basal cisterns are patent. Wedge-shape d area of low-attenuation change in the LEFT frontal lobe most consistent with subacute infarct measu ring 2.9 x 2.1 cm. No significant mass effect or midline shift. This can be further evaluated MRI. Paranasal sinuses and mastoid air cells are well aerated. .Normal visualized soft tissues. Incidental cerebellar tonsillar ectopia. CT/CT head thrombolytic 76170 IMPRESSION: 1. No evidence of intracranial hemorrhage or mass effect. 2. Wedge-shaped area of low-attenuation change in the LEFT frontal lobe most c onsistent with subacute infarct measuring 2.9 x 2.1 cm. No significant mass eff ect or midline shift. Notified Mtmarry Simms MD at 06/23/2022 1:54 PM.
--- NOTE | 2022-06-23 13:46 | CT_ITS ---
WS: [id number] CTA HEAD AND NECK TECHNIQUE: Contrast enhanced CTA of the head and neck with coronal and sagittal reformatted images an d maximum intensity projection (MIP) images. NASCET criteria utilized. CLINICAL INFORMATION: weakness; recent L internal carotid endarterectomy COMPARISON: CTA March 03, 2022 DLP: 494.[address] scans at [facility] use at least one of these dose optimization techniques: automated e xposure control; mA and/or kV adjustment per patient size (includes targeted exams where dose is matc hed to clinical indication); or iterative reconstruction. FINDINGS: RIGHT: RIGHT common carotid artery is patent. No significant RIGHT ICA stenosis. RIGHT ICA is patent to the skull base. LEFT: LEFT common carotid artery is patent. LEFT ICA is occluded at the origin and remains occluded t o the skull base. INTRACRANIAL CTA: Poor flow to the LEFT MCA territory. Small amount of cross flow from the patent anterior communicatin g artery. Normal vascularity to the RIGHT MCA territory. Normal vascularity to the PILAR territory. Pat ent anterior communicating artery. Mild stenosis of the LEFT vertebral artery origin. Poor flow in the RIGHT proximal vertebral artery. Collateral flow in the mid and distal vertebral artery. Basilar artery is patent. Normal vascularity to the REHABILITATION PSYCHOLOGIST territory. Aortic arch calcification. Moderate emphysematous changes in the lung apices. Mild mucosal thickening paranasal sinuses. Mastoid air cells are well aerated. Previously described LEFT frontal cortical reyes bacute infarct. Slight suggestion of early subacute ischemia in the LEFT MCA territory and basal gang ross. Mild spondylitic changes cervical spine. Dural venous sinuses appear patent.Moderate to severe stenos is of the LEFT subclavian artery proximally unchanged from previous. CT/CT angio headneck* 65411/[id number] IMPRESSION: 1. LEFT ICA is occluded at the origin. Poor flow in the LEFT MCA territory sup plied via a patent anterior communicating artery. Suggestion of early subacute ischemia involving the LEFT MCA territory and LEFT basal ganglia. 2. LEFT dominant vertebral artery. RIGHT vertebral artery is occluded proximal ly with collateral flow distally unchanged. Basilar artery is patent. 3. No significant RIGHT ICA stenosis. RIGHT ICA is patent to the skull base. 4. Previously described subacute wedge-shaped LEFT frontal infarct. 5. Moderate stenosis of the LEFT subclavian artery proximal to the LEFT verteb ral artery origin unchanged from previous. Evidence of early subclavian steal o n the prior ultrasound. Notified Mtmarry Simms MD at 06/23/2022 3:10 PM.
--- NOTE | 2022-06-23 13:46 | XRR_ITS ---
PROCEDURE INFORMATION: Exam: XR Chest Exam date and time: 06/23/2022 2:07 PM Age: 62 years old Clinical indication: Condition or disease; Other: CVA; Prior surgery; Surgery type: Left carotid TECHNIQUE: Imaging protocol: Radiologic exam of the chest. Views: 1 view. COMPARISON: CR (CHEST, ) 05/26/2022 3:26 AM FINDINGS: Lungs: Unremarkable. No consolidation. Pleural spaces: Unremarkable. No pleural effusion. No pneumothorax. Heart/Mediastinum: Unremarkable. No cardiomegaly. Bones/joints: Unremarkable. Comparison to prior examination similar findings are seen. XR/XR chest 1V portable [id number] IMPRESSION: No acute findings.
--- NOTE | 2022-06-23 13:47 | ECG_ITS ---
[facility] Test Date: 2022-06-23 Pat Name: Hai Aparicio Department: Room: Gender: Male Leacher: : 1960 Requested By: Mt Greco Order Number: [id number] Zay MD: Jose Alejandro Patterson M.D. Measurements Intervals [place] Rate: 72 P: 73 AR: 170 QRS: 89 QRSD: 90 T: 84 QT: 358 QTc: 394 Interpretive Statements SINUS RHYTHM SEPTAL MYOCARDIAL INFARCTION , OF INDETERMINATE AGE [40+ ms Q WAVE IN V1/V2] Compared to ECG 05/26/2022 03:22:00 Myocardial infarct finding now present Electronically Signed On 06-23-2022 20:42:33 PATIENT SAFETY ATTENDANT by Jose Alejandro Patterson M.D. [id number]
[2022-06-23 13:48] VITALS: BP 144/80; PULSE 90; RESP 17; TEMP 37.3; O2SAT 100; BMI 25.8
--- NOTE | 2022-06-23 13:49 | W.ED.NEUROSD ---
HPI - Neuro Symptoms/Deficit General: Chief Complaint: Neuro Symptoms/Deficit Stated Complaint: STROKE ALERT Time Seen by Provider: 06/23/22 13:44 Source: EMS Mode of arrival: EMS Limitations: other (Patient poor historian.) History of Present Illness: See nursing assessment. Patient reportedly had acute onset of right-sided weakness and right facial droop at 12:10 PM today. Patient appears slightly confused and does not know where he is and does not know how old he is. Patient had left carotid endarterectomy on June 21, 2022 at this hospital. See discharge summary. Patient denies any trauma. Patient is not on any blood thinners at this time. Patient has right facial droop, right upper and lower extremity weakness. 1435: Discussed case with significant other and son. They state patient has not had anything to eat or drink today. Patient was found slumped over in his chair around 1210. Patient had onset of symptoms at that time. No injury. Associated symptoms: Reports nausea; Deny chest pain or vomiting Review of Systems General: Reports: Other (Patient is confused, having active CVA, limited history.) Const: Denies: fever(s) or chills Eyes: Denies: change in vision ENMT: Denies: throat pain Card: Denies: chest pain or palpitations Resp: Denies: dyspnea or wheezing GI: Reports: nausea; Denies: abdominal pain or vomiting : Denies: flank pain Musc: Denies: neck pain or back pain Skin/Breast: Denies: rash or pruritus Neuro: Reports: weakness in extremities and confusion Psych: Denies: anxiety Gera/Lymph: Denies: enlarged lymph nodes PFSH ED PFSH: Medical History Anxiety CAD (coronary artery disease) Carotid stenosis Chest pain CKD (chronic kidney disease) COPD (chronic obstructive pulmonary disease) CVA (cerebral vascular accident) Epigastric abdominal pain GERD (gastroesophageal reflux disease) HTN (hypertension) Hyperlipidemia Hypoxia Iliac artery occlusion Obstructive apnea Palpitation PVD (peripheral vascular disease) Shortness of breath Umbilical hernia Family History Other CAD (coronary artery disease) Cancer Social History Smoking and tobacco status: former smoker (12 years ago) Quit status (tobacco): has quit using tobacco Year quit tobacco: 2010 - 2PPD x 37 Years Second hand smoke exposure: No Alcohol intake: never Caregiver/support person: Yes Lives independently: Yes Household members: none Marital status: Unknown service: No Current occupational status: unemployed Previous occupational history: [employer] History of recent travel: No Current gender identity: Male Special karli needs: No Physical Exam Const: COMMON NORMALS: well nourished EXAM LIMITATIONS: altered mental status OTHER: Patient appears slightly confused. HENMT: COMMON NORMALS: normocephalic and atraumatic HEAD & SCALP: normocephalic and atraumatic FACE & SINUS: normal facial exam Eye: COMMON NORMALS: EOMs intact bilaterally Neck/C-Spine: COMMON NORMALS: full ROM, no lymphadenopathy and supple OTHER: Well-healing incision to left anterior lateral neck consistent with previous left carotid endarterectomy. Lymph: LYMPHATIC: no lymphadenopathy noted Chest: COMMONS NORMALS: normal inspection of the chest and normal palpation of entire chest wall CHEST: No Ecchymosis present and No rash Resp: COMMON NORMALS: normal respiratory effort, No retractions and clear to auscultation bilaterally EFFORT & INSPECTION: No respiratory distress AUSCULTATION: clear to auscultation bilaterally Cardio: COMMON NORMALS: regular rate, regular rhythm and Peripheral pulses 2+ throughout JUGULAR VENOUS DISTENTION: no JVD RATE: regular rate RHYTHM: regular rhythm PERIPHERAL PULSES: Peripheral pulses 2+ throughout GI: COMMON NORMALS: Normal to inspection, nondistended, normoactive bowel sounds present and non-tender : COMMON NORMALS: Yes no CVA tenderness BLADDER/KIDNEY EXAM: Yes no CVA tenderness Back/Pelvis: COMMON NORMALS: no CVA tenderness Extremity: COMMON NORMALS: normal to inspection, full ROM and capillary refill normal Neuro: DOUGLAS COMA SCALE: document GCS findings Keller coma scale eye opening: Spontaneous Douglas coma scale verbal response: Confused Douglas coma scale motor response: Obey commands Keller coma scale total score: 14 OTHER: 3 out of 5 strength in the right upper and lower extremity. Patient also has right facial droop sparing the right forehead. Skin: COMMON NORMALS: no rashes or lesions noted GENERAL SKIN EXAM: no rashes or lesions noted Course Vital Signs: Vital signs: Vital Signs Temperature 99.2 F 06/23/22 13:48 Pulse Rate 70 06/23/22 14:10 Respiratory Rate 22 H 06/23/22 14:10 Blood Pressure 122/72 06/23/22 14:10 Pulse Oximetry 94 06/23/22 14:10 Oxygen Delivery Me thod 06/23/22 14:10 Oxygen Flow Rate 4 06/23/22 13:48 MDM - Neuro Symptoms/Deficit Medical Decision Making cva NIHSS per nurse=20 1412: Teleneurology notified. 1430: Discussed case with telemetry neurologist at [facility] Dr. Almanza. He states patient is not a candidate for tPA due to his recent carotid endarterectomy. However, patient may be a candidate for thrombectomy. Also advised to get patient normal saline to keep his blood pressure up. Awaiting CT angiogram of the head and neck. 1516: Discussed with neurologist at [facility] after CTA report came back showing complete obstruction of left internal carotid all the way to the base of the skull with trace collateral flow to the left MCA. They are going to assess bed situation area and try and arrange emergent transfer there if bed is available. Family notified of plan. 1540: Patient was accepted at [facility] by Dr. Stovall for interventional thrombectomy.. Patient will go through the ER at [facility] per neurologist direction. Unable to fly the patient due to the weather. We will try to arrange emergent ambulance transfer. Medical Records Patient has left carotid endarterectomy with patch angioplasty on 06/21/2022. Patient has 75% stenosis of left internal carotid artery by Dr. Little. Lab Data 06/23/22 13:55 06/23/22 13:[address] 06/23/22 13:44 IMPRESSION: 1. No evidence of intracranial hemorrhage or mass effect. 2. Wedge-shaped area of low-attenuation change in the LEFT frontal lobe most consistent with subacute infarct measuring 2.9 x 2.1 cm. No significant mass effect or midline shift. Notified Mtmarry Simms MD at 06/23/2022 1:54 PM. Chest X-Ray 06/23/22 13:46 IMPRESSION: No acute findings. Head/Neck CTA 06/23/22 13:46 IMPRESSION: 1. LEFT ICA is occluded at the origin. Poor flow in the LEFT MCA territory supplied via a patent anterior communicating artery. Suggestion of early subacute ischemia involving the LEFT MCA territory and LEFT basal ganglia. 2. LEFT dominant vertebral artery. RIGHT vertebral artery is occluded proximally with collateral flow distally unchanged. Basilar artery is patent. 3. No significant RIGHT ICA stenosis. RIGHT ICA is patent to the skull base. 4. Previously described subacute wedge-shaped LEFT frontal infarct. 5. Moderate stenosis of the LEFT subclavian artery proximal to the LEFT vertebral artery origin unchanged from previous. Evidence of early subclavian steal on the prior ultrasound. Notified Mtmarry Simms MD at 06/23/2022 3:10 PM. Laboratory Results WBC 12.4 10^3/uL (4.0-10.0) H 06/23/22 13:55 RBC 5.31 10^6/uL (4.1-5.3) H 06/23/22 13:55 Hgb 15.1 g/dL (11.7-16.6) 06/23/22 13:55 Hct 47.3 % (42.0-52.0) 06/23/22 13:55 MCV 89.1 fl (80-94) 06/23/22 13:55 MCH 28.4 pg (28.0-34.0) 06/23/22 13:55 MCHC 31.9 g/dL (30.0-36.0) 06/23/22 13:55 RDW 13.8 % (12.1-15.1) 06/23/22 13:55 Plt Count 288 10^3/cmm (130-400) 06/23/22 13:55 MPV 11.1 fL (7.4-10.4) H 06/23/22 13:55 Neut % (Auto) 72.0 % 06/23/22 13:55 Lymph % (Auto) 17.2 % 06/23/22 13:55 [place] % (Auto) 9.2 % 06/23/22 13:55 Eos % (Auto) 0.6 % 06/23/22 13:55 Baso % (Auto) 0.5 % 06/23/22 13:55 Neut # (Auto) 8.94 10^3/uL (1.8-7.7) H 06/23/22 13:55 Lymph # (Auto) 2.1 10^3/uL (0.8-4.8) 06/23/22 13:55 [place] # (Auto) 1.1 10^3/uL (0.2-0.9) H 06/23/22 13:55 Eos # (Auto) 0.1 10^3/uL (0.0-0.8) 06/23/22 13:55 Baso # (Auto) 0.1 10^3/uL (0.0-0.1) 06/23/22 13:55 Nucleated RBC % (auto) 0 % 06/23/22 13:55 Nucleated RBCs # 0.0 /100WBC 06/23/22 13:55 PT 14.40 SECONDS (12.1-14.9) 06/23/22 13:55 INR 1.08 (0.8-1.2) 06/23/22 13:55 APTT 25.0 SECONDS (23.9-36.7) 06/23/22 13:55 Sodium 139 mmol/L (136-145) 06/23/22 13:55 Potassium 3.5 mmol/L (3.5-5.1) 06/23/22 13:55 Chloride 103 mmol/L (98-107) 06/23/22 13:55 Carbon Dioxide 26 mmol/L (22-29) 06/23/22 13:55 Anion Gap 13.5 (5-19) 06/23/22 13:55 BUN 16 mg/dL (8-23) 06/23/22 13:55 Creatinine 0.9 mg/dL (0.7-1.2) 06/23/22 13:55 GFR Calculation 85.8 mL/min (90-130) L 06/23/22 13:55 Glucose 92 mg/dL (65-115) 06/23/22 13:55 Calculated Osmolality 289 mOsm/kg (285-295) 06/23/22 13:55 Calcium 9.7 mg/dL (8.5-10.5) 06/23/22 13:55 Total Bilirubin 0.4 mg/dL (0.15-1.2) 06/23/22 13:55 AST 14 U/L (0-40) 06/23/22 13:55 ALT 8 U/L (0-41) 06/23/22 13:55 Alkaline Phosphatase 101 U/L (40-130) 06/23/22 13:55 Total Protein 7.1 g/dL (6.6-8.7) 06/23/22 13:55 Albumin 3.9 g/dL (3.5-5.2) 06/23/22 13:55 Globulin 3.2 g/dL (1.3-4.6) 06/23/22 13:[address] Head: Radiologist's impression: Ordering Provider/Ordering MD: Mt Simms MD Date of Service: 06/23/22 Procedure(s): CT head thrombolytic [id number] Accession Number(s): [id number] Report Number: [id number] WS: [id number] CT HEAD TECHNIQUE: Noncontrast CT of the head obtained from the skullbase to the vertex. CLINICAL INFORMATION: STROKE ALERT COMPARISON: May 02, 2019 DLP: [address] scans at [facility] use at least one of these dose optimization techniques: automated exposure control; mA and/or kV adjustment per patient size (includes targeted exams where dose is matched to clinical indication); or iterative reconstruction. FINDINGS: No evidence of intracranial hemorrhage. Ventricular system and basal cisterns are patent. Wedge-shaped area of low-attenuation change in the LEFT frontal lobe most consistent with subacute infarct measuring 2.9 x 2.1 cm. No significant mass effect or midline shift. This can be further evaluated MRI. Paranasal sinuses and mastoid air cells are well aerated. .Normal visualized soft tissues. Incidental cerebellar tonsillar ectopia. CT/CT head thrombolytic [id number] IMPRESSION: ? 1.? No evidence of intracranial hemorrhage or mass effect. 2.? Wedge-shaped area of low-attenuation change in the LEFT frontal lobe most consistent with subacute infarct measuring 2.9 x 2.1 cm. No significant mass effect or midline shift. ? Notified Mt Simms MD at 06/23/2022 1:54 PM. ? ? ? Dictated By: Kamari Herr MD Signed By: Kamari Herr MD Signed Date/Time: 06/23/22 1356 EKG Data EKG 1: I personally reviewed and interpreted this EKG as follows: EKG interpretation date: 06/23/22 EKG interpretation time: 13:56 Interpretation: Normal sinus rhythm with heart rate 72. Early repolarization of the ST segment. Normal CA interval, normal QT interval, normal axis. LVH. Other Data Discussed with radiologist results of CT of the brain. Critical Care Time Critical Care Time: Critical Care Time: Yes Total Critical Care Time: 85 Attestation: See orders. Discussed case with telemetry neurologist at [facility]. Discussed case with radiologist here also. Discharge Plan Discharge Patient Disposition: Transfer to ED Clinical Impression: Cerebrovascular accident Qualifiers: CVA mechanism: thrombosis Precerebral and cerebral artery: carotid artery Laterality of affected vessel: left Qualified Code(s): I63.032 - Cerebral infarction due to thrombosis of left carotid artery Condition: Stable Prescriptions: No Action budesonide-formoterol [Symbicort] 160-4.5 mcg/actuation HFA aerosol inhaler 2 puff inhalation BID Qty: 10.2 5RF acetaminophen [Tylenol Extra Strength] 500 mg Tablet 1,000 mg PO Q6H PRN (Reason: Pain) Aspir-81 81 mg Tablet,Delayed Release (Dr/Ec) 81 mg PO BEDTIME pantoprazole 40 mg tablet,delayed release (DR/EC) 40 mg PO DAILY PRN (Reason: Heartburn) amlodipine 10 mg tablet 10 mg PO DAILY@13 hydrocodone-acetaminophen 5-325 mg Tablet 1 tab PO Q6H PRN (Reason: Moderate Pain) Qty: 12 0RF Referrals: Shabana Encarnacion MD [Primary Care Provider] - Patient Instructions: Stroke (DC) Coding Level of Care Code ED Ham Sawyer for Chg Fwd Exam Comprehensive Medical Decision Making High Complexity
--- NOTE | 2022-06-23 13:56 | PC.PHAR ---
pts verified pts medications-states the pt didnt worm picker the norco 5-325mg q6h prn written on 06/24/22-pts states the pt has pantoprazole 40mg qd prn states the pt hasnt started taking ext med history shows last filled 05/26/22 30d/s-notes are made in the pharmacy comments
[2022-06-23 14:00] VITALS: BP 119/83; PULSE 71; RESP 21; O2SAT 96
[2022-06-23 14:10] VITALS: BP 122/72; PULSE 70; RESP 22; O2SAT 94
--- NOTE | 2022-06-23 14:11 | PC.NURSE ---
PT PLACED ON CONTINUOUS NIBP, SPO2, AND CM
[2022-06-23 14:20] VITALS: BP 105/73; PULSE 89; RESP 18; O2SAT 93
[2022-06-23 14:22] LABS: Basophils # 0.1 10^3/uL (0.0-0.1); Basophils % 0.5 %; Eosinophils # 0.1 10^3/uL (0.0-0.8); Eosinophils % 0.6 %; Hematocrit 47.3 % (42.0-52.0); Hemoglobin 15.1 g/dL (11.7-16.6); Lymphocytes # 2.1 10^3/uL (0.8-4.8); Lymphocytes % 17.2 %; Mean Corpuscular HGB Conc 31.9 g/dL (30.0-36.0); Mean Corpuscular Hemoglobin 28.4 pg (28.0-34.0); Mean Corpuscular Volume 89.1 fl (80-94); Mean Platelet Volume 11.1 fL (7.4-10.4); Monocytes # 1.1 10^3/uL (0.2-0.9); Monocytes % 9.2 %; Neutrophils # 8.94 10^3/uL (1.8-7.7); Nucleated Red Blood Cells % 0 %; Platelet Count 288 10^3/cmm (130-400); Red Blood Count 5.31 10^6/uL (4.1-5.3); Red Cell Distribution Width 13.8 % (12.1-15.1); White Blood Count 12.4 10^3/uL (4.0-10.0)
[2022-06-23 14:27] LABS: INR 1.08 (0.8-1.2)
[2022-06-23 14:38] LABS: Alanine Aminotransferase 8 U/L (0-41); Albumin Level 3.9 g/dL (3.5-5.2); Alkaline Phosphatase 101 U/L (40-130); Anion Gap 13.5 (5-19); Aspartate Amino Transferase 14 U/L (0-40); Blood Urea Nitrogen 16 mg/dL (8-23); Calcium 9.7 mg/dL (8.5-10.5); Carbon Dioxide 26 mmol/L (22-29); Chloride 103 mmol/L (98-107); Globulin 3.2 g/dL (1.3-4.6); Glomerular Filtration Rate 85.8 mL/min (90-130); Glucose 92 mg/dL (65-115); Osmolality Calculated 289 mOsm/kg (285-295); Potassium 3.5 mmol/L (3.5-5.1); Sodium 139 mmol/L (136-145); Total Bilirubin 0.4 mg/dL (0.15-1.2); Total Protein 7.1 g/dL (6.6-8.7)
[2022-06-23] MEDS: iohexol 350 mg/mL 500 mL Btl (per mL) IV (14:45)
[2022-06-23 15:00] VITALS: BP 124/87; PULSE 87; RESP 17; O2SAT 95
[2022-06-23 15:30] VITALS: BP 128/83; PULSE 107; O2SAT 96
[2022-06-23] MEDS: sodium chloride 0.9% 1,000 ML 999 ML IV (15:35)
[2022-06-23 16:19] LABS: Add Urine Microscopic? NO; Charge for UA Resulting for Rev
[2022-06-23 16:42] LABS: Bilirubin Urine Neg (Negative); Blood Urine Neg (Negative); Glucose Urine UA Norm (Normal); Ketones Urine Negative (Negative); Leukocyte Esterase Urine Negative (Negative); Nitrate Urine Negative (Negative); Protein Urine Neg (Negative); Specific Gravity, Urine 1.005 (1.005-1.030); Urine Appearance Clear (CLEAR); Urine Color Yellow (Yellow); Urobilinogen Urine Norm (Negative); pH Urine 7 (5-7)
[2022-06-23 16:48] LABS: Amphetamines Screen Urine Negative (Negative); Barbiturates Screen Urine Negative (Negative); Benzodiazepines Screen Urine Negative (Negative); Cocaine Screen Urine Negative (Negative); Opiate Screen Urine Negative (Negative); PCP Screen Urine Negative (Negative); THC Screen Urine Negative (Negative)
== END 2022-06-23 16:45 ==
PROVIDERS: Emergency Provider Family Medicine; PCP Family Medicine
DX: I63.032 Cerebral infarction due to thrombosis of left carotid artery (principal); Z79.82 Long term (current) use of aspirin; Z87.891 Personal history of nicotine dependence; I12.9 Hypertensive chronic kidney disease with stage 1 through stage 4 chronic kidney disease, or unspecified chronic kidney disease; N18.9 Chronic kidney disease, unspecified; I25.10 Atherosclerotic heart disease of native coronary artery without angina pectoris; J44.9 Chronic obstructive pulmonary disease, unspecified; Z86.73 Personal history of transient ischemic attack (TIA), and cerebral infarction without residual deficits; E78.5 Hyperlipidemia, unspecified
CPT/HCPCS: 70450; 70496; 70498; 71045; 80053; 80306; 81003; 85025; 85610; 85730; 93005; 96360; 99285; J7030; Q9967

== ENCOUNTER 2022-07-08 14:48 | Emergency (ER) | payer MEDICARE, SELFPAY ==
[2022-07-08 15:00] VITALS: BP 122/67; PULSE 82; RESP 18; TEMP 35.9; O2SAT 99
--- NOTE | 2022-07-08 15:00 | XR_ITS ---
WS: [id number] Exam: XR chest 1V portable [id number] Date/Time of Exam: 07/08/2022 3:00 PM Reason For Exam: dyspnea/cough Comparison 06/23/2022. The lungs are hyperinflated and clear. Unremarkable cardiomediastinal silhouette. Bony structures are intact. No change. There may be a hiatal hernia. XR/XR chest 1V portable [id number] IMPRESSION: 1. Pulmonary hyperinflation. No acute process.
--- NOTE | 2022-07-08 15:00 | CT_ITS ---
WS: [id number] CT HEAD TECHNIQUE: Noncontrast CT of the head obtained from the skullbase to the vertex. CLINICAL INFORMATION: AMS COMPARISON: CT head and CTA June 23, 2022 DLP: 1156.[address] scans at [facility] use at least one of these dose optimization techniques: automated e xposure control; mA and/or kV adjustment per patient size (includes targeted exams where dose is matc hed to clinical indication); or iterative reconstruction. FINDINGS: No evidence of intracranial hemorrhage. Low-attenuation changes in the deep LEFT MCA territory compat ible with recent history of carotid occlusion with subsequent thrombectomy. Evidence of expected suba cute ischemia in the LEFT MCA territory including the LEFT periventricular white matter and LEFT ante rior temporal lobe. Mild mass effect on the LEFT lateral ventricle. No midline shift or hydrocephalus . Cortex appears preserved. Paranasal sinuses and mastoid air cells are well aerated. .Normal visualized soft tissues. CT/CT head wo con* [id number] IMPRESSION: 1. No evidence of intracranial hemorrhage. 2. Evidence of expected subacute ischemia in the LEFT MCA territory involving the LEFT periventricular white matter and LEFT anterior temporal lobe. Patient is status post thrombectomy LEFT carotid after carotid occlusion. 3. Mild mass effect in the LEFT lateral ventricle. No significant midline shif t. No hydrocephalus. 4. Chronic cerebellar tonsillar ectopia unchanged. 5. No other suspicious findings. Notified Elvis Sharma DO at 07/08/2022 3:35 PM.
--- NOTE | 2022-07-08 15:03 | ED_ITS ---
HPI - General Adult General: Chief complaint: Altered Mental Status Stated complaint: AMS Time Seen by Provider: 07/08/22 14:54 History of Present Illness: 62-year-old male returns to the emergency room from home with altered mental status. He recently had a carotid endarterectomy on the left he had a subsequent thrombosis of his EXTR quite extensive he was transferred to [place] he was treated by interventional radiology there and then was undergoing rehab he evidently left rehab and signed out AMA return to the home few days ago he had been doing well but now has significant altered mental status. Seen this patient multiple times in the past he did not recognize me. When asked almost any objective question he answers with his birthdate. He was able to give me a prefix for his phone number but nothing else. He is not aware of time or date. He is aware that he is at the emergency room at [facility]. He cannot tell me any other details about his recent health issues. He denies chest or abdominal pain. Generally denies any symptoms at all at this time. Onset (ago): week(s) Relieving factors: none Exacerbating factors: none Associated symptoms: Deny chest pain, dyspnea, malaise, nausea, rash or vomiting Review of Systems Const: Denies: fever(s), chills, body aches, change in appetite, fatigue or malaise ENMT: Denies: throat pain, ear or mastoid pain, nasal discharge or nasal congestion Card: Denies: chest pain, edema, dyspnea on exertion or orthopnea Resp: Denies: dyspnea, productive cough or non-productive cough GI: Denies: abdominal pain, nausea, vomiting, hematemesis, coffee ground emesis, diarrhea, constipation, bloating, hematochezia or melena : Denies: flank pain, dysuria, urinary frequency or urinary urgency Skin/Breast: Denies: rash or pruritus [facility] ED PFSH: Medical History Anxiety CAD (coronary artery disease) Carotid stenosis Chest pain CKD (chronic kidney disease) COPD (chronic obstructive pulmonary disease) CVA (cerebral vascular accident) Epigastric abdominal pain GERD (gastroesophageal reflux disease) HTN (hypertension) Hyperlipidemia Hypoxia Iliac artery occlusion Obstructive apnea Palpitation PVD (peripheral vascular disease) Shortness of breath Umbilical hernia Family History Other CAD (coronary artery disease) Cancer Social History Smoking and tobacco status: former smoker (12 years ago) Quit status (tobacco): has quit using tobacco Year quit tobacco: 2009 - 2PPD x 37 Years Second hand smoke exposure: No Alcohol intake: never Caregiver/support person: Yes Lives independently: Yes Household members: none Marital status: Unknown service: No Current occupational status: unemployed Previous occupational history: [employer] History of recent travel: No Current gender identity: Male Special karli needs: No Physical Exam Const: COMMON NORMALS: no acute distress GENERAL APPEARANCE: cooperative and comfortable ORIENTATION/CONSCIOUSNESS: Yes awake, Yes oriented to person, Yes oriented to place and Yes oriented to time HENMT: COMMON NORMALS: normocephalic, atraumatic, hearing grossly normal bilaterally, external ears normal, EAC's normal, TM's normal bilaterally, Normal nasal mucous membranes and turbinates present, moist oral mucous membranes and oropharynx normal HEAD & SCALP: normocephalic and atraumatic NOSE: Normal nasal mucous membranes and turbinates present EXTERNAL EAR: Yes external ears normal EXTERNAL AUDITORY CANAL: EAC's normal TYMPANIC MEMBRANE: TM's normal bilaterally Eye: COMMON NORMALS: Equal, round and reactive pupils present, EOMs intact bilaterally, conjunctivae normal and no scleral icterus CONJUNCTIVA: Yes conjunctivae normal PUPIL: Yes Equal, round and reactive pupils present Neck/C-Spine: COMMON NORMALS: full ROM, no lymphadenopathy, supple and no JVD OTHER: Wound from the left carotid endarterectomy is healing well there is no dehiscence no swelling no drainage no sign of infection Lymph: LYMPHATIC: no lymphadenopathy noted and no lymphedema noted Resp: COMMON NORMALS: normal respiratory effort, No retractions, No use of accessory muscles and clear to auscultation bilaterally AUSCULTATION: clear to auscultation bilaterally Cardio: COMMON NORMALS: no JVD, regular rate, regular rhythm and No murmurs present (Cardio) RATE: regular rate RHYTHM: regular rhythm GI: COMMON NORMALS: Soft to palpation and No hepatosplenomegaly present AU SCULTATION: Yes normoactive bowel sounds PALPATION: Yes Soft to palpation, No Tenderness to palpation present (GI), No Guarding due to palpation present (GI) and Yes No hepatosplenomegaly present Extremity: COMMON NORMALS: normal to inspection, capillary refill normal, no clubbing, cyanosis or edema, no calf tenderness and no pedal edema Neuro: SENSORIUM/ORIENTATION: Yes oriented to person, Yes oriented to place and Yes oriented to time Skin: COMMON NORMALS: no rashes or lesions noted GENERAL SKIN EXAM: no rashes or lesions noted Course Vital Signs: Vital signs: Vital Signs Temperature 96.6 F L 07/08/22 15:00 Pulse Rate 82 07/08/22 15:00 Respiratory Rate 18 07/08/22 15:00 Blood Pressure 122/67 07/08/22 15:00 Pulse Oximetry 99 07/08/22 15:00 Oxygen Delivery Me thod 07/08/22 15:00 Oxygen Flow Rate 3 07/08/22 15:00 MDM - General Adult Medical Decision Making Patient generally feels weak he does have a little bit of right-sided deficit but his is present at the bedside states that she really not any different than when he was at [place]. He left there AGAINST MEDICAL ADVICE and did not complete his rehab. At this point he has no new or acute deficits. Recommending to him that we get him enrolled back in rehab the most effective way may be to have his primary care doctor get him admitted to a [facility] for rehab. Patient does not very interested in this idea. We talked about other options including outpatient. At this point he does not have anything acute going on I recommend that he follow-up with his primary care doctor I did resume his medications including his atorvastatin and clopidogrel. Recheck his primary care doctor within the week return to emergency if he has further problems. Medical Records I reviewed the patient's medical records. Lab Data I reviewed the patient's lab results. 07/08/22 15:20 07/08/22 15:20 Radiology Impressions Chest X-Ray 07/08/22 15:00 IMPRESSION: 1. Pulmonary hyperinflation. No acute process. Head CT 07/08/22 15:00 IMPRESSION: 1. No evidence of intracranial hemorrhage. 2. Evidence of expected subacute ischemia in the LEFT MCA territory involving the LEFT periventricular white matter and LEFT anterior temporal lobe. Patient is status post thrombectomy LEFT carotid after carotid occlusion. 3. Mild mass effect in the LEFT lateral ventricle. No significant midline shift. No hydrocephalus. 4. Chronic cerebellar tonsillar ectopia unchanged. 5. No other suspicious findings. Notified Elvis Sharma DO at 07/08/2022 3:35 PM. Laboratory Results WBC 5.8 10^3/uL (4.0-10.0) 07/08/22 15:20 RBC 5.02 10^6/uL (4.1-5.3) 07/08/22 15:20 Hgb 14.1 g/dL (11.7-16.6) 07/08/22 15:20 Hct 43.9 % (42.0-52.0) 07/08/22 15:20 MCV 87.5 fl (80-94) 07/08/22 15:20 MCH 28.1 pg (28.0-34.0) 07/08/22 15:20 MCHC 32.1 g/dL (30.0-36.0) 07/08/22 15:20 RDW 13.4 % (12.1-15.1) 07/08/22 15:20 Plt Count 378 10^3/cmm (130-400) 07/08/22 15:20 MPV 11.2 fL (7.4-10.4) H 07/08/22 15:20 Neut % (Auto) 69.3 % 07/08/22 15:20 Lymph % (Auto) 18.1 % 07/08/22 15:20 [place] % (Auto) 10.8 % 07/08/22 15:20 Eos % (Auto) 0.3 % 07/08/22 15:20 Baso % (Auto) 0.3 % 07/08/22 15:20 Neut # (Auto) 4.02 10^3/uL (1.8-7.7) 07/08/22 15:20 Lymph # (Auto) 1.1 10^3/uL (0.8-4.8) 07/08/22 15:20 [place] # (Auto) 0.6 10^3/uL (0.2-0.9) 07/08/22 15:20 Eos # (Auto) 0.0 10^3/uL (0.0-0.8) 07/08/22 15:20 Baso # (Auto) 0.0 10^3/uL (0.0-0.1) 07/08/22 15:20 Nucleated RBC % (auto) 0 % 07/08/22 15:20 Nucleated RBCs # 0.0 /100WBC 07/08/22 15:20 Specimen Type Arterial 07/08/22 15:25 Sample Site Radial, left 07/08/22 15:25 ABG pH 7.56 (7.35-7.45) H 07/08/22 15:25 ABG pCO2 25.2 mmHg (35-45) L 07/08/22 15:25 ABG pO2 96.3 mmHg (80.0-100.0) 07/08/22 15:25 ABG HCO3 22.6 mmol/L (22-26) 07/08/22 15:25 ABG O2 Saturation 98.8 07/08/22 15:25 ABG Base Excess 1.8 mmol/L (-2.0-2.0) 07/08/22 15:25 Jorge Test Pos 07/08/22 15:25 A-a O2 Gradient 12.8 mmHg (5-10) H 07/08/22 15:25 Hematocrit 42.7 % (42-52) 07/08/22 15:25 Hgb O2 Saturation 97.4 % (95-100) 07/08/22 15:25 Carboxyhemoglobin 0.7 %THgb (0.4-20.1) 07/08/22 15:25 Methemoglobin 0.8 % (0.4-1.5) 07/08/22 15:25 Total Hemoglobin 13.9 g/dL (14-18) L 07/08/22 15:25 Sodium 139.0 mmol/L (131-143) 07/08/22 15:25 Potassium 3.5 mmol/L (3.5-5.0) 07/08/22 15:25 Glucose 111.0 mg/dL (70-115) 07/08/22 15:25 Ionized Calcium 1.2 mmol/L (1.1-1.4) 07/08/22 15:25 O2 Delivery Device Nc 07/08/22 15:25 O2 Liters/Min 3.0 % 07/08/22 15:25 FiO2 32.0 % 07/08/22 15:25 Motor And Chassis Inspector ID Cak 07/08/22 15:25 Sodium 140 mmol/L (136-145) 07/08/22 15:20 Potassium 3.9 mmol/L (3.5-5.1) 07/08/22 15:20 Chloride 101 mmol/L (98-107) 07/08/22 15:20 Carbon Dioxide 26 mmol/L (22-29) 07/08/22 15:20 Anion Gap 16.9 (5-19) 07/08/22 15:20 BUN 8 mg/dL (8-23) 07/08/22 15:20 Creatinine 0.8 mg/dL (0.7-1.2) 07/08/22 15:20 GFR Calculation 98.3 mL/min (90-130) 07/08/22 15:20 Glucose 111 mg/dL (65-115) 07/08/22 15:20 Calculated Osmolality 289 mOsm/kg (285-295) 07/08/22 15:20 Calcium 9.3 mg/dL (8.5-10.5) 07/08/22 15:20 Total Bilirubin 0.3 mg/dL (0.15-1.2) 07/08/22 15:20 AST 32 U/L (0-40) 07/08/22 15:20 ALT 56 U/L (0-41) H 07/08/22 15:20 Alkaline Phosphatase 152 U/L (40-130) H 07/08/22 15:20 Creatine Kinase 32 U/L (39-308) L 07/08/22 15:20 Total Protein 7.2 g/dL (6.6-8.7) 07/08/22 15:20 Albumin 3.9 g/dL (3.5-5.2) 07/08/22 15:20 Globulin 3.3 g/dL (1.3-4.6) 07/08/22 15:20 Discharge Plan Discharge Patient Disposition: Home Clinical Impression: History of CVA with residual deficit, HTN (hypertension) Condition: Stable Prescriptions: New clopidogrel 75 mg tablet 75 mg PO DAILY Qty: 30 0RF atorvastatin 40 mg tablet 40 mg PO DAILY Qty: 30 0RF No Action budesonide-formoterol [Symbicort] 160-4.5 mcg/actuation HFA aerosol inhaler 2 puff inhalation BID Qty: 10.2 5RF acetaminophen [Tylenol Extra Strength] 500 mg Tablet 1,000 mg PO Q6H PRN (Reason: Pain) Aspir-81 81 mg Tablet,Delayed Release (Dr/Ec) 81 mg PO BEDTIME pantoprazole 40 mg tablet,delayed release (DR/EC) 40 mg PO DAILY PRN (Reason: Heartburn) amlodipine 10 mg tablet 10 mg PO DAILY@13 hydrocodone-acetaminophen 5-325 mg Tablet 1 tab PO Q6H PRN (Reason: Moderate Pain) Qty: 12 0RF Discharge Orders: Discharge ED (Routine); Ordered 07/08/22 Ordered By: Elvis Sharma Referrals: Shabana Encarnacion MD [Primary Care Provider] - Patient Instructions: Opioid Safety, Pain Management Activity Restrictions/Additional Instructions: You were seen today with residual symptoms from your recent stroke. Recommend that you continue rehab program as initiated at [place]. The most likely way to be able to do this is to talk to your primary care doctor about being admitted to one of the local rehab nursing homes. There are no new acute findings at this time that would require hospitalization. It would be in your best interest to prevent recurrent strokes to be on aspirin clopidogrel and atorvastatin. Prescription for the atorvastatin clopidogrel written for you today follow-up with primary care doctor continue all of your other medications as previously prescribed Coding Level of Care Code ED Lace Burn Out Tender for Kedar Mae
--- NOTE | 2022-07-08 15:25 | ECG_ITS ---
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 Measurements Intervals [place] Rate: 82 P: 80 [place]: 160 QRS: 93 QRSD: 89 T: 88 QT: 349 QTc: 409 Interpretive Statements SINUS RHYTHM BORDERLINE RIGHT AXIS DEVIATION [QRS AXIS > 90] SEPTAL MYOCARDIAL INFARCTION , OF INDETERMINATE AGE [40+ ms Q WAVE IN V1/V2] Compared to ECG 06/23/2022 13:55:33 No significant changes Electronically Signed On 07-08-2022 21:49:25 DIRECTOR OF CORPORATE STRATEGY by Maira Arana M.D. [id number]
[2022-07-08 15:28] LABS: Basophils % 0.3 %; Eosinophils % 0.3 %; Hematocrit 43.9 % (42.0-52.0); Hemoglobin 14.1 g/dL (11.7-16.6); Lymphocytes # 1.1 10^3/uL (0.8-4.8); Lymphocytes % 18.1 %; Mean Corpuscular HGB Conc 32.1 g/dL (30.0-36.0); Mean Corpuscular Hemoglobin 28.1 pg (28.0-34.0); Mean Corpuscular Volume 87.5 fl (80-94); Mean Platelet Volume 11.2 fL (7.4-10.4); Monocytes # 0.6 10^3/uL (0.2-0.9); Monocytes % 10.8 %; Neutrophils # 4.02 10^3/uL (1.8-7.7); Neutrophils % 69.3 %; Nucleated Red Blood Cells % 0 %; Platelet Count 378 10^3/cmm (130-400); Red Blood Count 5.02 10^6/uL (4.1-5.3); Red Cell Distribution Width 13.4 % (12.1-15.1); White Blood Count 5.8 10^3/uL (4.0-10.0)
[2022-07-08 15:37] LABS: ABG PCO2 25.2 mmHg (35-45); ABG PH Result 7.56 (7.35-7.45); Alveolar-Arterial Oxygen Gradi 12.8 mmHg (5-10); Arterial Blood Gas Hematocrit 42.7 % (42-52); Base Excess ABG 1.8 mmol/L (-2.0-2.0); Blood Gas Allen Test Pos; Blood Gas Operator Identificat CAK; Blood Gas Sample Site Radial, left; Blood Gas Sample Type Arterial; Carboxyhemoglobin 0.7 %THgb (0.4-20.1); HCO3 ABG 22.6 mmol/L (22-26); HGB O2 Sat 97.4 % (95-100); Ionized Calcium Level - ABG 1.2 mmol/L (1.1-1.4); Methemoglobin 0.8 % (0.4-1.5); Oxygen Device NC; Oxygen Saturation ABG 98.8; PO2 ABG 96.3 mmHg (80.0-100.0); Potassium Level - ABG 3.5 mmol/L (3.5-5.0); Total Hemoglobin 13.9 g/dL (14-18)
[2022-07-08 15:45] LABS: Alanine Aminotransferase 56 U/L (0-41); Albumin Level 3.9 g/dL (3.5-5.2); Alkaline Phosphatase 152 U/L (40-130); Anion Gap 16.9 (5-19); Aspartate Amino Transferase 32 U/L (0-40); Blood Urea Nitrogen 8 mg/dL (8-23); Calcium 9.3 mg/dL (8.5-10.5); Carbon Dioxide 26 mmol/L (22-29); Chloride 101 mmol/L (98-107); Creatine Phosphokinase 32 U/L (39-308); Globulin 3.3 g/dL (1.3-4.6); Glomerular Filtration Rate 98.3 mL/min (90-130); Glucose 111 mg/dL (65-115); Osmolality Calculated 289 mOsm/kg (285-295); Potassium 3.9 mmol/L (3.5-5.1); Sodium 140 mmol/L (136-145); Total Bilirubin 0.3 mg/dL (0.15-1.2); Total Protein 7.2 g/dL (6.6-8.7)
== END 2022-07-08 17:00 | disposition home or self-care (01) ==
PROVIDERS: Emergency Provider Family Medicine; PCP Family Medicine
DX: I69.951 Hemiplegia and hemiparesis following unspecified cerebrovascular disease affecting right dominant side (principal); I25.10 Atherosclerotic heart disease of native coronary artery without angina pectoris; I12.9 Hypertensive chronic kidney disease with stage 1 through stage 4 chronic kidney disease, or unspecified chronic kidney disease; N18.9 Chronic kidney disease, unspecified; J44.9 Chronic obstructive pulmonary disease, unspecified; E78.5 Hyperlipidemia, unspecified; Z87.891 Personal history of nicotine dependence
CPT/HCPCS: 36415; 36600; 70450; 71045; 80051; 80053; 82330; 82550; 82805; 85025; 93005; 99285

== ENCOUNTER 2022-07-13 16:40 | Inpatient (IN) | payer MEDICARE, SELFPAY ==
[2022-07-13] VITALS (7 sets, daily range): BP systolic 111–143; BP diastolic 68–72; PULSE 93–114; RESP 14–25; TEMP 36.4–37.1; O2SAT 95–100; BMI 25.0
--- NOTE | 2022-07-13 16:56 | ECG_ITS ---
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 Measurements Intervals [place] Rate: 110 P: 68 GA: 148 QRS: 86 QRSD: 85 T: 81 QT: 304 QTc: 411 Interpretive Statements SINUS TACHYCARDIA POSSIBLE RIGHT VENTRICULAR CONDUCTION DELAY [RSR (QR) IN V1/V2] NONSPECIFIC T-WAVE ABNORMALITY Compared to ECG 07/08/2022 15:25:12 T-wave abnormality now present Sinus rhythm no longer present Myocardial infarct finding no longer present Electronically Signed On 07-13-2022 17:42:08 SOCIAL MEDIA INTERN by Ivan Graves M.D. [id number]
--- NOTE | 2022-07-13 16:57 | XRR_ITS ---
PROCEDURE INFORMATION: Exam: XR Chest Exam date and time: 07/13/2022 5:00 PM Age: 62 years old Clinical indication: Shortness of breath; Additional info: Dyspnea/cough TECHNIQUE: Imaging protocol: Radiologic exam of the chest. Views: 1 view. COMPARISON: CR XR chest 1V portable [id number] 07/08/2022 3:04 PM FINDINGS: Lungs: Unremarkable. No consolidation. Pleural spaces: Unremarkable. No pleural effusion. No pneumothorax. Heart/Mediastinum: Unremarkable. No cardiomegaly. Bones/joints: Unremarkable. XR/XR chest 1V portable [id number] IMPRESSION: No acute findings.
[2022-07-13 17:19] LABS: Basophils # 0.1 10^3/uL (0.0-0.1); Basophils % 0.2 %; Eosinophils % 0.1 %; Hematocrit 42.3 % (42.0-52.0); Hemoglobin 13.8 g/dL (11.7-16.6); Lymphocytes # 1.6 10^3/uL (0.8-4.8); Lymphocytes % 6.1 %; Mean Corpuscular HGB Conc 32.6 g/dL (30.0-36.0); Mean Corpuscular Hemoglobin 28.5 pg (28.0-34.0); Mean Corpuscular Volume 87.2 fl (80-94); Mean Platelet Volume 10.3 fL (7.4-10.4); Monocytes # 1.8 10^3/uL (0.2-0.9); Monocytes % 6.9 %; Neutrophils % 85.4 %; Nucleated Red Blood Cells % 0 %; Platelet Count 503 10^3/cmm (130-400); Red Blood Count 4.85 10^6/uL (4.1-5.3); Red Cell Distribution Width 13.5 % (12.1-15.1); White Blood Count 26.1 10^3/uL (4.0-10.0)
--- NOTE | 2022-07-13 17:26 | ED_ITS ---
HPI - SOB/Dyspnea General: Chief Complaint: Shortness of Breath/Dyspnea Stated Complaint: SOB Time Seen by Provider: 07/13/22 16:56 Source: patient Mode of arrival: EMS History of Present Illness: HPI Narrative: 62-year-old male presents to the emergency room complaining of shortness of breath he is chronically supposed to be on 3 L by nasal cannula he was not using his oxygen today when they arrived he was 89% on room air he was denied any obvious distress he tells me his oxygen was not working they applied 4 L by nasal cannula is 96% on arrival here. No fever sweats chills no productive cough denies chest pain. He recently had a stroke he had a carotid occlusion postoperative to a carotid endarterectomy which she recovered from well he has a little bit of residual right-sided weakness unfortunately he left the hospital prior to completing his rehab and he has found it difficult since getting home but does not want to go back to rehab at a penitentiary. MD elicited complaint: shortness of breath Pertinent past history: COPD Severity: mild Exacerbating factors: nothing Relieving factors: nothing Known history of: COPD Associated symptoms: Deny abdominal pain, chest congestion, chest pain, cough, diaphoresis, dizziness, extremity pain, fever(s), hemoptysis, lightheadedness, myalgias, nausea, orthopnea, palpitations, paresthesias, polydipsia, polyuria, rash, sense of impending doom, syncope or vomiting Treatment prior to arrival: oxygen and bronchodilator Review of Systems Const: Denies: fever(s), chills, fatigue, malaise or diaphoresis ENMT: Denies: throat pain, ear or mastoid pain, nasal discharge or nasal congestion Card: Denies: chest pain, palpitations, lightheadedness, syncope or orthopnea Resp: Reports: dyspnea (Solved with application of oxygen); Denies: productive cough, non-productive cough, wheezing, hemoptysis or chest congestion GI: Denies: abdominal pain, nausea or vomiting : Denies: flank pain, dysuria, urinary frequency or urinary urgency Musc: Denies: extremity pain Skin/Breast: Denies: rash or pruritus Neuro: Denies: dizziness Endo: Denies: polyuria or polydipsia PFS ED PFSH: Medical History Anxiety CAD (coronary artery disease) Carotid stenosis Chest pain CKD (chronic kidney disease) COPD (chronic obstructive pulmonary disease) CVA (cerebral vascular accident) Epigastric abdominal pain GERD (gastroesophageal reflux disease) HTN (hypertension) Hyperlipidemia Hypoxia Iliac artery occlusion Obstructive apnea Palpitation PVD (peripheral vascular disease) Shortness of breath Umbilical hernia Family History Other CAD (coronary artery disease) Cancer Social History Smoking and tobacco status: former smoker (12 years ago) Quit status (tobacco): has quit using tobacco Year quit tobacco: 2009 - 2PPD x 37 Years Second hand smoke exposure: No Alcohol intake: never Caregiver/support person: Yes Lives independently: Yes Household members: none Marital status: Unknown service: No Current occupational status: unemployed Previous occupational history: [employer] History of recent travel: No Current gender identity: Male Special karli needs: No Physical Exam Const: COMMON NORMALS: no acute distress GENERAL APPEARANCE: cooperative and comfortable ORIENTATION/CONSCIOUSNESS: Yes awake, Yes oriented to person, Yes oriented to place and Yes oriented to time HENMT: COMMON NORMALS: normocephalic, atraumatic and hearing grossly normal bilaterally HEAD & SCALP: normocephalic and atraumatic Resp: COMMON NORMALS: normal respiratory effort, No retractions, No use of accessory muscles and clear to auscultation bilaterally AUSCULTATION: clear to auscultation bilaterally Cardio: COMMON NORMALS: regular rate, regular rhythm and No murmurs present (Cardio) RATE: regular rate RHYTHM: regular rhythm GI: COMMON NORMALS: Soft to palpation and No hepatosplenomegaly present AUSCULTATION: Yes normoactive bowel sounds PALPATION: Yes Soft to palpation, No Tenderness to palpation present (GI), No Guarding due to palpation present (GI) and Yes No hepatosplenomegaly present Extremity: COMMON NORMALS: normal to inspection, capillary refill normal, no clubbing, cyanosis or edema, no calf tenderness and no pedal edema Neuro: SENSORIUM/ORIENTATION: Yes oriented to person, Yes oriented to place and Yes oriented to time Skin: COMMON NORMALS: no rashes or lesions noted GENERAL SKIN EXAM: no rashes or lesions noted Course Vital Signs: Vital signs: Vital Signs Temperature 98.3 F 07/13/22 16:39 Pulse Rate 93 07/13/22 16:39 Respiratory Rate 19 H 07/13/22 16:39 Blood Pressure 143/72 07/13/22 16:39 Pulse Oximetry 96 07/13/22 16:39 Oxygen Delivery Me thod 07/13/22 16:39 Oxygen Flow Rate 4 07/13/22 16:39 MDM - SOB/Dyspnea Medical Decision Making Care signed out to Dr. Palm at change of shift. See final notes for diagnosis and disposition. Medical Records I reviewed the patient's medical records. Lab Data I reviewed the patient's lab results. 07/13/22 17:13 07/13/22 17:13 Labs/Radiology: Radiology Impressions Chest X-Ray 07/13/22 16:57 IMPRESSION: No acute findings. Laboratory Results WBC 26.1 10^3/uL (4.0-10.0) H 07/13/22 17:13 RBC 4.85 10^6/uL (4.1-5.3) 07/13/22 17:13 Hgb 13.8 g/dL (11.7-16.6) 07/13/22 17:13 Hct 42.3 % (42.0-52.0) 07/13/22 17:13 MCV 87.2 fl (80-94) 07/13/22 17:13 MCH 28.5 pg (28.0-34.0) 07/13/22 17:13 MCHC 32.6 g/dL (30.0-36.0) 07/13/22 17:13 RDW 13.5 % (12.1-15.1) 07/13/22 17:13 Plt Count 503 10^3/cmm (130-400) H 07/13/22 17:13 MPV 10.3 fL (7.4-10.4) 07/13/22 17:13 Neut % (Auto) 85.4 % 07/13/22 17:13 Lymph % (Auto) 6.1 % 07/13/22 17:13 [place] % (Auto) 6.9 % 07/13/22 17:13 Eos % (Auto) 0.1 % 07/13/22 17:13 Baso % (Auto) 0.2 % 07/13/22 17:13 Neut # (Auto) 22.30 10^3/uL (1.8-7.7) H 07/13/22 17:13 Lymph # (Auto) 1.6 10^3/uL (0.8-4.8) 07/13/22 17:13 [place] # (Auto) 1.8 10^3/uL (0.2-0.9) H 07/13/22 17:13 Eos # (Auto) 0.0 10^3/uL (0.0-0.8) 07/13/22 17:13 Baso # (Auto) 0.1 10^3/uL (0.0-0.1) 07/13/22 17:13 Nucleated RBC % (auto) 0 % 07/13/22 17:13 Nucleated RBCs # 0.0 /100WBC 07/13/22 17:13 Sodium 138 mmol/L (136-145) 07/13/22 17:13 Potassium 3.8 mmol/L (3.5-5.1) 07/13/22 17:13 Chloride 98 mmol/L (98-107) 07/13/22 17:13 Carbon Dioxide 28 mmol/L (22-29) 07/13/22 17:13 Anion Gap 15.8 (5-19) 07/13/22 17:13 BUN 9 mg/dL (8-23) 07/13/22 17:13 Creatinine 0.8 mg/dL (0.7-1.2) 07/13/22 17:13 GFR Calculation 98.3 mL/min (90-130) 07/13/22 17:13 Glucose 112 mg/dL (65-115) 07/13/22 17:13 Calculated Osmolality 285 mOsm/kg (285-295) 07/13/22 17:13 Calcium 9.3 mg/dL (8.5-10.5) 07/13/22 17:13 Total Bilirubin 0.5 mg/dL (0.15-1.2) 07/13/22 17:13 AST 14 U/L (0-40) 07/13/22 17:13 ALT 19 U/L (0-41) 07/13/22 17:13 Alkaline Phosphatase 151 U/L (40-130) H 07/13/22 17:13 Total Protein 7.2 g/dL (6.6-8.7) 07/13/22 17:13 Albumin 3.6 g/dL (3.5-5.2) 07/13/22 17:13 Globulin 3.6 g/dL (1.3-4.6) 07/13/22 17:13 Discharge Plan Discharge Patient Disposition: Home Clinical Impression: COPD (chronic obstructive pulmonary disease) Condition: Stable Prescriptions: No Action budesonide-formoterol [Symbicort] 160-4.5 mcg/actuation HFA aerosol inhaler 2 puff inhalation BID Qty: 10.2 5RF acetaminophen [Tylenol Extra Strength] 500 mg Tablet 1,000 mg PO Q6H PRN (Reason: Pain) Aspir-81 81 mg Tablet,Delayed Release (Dr/Ec) 81 mg PO BEDTIME pantoprazole 40 mg tablet,delayed release (DR/EC) 40 mg PO DAILY PRN (Reason: Heartburn) amlodipine 10 mg tablet 10 mg PO DAILY@13 hydrocodone-acetaminophen 5-325 mg Tablet 1 tab PO Q6H PRN (Reason: Moderate Pain) Qty: 12 0RF clopidogrel 75 mg tablet 75 mg PO DAILY Qty: 30 0RF atorvastatin 40 mg tablet 40 mg PO DAILY Qty: 30 0RF Discharge Orders: Discharge ED (Routine); Ordered 07/13/22 Ordered By: Elvis Sharma Referrals: Shabana Encarnacion MD [Primary Care Provider] - Discharge Diet: Usual diet Discharge Activity: Increase activity as tolerated Patient Instructions: Opioid Safety, Pain Management Activity Restrictions/Additional Instructions: You were seen today for shortness of breath your chest x-ray was normal your labs are unremarkable I do recommend that you continue to use your oxygen regularly if you are having issues the oxygen delivery contacted the home health services supplies it for you. You should maintain on 2 to 3 L of oxygen at all times. Coding Level of Care Code ED Communications Superintendent for Chg Fwd Exam Detailed
[2022-07-13 17:35] LABS: Alanine Aminotransferase 19 U/L (0-41); Albumin Level 3.6 g/dL (3.5-5.2); Alkaline Phosphatase 151 U/L (40-130); Anion Gap 15.8 (5-19); Aspartate Amino Transferase 14 U/L (0-40); Blood Urea Nitrogen 9 mg/dL (8-23); Calcium 9.3 mg/dL (8.5-10.5); Carbon Dioxide 28 mmol/L (22-29); Chloride 98 mmol/L (98-107); Globulin 3.6 g/dL (1.3-4.6); Glomerular Filtration Rate 98.3 mL/min (90-130); Glucose 112 mg/dL (65-115); Osmolality Calculated 285 mOsm/kg (285-295); Potassium 3.8 mmol/L (3.5-5.1); Sodium 138 mmol/L (136-145); Total Bilirubin 0.5 mg/dL (0.15-1.2); Total Protein 7.2 g/dL (6.6-8.7)
[2022-07-13 17:49] LABS: Slide Review Slide Review Perform
--- NOTE | 2022-07-13 17:55 | CTR_ITS ---
PROCEDURE INFORMATION: Exam: CT Abdomen And Pelvis Without Contrast Exam date and time: 07/13/2022 6:42 PM Age: 62 years old Clinical indication: Abdominal pain; Acute TECHNIQUE: Imaging protocol: Computed tomography of the abdomen and pelvis without contrast. Radiation optimization: All CT scans at this facility use at least one of these dose optimization techniques: automated exposure control; mA and/or kV adjustment per patient size (includes targeted exams where dose is matched to clinical indication); or iterative reconstruction. Other protocol: This patient has received 5 known CTs and 0 known cardiac nuclear medicine studies in the 12 months prior to the current study. COMPARISON: CT abdomen pelvis w con* [id number] 10/26/2020 12:35 PM RADIATION DOSE METRICS: Total DLP (mGy-cm): 476.98 FINDINGS: Lungs: Minor atelectatic changes left lung base with the thin-walled air cyst, unchanged. Liver: Normal. No mass. Gallbladder and bile ducts: Normal. No calcified stones. No ductal dilation. Pancreas: Unremarkable. Main pancreatic duct is not significantly dilated. Spleen: Normal. No splenomegaly. Adrenal glands: Normal. No mass. Kidneys and ureters: Normal. No hydronephrosis. Stomach and bowel: Scattered diverticula large bowel without evidence of diverticulitis. Appendix: No evidence of appendicitis. Intraperitoneal space: Unremarkable. No free air. No significant fluid collection. Vasculature: Abdominal aorta and iliac vessels are diffusely calcified. There is no aortic aneurysm. Lymph nodes: Unremarkable. No enlarged lymph nodes. Urinary bladder: Bladder is not adequately distended limiting assessment however bladder wall does appear mildly thickened that may be secondary to bladder outlet obstruction syndrome. Reproductive: Prostate gland is moderately enlarged. Bones/joints: Evidence of bilateral avascular necrosis both femoral heads as well as a bone infarct left proximal femur unchanged. No fragmentation or collapse of the articular margins. Soft tissues: Unremarkable. CT/CT abdomen pelvis wo con [id number] IMPRESSION: 1. No acute findings within the abdomen or pelvis. 2. Evidence of bilateral AVN both femoral heads unchanged. 3. Additional nonemergent findings as above.
[2022-07-13 18:24] LABS: Add Urine Microscopic? YES; Bilirubin Urine Neg (Negative); Blood Urine 2+ (Negative); Glucose Urine UA Norm (Normal); Ketones Urine 2+ (Negative); Leukocyte Esterase Urine 1+ (Negative); Nitrate Urine Positive (Negative); Protein Urine Trace (Negative); Urine Appearance Hazy (CLEAR); Urine Color Yellow (Yellow); Urobilinogen Urine Neg (Negative); pH Urine 7 (5-7)
[2022-07-13 18:30] LABS: Add Urine Culture? Yes; Bacteria Urine 3+ /hpf; WBC Urine 55-80 /hpf (0-5)
[2022-07-13] MEDS: cefTRIAXone 1,000 MG in sodium chloride 0.9% (plus) 50 ML 100 MG IV (18:54)
--- NOTE | 2022-07-13 19:10 | PC.NURSE ---
Report received from Azra SAWYER. Patient alert. No complaints. Call light within reach.
--- NOTE | 2022-07-13 19:47 | P.HP_ITS ---
Providers/Chief Complaint Primary Care Provider: Shabana Encarnacion MD Chief Complaint: SOB History of Present Illness Hai Aparicio is a 62 year old male who recently had a stroke, as per the patient he was at [facility] where he went for carotid endarterectomy on left side for his right-sided stroke, he has significant right-sided weakness, dysphagia presenting today with chief complaint of worsening of shortness of breath and weakness. In the ER he has been diagnosed with UTI. CT abdomen pelvis unremarkable Significant white count on UA he has leukocytosis as well, no signs of sepsis he has been afebrile, lactic acid is normal no endorgan damage obtain COVID PCR Patient is stating that he has been using 2 L of oxygen since his carotid intervention He has been eating mechanical soft diet at home, Patient is stating his main reason to come to the hospital is shortness of breath. Chest x-ray unremarkable currently on 2 L, at the time of my evaluation patient looks very comfortable no acute respiratory distress Review of Systems Const: Reports: chills, body aches and fatigue Eyes: Denies: change in vision ENMT: Denies: throat pain Card: Denies: chest pain Resp: Reports: dyspnea GI: Denies: abdominal pain : Denies: flank pain Musc: Denies: neck pain Skin/Breast: Denies: rash Neuro: Reports: weakness in extremities Psych: Reports: depression Endo: Denies: polyuria Gera/Lymph: Denies: easy bruising All/Imm: Denies: urticaria Medications/Allergies Home Medications Medication Instructions Recorded Confirmed Last Taken Type acetaminophen 500 mg tablet 1,000 mg PO Q6H PRN Pain 08/27/20 06/23/22 06/22/22 History (Tylenol Extra Strength) budesonide-formoterol HFA 160 2 puff inhalation BID #10.2 grams 07/07/21 06/23/22 06/20/22 Rx mcg-4.5 mcg/actuation aerosol inhaler (Symbicort) hydrocodone 5 mg-acetaminophen 325 1 tab PO Q6H PRN Moderate Pain #12 06/22/22 06/23/22 Unknown Rx mg tablet tabs amlodipine 10 mg tablet 10 mg PO DAILY@13 06/23/22 06/23/22 Unknown History aspirin 81 mg tablet,delayed 81 mg PO BEDTIME 06/23/22 06/23/22 Unknown History release pantoprazole 40 mg tablet,delayed 40 mg PO DAILY PRN Heartburn 06/23/22 06/23/22 Unknown History release atorvastatin 40 mg tablet 40 mg PO DAILY #30 tabs 07/08/22 Unknown Rx clopidogrel 75 mg tablet 75 mg PO DAILY #30 tabs 07/08/22 Unknown Rx Allergies Allergy/AdvReac Type Severity Reaction Status Date / Time fluticasone [From Flonase] Allergy Unknown Verified 06/23/22 13:51 levofloxacin [From Levaquin] Allergy Unknown Verified 06/23/22 13:51 methylprednisolone Allergy Unknown Verified 06/23/22 13:51 [From Solu-Medrol] salmeterol AdvReac ADR-Nausea Verified 04/07/22 13:32 PFSH Acute PFSH: Medical History Anxiety CAD (coronary artery disease) Carotid stenosis Chest pain CKD (chronic kidney disease) COPD (chronic obstructive pulmonary disease) CVA (cerebral vascular accident) Epigastric abdominal pain GERD (gastroesophageal reflux disease) HTN (hypertension) Hyperlipidemia Hypoxia Iliac artery occlusion Obstructive apnea Palpitation PVD (peripheral vascular disease) Shortness of breath Umbilical hernia Family History Other CAD (coronary artery disease) Cancer Social History Smoking and tobacco status: former smoker (12 years ago) Quit status (tobacco): has quit using tobacco Year quit tobacco: 2009 - 2PPD x 37 Years Second hand smoke exposure: No Alcohol intake: never Caregiver/support person: Yes Lives independently: Yes Household members: none Marital status: Unknown service: No Current occupational status: unemployed Previous occupational history: [employer] History of recent travel: No Current gender identity: Male Special karli needs: No Vitals/I&O/Wt Last Vital Signs Temp 97.5 F L 07/13/22 18:17 Pulse 114 H 07/13/22 18:17 Resp 25 H 07/13/22 18:17 BP 143/72 07/13/22 16:39 Pulse Ox 99 07/13/22 18:17 O2 Del Method 07/13/22 18:17 O2 Flow Rate 2 07/13/22 18:17 07/13/22 07/13/22 07/13/22 06:59 14:59 22:59 Intake Total 50 / 50 Balance 50 / 50 Weight last 48 hrs Weight 86.183 kg Physical Exam Narrative: Patient is laying supine No active respiratory distress No chest pain Currently on 2 L Bilateral breath sounds with rhonchi Very fatigued and lethargic Nasal tone Abdomen soft Lower extremity no edema Right-sided weakness as compared to left Able to lift his legs in the air against gravity Able to follow commands Left carotid scar Appears more than stated age Looksunkept Data 07/13/22 17:13 07/13/22 17:13 Micro: Microbiology 07/13/22 18:28 Blood Culture - Preliminary Blood SPECIMEN COLLECTED 07/13/22 18:28 Blood Culture - Preliminary Blood SPECIMEN COLLECTED A&P Assessment and plan (1) History of CVA with residual deficit: (2) Acute cystitis: (3) Chronic back pain: (4) Avascular necrosis of bones of both hips: (5) Obstructive apnea: (6) PVD (peripheral vascular disease): (7) Anxiety: (8) COPD (chronic obstructive pulmonary disease): Plan Acute UTI Start ceftriaxone Pelvis did not show any abnormal anatomy or obstructive uropathy Follow-up with urine culture No signs of sepsis However significant leukocytosis noted He is afebrile lactic acid is normal without endorgan damage Dyspnea at rest requiring 2 L of oxygen which is his baseline requirement Chest x-ray unremarkable No acute respiratory distress We will request COVID PCR History of avascular necrosis of hips bilaterally Will request PT evaluation Patient is very fatigued and lethargic I do believe he might need some rehab Full code DVT prophylaxis on board I will put him on mechanical soft diet and require speech therapy Attestations Medical Necessity Statement*: Anticipating discharge within 48 hours Time Spent in Patient Care: 30 Coding Level of Care Code Acute Code for Chg Fwd Diagnoses History of CVA with residual deficit I69.30 Acute cystitis N30.00 Chronic back pain M54.9; G89.29 Avascular necrosis of bones of both hips M87.051; M87.052 Obstructive apnea G47.33 PVD (peripheral vascular disease) I73.9 Anxiety F41.9 COPD (chronic obstructive pulmonary disease) J44.9
[2022-07-13] MEDS: ondansetron 2 mg/ML SDV 2 mL 4 MG IVP (19:52)
[2022-07-13] MEDS: morphine 4 mg/mL SDV 1 mL IVP (19:53)
[2022-07-13 21:09] LABS: Estmated Average Glucose 137; Hemoglobin A1C 6.4 % (4.0-6.0)
[2022-07-13] MEDS: amlodipine 10 mg Tablet PO (21:23)
[2022-07-13] MEDS: enoxaparin 40 mg/0.4 mL Syringe SUBCUT (21:23)
[2022-07-13] MEDS: sodium chloride 0.9% 1,000 ML 75 ML IV (21:24)
[2022-07-13] MEDS: morphine IR 15 mg Tablet PO (21:33)
[2022-07-13 21:37] LABS: Vitamin B12 549 pg/mL (232-1245)
[2022-07-13 22:56] LABS: Adenovirus Not Detected (NOT DETECT); Chlamydia Pneumoniae Not Detected (NOT DETECT); Coronavirus 229E,HKU1,NL63,OC4 Not Detected (NOT DETECT); Human Metapneumovirus Not Detected (NOT DETECT); Human Rhinovirus/Enterovirus Not Detected (NOT DETECT); Influenza A Not Detected (NOT DETECT); Influenza A H1 Not Detected (NOT DETECT); Influenza A H1-2009 Not Detected (NOT DETECT); Influenza A H3 Not Detected (NOT DETECT); Influenza B Not Detected (NOT DETECT); Mycoplasma Pneumoniae Not Detected (NOT DETECT); Parainfluenza Virus Type 1 Not Detected (NOT DETECT); Parainfluenza Virus Type 2 Not Detected (NOT DETECT); Parainfluenza Virus Type 3 Not Detected (NOT DETECT); Parainfluenza Virus Type 4 Not Detected (NOT DETECT); Respiratory Syncytial Virus A Not Detected (NOT DETECT); Respiratory Syncytial Virus B Not Detected (NOT DETECT); SARS-COV-2 Detected (NOT DETECT)
[2022-07-14] VITALS (11 sets, daily range): BP systolic 101–123; BP diastolic 61–72; PULSE 66–106; RESP 15–21; TEMP 36.2–37.3; O2SAT 94–97
[2022-07-14] MEDS: remdesivir 200 MG in sodium chloride 0.9% (100 ml) 60 ML 100 MG IV (04:02)
[2022-07-14 05:57] LABS: Basophils # 0.1 10^3/uL (0.0-0.1); Basophils % 0.3 %; Eosinophils # 0.1 10^3/uL (0.0-0.8); Eosinophils % 0.4 %; Hematocrit 37.3 % (42.0-52.0); Hemoglobin 11.9 g/dL (11.7-16.6); Lymphocytes # 1.5 10^3/uL (0.8-4.8); Lymphocytes % 8.5 %; Mean Corpuscular HGB Conc 31.9 g/dL (30.0-36.0); Mean Corpuscular Hemoglobin 27.9 pg (28.0-34.0); Mean Corpuscular Volume 87.6 fl (80-94); Mean Platelet Volume 10.8 fL (7.4-10.4); Monocytes # 1.5 10^3/uL (0.2-0.9); Monocytes % 8.3 %; Neutrophils # 14.43 10^3/uL (1.8-7.7); Neutrophils % 81.4 %; Nucleated Red Blood Cells % 0 %; Platelet Count 426 10^3/cmm (130-400); Red Blood Count 4.26 10^6/uL (4.1-5.3); Red Cell Distribution Width 13.6 % (12.1-15.1); White Blood Count 17.7 10^3/uL (4.0-10.0)
[2022-07-14 06:32] LABS: Anion Gap 18.4 (5-19); Blood Urea Nitrogen 10 mg/dL (8-23); C Reactive Protein 170.7 mg/L (0.0-4.9); Calcium 8.3 mg/dL (8.5-10.5); Carbon Dioxide 23 mmol/L (22-29); Chloride 102 mmol/L (98-107); Glucose 91 mg/dL (65-115); Magnesium 1.4 mg/dL (1.7-2.3); Osmolality Calculated 289 mOsm/kg (285-295); Phosphorus 2.7 mg/dL (2.5-4.5); Potassium 3.4 mmol/L (3.5-5.1); Sodium 140 mmol/L (136-145)
[2022-07-14 08:16] LABS: Procalcitonin 0.16 ng/mL (0-0.5)
[2022-07-14] MEDS: dexamethasone 4 mg Tablet 6 MG PO (10:15)
[2022-07-14] MEDS: clopidogrel 75 mg Tablet PO (10:17)
[2022-07-14] MEDS: pantoprazole DR 40 mg Tablet PO (10:17)
[2022-07-14] MEDS: aspirin 81 mg EC Tablet PO (10:17)
[2022-07-14] MEDS: sodium chloride 0.9% 1,000 ML 75 ML IV ×2 (10:30→23:37)
--- NOTE | 2022-07-14 12:07 | PM.PN ---
Subjective Subjective: seen this am no acute events overnight pt still feels short of breath requiring 2L O2 which is his baseline coughing says he is not feeling better Vitals/I&O/Wt Last Vital Signs Temp 99.1 F 07/14/22 08:00 Pulse 89 07/14/22 08:00 Resp 16 07/14/22 08:00 BP 117/66 07/14/22 08:00 Pulse Ox 96 07/14/22 08:00 O2 Del Method 07/14/22 08:00 O2 Flow Rate 2 07/14/22 08:00 07/13/22 07/14/22 07/14/22 22:59 06:59 14:59 Intake Total 170 / 170 200 / 370 982.5 / 982.5 Balance 170 / 170 200 / 370 982.5 / 982.5 Weight last 48 hrs Weight 74.021 kg Weight 72.717 kg Weight 86.183 kg Physical Exam Narrative: Patient is laying supine No active respiratory distress No chest pain Currently on 2 L Bilateral breath sounds with rhonchi appears awake and alert Abdomen soft Lower extremity no edema Right-sided weakness as compared to left Able to lift his legs in the air against gravity Able to follow commands Left carotid scar Appears more than stated age Data 07/14/22 05:11 07/14/22 05:11 Micro: Microbiology 07/13/22 18:02 Urine Culture - Preliminary Urine,Clean Catch Gram Negative Rods 07/13/22 18:28 Blood Culture - Preliminary Blood SPECIMEN COLLECTED 07/13/22 18:28 Blood Culture - Preliminary Blood SPECIMEN COLLECTED A&P Assessment and plan (1) History of CVA with residual deficit: (2) Acute cystitis: (3) Chronic back pain: (4) Avascular necrosis of bones of both hips: (5) Obstructive apnea: (6) PVD (peripheral vascular disease): (7) Anxiety: (8) COPD (chronic obstructive pulmonary disease): Plan Acute UTI Start ceftriaxone Pelvis did not show any abnormal anatomy or obstructive uropathy Follow-up with urine culture No signs of sepsis However significant leukocytosis noted He is afebrile lactic acid is normal without endorgan damage Dyspnea at rest requiring 2 L of oxygen which is his baseline requirement Chest x-ray unremarkable No acute respiratory distress We will request COVID PCR History of avascular necrosis of hips bilaterally Will request PT evaluation Patient is very fatigued and lethargic I do believe he might need some rehab Full code DVT prophylaxis on board I will put him on mechanical soft diet and require speech therapy Attestations Medical Necessity Statement*: Anticipating discharge within 48 hours Time Spent in Patient Care: 15 Coding Level of Care Code Acute Code for Chg Fwd Diagnoses History of CVA with residual deficit I69.30 Acute cystitis N30.00 Chronic back pain M54.9; G89.29 Avascular necrosis of bones of both hips M87.051; M87.052 Obstructive apnea G47.33 PVD (peripheral vascular disease) I73.9 Anxiety F41.9 COPD (chronic obstructive pulmonary disease) J44.9
[2022-07-14] MEDS: cefTRIAXone 1,000 MG in sodium chloride 0.9% (plus) 50 ML 100 MG IV (18:11)
[2022-07-14] MEDS: enoxaparin 40 mg/0.4 mL Syringe SUBCUT (20:27)
[2022-07-14] MEDS: morphine IR 15 mg Tablet PO (23:37)
[2022-07-15 02:17] LABS: Basophils % 0.1 %; Hematocrit 36.9 % (42.0-52.0); Hemoglobin 11.6 g/dL (11.7-16.6); Lymphocytes # 0.7 10^3/uL (0.8-4.8); Lymphocytes % 5.9 %; Mean Corpuscular HGB Conc 31.4 g/dL (30.0-36.0); Mean Corpuscular Hemoglobin 27.5 pg (28.0-34.0); Mean Corpuscular Volume 87.4 fl (80-94); Mean Platelet Volume 10.8 fL (7.4-10.4); Monocytes # 0.6 10^3/uL (0.2-0.9); Monocytes % 5.3 %; Neutrophils # 10.44 10^3/uL (1.8-7.7); Neutrophils % 87.5 %; Nucleated Red Blood Cells % 0 %; Platelet Count 469 10^3/cmm (130-400); Red Blood Count 4.22 10^6/uL (4.1-5.3); Red Cell Distribution Width 13.6 % (12.1-15.1); White Blood Count 11.9 10^3/uL (4.0-10.0)
[2022-07-15 02:29] LABS: Anion Gap 14.4 (5-19); Blood Urea Nitrogen 8 mg/dL (8-23); Calcium 8.7 mg/dL (8.5-10.5); Carbon Dioxide 25 mmol/L (22-29); Chloride 104 mmol/L (98-107); Glomerular Filtration Rate 114.6 mL/min (90-130); Glucose 162 mg/dL (65-115); Osmolality Calculated 290 mOsm/kg (285-295); Potassium 4.4 mmol/L (3.5-5.1); Sodium 139 mmol/L (136-145)
[2022-07-15 03:51] VITALS: BP 106/56; PULSE 57; RESP 18; TEMP 36.2; O2SAT 97
[2022-07-15 08:00] VITALS: BP 120/66; PULSE 52; RESP 15; TEMP 36.6; O2SAT 98
--- NOTE | 2022-07-15 10:28 | PM.DCS ---
Discharge Providers Date of Admission: 07/14/22 15:09 Date of Discharge: July 15, 2022 Attending Provider at Admission: Lauren Bean MD Attending Provider at Discharge: Betsy Scott MD Primary Care Provider: Shabana Encarnacion MD Diagnoses at Discharge Discharge Diagnosis (1) History of CVA with residual deficit: Status: Acute (2) Acute cystitis: Status: Acute (3) Chronic back pain: Status: Acute (4) Avascular necrosis of bones of both hips: Status: Acute (5) Obstructive apnea: Status: Acute (6) PVD (peripheral vascular disease): Status: Acute (7) Anxiety: Status: Acute (8) COPD (chronic obstructive pulmonary disease): Status: Acute Reason for Visit Reason for Visit: SOB Brief History: Hai Aparicio is a 62 year old male who recently had a stroke, as per the patient he was at [facility] where he went for carotid endarterectomy on left side for his right-sided stroke, he has significant right-sided weakness, dysphagia presenting today with chief complaint of worsening of shortness of breath and weakness.? In the ER he has been diagnosed with UTI.? CT abdomen pelvis unremarkable Significant white count on UA he has leukocytosis as well, no signs of sepsis he has been afebrile, lactic acid is normal no endorgan damage obtain COVID PCR Patient is stating that he has been using 2 L of oxygen since his carotid intervention He has been eating mechanical soft diet at home, Patient is stating his main reason to come to the hospital is shortness of breath.? Chest x-ray unremarkable currently on 2 L, at the time of my evaluation patient looks very comfortable no acute respiratory distress Hospital Course Hospital Course Patient admitted for acute UTI and was positive for COVID. He was treated with ceftriaxone initially. Urine culture grows Proteus mirabilis sensitive to Augmentin and ceftriaxone. Leukocytosis has resolved as well. Lactic acid normal without endorgan damage. Patient was also seen by physical therapy during hospital stay and home health or home exercise program has been recommended at this time. From COVID standpoint he has been requiring 2 L of oxygen which is his baseline requirement. He is no longer feeling actively short of breath. He did receive remdesivir and dexamethasone during hospital stay. Patient does have a nebulizer at home. I will prescribe him DuoNeb, albuterol inhaler, dexamethasone for another 3 days at discharge. He was also given Augmentin for 7 days at discharge. He is to follow-up with his primary care doctor at discharge. Patient states he feels well and is okay to go home today. All questions were answered to patient satisfaction. Physical Exam Narrative: Patient is laying supine No active respiratory distress No chest pain Currently on 2 L Bilateral breath sounds with rhonchi but much improved compared to admission. appears awake and alert Abdomen soft Lower extremity no edema Right-sided weakness as compared to left Left carotid scar Appears more than stated age Discharge Data Studies Completed and Pending Completed Studies During Hospitalization Category Date Time Status CT abdomen pelvis wo con [id number] Stat Cat Scan 07/13/22 17:55 Completed XR chest 1V portable [id number] Stat Exams 07/13/22 16:57 Completed Pending at discharge Category Date Time Status Blood Culture Stat Lab 07/13/22 18:28 Results Urine Culture Stat Lab 07/13/22 18:02 Results Radiology Impressions Chest X-Ray 07/13/22 16:57 IMPRESSION: No acute findings. Abdomen/Pelvis CT 07/13/22 17:55 IMPRESSION: 1. No acute findings within the abdomen or pelvis. 2. Evidence of bilateral AVN both femoral heads unchanged. 3. Additional nonemergent findings as above. Laboratory Results WBC 11.9 10^3/uL (4.0-10.0) H 07/15/22 01:41 RBC 4.22 10^6/uL (4.1-5.3) 07/15/22 01:41 Hgb 11.6 g/dL (11.7-16.6) L 07/15/22 01:41 Hct 36.9 % (42.0-52.0) L 07/15/22 01:41 MCV 87.4 fl (80-94) 07/15/22 01:41 MCH 27.5 pg (28.0-34.0) L 07/15/22 01:41 MCHC 31.4 g/dL (30.0-36.0) 07/15/22 01:41 RDW 13.6 % (12.1-15.1) 07/15/22 01:41 Plt Count 469 10^3/cmm (130-400) H 07/15/22 01:41 MPV 10.8 fL (7.4-10.4) H 07/15/22 01:41 Neut % (Auto) 87.5 % 07/15/22 01:41 Lymph % (Auto) 5.9 % 07/15/22 01:41 [place] % (Auto) 5.3 % 07/15/22 01:41 Eos % (Auto) 0.0 % 07/15/22 01:41 Baso % (Auto) 0.1 % 07/15/22 01:41 Neut # (Auto) 10.44 10^3/uL (1.8-7.7) H 07/15/22 01:41 Lymph # (Auto) 0.7 10^3/uL (0.8-4.8) L 07/15/22 01:41 [place] # (Auto) 0.6 10^3/uL (0.2-0.9) 07/15/22 01:41 Eos # (Auto) 0.0 10^3/uL (0.0-0.8) 07/15/22 01:41 Baso # (Auto) 0.0 10^3/uL (0.0-0.1) 07/15/22 01:41 Nucleated RBC % (auto) 0 % 07/15/22 01:41 Nucleated RBCs # 0.0 /100WBC 07/15/22 01:41 Sodium 139 mmol/L (136-145) 07/15/22 01:41 Potassium 4.4 mmol/L (3.5-5.1) 07/15/22 01:41 Chloride 104 mmol/L (98-107) 07/15/22 01:41 Carbon Dioxide 25 mmol/L (22-29) 07/15/22 01:41 Anion Gap 14.4 (5-19) 07/15/22 01:41 BUN 8 mg/dL (8-23) 07/15/22 01:41 Creatinine 0.7 mg/dL (0.7-1.2) 07/15/22 01:41 GFR Calculation 114.6 mL/min (90-130) 07/15/22 01:41 Glucose 162 mg/dL (65-115) H 07/15/22 01:41 Estimat Average Glucose 137 07/13/22 17:13 Hemoglobin A1c 6.4 % (4.0-6.0) H 07/13/22 17:13 Calculated Osmolality 290 mOsm/kg (285-295) 07/15/22 01:41 Lactic Acid 2.0 mmol/L (0.5-2.2) 07/13/22 18:28 Calcium 8.7 mg/dL (8.5-10.5) 07/15/22 01:41 Phosphorus 2.7 mg/dL (2.5-4.5) 07/14/22 05:11 Magnesium 1.4 mg/dL (1.7-2.3) L 07/14/22 05:11 Total Bilirubin 0.5 mg/dL (0.15-1.2) 07/13/22 17:13 AST 14 U/L (0-40) 07/13/22 17:13 ALT 19 U/L (0-41) 07/13/22 17:13 Alkaline Phosphatase 151 U/L (40-130) H 07/13/22 17:13 C-Reactive Protein 170.7 mg/L (0.0-4.9) H 07/14/22 05:11 Total Protein 7.2 g/dL (6.6-8.7) 07/13/22 17:13 Albumin 3.6 g/dL (3.5-5.2) 07/13/22 17:13 Globulin 3.6 g/dL (1.3-4.6) 07/13/22 17:13 Vitamin B12 549 pg/mL (232-1245) 07/13/22 17:13 Procalcitonin 0.16 ng/mL (0-0.5) 07/14/22 05:11 TSH 1.00 uIU/mL (0.27-4.20) 07/13/22 17:13 Urine Color Yellow (Yellow) 07/13/22 18:02 Urine Appearance Hazy (CLEAR) A 07/13/22 18:02 Urine pH 7 (5-7) 07/13/22 18:02 Ur Specific [place] 1.010 (1.005-1.030) 07/13/22 18:02 Urine Protein Trace (Negative) 07/13/22 18:02 Urine Glucose (UA) Norm (Normal) 07/13/22 18:02 Urine Ketones 2+ (Negative) H 07/13/22 18:02 Urine Blood 2+ (Negative) H 07/13/22 18:02 Urine Nitrate Positive (Negative) H 07/13/22 18:02 Urine Bilirubin Neg (Negative) 07/13/22 18:02 Urine Urobilinogen Neg mg/dL (Negative) 07/13/22 18:02 Ur Leukocyte Esterase 1+ (Negative) H 07/13/22 18:02 Urine RBC 5-10 /hpf (0-2) H 07/13/22 18:02 Urine WBC 55-80 /hpf (0-5) H 07/13/22 18:02 Ur Squamous Epith Cells None /hpf (0-5) 07/13/22 18:02 Amorphous Sediment Not Reportable 07/13/22 18:02 Urine Bacteria 3+ /hpf (NONE) H 07/13/22 18:02 Coronavirus 229E (PCR) Not detected (NOT DETECT) 07/13/22 21:07 SARS-CoV-2 (PCR) Detected (NOT DETECT) A 07/13/22 21:07 Vitals Last Vital Signs Temp 98 F 07/15/22 08:00 Pulse 52 L 07/15/22 08:00 Resp 15 07/15/22 08:00 BP 120/66 07/15/22 08:00 Pulse Ox 98 07/15/22 08:00 O2 Del Method 07/15/22 03:51 O2 Flow Rate 2 07/15/22 03:51 Discharge Plan Discharge Patient Disposition: Home Condition: Stable Prescriptions: New albuterol sulfate 90 mcg/actuation HFA aerosol inhaler 2 inh inhalation Q4H PRN (Reason: shortness of breath or wheezing) Qty: 8.5 0RF dexamethasone 6 mg tablet 6 mg PO DAILY 3 Days Qty: 3 0RF ipratropium-albuterol 0.5 mg-3 mg(2.5 mg base)/3 mL solution for nebulization 3 ml inhalation Q6H PRN (Reason: shortness of breath or wheezing) 14 Days Qty: 90 0RF amoxicillin-pot clavulanate 875-125 mg tablet 1 tab PO BID 7 Days Qty: 14 0RF Continued budesonide-formoterol [Symbicort] 160-4.5 mcg/actuation HFA aerosol inhaler 2 puff inhalation BID Qty: 10.2 5RF acetaminophen [Tylenol Extra Strength] 500 mg Tablet 1,000 mg PO Q6H PRN (Reason: Pain) aspirin 81 mg Tablet,Delayed Release (Dr/Ec) 81 mg PO BEDTIME pantoprazole 40 mg tablet,delayed release (DR/EC) 40 mg PO DAILY PRN (Reason: Heartburn) hydrocodone-acetaminophen 5-325 mg Tablet 1 tab PO Q6H PRN (Reason: Moderate Pain) Qty: 12 0RF clopidogrel 75 mg tablet 75 mg PO DAILY Qty: 30 0RF atorvastatin 40 mg tablet 40 mg PO DAILY Qty: 30 0RF Discontinued amlodipine 10 mg tablet 10 mg PO DAILY@13 Discharge Orders: Discharge Order (Routine); Ordered 07/15/22 Ordered By: Betsy Scott Referrals: Shabana Encarnacion MD [Primary Care Provider] - 4-7 days Discharge Diet: Usual diet Discharge Activity: Increase activity as tolerated Patient Instructions: Opioid Safety, Pain Management Activity Restrictions/Additional Instructions: I do recommend that you continue to use your oxygen regularly if you are having issues the oxygen delivery contacted the home health services supplies it for you. You should maintain on 2 to 3 L of oxygen at all times. Ensure completion of antibiotics prescribed. You may also use your nebulizer and take breathing treatments as needed every 4-6 hours. Follow up with your primary care doctor as directed Home health will be setup for you. Discharge Attestations Time Spent in Discharge Care*: less than 30 min Status at Discharge: Cognitive status at discharge: cognitively intact, Behavioral status at discharge: cooperative, Quality Metrics Clinical Quality Measures [ No reported AMI, CVA or VTE this stay] Coding Level of Care Code Acute Code for Chg Fwd Diagnoses History of CVA with residual deficit I69.30 Acute cystitis N30.00 Chronic back pain M54.9; G89.29 Avascular necrosis of bones of both hips M87.051; M87.052 Obstructive apnea G47.33 PVD (peripheral vascular disease) I73.9 Anxiety F41.9 COPD (chronic obstructive pulmonary disease) J44.9
[2022-07-15] MEDS: clopidogrel 75 mg Tablet PO (11:14)
[2022-07-15] MEDS: pantoprazole DR 40 mg Tablet PO (11:14)
[2022-07-15] MEDS: aspirin 81 mg EC Tablet PO (11:15)
[2022-07-15] MEDS: dexamethasone 4 mg Tablet 6 MG PO (11:15)
--- NOTE | 2022-07-15 11:48 | PC.CHAP ---
Pastoral Care Encounter/Spiritual Assessment Type of Contact [] Declined stationary fireman visit [] Patient/Family/Request visit [] Outpatient visit [] Follow-up visit [] Physician referral [] Code/Alert [x] Routine visit [] Staff referral [] Actively dying [] Patient sleeping [] Family support [] [] Out of room [] Palliative care [] [] Receiving care in room [] Pre-surgical visit [] Trauma [] Long length of stay [] ICU visit [] Other: Relational/Emotional Strength [] Patient feels connected with others/family/visitors/staff [] Distress [] Loneliness/isolation [] Abandonment Spirituality of Patient [] Person of Nydia [] Attends Caodaism of their Nydia [] Believes in Prayer [] Reads Bible or Caodaism materials [] There are Spiritual issues to be addressed Healthcare Customer Service Interventions [x] Prayer [] Active listening [] Non-anxious presence [] Spiritual/emotional support [] Crisis/trauma care [] Spiritual counseling [] Bereavement support [] Provided bereavement packet [] Provided Bible/devotional materials [] Provided toy/stuffed animal, coloring book to patient or family member [] Provided Communion [] Anointing/[place] [] Salvation [] Completed spiritual assessment [] Other: Impact on Illness or Injury [] Angry [] Fearful [] Anxious [] Often cries [] Exhaustion [] Unable to work [] Unable to attend sikhism [] Unable to walk/stand [] Unable to read [] Unable to drive [] Unable to eat/drink [] Unable to sleep [] Unable to be with family [] Patient intubated [] Other: Summary Time spent with patient 5 min
[2022-07-15 12:00] VITALS: BP 124/72; PULSE 61; RESP 17; TEMP 36.6; O2SAT 98
== END 2022-07-15 14:33 | disposition home health service (06) | DRG 178 ==
LOC: ER 19:43 → MEDSURG 21:52
PROVIDERS: Family Medicine; Admitting Provider Internal Medicine; Emergency Provider Emergency Medicine; PCP Family Medicine; Visit Provider Internal Medicine
DX: U07.1 COVID-19 (principal); I69.351 Hemiplegia and hemiparesis following cerebral infarction affecting right dominant side; N30.00 Acute cystitis without hematuria; M87.051 Idiopathic aseptic necrosis of right femur; M87.052 Idiopathic aseptic necrosis of left femur; I25.10 Atherosclerotic heart disease of native coronary artery without angina pectoris; I12.9 Hypertensive chronic kidney disease with stage 1 through stage 4 chronic kidney disease, or unspecified chronic kidney disease; N18.9 Chronic kidney disease, unspecified; J44.9 Chronic obstructive pulmonary disease, unspecified; E78.5 Hyperlipidemia, unspecified; G47.30 Sleep apnea, unspecified; K21.9 Gastro-esophageal reflux disease without esophagitis; I73.9 Peripheral vascular disease, unspecified; Z87.891 Personal history of nicotine dependence
CPT/HCPCS: 36415; 71045; 74176; 80048; 80053; 81001; 82607; 83036; 83605; 83735; 84100; 84145; 84443; 85025; 86140; 87040; 87077; 87086; 87186; 87635; 92523; 92524; 92526; 92610; 93005; 94664; 96365; 96372; 96375; 97161; 97530; 99285; G0378; J0248; J0696; J1650; J2270; J2405; J7030; J8540

== ENCOUNTER → 2022-07-19 15:44 | Outpatient (BNVA) | payer MEDICARE, SELFPAY | PROVIDERS: PCP Family Medicine; Visit Provider Family Medicine | DX: U07.1 COVID-19 (principal); N30.00 Acute cystitis without hematuria; R05.3 Chronic cough; U09.9 Post COVID-19 condition, unspecified | CPT/HCPCS: 87426 ==

== ENCOUNTER → 2022-07-20 08:24 | Outpatient (BNVA) | payer MEDICARE, SELFPAY | PROVIDERS: PCP Family Medicine; Visit Provider Thoracic Surgery (Cardiothoracic Vascular Surgery) | DX: Z51.89 Encounter for other specified aftercare (principal) | CPT/HCPCS: 99213 ==

== ENCOUNTER 2022-07-25 18:20 | Emergency (ER) | payer MEDICARE, SELFPAY ==
--- NOTE | 2022-07-25 18:22 | XRR_ITS ---
PROCEDURE INFORMATION: Exam: XR Chest Exam date and time: 07/25/2022 6:32 PM Age: 62 years old Clinical indication: Shortness of breath; Additional info: SOB TECHNIQUE: Imaging protocol: Radiologic exam of the chest. Views: 1 view. COMPARISON: CR (CHEST, ) 07/13/2022 5:00 PM FINDINGS: Lungs: Hyperinflated lungs. No consolidation. Pleural spaces: No pleural effusion. No pneumothorax. Heart/Mediastinum: No cardiomegaly. Bones/joints: Visualized osseous structures are intact. XR/XR chest 1V portable [id number] IMPRESSION: No acute findings.
--- NOTE | 2022-07-25 18:22 | ECG_ITS ---
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 Measurements Intervals Bernie Rate: 111 P: 81 HI: 142 QRS: 89 QRSD: 87 T: 78 QT: 320 QTc: 435 Interpretive Statements SINUS TACHYCARDIA Compared to ECG 07/13/2022 17:30:31 T-wave abnormality no longer present Electronically Signed On 07-26-2022 7:44:49 NEUROPSYCHOLOGY MEDICAL CONSULTANT by Ivan Graves M.D. [id number]
--- NOTE | 2022-07-25 18:34 | PC.NURSE ---
CALL TO LOBBY NO ANSWER.
[2022-07-25 18:41] VITALS: BP 132/72; PULSE 114; RESP 20; TEMP 36.8; O2SAT 97
[2022-07-25 19:00] LABS: Basophils # 0.1 10^3/uL (0.0-0.1); Basophils % 0.3 %; Eosinophils # 0.2 10^3/uL (0.0-0.8); Eosinophils % 1.2 %; Hematocrit 45.8 % (42.0-52.0); Hemoglobin 14.7 g/dL (11.7-16.6); Lymphocytes # 2.7 10^3/uL (0.8-4.8); Lymphocytes % 15.6 %; Mean Corpuscular HGB Conc 32.1 g/dL (30.0-36.0); Mean Corpuscular Hemoglobin 28.1 pg (28.0-34.0); Mean Corpuscular Volume 87.4 fl (80-94); Mean Platelet Volume 10.4 fL (7.4-10.4); Monocytes # 1.7 10^3/uL (0.2-0.9); Neutrophils # 12.28 10^3/uL (1.8-7.7); Neutrophils % 71.8 %; Nucleated Red Blood Cells % 0 %; Platelet Count 380 10^3/cmm (130-400); Red Blood Count 5.24 10^6/uL (4.1-5.3); Red Cell Distribution Width 14.3 % (12.1-15.1); White Blood Count 17.1 10^3/uL (4.0-10.0)
--- NOTE | 2022-07-25 19:06 | W.ED.SOB ---
HPI - SOB/Dyspnea General: Chief Complaint: Shortness of Breath/Dyspnea Stated Complaint: SOB Time Seen by Provider: 07/25/22 18:57 Source: patient and family Limitations: no limitations History of Present Illness: HPI Narrative: See nursing assessment. Patient states she has had shortness of breath starting today. He has not been wearing his prescribed oxygen today. Patient had recent CVA couple days after carotid endarterectomy. Patient reportedly had left carotid endarterectomy on June 21, [address] Little. Patient had acute CVA 2 days later and was sent to [facility] and spent a few weeks there. Patient presently taking Plavix and aspirin as anticoagulants. Patient takes Symbicort and albuterol for his COPD. He states he quit smoking about 14 years ago. He denies any fever. Denies any chills. Associated symptoms: Deny abdominal pain, chest pain, fever(s), nausea, palpitations or vomiting Review of Systems Const: Denies: fever(s) or chills Eyes: Denies: change in vision ENMT: Denies: throat pain Card: Denies: chest pain or palpitations Resp: Reports: dyspnea and wheezing; Denies: productive cough or non-productive cough GI: Denies: abdominal pain, nausea or vomiting : Denies: flank pain Musc: Denies: neck pain or back pain Skin/Breast: Denies: rash or pruritus Neuro: Denies: headache(s) or numbness in extremities Psych: Denies: anxiety Gera/Lymph: Denies: enlarged lymph nodes PFSH ED PFSH: Medical History Anxiety CAD (coronary artery disease) Carotid stenosis Chest pain CKD (chronic kidney disease) COPD (chronic obstructive pulmonary disease) CVA (cerebral vascular accident) Epigastric abdominal pain GERD (gastroesophageal reflux disease) HTN (hypertension) Hyperlipidemia Hypoxia Iliac artery occlusion Obstructive apnea Palpitation PVD (peripheral vascular disease) Shortness of breath Umbilical hernia Family History Other CAD (coronary artery disease) Cancer Social History Smoking and tobacco status: former smoker (12 years ago) Quit status (tobacco): has quit using tobacco Year quit tobacco: 2009 - 2PPD x 37 Years Second hand smoke exposure: No Alcohol intake: never Caregiver/support person: Yes Lives independently: Yes Household members: none Marital status: Unknown service: No Current occupational status: unemployed Previous occupational history: [employer] History of recent travel: No Current gender identity: Male Special karli needs: No Physical Exam Const: COMMON NORMALS: no acute distress, patient oriented x3, no limitations and well nourished GENERAL APPEARANCE: cooperative HENMT: COMMON NORMALS: normocephalic and atraumatic HEAD & SCALP: normocephalic and atraumatic FACE & SINUS: normal facial exam Eye: COMMON NORMALS: EOMs intact bilaterally Neck/C-Spine: COMMON NORMALS: full ROM, no lymphadenopathy, supple and no meningeal signs GENERAL: Yes normal visual inspection Lymph: LYMPHATIC: no lymphadenopathy noted Chest: COMMONS NORMALS: normal inspection of the chest and normal palpation of entire chest wall CHEST: No Ecchymosis present and No rash Resp: COMMON NORMALS: normal respiratory effort, No retractions and clear to auscultation bilaterally EFFORT & INSPECTION: No respiratory distress AUSCULTATION: clear to auscultation bilaterally Cardio: COMMON NORMALS: regular rhythm and Peripheral pulses 2+ throughout JUGULAR VENOUS DISTENTION: no JVD RATE: tachycardic RHYTHM: regular rhythm HEART SOUNDS: Murmur heart sound present (Murmur over left upper sternal border.) diastolic PERIPHERAL PULSES: Peripheral pulses 2+ throughout GI: COMMON NORMALS: Normal to inspection, nondistended, normoactive bowel sounds present and non-tender : COMMON NORMALS: Yes no CVA tenderness BLADDER/KIDNEY EXAM: Yes no CVA tenderness Back/Pelvis: COMMON NORMALS: no CVA tenderness Extremity: COMMON NORMALS: normal to inspection, full ROM and capillary refill normal Neuro: COMMON NORMALS: patient oriented x3, CN's II-XII intact bilaterally, no focal motor deficits and no sensory deficits noted MENINGEAL SIGNS: Yes no meningeal signs Psych: COMMON NORMALS: mental status grossly normal and Normal thought process present THOUGHT PROCESS: Normal thought process present Skin: COMMON NORMALS: no rashes or lesions noted and no wounds GENERAL SKIN EXAM: no rashes or lesions noted Course Vital Signs: Vital signs: Vital Signs Temperature 98.1 F 07/25/22 20:48 Pulse Rate 104 H 07/25/22 20:48 Respiratory Rate 16 07/25/22 20:48 Blood Pressure 105/77 07/25/22 20:48 Pulse Oximetry 98 07/25/22 20:48 Oxygen Delivery Me thod 07/25/22 20:48 MDM - SOB/Dyspnea Medical Decision Making Dyspnea. History of COPD. Patient supposed to be on continuous oxygen at 2 L/min. He is presently not on oxygen. His family member states that he occasionally wears it. D-dimer is normal. Cardiac enzymes are normal. Chest x-ray appears normal. No evidence of pneumonia. states patient had a recent urinary tract infection is presently on fifth day of Augmentin. Patient still has 2 days more of Augmentin. Patient likely has acute bronchitis. Will treat with Rocephin here and cephalexin as an outpatient. Patient already has O2 at home. Lab Data 07/25/22 18:49 07/25/22 18:49 Labs/Radiology: Radiology Impressions Chest X-Ray 07/25/22 18:22 IMPRESSION: No acute findings. Laboratory Results WBC 17.1 10^3/uL (4.0-10.0) H 07/25/22 18:49 RBC 5.24 10^6/uL (4.1-5.3) 07/25/22 18:49 Hgb 14.7 g/dL (11.7-16.6) 07/25/22 18:49 Hct 45.8 % (42.0-52.0) 07/25/22 18:49 MCV 87.4 fl (80-94) 07/25/22 18:49 MCH 28.1 pg (28.0-34.0) 07/25/22 18:49 MCHC 32.1 g/dL (30.0-36.0) 07/25/22 18:49 RDW 14.3 % (12.1-15.1) 07/25/22 18:49 Plt Count 380 10^3/cmm (130-400) 07/25/22 18:49 MPV 10.4 fL (7.4-10.4) 07/25/22 18:49 Neut % (Auto) 71.8 % 07/25/22 18:49 Lymph % (Auto) 15.6 % 07/25/22 18:49 [place] % (Auto) 10.0 % 07/25/22 18:49 Eos % (Auto) 1.2 % 07/25/22 18:49 Baso % (Auto) 0.3 % 07/25/22 18:49 Neut # (Auto) 12.28 10^3/uL (1.8-7.7) H 07/25/22 18:49 Lymph # (Auto) 2.7 10^3/uL (0.8-4.8) 07/25/22 18:49 [place] # (Auto) 1.7 10^3/uL (0.2-0.9) H 07/25/22 18:49 Eos # (Auto) 0.2 10^3/uL (0.0-0.8) 07/25/22 18:49 Baso # (Auto) 0.1 10^3/uL (0.0-0.1) 07/25/22 18:49 Nucleated RBC % (auto) 0 % 07/25/22 18:49 Nucleated RBCs # 0.0 /100WBC 07/25/22 18:49 D-Dimer 0.44 ug/mIFEU (0-0.59) 07/25/22 18:48 Sodium 138 mmol/L (136-145) 07/25/22 18:49 Potassium 4.1 mmol/L (3.5-5.1) 07/25/22 18:49 Chloride 99 mmol/L (98-107) 07/25/22 18:49 Carbon Dioxide 30 mmol/L (22-29) H 07/25/22 18:49 Anion Gap 13.1 (5-19) 07/25/22 18:49 BUN 14 mg/dL (8-23) 07/25/22 18:49 Creatinine 0.9 mg/dL (0.7-1.2) 07/25/22 18:49 GFR Calculation 85.8 mL/min (90-130) L 07/25/22 18:49 Glucose 103 mg/dL (65-115) 07/25/22 18:49 Calculated Osmolality 287 mOsm/kg (285-295) 07/25/22 18:49 Lactic Acid 1.1 mmol/L (0.5-2.2) 07/25/22 18:48 Calcium 10.0 mg/dL (8.5-10.5) 07/25/22 18:49 Total Bilirubin 0.5 mg/dL (0.15-1.2) 07/25/22 18:49 AST 15 U/L (0-40) 07/25/22 18:49 ALT 32 U/L (0-41) 07/25/22 18:49 Alkaline Phosphatase 159 U/L (40-130) H 07/25/22 18:49 Troponin T Baseline 11 ng/L (0-15) 07/25/22 18:48 NT-Pro-B Natriuret Pep 69 pg/mL (0-125) 07/25/22 18:49 Total Protein 6.9 g/dL (6.6-8.7) 07/25/22 18:49 Albumin 3.8 g/dL (3.5-5.2) 07/25/22 18:49 Globulin 3.1 g/dL (1.3-4.6) 07/25/22 18:49 Influenza Type A Ag Negative (Negative) 07/25/22 19:15 Influenza Type B Ag Negative (Negative) 07/25/22 19:15 SARS-CoV-2 Ag (Rapid) negative (Negative) 07/25/22 19:15 Imaging Data CXR: I personally reviewed and interpreted this imaging study as follows: My impression: Portable chest x-ray shows nothing acute. No effusions, infiltrates, or pneumothorax. Radiologist's impression: PROCEDURE INFORMATION: Exam: XR Chest Exam date and time: 07/25/2022 6:32 PM Age: 62 years old Clinical indication: Shortness of breath; Additional info: SOB TECHNIQUE: Imaging protocol: Radiologic exam of the chest. Views: 1 view. COMPARISON: CR (CHEST, ) 07/13/2022 5:00 PM FINDINGS: Lungs: Hyperinflated lungs. No consolidation. Pleural spaces: No pleural effusion. No pneumothorax. Heart/Mediastinum: No cardiomegaly. Bones/joints: Visualized osseous structures are intact. XR/XR chest 1V portable [id number] IMPRESSION: No acute findings. ? Dictated By: Otilio Ruiz DO Signed By: Otilio Ruiz DO Signed Date/Time: 07/25/221925 EKG Data EKG 1: I personally reviewed and interpreted this EKG as follows: EKG Interpretation Date: 07/25/22 EKG interpretation time: 19:06 Interpretation: Impression sinus tachycardia with a heart rate of 111. Normal P waves, normal T waves, normal OR interval, normal QT interval, normal ST segment, normal QRS, normal axis. Discharge Plan Discharge Patient Disposition: Home Clinical Impression: Acute dyspnea COPD (chronic obstructive pulmonary disease) Qualifiers: COPD type: unspecified COPD Qualified Code(s): J44.9 - Chronic obstructive pulmonary disease, unspecified Leucocytosis Qualifiers: Leukocytosis type: other Qualified Code(s): D72.828 - Other elevated white blood cell count Condition: Stable Prescriptions: New cephalexin 500 mg capsule 500 mg PO QID 7 Days Qty: 28 0RF Rx Instructions: for infection No Action budesonide-formoterol [Symbicort] 160-4.5 mcg/actuation HFA aerosol inhaler 2 puff inhalation BID Qty: 10.2 5RF clopidogrel 75 mg tablet 75 mg PO DAILY Qty: 30 3RF atorvastatin 40 mg tablet 40 mg PO DAILY Qty: 30 3RF acetaminophen [Tylenol Extra Strength] 500 mg Tablet 1,000 mg PO Q6H PRN (Reason: Pain) aspirin 81 mg Tablet,Delayed Release (Dr/Ec) 81 mg PO BEDTIME pantoprazole 40 mg tablet,delayed release (DR/EC) 40 mg PO DAILY PRN (Reason: Heartburn) hydrocodone-acetaminophen 5-325 mg Tablet 1 tab PO Q6H PRN (Reason: Moderate Pain) Qty: 12 0RF albuterol sulfate 90 mcg/actuation HFA aerosol inhaler 2 inh inhalation Q4H PRN (Reason: shortness of breath or wheezing) Qty: 8.5 0RF ipratropium-albuterol 0.5 mg-3 mg(2.5 mg base)/3 mL solution for nebulization 3 ml inhalation Q6H PRN (Reason: shortness of breath or wheezing) 14 Days Qty: 90 0RF Discharge Orders: Discharge ED (Routine); Ordered 07/25/22 Ordered By: [place] Referrals: Shabana Encarnacion MD [Primary Care Provider] - 07/27/22 (Follow-up with primary care doctor this week) Discharge Activity: Increase activity as tolerated Patient Instructions: COPD (Chronic Obstructive Pulmonary Disease) (ED), Chronic Bronchitis (ED), Shortness of Breath (ED) Activity Restrictions/Additional Instructions: Start cephalexin tomorrow afternoon. This will cover the lungs and urinary tract. Use oxygen by nasal cannula as directed at 1 to 2 L/min. This will help your shortness of breath. Follow-up with your family doctor this week for recheck. Coding Level of Care Code ED Hazardous Materials Handler for Kedar Mae
[2022-07-25 19:14] VITALS: BP 107/76; PULSE 101; RESP 20; O2SAT 96
[2022-07-25 19:21] LABS: D Dimer 0.44 ug/mIFEU (0-0.59)
[2022-07-25 19:33] LABS: Alanine Aminotransferase 32 U/L (0-41); Albumin Level 3.8 g/dL (3.5-5.2); Alkaline Phosphatase 159 U/L (40-130); Anion Gap 13.1 (5-19); Aspartate Amino Transferase 15 U/L (0-40); Blood Urea Nitrogen 14 mg/dL (8-23); Carbon Dioxide 30 mmol/L (22-29); Chloride 99 mmol/L (98-107); Globulin 3.1 g/dL (1.3-4.6); Glomerular Filtration Rate 85.8 mL/min (90-130); Glucose 103 mg/dL (65-115); NT Pro B Type Natriuretic Pept 69 pg/mL (0-125); Osmolality Calculated 287 mOsm/kg (285-295); Potassium 4.1 mmol/L (3.5-5.1); Sodium 138 mmol/L (136-145); Total Bilirubin 0.5 mg/dL (0.15-1.2); Total Protein 6.9 g/dL (6.6-8.7)
[2022-07-25 19:35] LABS: Lactic Sepsis W/Reflex 1.1 mmol/L (0.5-2.2)
[2022-07-25 19:37] LABS: SARS Covid-2 Antigen negative (Negative)
[2022-07-25 19:41] LABS: Influenza A by IFA Negative (Negative); Influenza B by IFA Negative (Negative)
[2022-07-25 19:45] LABS: Troponin(5th) Baseline 11 ng/L (0-15)
[2022-07-25 20:48] VITALS: BP 105/77; PULSE 104; RESP 16; TEMP 36.7; O2SAT 98
[2022-07-25] MEDS: cefTRIAXone 1,000 MG in water for injection-sterile 2.1 ML 2.1 MG IM (21:19)
[2022-07-25 21:34] VITALS: BP 135/90; PULSE 88; RESP 16; O2SAT 94
[2022-07-25 21:38] VITALS: BP 135/90; PULSE 88; RESP 16; O2SAT 94
== END 2022-07-25 21:40 | disposition home or self-care (01) ==
PROVIDERS: Emergency Medicine; Emergency Provider Family Medicine; PCP Family Medicine
DX: J44.9 Chronic obstructive pulmonary disease, unspecified (principal); R06.00 Dyspnea, unspecified; D72.828 Other elevated white blood cell count; Z79.82 Long term (current) use of aspirin; Z79.02 Long term (current) use of antithrombotics/antiplatelets; Z20.822 Contact with and (suspected) exposure to COVID-19; I25.10 Atherosclerotic heart disease of native coronary artery without angina pectoris; I12.9 Hypertensive chronic kidney disease with stage 1 through stage 4 chronic kidney disease, or unspecified chronic kidney disease; N18.9 Chronic kidney disease, unspecified; Z86.73 Personal history of transient ischemic attack (TIA), and cerebral infarction without residual deficits; E78.5 Hyperlipidemia, unspecified; Z87.891 Personal history of nicotine dependence
CPT/HCPCS: 36415; 71045; 80053; 83605; 83880; 84484; 85025; 85378; 87426; 87804; 93005; 96372; 99285; J0696

== ENCOUNTER 2022-07-29 12:48 | Emergency (ER) | payer MEDICARE, SELFPAY ==
[2022-07-29 12:54] VITALS: BP 136/85; PULSE 100; RESP 17; TEMP 36.7; O2SAT 97; BMI 23.7
[2022-07-29 13:16] VITALS: BP 136/85; PULSE 96; O2SAT 96
--- NOTE | 2022-07-29 13:18 | XR_ITS ---
WS: [id number] Portable AP upright chest, 07/29/2022 Clinical Data: dyspnea/cough Comparison: Portable chest, 07/25/2022 Findings: No nodules, masses or effusions are seen. The heart is normal. The pulmonary vascularity is not increased. No pneumonia or pneumothorax is seen. There are monitor leads on the chest wall. XR/XR chest 1V portable [id number] Impression: Negative chest.
--- NOTE | 2022-07-29 13:18 | ECG_ITS ---
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 Measurements Intervals [place] Rate: 94 P: 70 [place]: 153 QRS: 84 QRSD: 84 T: 77 QT: 344 QTc: 431 Interpretive Statements SINUS RHYTHM SEPTAL MYOCARDIAL INFARCTION , OF INDETERMINATE AGE [40+ ms Q WAVE IN V1/V2] Compared to ECG 07/25/2022 18:57:33 Myocardial infarct finding now present Sinus tachycardia no longer present Electronically Signed On 07-29-2022 16:44:55 CVIR TECH by Maira Arana M.D. [email or web address]
[2022-07-29 13:36] LABS: Basophils # 0.1 10^3/uL (0.0-0.1); Basophils % 0.5 %; Eosinophils # 0.3 10^3/uL (0.0-0.8); Eosinophils % 1.9 %; Hemoglobin 14.3 g/dL (11.7-16.6); Lymphocytes % 13.5 %; Mean Corpuscular HGB Conc 31.1 g/dL (30.0-36.0); Mean Corpuscular Hemoglobin 27.7 pg (28.0-34.0); Mean Platelet Volume 10.7 fL (7.4-10.4); Monocytes # 1.4 10^3/uL (0.2-0.9); Monocytes % 9.1 %; Neutrophils # 11.11 10^3/uL (1.8-7.7); Neutrophils % 74.4 %; Nucleated Red Blood Cells % 0 %; Platelet Count 380 10^3/cmm (130-400); Red Blood Count 5.17 10^6/uL (4.1-5.3); Red Cell Distribution Width 14.6 % (12.1-15.1); White Blood Count 14.9 10^3/uL (4.0-10.0)
[2022-07-29 13:47] LABS: Add Urine Microscopic? NO; Charge for UA Resulting for Rev
--- NOTE | 2022-07-29 13:51 | ED_ITS ---
HPI - General Adult General: Chief complaint: Altered Mental Status Stated complaint: weak/AMS Time Seen by Provider: 07/29/22 12:59 Source: patient Mode of arrival: ambulatory History of Present Illness: 62-year-old male presents to the emergency room complaining of just not feeling right. He said his head hurts she has no recent trauma he did recently have a stroke he has a little bit of right-sided residual deficits but he has been doing rehab through home health. No new or changed symptoms she denies chest pain abdominal pain difficulty breathing. Patient has severe anxiety but cannot quantify why he does not feel well today. Onset (ago): hour(s) Relieving factors: none Exacerbating factors: none Associated symptoms: Deny chest pain, confusion, cough, diaphoresis, decreased appetite, dyspnea, fevers/chills, headache(s), malaise, nausea, rash, palpitations, seizures, short of breath, syncope, vomiting, weakness or other Review of Systems Const: Denies: fever(s), chills, fatigue, malaise or diaphoresis ENMT: Denies: throat pain, ear or mastoid pain, nasal discharge or nasal congestion Card: Denies: chest pain, palpitations or syncope Resp: Denies: dyspnea GI: Denies: abdominal pain, nausea or vomiting : Denies: flank pain, dysuria, urinary frequency or urinary urgency Skin/Breast: Denies: rash Neuro: Denies: headache(s) or confusion PFS ED PFSH: Medical History (Updated 07/29/22 @ 15:40 by Elvis Sharma DO) Anxiety Avascular necrosis of bones of both hips CAD (coronary artery disease) Carotid stenosis Chest pain CKD (chronic kidney disease) COPD (chronic obstructive pulmonary disease) CVA (cerebral vascular accident) Epigastric abdominal pain GERD (gastroesophageal reflux disease) HTN (hypertension) Hyperlipidemia Hypoxia Iliac artery occlusion Obstructive apnea Palpitation PVD (peripheral vascular disease) Shortness of breath Umbilical hernia Surgical History (Updated 07/29/22 @ 13:56 by Elvis Sharma DO) Hx of vasectomy Family History Other CAD (coronary artery disease) Cancer Social History Smoking and tobacco status: former smoker (12 years ago) Quit status (tobacco): has quit using tobacco Year quit tobacco: 2010 - 2PPD x 37 Years Second hand smoke exposure: No Alcohol intake: never Caregiver/support person: Yes Lives independently: Yes Household members: none Marital status: Unknown service: No Current occupational status: unemployed Previous occupational history: [employer] Current gender identity: Male Special karli needs: No Physical Exam Const: GENERAL APPEARANCE: cooperative and comfortable OR IENTATION/CONSCIOUSNESS: Yes awake, Yes oriented to person, Yes oriented to place and Yes oriented to time HENMT: COMMON NORMALS: normocephalic, atraumatic and hearing grossly normal bilaterally HEAD & SCALP: normocephalic and atraumatic Resp: COMMON NORMALS: normal respiratory effort, No retractions, No use of accessory muscles and clear to auscultation bilaterally AUSCULTATION: clear to auscultation bilaterally Cardio: COMMON NORMALS: regular rate, regular rhythm and No murmurs present (Cardio) RATE: regular rate RHYTHM: regular rhythm GI: COMMON NORMALS: Soft to palpation and No hepatosplenomegaly present AUSCULTATION: Yes normoactive bowel sounds PALPATION: Yes Soft to palpation, No Tenderness to palpation present (GI), No Guarding due to palpation present (GI) and Yes No hepatosplenomegaly present Extremity: COMMON NORMALS: normal to inspection, capillary refill normal, no clubbing, cyanosis or edema, no calf tenderness and no pedal edema Neuro: SENSORIUM/ORIENTATION: Yes oriented to person, Yes oriented to place and Yes oriented to time Skin: COMMON NORMALS: no rashes or lesions noted GENERAL SKIN EXAM: no rashes or lesions noted Course Vital Signs: Vital signs: Vital Signs Temperature 98.1 F 07/29/22 12:54 Pulse Rate 90 07/29/22 15:47 Respiratory Rate 16 07/29/22 15:47 Blood Pressure 136/98 07/29/22 15:47 Pulse Oximetry 95 07/29/22 15:47 Oxygen Delivery Me thod 07/29/22 14:11 [facility] - General Adult Medical Decision Making Labs and imaging reviewed. No acute finding made no emergent condition. Patient is extremely anxious. He has no new focal neurologic deficits no sign of head trauma no sign of infectious process. He has no discharge or frequency no respiratory symptoms. Does start some residual symptoms also are from his previous stroke. None of this has worsened. Is a voice and his movement of actually improved from last time I seen him. Discussed with him different aspects of anxiety that can exacerbate these things will start on citalopram 10 mg daily for 7 days then increase to 20 mg daily follow-up with primary care Medical Records I reviewed the patient's medical records. Lab Data I reviewed the patient's lab results. 07/29/22 13:02 Radiology Impressions Chest X-Ray 07/29/22 13:18 Impression: Negative chest. Laboratory Results WBC 14.9 10^3/uL (4.0-10.0) H 07/29/22 13:02 RBC 5.17 10^6/uL (4.1-5.3) 07/29/22 13:02 Hgb 14.3 g/dL (11.7-16.6) 07/29/22 13:02 Hct 46.0 % (42.0-52.0) 07/29/22 13:02 MCV 89.0 fl (80-94) 07/29/22 13:02 MCH 27.7 pg (28.0-34.0) L 07/29/22 13:02 MCHC 31.1 g/dL (30.0-36.0) 07/29/22 13:02 RDW 14.6 % (12.1-15.1) 07/29/22 13:02 Plt Count 380 10^3/cmm (130-400) 07/29/22 13:02 MPV 10.7 fL (7.4-10.4) H 07/29/22 13:02 Neut % (Auto) 74.4 % 07/29/22 13:02 Lymph % (Auto) 13.5 % 07/29/22 13:02 [place] % (Auto) 9.1 % 07/29/22 13:02 Eos % (Auto) 1.9 % 07/29/22 13:02 Baso % (Auto) 0.5 % 07/29/22 13:02 Neut # (Auto) 11.11 10^3/uL (1.8-7.7) H 07/29/22 13:02 Lymph # (Auto) 2.0 10^3/uL (0.8-4.8) 07/29/22 13:02 [place] # (Auto) 1.4 10^3/uL (0.2-0.9) H 07/29/22 13:02 Eos # (Auto) 0.3 10^3/uL (0.0-0.8) 07/29/22 13:02 Baso # (Auto) 0.1 10^3/uL (0.0-0.1) 07/29/22 13:02 Nucleated RBC % (auto) 0 % 07/29/22 13:02 Nucleated RBCs # 0.0 /100WBC 07/29/22 13:02 Sodium 139 mmol/L (136-145) 07/29/22 13:02 Potassium 4.4 mmol/L (3.5-5.1) 07/29/22 13:02 Chloride 100 mmol/L (98-107) 07/29/22 13:02 Carbon Dioxide 28 mmol/L (22-29) 07/29/22 13:02 Anion Gap 15.4 (5-19) 07/29/22 13:02 BUN 14 mg/dL (8-23) 07/29/22 13:02 Creatinine 1.0 mg/dL (0.7-1.2) 07/29/22 13:02 GFR Calculation 76.0 mL/min (90-130) L 07/29/22 13:02 Glucose 102 mg/dL (65-115) 07/29/22 13:02 Calculated Osmolality 289 mOsm/kg (285-295) 07/29/22 13:02 Calcium 10.0 mg/dL (8.5-10.5) 07/29/22 13:02 Total Bilirubin 0.3 mg/dL (0.15-1.2) 07/29/22 13:02 AST 25 U/L (0-40) 07/29/22 13:02 ALT 33 U/L (0-41) 07/29/22 13:02 Alkaline Phosphatase 187 U/L (40-130) H 07/29/22 13:02 Total Protein 7.3 g/dL (6.6-8.7) 07/29/22 13:02 Albumin 4.0 g/dL (3.5-5.2) 07/29/22 13:02 Globulin 3.3 g/dL (1.3-4.6) 07/29/22 13:02 Urine Color Yellow (Yellow) 07/29/22 13:02 Urine Appearance Clear (CLEAR) 07/29/22 13:02 Urine pH 8 (5-7) H 07/29/22 13:02 Ur Specific [place] 1.015 (1.005-1.030) 07/29/22 13:02 Urine Protein Neg (Negative) 07/29/22 13:02 Urine Glucose (UA) Norm (Normal) 07/29/22 13:02 Urine Ketones Negative (Negative) 07/29/22 13:02 Urine Blood Neg (Negative) 07/29/22 13:02 Urine Nitrate Negative (Negative) 07/29/22 13:02 Urine Bilirubin Neg (Negative) 07/29/22 13:02 Prot Sulfosalicylic Acd Negative (Negative) 07/29/22 13:02 Urine Urobilinogen Norm mg/dL (Negative) 07/29/22 13:02 Ur Leukocyte Esterase Negative (Negative) 07/29/22 13:02 Discharge Plan Discharge Patient Disposition: Home Clinical Impression: Ill feeling, Anxiety Condition: Stable Prescriptions: New citalopram 20 mg tablet 20 mg PO DAILY Qty: 30 0RF No Action clopidogrel 75 mg tablet 75 mg PO DAILY Qty: 30 3RF acetaminophen [Tylenol Extra Strength] 500 mg Tablet 1,000 mg PO Q6H PRN (Reason: Pain) aspirin 81 mg Tablet,Delayed Release (Dr/Ec) 81 mg PO BEDTIME pantoprazole 40 mg tablet,delayed release (DR/EC) 40 mg PO DAILY PRN (Reason: Heartburn) atorvastatin 40 mg tablet 40 mg PO QPM Symbicort 160-4.5 mcg/actuation HFA aerosol inhaler 2 puff inhalation BID PRN (Reason: Shortness Of Breath Or Wheezing) melatonin 5 mg Tablet 5 mg PO BEDTIME albuterol sulfate 90 mcg/actuation HFA aerosol inhaler 2 inh inhalation Q4H PRN (Reason: shortness of breath or wheezing) Qty: 8.5 0RF cephalexin 500 mg capsule 500 mg PO QID 7 Days Qty: 28 0RF Discharge Orders: Discharge ED (Routine); Ordered 07/29/22 Ordered By: Elvis Sharma Referrals: Shabana Encarnacion MD [Primary Care Provider] - Discharge Diet: Usual diet Discharge Activity: Increase activity as tolerated Patient Instructions: Opioid Safety, Pain Management Activity Restrictions/Additional Instructions: You are seen today with complaints of just generally not feeling well your lab work did not show any specific abnormalities. Recommend that you follow-up with your primary care doctor next week. We did discuss anxiety you have regarding your various episodes of chest pains and the recent stroke recommend that you start on citalopram half a tablet daily for 1 week then increase to 20 mg daily and follow-up with your primary care doctor. 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
[2022-07-29 13:53] LABS: Alanine Aminotransferase 33 U/L (0-41); Alkaline Phosphatase 187 U/L (40-130); Aspartate Amino Transferase 25 U/L (0-40); Blood Urea Nitrogen 14 mg/dL (8-23); Carbon Dioxide 28 mmol/L (22-29); Chloride 100 mmol/L (98-107); Globulin 3.3 g/dL (1.3-4.6); Glucose 102 mg/dL (65-115); Osmolality Calculated 289 mOsm/kg (285-295); Sodium 139 mmol/L (136-145); Total Bilirubin 0.3 mg/dL (0.15-1.2); Total Protein 7.3 g/dL (6.6-8.7)
[2022-07-29 13:57] LABS: Anion Gap 15.4 (5-19); Potassium 4.4 mmol/L (3.5-5.1)
[2022-07-29 14:05] LABS: Bilirubin Urine Neg (Negative); Blood Urine Neg (Negative); Glucose Urine UA Norm (Normal); Ketones Urine Negative (Negative); Leukocyte Esterase Urine Negative (Negative); Nitrate Urine Negative (Negative); Protein Urine Neg (Negative); Specific Gravity, Urine 1.015 (1.005-1.030); Sulfosalicylic Acid Urine Negative (Negative); Urine Appearance Clear (CLEAR); Urine Color Yellow (Yellow); Urobilinogen Urine Norm (Negative); pH Urine 8 (5-7)
[2022-07-29 14:11] VITALS: BP 113/76; PULSE 94; O2SAT 95
[2022-07-29 15:47] VITALS: BP 136/98; PULSE 90; RESP 16; O2SAT 95
== END 2022-07-29 15:48 | disposition home or self-care (01) ==
PROVIDERS: Emergency Provider Family Medicine; PCP Family Medicine
DX: F41.9 Anxiety disorder, unspecified (principal); R69 Illness, unspecified; Z79.02 Long term (current) use of antithrombotics/antiplatelets; Z79.82 Long term (current) use of aspirin; I25.10 Atherosclerotic heart disease of native coronary artery without angina pectoris; I12.9 Hypertensive chronic kidney disease with stage 1 through stage 4 chronic kidney disease, or unspecified chronic kidney disease; N18.9 Chronic kidney disease, unspecified; J44.9 Chronic obstructive pulmonary disease, unspecified; Z86.73 Personal history of transient ischemic attack (TIA), and cerebral infarction without residual deficits; E78.5 Hyperlipidemia, unspecified; Z87.891 Personal history of nicotine dependence
CPT/HCPCS: 71045; 80053; 81003; 85025; 93005; 99285

== ENCOUNTER 2022-07-30 18:44 | Emergency (ER) | payer MEDICARE, SELFPAY ==
[2022-07-30 18:47] VITALS: BP 120/85; PULSE 125; RESP 18; TEMP 36.7; O2SAT 96
--- NOTE | 2022-07-30 19:56 | ED_ITS ---
HPI - General Adult General: Chief complaint: General Medical Stated complaint: nose bleed Time Seen by Provider: 07/30/22 19:54 History of Present Illness: 62-year-old male patient comes in today with complaints of persistent nosebleed for last 4 hours. Patient has no active bleeding at this time. Patient does have small amount of dried blood in the right naris. Patient does take Plavix and aspirin due to a recent left carotid procedure. Patient appears nontoxic. Patient appears in no pain. Associated symptoms: Deny chest pain, dyspnea, headache(s), rash or vomiting Review of Systems General: Reports: 10 or more systems reviewed and unremarkable except in HPI a nd below Const: Denies: fever(s) ENMT: Reports: epistaxis Card: Denies: chest pain Resp: Denies: dyspnea GI: Denies: vomiting Musc: Denies: neck pain Skin/Breast: Denies: rash Neuro: Denies: headache(s) PFSH ED PFSH: Medical History (Updated 07/30/22 @ 20:48 by ALEAH Maria) Anxiety Avascular necrosis of bones of both hips CAD (coronary artery disease) Carotid stenosis Chest pain CKD (chronic kidney disease) COPD (chronic obstructive pulmonary disease) CVA (cerebral vascular accident) Epigastric abdominal pain GERD (gastroesophageal reflux disease) HTN (hypertension) Hyperlipidemia Hypoxia Iliac artery occlusion Obstructive apnea Palpitation PVD (peripheral vascular disease) Shortness of breath Umbilical hernia Surgical History (Updated 07/29/22 @ 13:56 by Elvis Sharma DO) Hx of vasectomy Family History Other CAD (coronary artery disease) Cancer Social History Smoking and tobacco status: former smoker (12 years ago) Quit status (tobacco): has quit using tobacco Year quit tobacco: 2009 - 2PPD x 37 Years Second hand smoke exposure: No Alcohol intake: never Caregiver/support person: Yes Lives independently: Yes Household members: none Marital status: Unknown service: No Current occupational status: unemployed Previous occupational history: [employer] Current gender identity: Male Special karli needs: No Physical Exam Const: COMMON NORMALS: alert HENMT: COMMON NORMALS: normocephalic HEAD & SCALP: normocephalic NOSE: Epistaxis present on the right anterior source MOUTH: Normal oral and palatal mucosa present THROAT: posterior oropharynx normal Neck/C-Spine: COMMON NORMALS: full ROM Resp: COMMON NORMALS: normal respiratory effort and clear to auscultation bilaterally AUSCULTATION: clear to auscultation bilaterally Cardio: COMMON NORMALS: regular rate and regular rhythm RATE: regular rate RHYTHM: regular rhythm GI: COMMON NORMALS: Soft to palpation PALPATION: Yes Soft to palpation Extremity: COMMON NORMALS: no pedal edema Neuro: SENSORIUM/ORIENTATION: Yes alert Skin: COMMON NORMALS: turgor normal GENERAL SKIN EXAM: turgor normal Course Vital Signs: Vital signs: Vital Signs Temperature 98.1 F 07/30/22 18:47 Pulse Rate 125 H 07/30/22 18:47 Respiratory Rate 18 07/30/22 18:47 Blood Pressure 120/85 07/30/22 18:47 Pulse Oximetry 96 07/30/22 18:47 Oxygen Delivery Me thod 07/30/22 18:47 [facility] - General Adult Medical Decision Making 62-year-old male patient comes in today for complaints of nosebleed. On exam patient has no active bleeding but has a dry blood clot in the anterior right naris. Respirations are even lungs are clear to auscultation. Vital signs are normal. Differential diagnosis includes not limited to epistaxis, anemia, hypertension, adverse drug effect. CBC CMP showed no elevation in liver enzy mes, hemoglobin hematocrit was in normal range, PT PTT was unremarkable. No active bleeding was noted in the ER. Recommended Afrin 2 sprays each nostril 2- 3 times a day until bleeding resolves completely. Recommended avoiding picking the nose and using saline for discomfort. Patient and family both reported understanding and agreed to plan with need for follow-up. Lab Data 07/30/22 20:00 07/30/22 20:00 Laboratory Results WBC 13.2 10^3/uL (4.0-10.0) H 07/30/22 20:00 RBC 5.13 10^6/uL (4.1-5.3) 07/30/22 20:00 Hgb 14.4 g/dL (11.7-16.6) 07/30/22 20:00 Hct 46.9 % (42.0-52.0) 07/30/22 20:00 MCV 91.4 fl (80-94) 07/30/22 20:00 MCH 28.1 pg (28.0-34.0) 07/30/22 20:00 MCHC 30.7 g/dL (30.0-36.0) 07/30/22 20:00 RDW 14.4 % (12.1-15.1) 07/30/22 20:00 Plt Count 331 10^3/cmm (130-400) 07/30/22 20:00 MPV 10.7 fL (7.4-10.4) H 07/30/22 20:00 Neut % (Auto) 73.4 % 07/30/22 20:00 Lymph % (Auto) 15.2 % 07/30/22 20:00 [place] % (Auto) 8.7 % 07/30/22 20:00 Eos % (Auto) 1.7 % 07/30/22 20:00 Baso % (Auto) 0.5 % 07/30/22 20:00 Neut # (Auto) 9.68 10^3/uL (1.8-7.7) H 07/30/22 20:00 Lymph # (Auto) 2.0 10^3/uL (0.8-4.8) 07/30/22 20:00 [place] # (Auto) 1.2 10^3/uL (0.2-0.9) H 07/30/22 20:00 Eos # (Auto) 0.2 10^3/uL (0.0-0.8) 07/30/22 20:00 Baso # (Auto) 0.1 10^3/uL (0.0-0.1) 07/30/22 20:00 Nucleated RBC % (auto) 0 % 07/30/22 20:00 Nucleated RBCs # 0.0 /100WBC 07/30/22 20:00 PT 13.40 SECONDS (12.1-14.9) 07/30/22 20:00 INR 0.99 (0.8-1.2) 07/30/22 20:00 Sodium 133 mmol/L (136-145) L 07/30/22 20:00 Potassium 3.9 mmol/L (3.5-5.1) 07/30/22 20:00 Chloride 98 mmol/L (98-107) 07/30/22 20:00 Carbon Dioxide 26 mmol/L (22-29) 07/30/22 20:00 Anion Gap 12.9 (5-19) 07/30/22 20:00 BUN 14 mg/dL (8-23) 07/30/22 20:00 Creatinine 0.8 mg/dL (0.7-1.2) 07/30/22 20:00 GFR Calculation 98.3 mL/min (90-130) 07/30/22 20:00 Glucose 97 mg/dL (65-115) 07/30/22 20:00 Calculated Osmolality 276 mOsm/kg (285-295) L 07/30/22 20:00 Calcium 9.7 mg/dL (8.5-10.5) 07/30/22 20:00 Total Bilirubin 0.4 mg/dL (0.15-1.2) 07/30/22 20:00 AST 22 U/L (0-40) 07/30/22 20:00 ALT 32 U/L (0-41) 07/30/22 20:00 Alkaline Phosphatase 193 U/L (40-130) H 07/30/22 20:00 Total Protein 6.8 g/dL (6.6-8.7) 07/30/22 20:00 Albumin 3.5 g/dL (3.5-5.2) 07/30/22 20:00 Globulin 3.3 g/dL (1.3-4.6) 07/30/22 20:00 Discharge Plan Discharge Patient Disposition: Home Clinical Impression: Acute anterior epistaxis Condition: Stable Prescriptions: No Action clopidogrel 75 mg tablet 75 mg PO DAILY Qty: 30 3RF acetaminophen [Tylenol Extra Strength] 500 mg Tablet 1,000 mg PO Q6H PRN (Reason: Pain) aspirin 81 mg Tablet,Delayed Release (Dr/Ec) 81 mg PO BEDTIME pantoprazole 40 mg tablet,delayed release (DR/EC) 40 mg PO DAILY PRN (Reason: Heartburn) atorvastatin 40 mg tablet 40 mg PO QPM Symbicort 160-4.5 mcg/actuation HFA aerosol inhaler 2 puff inhalation BID PRN (Reason: Shortness Of Breath Or Wheezing) melatonin 5 mg Tablet 5 mg PO BEDTIME citalopram 20 mg tablet 20 mg PO DAILY Qty: 30 0RF albuterol sulfate 90 mcg/actuation HFA aerosol inhaler 2 inh inhalation Q4H PRN (Reason: shortness of breath or wheezing) Qty: 8.5 0RF cephalexin 500 mg capsule 500 mg PO QID 7 Days Qty: 28 0RF Discharge Orders: Discharge ED (Routine); Ordered 07/30/22 Ordered By: Quentin Cain Referrals: Shabana Encarnacion MD [Primary Care Provider] - Discharge Diet: Usual diet Discharge Activity: Increase activity as tolerated Patient Instructions: Nosebleed (ED) Activity Restrictions/Additional Instructions: Use Afrin nasal spray 2 sprays each nostril 3 times a day for the next 3 days. Use saline nose spray as needed for dryness of the nasal passages. Drink plenty of water. Follow-up with primary care in 2 to 3 days for recheck. Return to ED for worsening symptoms or new concerns. 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
[2022-07-30] MEDS: oxymetazoline 0.05% Nasal Spray 15 mL 2 SPRAY NOSTRIL-B (20:07)
[2022-07-30 20:18] LABS: Basophils # 0.1 10^3/uL (0.0-0.1); Basophils % 0.5 %; Eosinophils # 0.2 10^3/uL (0.0-0.8); Eosinophils % 1.7 %; Hematocrit 46.9 % (42.0-52.0); Hemoglobin 14.4 g/dL (11.7-16.6); Lymphocytes % 15.2 %; Mean Corpuscular HGB Conc 30.7 g/dL (30.0-36.0); Mean Corpuscular Hemoglobin 28.1 pg (28.0-34.0); Mean Corpuscular Volume 91.4 fl (80-94); Mean Platelet Volume 10.7 fL (7.4-10.4); Monocytes # 1.2 10^3/uL (0.2-0.9); Monocytes % 8.7 %; Neutrophils # 9.68 10^3/uL (1.8-7.7); Neutrophils % 73.4 %; Nucleated Red Blood Cells % 0 %; Platelet Count 331 10^3/cmm (130-400); Red Blood Count 5.13 10^6/uL (4.1-5.3); Red Cell Distribution Width 14.4 % (12.1-15.1); White Blood Count 13.2 10^3/uL (4.0-10.0)
[2022-07-30 20:44] LABS: Alanine Aminotransferase 32 U/L (0-41); Albumin Level 3.5 g/dL (3.5-5.2); Alkaline Phosphatase 193 U/L (40-130); Aspartate Amino Transferase 22 U/L (0-40); Blood Urea Nitrogen 14 mg/dL (8-23); Calcium 9.7 mg/dL (8.5-10.5); Carbon Dioxide 26 mmol/L (22-29); Chloride 98 mmol/L (98-107); Globulin 3.3 g/dL (1.3-4.6); Glomerular Filtration Rate 98.3 mL/min (90-130); Glucose 97 mg/dL (65-115); Osmolality Calculated 276 mOsm/kg (285-295); Sodium 133 mmol/L (136-145); Total Bilirubin 0.4 mg/dL (0.15-1.2); Total Protein 6.8 g/dL (6.6-8.7)
[2022-07-30 20:48] LABS: INR 0.99 (0.8-1.2)
[2022-07-30 21:02] LABS: Anion Gap 12.9 (5-19); Potassium 3.9 mmol/L (3.5-5.1)
== END 2022-07-30 21:08 | disposition home or self-care (01) ==
PROVIDERS: Emergency Provider Nurse Practitioner Family; PCP Family Medicine
DX: R04.0 Epistaxis (principal); Z79.82 Long term (current) use of aspirin; Z79.02 Long term (current) use of antithrombotics/antiplatelets; I25.10 Atherosclerotic heart disease of native coronary artery without angina pectoris; I12.9 Hypertensive chronic kidney disease with stage 1 through stage 4 chronic kidney disease, or unspecified chronic kidney disease; N18.9 Chronic kidney disease, unspecified; J44.9 Chronic obstructive pulmonary disease, unspecified; Z86.73 Personal history of transient ischemic attack (TIA), and cerebral infarction without residual deficits; E78.5 Hyperlipidemia, unspecified; Z87.891 Personal history of nicotine dependence
CPT/HCPCS: 36415; 80053; 85025; 85610; 99283

== ENCOUNTER → 2022-08-03 17:13 | Outpatient (BNVA) | payer MEDICARE, SELFPAY | PROVIDERS: PCP Family Medicine; Visit Provider Family Medicine | DX: R53.83 Other fatigue (principal); E78.2 Mixed hyperlipidemia; M25.552 Pain in left hip; Z79.899 Other long term (current) drug therapy | CPT/HCPCS: 80053; 82306; 82607; 83540; 84403; 84443; 85025 ==

== ENCOUNTER 2022-08-04 09:34 | Emergency (ER) | payer MEDICARE, SELFPAY ==
[2022-08-04 09:37] VITALS: BP 128/78; PULSE 122; RESP 14; TEMP 36.4; O2SAT 92; BMI 21.1
--- NOTE | 2022-08-04 10:50 | W.ED.WEAKNES ---
HPI - Weakness General: Chief complaint: Weakness Stated complaint: Not feeling good, Weakness Time Seen by Provider: 08/04/22 10:16 Source: patient Mode of arrival: ambulatory History of Present Illness: 62-year-old male comes in complaining generally feels weak states he feels like he cannot think straight. He recently had a stroke he has had quite a bit of difficulty dealing with this. His is with him says he will not eat he refuses to do a lot of things is basically just laying around frequently. He denies any chest pain or shortness of breath. He has no new focal neurologic deficits. Biggest complaint is that he just does not feel good and does not feel like he can do the things he needs to at home. He had been at [facility] because his clot was precipitated by a thrombus after carotid endarterectomy on the left. He had left AMA from [facility] during his recovery and rehab phase. He does mention he has a slight headache. No recent trauma or falls MD Complaint: generalized weakness Onset (ago): week(s) Duration: constant Location: generalized Relieving factors: none Exacerbating factors: none Associated symptoms: Reports headache(s); Denies chest pain, chills, confusion, melena, decreased appetite, diaphoresis, dysuria, easy bruising, fever(s), myalgias, nausea, rash, short of breath, syncope or vomiting Review of Systems Const: Denies: fever(s), chills or diaphoresis ENMT: Denies: throat pain, ear or mastoid pain, nasal discharge or nasal congestion Card: Denies: chest pain or syncope Resp: Denies: dyspnea, productive cough or non-productive cough GI: Denies: abdominal pain, nausea, vomiting or melena : Denies: flank pain, dysuria, urinary frequency or urinary urgency Musc: Denies: neck pain or back pain Skin/Breast: Denies: rash or pruritus Neuro: Reports: headache(s); Denies: confusion Gera/Lymph: Denies: easy bruising [facility] ED PFSH: Medical History (Updated 08/04/22 @ 10:52 by Elvis Sharma DO) Anxiety Avascular necrosis of bones of both hips CAD (coronary artery disease) Carotid stenosis Chest pain CKD (chronic kidney disease) COPD (chronic obstructive pulmonary disease) CVA (cerebral vascular accident) Epigastric abdominal pain GERD (gastroesophageal reflux disease) HTN (hypertension) Hyperlipidemia Hypoxia Iliac artery occlusion Obstructive apnea Palpitation PVD (peripheral vascular disease) Shortness of breath Umbilical hernia Surgical History (Updated 07/29/22 @ 13:56 by Elvis Sharma DO) Hx of vasectomy Family History Other CAD (coronary artery disease) Cancer Social History Smoking and tobacco status: former smoker (12 years ago) Quit status (tobacco): has quit using tobacco Year quit tobacco: 2009 - 2PPD x 37 Years Second hand smoke exposure: No Alcohol intake: never Caregiver/support person: Yes Lives independently: Yes Household members: none Marital status: Unknown service: No Current occupational status: unemployed Previous occupational history: [employer] Current gender identity: Male Special karli needs: No Physical Exam Const: GENERAL APPEARANCE: cooperative and comfortable ORIENTATION/CONSCIOUSNESS: Yes awake, Yes oriented to person, Yes oriented to place and Yes oriented to time HENMT: COMMON NORMALS: normocephalic, atraumatic and hearing grossly normal bilaterally HEAD & SCALP: normocephalic and atraumatic Resp: COMMON NORMALS: normal respiratory effort, No retractions, No use of accessory muscles and clear to auscultation bilaterally AUSCULTATION: clear to auscultation bilaterally Cardio: COMMON NORMALS: regular rate, regular rhythm and No murmurs present (Cardio) RATE: regular rate RHYTHM: regular rhythm GI: COMMON NORMALS: Soft to palpation and No hepatosplenomegaly present AUSCULTATION: Yes normoactive bowel sounds PALPATION: Yes Soft to palpation, No Tenderness to palpation present (GI), No Guarding due to palpation present (GI) and Yes No hepatosplenomegaly present Extremity: COMMON NORMALS: normal to inspection, capillary refill normal, no clubbing, cyanosis or edema, no calf tenderness and no pedal edema Neuro: SENSORIUM/ORIENTATION: Yes oriented to person, Yes oriented to place and Yes oriented to time OTHER: No ataxia no dysphagia or dysarthria. Sensation normal NIH is 0 patient has some visual deficits but they are at his baseline for actually prior to his stroke. Skin: COMMON NORMALS: no rashes or lesions noted GENERAL SKIN EXAM: no rashes or lesions noted Course Vital Signs: Vital signs: Vital Signs Temperature 97.5 F L 08/04/22 09:37 Pulse Rate 122 H 08/04/22 09:37 Respiratory Rate 14 08/04/22 09:37 Blood Pressure 128/78 08/04/22 09:37 Pulse Oximetry 92 08/04/22 09:37 Oxygen Delivery Me thod 08/04/22 09:37 MDM - Weakness Medical Decision Making Mild hyponatremia believe the patient is truly symptomatic from that. The majority of symptoms are just depression and anxiety after his stroke. In discussing this with him he and his both concur. Discussed with him the importance of participating in his rehab and he needs to be doing things for himself or he will lose the ability and deteriorate even more. Discussed with him also that if he persists and not participating in things he may decline to the point that he ends up requiring correction placement Medical Records I reviewed the patient's medical records. Lab Data I reviewed the patient's lab results. Discharge Plan Discharge Patient Disposition: Home Clinical Impression: CVA (cerebral vascular accident), Hyponatremia Condition: Stable Prescriptions: No Action clopidogrel 75 mg tablet 75 mg PO DAILY Qty: 30 3RF citalopram 20 mg tablet 20 mg PO DAILY Qty: 30 3RF atorvastatin 40 mg tablet 40 mg PO QPM Qty: 30 3RF acetaminophen [Tylenol Extra Strength] 500 mg Tablet 1,000 mg PO Q6H PRN (Reason: Pain) aspirin 81 mg Tablet,Delayed Release (Dr/Ec) 81 mg PO BEDTIME pantoprazole 40 mg tablet,delayed release (DR/EC) 40 mg PO DAILY PRN (Reason: Heartburn) budesonide-formoterol [Symbicort] 160-4.5 mcg/actuation HFA aerosol inhaler 2 puff inhalation BID PRN (Reason: Shortness Of Breath Or Wheezing) albuterol sulfate 90 mcg/actuation HFA aerosol inhaler 2 inh inhalation Q4H PRN (Reason: shortness of breath or wheezing) Qty: 8.5 0RF Discharge Orders: Discharge ED (Routine); Ordered 08/04/22 Ordered By: Elvis Sharma Referrals: Shabana Encarnacion MD [Primary Care Provider] - Discharge Diet: Usual diet Discharge Activity: Resume usual activity Patient Instructions: Opioid Safety, Pain Management Activity Restrictions/Additional Instructions: You were seen here with complaints of generalized weakness appetite dizziness.Majority her symptoms are residual from her stroke and having seen in your past they are not any worse than your previous baseline. Recommend that you continue to participate in your home health care rehab. Follow-up with your primary care continue to take all previously prescribed medications. Coding Level of Care Code ED Catshovel Driver for Kedar Mae
== END 2022-08-04 11:01 | disposition home or self-care (01) ==
PROVIDERS: Emergency Provider Family Medicine; PCP Family Medicine
DX: I63.9 Cerebral infarction, unspecified (principal); E87.1 Hypo-osmolality and hyponatremia
CPT/HCPCS: 99282

== ENCOUNTER → 2022-09-22 14:50 | Outpatient (BNVA) | payer MEDICARE, SELFPAY | PROVIDERS: PCP Family Medicine; Visit Provider Thoracic Surgery (Cardiothoracic Vascular Surgery) | DX: Z98.890 Other specified postprocedural states (principal) | CPT/HCPCS: 99024 ==

== ENCOUNTER 2022-10-17 13:13 | Outpatient (CLI) | payer MEDICARE, SELFPAY ==
--- NOTE | 2022-10-17 13:45 | USCV_ITS ---
Hai Aparicio Age: 62 Gender: M : 1960 Exam Date: 10/17/2022 13:35 Ordering Phys: Quentin Little MD (Andy) [email or web address] [place] Technologist: CT Exam Location: [facility] [place] Indication: stenosis Risk Factors: Previous Vascular Surgery: Right Brachial BP: / Left Brachial BP: / Right Left Velocity (cm/s) Spectral Plaque Velocity (cm/s) Spectral Plaque Syst/Diast Broadening Syst/Diast Broadening 131.80/16.00 Prox CCA 108.80/ 23.00 82.50/ 17.20 Mid CCA 108.40/ 18.10 86.30/ 17.50 Distal CCA 90.80 / 22.70 78.10/ 27.10 Prox ICA 60.40 / 13.25 100.20/32.10 Mid ICA 49.80 / 13.90 126.20/39.40 Distal ICA 70.70 / 22.10 78.50 ECA 226.30 0.96 ICA/CCA 0.65 Occluded Vertebral Antegrade / cm/s 39.60/ 20.20 cm/s Bi Subclavian Bi 129.0 59.00 0 FINDINGS patent stent on left, rt vert occluded CONCLUSIONS Right ICA stenosis <50%.. Mild atheromatous plaque right carotid bulb/ICA. Left ICA stenosis <50%. Mild atheromatous plaque left carotid bulb/ICA. Left ICA stent patent. Right vertebral artery occluded Normal antegrade Doppler flow noted in the left vertebral artery. Kamari Herr MD (Electronically Signed) Final Date: 18 Oct 2022 09:55 S
== END 2022-10-17 13:14 | disposition home or self-care (01) ==
PROVIDERS: PCP Family Medicine; Visit Provider Thoracic Surgery (Cardiothoracic Vascular Surgery)
DX: I65.23 Occlusion and stenosis of bilateral carotid arteries (principal)
CPT/HCPCS: 93880; 99024

== ENCOUNTER → 2022-11-03 12:52 | Outpatient (BNVA) | payer MEDICARE, SELFPAY | PROVIDERS: PCP Family Medicine; Visit Provider Thoracic Surgery (Cardiothoracic Vascular Surgery) | DX: I65.23 Occlusion and stenosis of bilateral carotid arteries (principal); Z98.890 Other specified postprocedural states; Z87.891 Personal history of nicotine dependence | CPT/HCPCS: 99213 ==

== ENCOUNTER → 2022-11-25 10:39 | Outpatient (BNVA) | payer MEDICARE, SELFPAY | PROVIDERS: PCP Family Medicine; Visit Provider Family Medicine | DX: E55.9 Vitamin D deficiency, unspecified (principal); E78.2 Mixed hyperlipidemia; I10 Essential (primary) hypertension; R79.89 Other specified abnormal findings of blood chemistry; E61.1 Iron deficiency | CPT/HCPCS: 80053; 80061; 82306; 83540; 84403; 85025 ==

== ENCOUNTER 2022-12-01 14:16 | Outpatient (CLI) | payer MEDICARE, SELFPAY ==
--- NOTE | 2022-12-01 | US_ITS ---
WS: [id number] US pelvic limited 88530 HISTORY: LEFT GROIN PAIN COMPARISON: CT 07/13/2022 Ultrasound directed to the LEFT inguinal canal at the area of pain. No mass or peristalsing loops of GI tract is identified. No soft tissue mass or fluid collection. US/US pelvic limited [id number] IMPRESSION: Negative ultrasound LEFT inguinal region. Also the CT of 07/13/2022 is reviewed. At that time no abnormality noted in the inguinal canal either.
== END 2022-12-01 14:17 | disposition home or self-care (01) ==
PROVIDERS: PCP Family Medicine; Visit Provider Nurse Practitioner Family
DX: R10.32 Left lower quadrant pain (principal)
CPT/HCPCS: 76857

== ENCOUNTER → 2023-01-02 15:36 | Outpatient (BNVA) | payer MEDICARE, SELFPAY | PROVIDERS: PCP Family Medicine; Visit Provider Nurse Practitioner Family | DX: R10.32 Left lower quadrant pain (principal); N40.0 Benign prostatic hyperplasia without lower urinary tract symptoms | CPT/HCPCS: 80053; 81000; 84153; 85025 ==

== ENCOUNTER 2023-01-17 11:35 | Emergency (ER) | payer MEDICARE, SELFPAY ==
[2023-01-17 11:40] VITALS: BP 119/75; PULSE 91; RESP 18; TEMP 36.7; O2SAT 96; BMI 23.1
--- NOTE | 2023-01-17 11:42 | ECG_ITS ---
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 Measurements Intervals [place] Rate: 84 P: 72 AK: 151 QRS: 86 QRSD: 93 T: 76 QT: 337 QTc: 400 Interpretive Statements SINUS RHYTHM INCOMPLETE RIGHT BUNDLE BRANCH BLOCK [90+ ms QRS DURATION, TERMINAL R IN V1/V2, 40+ ms S IN I/aVL/V4/V5/V6] Compared to ECG 07/29/2022 13:23:40 Incomplete right bundle-branch block now present Myocardial infarct finding no longer present Electronically Signed On 01-17-2023 17:18:37 CDT by Maira Arana M.D. [id number]
--- NOTE | 2023-01-17 11:49 | XRR_ITS ---
PROCEDURE INFORMATION: Exam: XR Chest Exam date and time: 01/17/2023 11:53 AM Age: 62 years old Clinical indication: Shortness of breath; Additional info: SOB TECHNIQUE: Imaging protocol: Radiologic exam of the chest. Views: 1 view. COMPARISON: CR XR chest 1V portable [id number] 07/29/2022 1:41 PM FINDINGS: Lungs: Lung gordon are hyperlucent with paucity of bronchovascular markings consistent with COPD and diffuse emphysematous changes. No infiltrates or overt CHF. No significant interval changes. Pleural spaces: Unremarkable. No pleural effusion. No pneumothorax. Heart/Mediastinum: Unremarkable. No cardiomegaly. Bones/joints: Unremarkable for age. XR/XR chest 1V portable [id number] IMPRESSION: COPD with diffuse emphysematous changes.
--- NOTE | 2023-01-17 11:56 | PC.PHAR ---
pts girlfriend/ verified pts medications-pt states he uses his symbicort inhaler bid rx filled for prn
--- NOTE | 2023-01-17 11:59 | ED_ITS ---
HPI - SOB/Dyspnea General: Chief Complaint: Shortness of Breath/Dyspnea Stated Complaint: sob Time Seen by Provider: 01/17/23 11:37 Source: patient Mode of arrival: ambulatory Limitations: no limitations History of Present Illness: HPI Narrative: 62-year-old male who has a history of COPD he states that over the last 2 days he has had some slight increased shortness of breath he denies any cough or fever. He had no vomiting or diarrhea. He denies any worsening improving f actors at this time. Pulse ox here is 96% on room air Associated symptoms: Deny abdominal pain, chest pain, fever(s), nausea or vomiting Review of Systems Const: Denies: fever(s) or chills ENMT: Denies: throat pain or dental pain Card: Denies: chest pain Resp: Reports: dyspnea GI: Denies: abdominal pain, nausea, vomiting or diarrhea Musc: Denies: neck pain or back pain Skin/Breast: Denies: rash Neuro: Denies: headache(s) PFSH ED PFSH: Medical History Anxiety Avascular necrosis of bones of both hips CAD (coronary artery disease) Carotid stenosis Chest pain CKD (chronic kidney disease) COPD (chronic obstructive pulmonary disease) CVA (cerebral vascular accident) Epigastric abdominal pain GERD (gastroesophageal reflux disease) HTN (hypertension) Hyperlipidemia Hypoxia Iliac artery occlusion Obstructive apnea Palpitation PVD (peripheral vascular disease) Shortness of breath Umbilical hernia Surgical History Hx of vasectomy Status post carotid surgery Family History Other CAD (coronary artery disease) Cancer Social History Smoking and tobacco status: former smoker Quit status (tobacco): has quit using tobacco Year quit tobacco: 2009 - 2PPD x 37 Years Second hand smoke exposure: No Alcohol intake: never Substance/Drug Use: never Caregiver/support person: Yes Lives independently: Yes Household members: none Marital status: Unknown service: No Current occupational status: unemployed Previous occupational history: [employer] Do you think of yourself as: Straight/Heterosexual Current gender identity: Male Special karli needs: No Physical Exam Const: COMMON NORMALS: no acute distress, patient oriented x3 and healthy appearing HENMT: COMMON NORMALS: normocephalic and atraumatic HEAD & SCALP: normocephalic and atraumatic Eye: COMMON NORMALS: Equal, round and reactive pupils present and EOMs intact bilaterally PUPIL: Yes Equal, round and reactive pupils present Neck/C-Spine: COMMON NORMALS: full ROM and supple Chest: COMMONS NORMALS: normal inspection of the chest and normal palpation of entire chest wall Resp: COMMON NORMALS: normal respiratory effort, No retractions, No use of accessory muscles and clear to auscultation bilaterally AUSCULTATION: clear to auscultation bilaterally Cardio: COMMON NORMALS: regular rate, regular rhythm and No murmurs present (Cardio) RATE: regular rate RHYTHM: regular rhythm GI: COMMON NORMALS: Normal to inspection, nondistended, normoactive bowel sounds present, Soft to palpation, non-tender and no masses PALPATION: Yes Soft to palpation Extremity: COMMON NORMALS: normal to inspection and full ROM Neuro: COMMON NORMALS: patient oriented x3, moves all extremities and no focal motor deficits Psych: COMMON NORMALS: mental status grossly normal, Normal thought process present and cooperative THOUGHT PROCESS: Normal thought process present Skin: COMMON NORMALS: no rashes or lesions noted and no wounds GENERAL SKIN EXAM: no rashes or lesions noted Course Vital Signs: Vital signs: Vital Signs Temperature 98.1 F 01/17/23 11:40 Pulse Rate 74 01/17/23 13:00 Respiratory Rate 16 01/17/23 13:00 Blood Pressure 141/78 01/17/23 13:00 Pulse Oximetry 95 01/17/23 13:00 Oxygen Delivery Me thod Room Air 01/17/23 13:00 MDM - SOB/Dyspnea Medical Decision Making Patient presents here with dyspnea likely slight COPD exacerbation he is well- appearing here he is requiring oxygen x-ray shows no pneumonia he is stable for discharge he is follow-up with PCP and return if worsening he understands agrees to plan. He has no signs of pulmonary embolism. Lab Data 01/17/23 12:10 01/17/23 12:10 Labs/Radiology: Radiology Impressions Chest X-Ray 01/17/23 11:49 IMPRESSION: COPD with diffuse emphysematous changes. Laboratory Results WBC 13.1 10^3/uL (4.0-10.0) H 01/17/23 12:10 RBC 5.76 10^6/uL (4.1-5.3) H 01/17/23 12:10 Hgb 15.9 g/dL (11.7-16.6) 01/17/23 12:10 Hct 50.2 % (42.0-52.0) 01/17/23 12:10 MCV 87.2 fl (80-94) 01/17/23 12:10 MCH 27.6 pg (28.0-34.0) L 01/17/23 12:10 MCHC 31.7 g/dL (30.0-36.0) 01/17/23 12:10 RDW 15.7 % (12.1-15.1) H 01/17/23 12:10 Plt Count 329 10^3/cmm (130-400) 01/17/23 12:10 MPV 10.5 fL (7.4-10.4) H 01/17/23 12:10 Neut % (Auto) 72.4 % 01/17/23 12:10 Lymph % (Auto) 15.4 % 01/17/23 12:10 Elbert % (Auto) 8.7 % 01/17/23 12:10 Eos % (Auto) 2.2 % 01/17/23 12:10 Baso % (Auto) 0.7 % 01/17/23 12:10 Neut # (Auto) 9.44 10^3/uL (1.8-7.7) H 01/17/23 12:10 Lymph # (Auto) 2.0 10^3/uL (0.8-4.8) 01/17/23 12:10 Elbert # (Auto) 1.1 10^3/uL (0.2-0.9) H 01/17/23 12:10 Eos # (Auto) 0.3 10^3/uL (0.0-0.8) 01/17/23 12:10 Baso # (Auto) 0.1 10^3/uL (0.0-0.1) 01/17/23 12:10 Nucleated RBC % (auto) 0 % 01/17/23 12:10 Nucleated RBCs # 0.0 /100WBC 01/17/23 12:10 Sodium Cancelled 01/17/23 12:10 Potassium Cancelled 01/17/23 12:10 Chloride Cancelled 01/17/23 12:10 Carbon Dioxide Cancelled 01/17/23 12:10 Anion Gap Cancelled 01/17/23 12:10 BUN Cancelled 01/17/23 12:10 Creatinine Cancelled 01/17/23 12:10 GFR Calculation Cancelled 01/17/23 12:10 Glucose Cancelled 01/17/23 12:10 Calculated Osmolality Cancelled 01/17/23 12:10 Calcium Cancelled 01/17/23 12:10 Total Bilirubin Cancelled 01/17/23 12:10 AST Cancelled 01/17/23 12:10 ALT Cancelled 01/17/23 12:10 Alkaline Phosphatase Cancelled 01/17/23 12:10 Total Protein Cancelled 01/17/23 12:10 Albumin Cancelled 01/17/23 12:10 Globulin Cancelled 01/17/23 12:10 Discharge Plan Discharge Patient Disposition: Home Clinical Impression: Acute exacerbation of chronic obstructive airways disease Condition: Stable Prescriptions: No Action acetaminophen [Tylenol Extra Strength] 500 mg Tablet 1,000 mg PO Q6H PRN (Reason: Pain) aspirin 81 mg Tablet,Delayed Release (Dr/Ec) 81 mg PO QAM albuterol sulfate 90 mcg/actuation HFA aerosol inhaler 2 inh inhalation Q4H PRN (Reason: shortness of breath or wheezing) Qty: 8.5 0RF atorvastatin 40 mg tablet 40 mg PO BEDTIME clopidogrel 75 mg tablet 75 mg PO QAM tamsulosin 0.4 mg capsule 0.4 mg PO QAM cholecalciferol (vitamin D3) 1,250 mcg (50,000 unit) capsule 50,000 unit PO Q7D Rx Instructions: on Symbicort 160-4.5 mcg/actuation HFA aerosol inhaler 2 puff inhalation BID Discharge Orders: Discharge ED (Routine); Ordered 01/17/23 Ordered By: Ruth Palm Referrals: Shabana Encarnacion MD [Primary Care Provider] - 1-3 days Discharge Diet: Advance as tolerated Discharge Activity: Resume usual activity Patient Instructions: COPD (Chronic Obstructive Pulmonary Disease) (ED) Coding Level of Care Code ED District Traffic Chief for Chg Tu
[2023-01-17 12:16] LABS: Basophils # 0.1 10^3/uL (0.0-0.1); Basophils % 0.7 %; Eosinophils # 0.3 10^3/uL (0.0-0.8); Eosinophils % 2.2 %; Hematocrit 50.2 % (42.0-52.0); Hemoglobin 15.9 g/dL (11.7-16.6); Lymphocytes % 15.4 %; Mean Corpuscular HGB Conc 31.7 g/dL (30.0-36.0); Mean Corpuscular Hemoglobin 27.6 pg (28.0-34.0); Mean Corpuscular Volume 87.2 fl (80-94); Mean Platelet Volume 10.5 fL (7.4-10.4); Monocytes # 1.1 10^3/uL (0.2-0.9); Monocytes % 8.7 %; Neutrophils # 9.44 10^3/uL (1.8-7.7); Neutrophils % 72.4 %; Nucleated Red Blood Cells % 0 %; Platelet Count 329 10^3/cmm (130-400); Red Blood Count 5.76 10^6/uL (4.1-5.3); Red Cell Distribution Width 15.7 % (12.1-15.1); White Blood Count 13.1 10^3/uL (4.0-10.0)
[2023-01-17 12:19] VITALS: BP 128/89; PULSE 89; RESP 18; O2SAT 97
[2023-01-17] MEDS: dexamethasone 10 mg/mL INJ IVP (12:32)
[2023-01-17 12:40] VITALS: BP 155/74; PULSE 81; RESP 16; O2SAT 95
[2023-01-17 13:00] VITALS: BP 141/78; PULSE 74; RESP 16; O2SAT 95
[2023-01-17 13:23] VITALS: BP 141/78; PULSE 74; RESP 16; O2SAT 95
[2023-01-17 14:31] LABS: Adenovirus Not Detected (NOT DETECT); Chlamydia Pneumoniae Not Detected (NOT DETECT); Coronavirus 229E,HKU1,NL63,OC4 Not Detected (NOT DETECT); Human Metapneumovirus Not Detected (NOT DETECT); Human Rhinovirus/Enterovirus Not Detected (NOT DETECT); Influenza A Not Detected (NOT DETECT); Influenza A H1 Not Detected (NOT DETECT); Influenza A H1-2009 Not Detected (NOT DETECT); Influenza A H3 Not Detected (NOT DETECT); Influenza B Not Detected (NOT DETECT); Mycoplasma Pneumoniae Not Detected (NOT DETECT); Parainfluenza Virus Type 1 Not Detected (NOT DETECT); Parainfluenza Virus Type 2 Not Detected (NOT DETECT); Parainfluenza Virus Type 3 Not Detected (NOT DETECT); Parainfluenza Virus Type 4 Not Detected (NOT DETECT); Respiratory Syncytial Virus A Not Detected (NOT DETECT); Respiratory Syncytial Virus B Not Detected (NOT DETECT); SARS-COV-2 Not Detected (NOT DETECT)
== END 2023-01-17 13:25 | disposition home or self-care (01) ==
PROVIDERS: Emergency Provider Emergency Medicine; PCP Family Medicine
DX: J44.1 Chronic obstructive pulmonary disease with (acute) exacerbation (principal); I12.9 Hypertensive chronic kidney disease with stage 1 through stage 4 chronic kidney disease, or unspecified chronic kidney disease; N18.9 Chronic kidney disease, unspecified; E78.5 Hyperlipidemia, unspecified; I25.10 Atherosclerotic heart disease of native coronary artery without angina pectoris; Z87.891 Personal history of nicotine dependence; Z86.73 Personal history of transient ischemic attack (TIA), and cerebral infarction without residual deficits
CPT/HCPCS: 71045; 85025; 87635; 93005; 96374; 99285; J1100

== ENCOUNTER 2023-05-24 09:30 | Outpatient (CLI) | payer MEDICARE, SELFPAY ==
--- NOTE | 2023-05-24 10:00 | USCV_ITS ---
Hai Aparicio Age: 63 Gender: M : 1960 Exam Date: 05/24/2023 09:42 Ordering Phys: Quentin Little MD (Andy) ([email or web address]) Technologist: CT [place] [facility] [place]: ica stent Risk Factors: Previous Vascular Surgery: Right Brachial BP: / Left Brachial BP: / Right Left Velocity (cm/s) Spectral Plaque Velocity (cm/s) Spectral Plaque Syst/Diast Broadening Syst/Diast Broadening 141.40/14.50 Prox CCA 97.30 / 16.80 97.80/ 14.50 Mid CCA 98.40 / 21.20 56.90/ 10.50 Distal CCA 90.60 / 15.70 63.10/ 14.30 Prox ICA 74.20 / 13.60 72.60/ 19.70 Mid ICA 33.20 / 11.50 77.80/ 19.60 Distal ICA 53.80 / 16.00 103.40 ECA 172.90 0.55 ICA/CCA 0.75 Antegrade Vertebral Antegrade / cm/s 32.00/ 18.90 cm/s Tri Subclavian Bi 112.9 110.7 0 0 FINDINGS known rt vert occlusion, patent left ica stent CONCLUSIONS Right ICA stenosis <50%. Moderate atheromatous plaque right carotid bulb/ICA. Left ICA stenosis <50%. Patent Left ICA stent Occluded Right vertebral artery Normal antegrade Doppler flow noted in the left vertebral artery. Kamari Herr MD (Electronically Signed) Final Date: 24 May 2023 11:46 S
== END 2023-05-24 09:31 | disposition home or self-care (01) ==
LOC: RAD 09:30
PROVIDERS: PCP Family Medicine; Visit Provider Thoracic Surgery (Cardiothoracic Vascular Surgery)
DX: I65.23 Occlusion and stenosis of bilateral carotid arteries (principal); Z95.828 Presence of other vascular implants and grafts; I65.01 Occlusion and stenosis of right vertebral artery
CPT/HCPCS: 93880

== ENCOUNTER 2023-06-13 13:17 | Emergency (ER) | payer MEDICARE, SELFPAY ==
[2023-06-13 13:28] VITALS: BP 92/59; PULSE 120; TEMP 36.6; O2SAT 99; BMI 23.7
--- NOTE | 2023-06-13 13:31 | XR_ITS ---
WS: [id number] Portable AP upright chest, 06/13/2023 Clinical Data: cp, sob Comparison: Portable chest, 01/17/2023 Findings: No nodules, masses or effusions are seen. The heart is normal. The pulmonary vascularity is not increased. No pneumonia or pneumothorax is seen. There is minimal scarring adjacent to the left cardiac border. The diaphragms are flattened. The aortic arch and descending thoracic aorta show calc ification and minimal tortuosity. Impression: Atherosclerosis and hyperinflation.
--- NOTE | 2023-06-13 13:31 | ECG_ITS ---
[facility] Test Date: 2023-06-13 Pat Name: Hai Aparicio Department: Room: Gender: Male Media Monitor: : 1960 Requested By: Tay Reed Order Number: [id number] Zay MD: Jose Alejandro Patterson M.D. Measurements Intervals [place] Rate: 120 P: 76 AL: 162 QRS: 98 QRSD: 82 T: 61 QT: 307 QTc: 435 Interpretive Statements SINUS TACHYCARDIA BORDERLINE RIGHT AXIS DEVIATION [QRS AXIS > 90] POSSIBLE RIGHT VENTRICULAR CONDUCTION DELAY [RSR (QR) IN V1/V2] ABNORMAL RHYTHM ECG Compared to ECG 01/17/2023 12:08:08 Sinus rhythm no longer present Incomplete right bundle-branch block no longer present Electronically Signed On 06-13-2023 17:51:08 COMMUNITY FACILITATOR by Jose Alejandro Patterson M.D. [email or web address] [email or web address]/store/[id number]
[2023-06-13 13:49] LABS: Basophils # 0.1 10^3/uL (0.0-0.1); Basophils % 0.5 %; Eosinophils # 0.2 10^3/uL (0.0-0.8); Eosinophils % 1.7 %; Hematocrit 47.9 % (37-53); Lymphocytes # 1.8 10^3/uL (0.8-4.8); Lymphocytes % 15.2 %; Mean Corpuscular HGB Conc 32.4 g/dL (30-55); Mean Corpuscular Hemoglobin 28.3 pg (27-33); Mean Corpuscular Volume 87.4 fl (82-101); Mean Platelet Volume 10.7 fL (7.4-10.4); Monocytes % 8.8 %; Neutrophils # 8.46 10^3/uL (1.8-7.7); Neutrophils % 73.5 %; Nucleated Red Blood Cells % 0 %; Platelet Count 293 10^3/cmm (157-399); Red Blood Count 5.48 10^6/uL (3.85-5.65); Red Cell Distribution Width 13.8 % (12.1-15.1)
[2023-06-13 14:07] LABS: Troponin(5th) Baseline 11 ng/L (0-15)
[2023-06-13 14:17] LABS: Alanine Aminotransferase 18 U/L (0-41); Alkaline Phosphatase 155 U/L (40-130); Anion Gap 14.7 (5-19); Aspartate Amino Transferase 14 U/L (0-40); Blood Urea Nitrogen 9 mg/dL (8-23); Calcium 9.3 mg/dL (8.5-10.5); Carbon Dioxide 24 mmol/L (22-29); Chloride 104 mmol/L (98-107); Globulin 2.9 g/dL (1.3-4.6); Glomerular Filtration Rate 85.5 mL/min (90-130); Glucose 97 mg/dL (65-115); NT Pro B Type Natriuretic Pept < 36 pg/mL (0-125); Osmolality Calculated 287 mOsm/kg (285-295); Potassium 3.7 mmol/L (3.5-5.1); Sodium 139 mmol/L (136-145); Total Bilirubin 0.4 mg/dL (0.15-1.2); Total Protein 6.9 g/dL (6.6-8.7)
[2023-06-13 15:30] LABS: D Dimer 0.31 ug/mLFEU (0-0.59)
[2023-06-13 16:38] VITALS: BP 112/72; PULSE 112; RESP 18; O2SAT 97
--- NOTE | 2023-06-13 16:54 | ECG_ITS ---
[facility] Test Date: 2023-06-13 Pat Name: Hai Aparicio Department: Room: Gender: Male Psychologist Engineering: : 1960 Requested By: Tay Reed Order Number: [id number] Zay MD: Jose Alejandro Patterson M.D. Measurements Intervals [place] Rate: 107 P: 75 SD: 162 QRS: 92 QRSD: 88 T: 62 QT: 316 QTc: 423 Interpretive Statements SINUS TACHYCARDIA BORDERLINE RIGHT AXIS DEVIATION [QRS AXIS > 90] ABNORMAL RHYTHM ECG Compared to ECG 06/13/2023 13:24:53 No significant changes Electronically Signed On 06-13-2023 21:50:47 RODDING MACHINE TENDER by Jose Alejandro Patterson M.D. [id number]
== END 2023-06-13 17:00 | disposition home or self-care (01) ==
PROVIDERS: Emergency Medicine; Emergency Provider Family Medicine; PCP Family Medicine
DX: Z53.21 Procedure and treatment not carried out due to patient leaving prior to being seen by health care provider (principal)
CPT/HCPCS: 36415; 71045; 80053; 83880; 84484; 85025; 85378; 93005; 99285

== ENCOUNTER 2023-06-16 00:32 | Emergency (ER) | payer MEDICARE, SELFPAY ==
[2023-06-16 00:37] VITALS: BP 137/97; PULSE 101; RESP 29; TEMP 36.4; O2SAT 97; BMI 22.4
--- NOTE | 2023-06-16 00:37 | XRR_ITS ---
PROCEDURE INFORMATION: Exam: XR Chest Exam date and time: 06/16/2023 12:56 AM Age: 63 years old Clinical indication: Chest wall pain; Additional info: Chest pain, dyspnea TECHNIQUE: Imaging protocol: Radiologic exam of the chest. Views: 1 view. COMPARISON: CR XR chest 1V portable [id number] 06/13/2023 1:41 PM FINDINGS: Tubes, catheters and devices: EKG monitoring leads overlie the thoracic wall. Lungs: Pulmonary hyperinflation consistent with COPD. No pulmonary consolidation. Pleural spaces: No pleural effusion or pneumothorax. Heart/Mediastinum: Normal in size. Bones/joints: No acute fracture is identified. XR/XR chest 1V portable [id number] IMPRESSION: Pulmonary hyperinflation consistent with COPD. No acute findings.
--- NOTE | 2023-06-16 00:37 | ECG_ITS ---
[facility] Test Date: 2023-06-16 Pat Name: Hai Aparicio Department: Room: Gender: Male Mash Grinder: : 1960 Requested By: Jose Gordon Order Number: [id number] Zay MD: Jose Alejandro Patterson M.D. Measurements Intervals [place] Rate: 102 P: 72 MA: 145 QRS: 91 QRSD: 93 T: 73 QT: 308 QTc: 403 Interpretive Statements SINUS TACHYCARDIA BORDERLINE RIGHT AXIS DEVIATION [QRS AXIS > 90] INCOMPLETE RIGHT BUNDLE BRANCH BLOCK [90+ ms QRS DURATION, TERMINAL R IN V1/V2, 40+ ms S IN I/aVL/V4/V5/V6] SEPTAL MYOCARDIAL INFARCTION , OF INDETERMINATE AGE [40+ ms Q WAVE IN V1/V2] Compared to ECG 06/13/2023 16:54:50 Incomplete right bundle-branch block now present Myocardial infarct finding now present Electronically Signed On 06-16-2023 16:31:03 ALIGNER by Jose Alejandro Patterson M.D. [id number] f
[2023-06-16 00:49] LABS: Basophils # 0.1 10^3/uL (0.0-0.1); Basophils % 0.6 %; Eosinophils # 0.4 10^3/uL (0.0-0.8); Eosinophils % 3.9 %; Lymphocytes # 3.1 10^3/uL (0.8-4.8); Lymphocytes % 28.3 %; Mean Corpuscular HGB Conc 33.1 g/dL (30-55); Mean Corpuscular Hemoglobin 28.4 pg (27-33); Mean Platelet Volume 10.5 fL (7.4-10.4); Monocytes % 9.5 %; Neutrophils # 6.28 10^3/uL (1.8-7.7); Neutrophils % 57.2 %; Nucleated Red Blood Cells % 0 %; Platelet Count 327 10^3/cmm (157-399); Red Cell Distribution Width 13.9 % (12.1-15.1); White Blood Count 10.97 10^3/uL (3.29-11.43)
[2023-06-16 01:00] LABS: INR 0.98 (0.8-1.2)
[2023-06-16 01:05] LABS: Troponin(5th) Baseline 16 ng/L (0-15)
[2023-06-16 01:07] LABS: Alanine Aminotransferase 17 U/L (0-41); Albumin Level 4.3 g/dL (3.5-5.2); Alkaline Phosphatase 170 U/L (40-130); Blood Urea Nitrogen 12 mg/dL (8-23); Calcium 10.2 mg/dL (8.5-10.5); Carbon Dioxide 27 mmol/L (22-29); Chloride 103 mmol/L (98-107); Globulin 2.7 g/dL (1.3-4.6); Glomerular Filtration Rate 85.5 mL/min (90-130); Glucose 114 mg/dL (65-115); Osmolality Calculated 295 mOsm/kg (285-295); Sodium 142 mmol/L (136-145); Total Bilirubin 0.3 mg/dL (0.15-1.2)
[2023-06-16 01:09] LABS: Anion Gap 16.5 (5-19); Potassium 4.5 mmol/L (3.5-5.1)
[2023-06-16 01:10] LABS: Aspartate Amino Transferase 18 U/L (0-40)
--- NOTE | 2023-06-16 01:22 | ED_ITS ---
HPI - Chest Pain 2 General: Chief Complaint: Chest Pain Stated Complaint: sob,cp Time Seen by Provider: 06/16/23 00:37 History of Present Illness: Patient presents to the ER complaining of chest pain and shortness of breath. Patient states that started yesterday. Patient waited in our waiting room after he had lab drawn for 4 hours and then decided he could not wait anymore so he left. Last night patient said pain got worse so then he decided to come back to the ER today to be seen. Patient denies any fever chills cold sore throats etc. Patient denies any history of heart problems. Patient does admit he does have COPD is on multiple medicines and is on 2 L of oxygen per nasal cannula as needed. Patient states his pain is on the right side of his chest and stays in his chest does not radiate. Is not reproducible pain. Review of Systems 2 General: Reports: 10 or more systems reviewed and unremarkable except in HPI and below PFSH ED 2 PFSH: Medical History Avascular necrosis of bones of both hips Chest pain HTN (hypertension) CAD (coronary artery disease) GERD (gastroesophageal reflux disease) PVD (peripheral vascular disease) Shortness of breath Palpitation COPD (chronic obstructive pulmonary disease) Hyperlipidemia Carotid stenosis Anxiety Umbilical hernia Hypoxia Epigastric abdominal pain Obstructive apnea Iliac artery occlusion CKD (chronic kidney disease) CVA (cerebral vascular accident) Surgical History Status post carotid surgery Hx of vasectomy Family History Other CAD (coronary artery disease) Cancer Social History Smoking and tobacco/nicotine status: former use of tobacco/nicotine Quit status (tobacco/nicotine): has quit using Year quit tobacco: 2009 - 2PPD x 37 Years Second hand smoke exposure: No Alcohol intake: never Substance/Drug Use: never Caregiver/support person: Yes Lives independently: Yes Household members: none Marital status: Unknown service: No Current occupational status: unemployed Previous occupational history: [employer] Do you think of yourself as: Straight/Heterosexual Current gender identity: Male Special karli needs: No Physical Exam 2 Const: COMMON NORMALS: no acute distress, average body habitus, patient oriented x3, no limitations, healthy appearing, alert and well nourished HENMT: COMMON NORMALS: normocephalic, atraumatic, hearing grossly normal bilaterally, external ears normal, Normal external nose present, moist oral mucous membranes and oropharynx normal HEAD & SCALP: normocephalic and atraumatic NOSE: Normal external nose present EXTERNAL EAR: Yes external ears normal Neck/C-Spine: COMMON NORMALS: full ROM, no lymphadenopathy, supple, no meningeal signs, no JVD and Thyroid normal THYROID: Thyroid normal Chest: COMMONS NORMALS: normal inspection of the chest and normal palpation of entire chest wall Resp: COMMON NORMALS: normal respiratory effort, No retractions, No use of accessory muscles and clear to auscultation bilaterally AUSCULTATION: clear to auscultation bilaterally Cardio: COMMON NORMALS: no JVD, regular rate, regular rhythm, S1 normal heart sound present, S2 normal heart sound present, No gallops present (Cardio), No clicks present (Cardio), No murmurs present (Cardio) and No rub (Cardio) R ATE: regular rate RHYTHM: regular rhythm HEART SOUNDS: S1 normal heart sound present and S2 normal heart sound present GI: COMMON NORMALS: Normal to inspection, nondistended, normoactive bowel sounds present, Soft to palpation, non-tender, No hepatosplenomegaly present and no masses PALPATION: Yes Soft to palpation and Yes No hepatosplenomegaly present Neuro: COMMON NORMALS: patient oriented x3 SENSORIUM/ORIENTATION: Yes alert MENINGEAL SIGNS: Yes no meningeal signs Course 2 Vital Signs: Vital signs: Vital Signs Temperature 97.6 F 06/16/23 00:37 Pulse Rate 96 06/16/23 03:13 Respiratory Rate 18 06/16/23 01:30 Blood Pressure 123/79 06/16/23 03:13 Pulse Oximetry 94 06/16/23 03:13 Oxygen Delivery Me thod Nasal Cannula 06/16/23 01:30 Oxygen Flow Rate 1 06/16/23 01:30 MDM - Chest Pain Medical Decision Making Patient presented with chest pain was worked up in a standard chest pain fashion with serial EKGs, serial enzymes and lab work, chest x-ray, patient also underwent influenza and COVID testing. All of which were negative. Is thought the patient's chest pain is noncardiac in nature. Patient is on no more oxygen than his standard 2 L per nasal cannula. Patient was diagnosed with noncardiac chest pain and will be discharged home. Differential Diagnosis Unlikely acute massive pulmonary embolism, acute respiratory failure, acute myocardial infarction, cardiac arrest or sudden cardiac Medical Records I reviewed the patient's medical records. Lab Data I reviewed the patient's lab results. 06/16/23 00:44 06/16/23 00:44 Laboratory Results WBC 10.97 10^3/uL (3.29-11.43) 06/16/23 00:44 RBC 5.70 10^6/uL (3.85-5.65) H 06/16/23 00:44 Hgb 16.20 g/dL (11.27-16.99) 06/16/23 00:44 Hct 49.0 % (37-53) 06/16/23 00:44 MCV 86.0 fl (82-101) 06/16/23 00:44 MCH 28.4 pg (27-33) 06/16/23 00:44 MCHC 33.1 g/dL (30-55) 06/16/23 00:44 RDW 13.9 % (12.1-15.1) 06/16/23 00:44 Plt Count 327 10^3/cmm (157-399) 06/16/23 00:44 MPV 10.5 fL (7.4-10.4) H 06/16/23 00:44 Neut % (Auto) 57.2 % 06/16/23 00:44 Lymph % (Auto) 28.3 % 06/16/23 00:44 [place] % (Auto) 9.5 % 06/16/23 00:44 Eos % (Auto) 3.9 % 06/16/23 00:44 Baso % (Auto) 0.6 % 06/16/23 00:44 Neut # (Auto) 6.28 10^3/uL (1.8-7.7) 06/16/23 00:44 Lymph # (Auto) 3.1 10^3/uL (0.8-4.8) 06/16/23 00:44 [place] # (Auto) 1.0 10^3/uL (0.2-0.9) H 06/16/23 00:44 Eos # (Auto) 0.4 10^3/uL (0.0-0.8) 06/16/23 00:44 Baso # (Auto) 0.1 10^3/uL (0.0-0.1) 06/16/23 00:44 Nucleated RBC % (auto) 0 % 06/16/23 00:44 Nucleated RBCs # 0.0 /100WBC 06/16/23 00:44 PT 13.30 SECONDS (12.1-14.9) 06/16/23 00:44 INR 0.98 (0.8-1.2) 06/16/23 00:44 Sodium 142 mmol/L (136-145) 06/16/23 00:44 Potassium 4.5 mmol/L (3.5-5.1) 06/16/23 00:44 Chloride 103 mmol/L (98-107) 06/16/23 00:44 Carbon Dioxide 27 mmol/L (22-29) 06/16/23 00:44 Anion Gap 16.5 (5-19) 06/16/23 00:44 BUN 12 mg/dL (8-23) 06/16/23 00:44 Creatinine 0.9 mg/dL (0.7-1.2) 06/16/23 00:44 GFR Calculation 85.5 mL/min (90-130) L 06/16/23 00:44 Glucose 114 mg/dL (65-115) 06/16/23 00:44 Calculated Osmolality 295 mOsm/kg (285-295) 06/16/23 00:44 Calcium 10.2 mg/dL (8.5-10.5) 06/16/23 00:44 Total Bilirubin 0.3 mg/dL (0.15-1.2) 06/16/23 00:44 AST 18 U/L (0-40) 06/16/23 00:44 ALT 17 U/L (0-41) 06/16/23 00:44 Alkaline Phosphatase 170 U/L (40-130) H 06/16/23 00:44 Troponin T Baseline 16 ng/L (0-15) H 06/16/23 00:44 Troponin T 120 Minute 9.40 ng/L (0-15) 06/16/23 02:02 Delta Troponin T -6.60 ABS# (0-10) L 06/16/23 02:02 Total Protein 7.0 g/dL (6.6-8.7) 06/16/23 00:44 Albumin 4.3 g/dL (3.5-5.2) 06/16/23 00:44 Globulin 2.7 g/dL (1.3-4.6) 06/16/23 00:44 Influenza Type A Ag negative (Negative) 06/16/23 01:26 Influenza Type B Ag negative (Negative) 06/16/23 01:26 SARS-CoV-2 Ag (Rapid) negative (Negative) 06/16/23 01:26 All radiology interpretation(s) finalized by discharge EKG Data EKG 1: I personally reviewed and interpreted this EKG as follows: EKG interpretation date: 06/16/23 EKG interpretation time: 00:39 Prior EKG tracings: available for review Interpretation: EKG shows ventricular rate 102 beats minute, VA interval 145, QRS duration 93, QTc of 367, sinus tachycardia, borderline right axis deviation, incomplete right bundle branch block, EKG 2: I personally reviewed and interpreted this EKG as follows: EKG interpretation date: 06/16/23 EKG interpretation time: 02:33 Prior EKG tracings: available for review Interpretation: EKG showed ventricular rate 81 beats minute, VA interval 157, QRS duration 90, QTc of 390, sinus rhythm, possible right ventricular conduction delay, Discharge Plan Discharge Patient Disposition: Home Clinical Impression: Chest pain, non-cardiac Condition: Stable Prescriptions: No Action atorvastatin 40 mg tablet See Rx Instructions .ROUTE .COMPLEX Qty: 90 0RF Dose Instruction: TAKE 1 TABLET BY MOUTH ONCE DAILY IN THE EVENING Rx Instructions: TAKE 1 TABLET BY MOUTH ONCE DAILY IN THE EVENING budesonide-formoterol [Symbicort] 160-4.5 mcg/actuation HFA aerosol inhaler 2 puff inhalation BID Qty: 10.2 2RF tamsulosin 0.4 mg capsule 0.4 mg PO QAM Qty: 30 3RF acetaminophen [Tylenol Extra Strength] 500 mg Tablet 1,000 mg PO Q6H PRN (Reason: Pain) aspirin 81 mg Tablet,Delayed Release (Dr/Ec) 81 mg PO QAM albuterol sulfate 90 mcg/actuation HFA aerosol inhaler 2 inh inhalation Q4H PRN (Reason: shortness of breath or wheezing) Qty: 8.5 0RF clopidogrel 75 mg tablet 75 mg PO QAM cholecalciferol (vitamin D3) 1,250 mcg (50,000 unit) capsule 50,000 unit PO Q7D Rx Instructions: on Discharge Orders: Discharge ED (Routine); Ordered 06/16/23 Ordered By: Jose Gordon Referrals: Shabana Encarnacion MD [Primary Care Provider] - 1 week Patient Instructions: Noncardiac Chest Pain (ED) Activity Restrictions/Additional Instructions: Your workup in ER did not reveal a cardiac cause of your chest pain. Is felt to be noncardiac in nature. Your chest x-ray has not been read by the radiologist but the preliminary review is that is negative. If the radiologist sees anything other than this and treatment needs to be changed you will be called of the results. Otherwise please follow-up with your family practice physician within the next 7 to 10 days for further evaluation and treatment. Coding Level of Care Code ED Processing Supervisor for Kedar Mae
[2023-06-16 01:30] VITALS: BP 155/98; PULSE 93; RESP 18; O2SAT 95
[2023-06-16 01:45] LABS: Influenza A by IFA negative (Negative); Influenza B by IFA negative (Negative)
[2023-06-16 02:10] LABS: SARS Covid-2 Antigen negative (Negative)
--- NOTE | 2023-06-16 02:33 | ECG_ITS ---
[facility] Test Date: 2023-06-16 Pat Name: Hai Aparicio Department: Room: Gender: Male Care Aid: : 1960 Requested By: Jose Gordon Order Number: [id number] Zay MD: Jose Alejandro Patterson M.D. Measurements Intervals [place] Rate: 81 P: 61 SD: 157 QRS: 87 QRSD: 90 T: 82 QT: 353 QTc: 411 Interpretive Statements SINUS RHYTHM POSSIBLE RIGHT VENTRICULAR CONDUCTION DELAY [RSR (QR) IN V1/V2] ST ELEVATION, PROBABLY EARLY REPOLARIZATION [ST ELEVATION WITH NORMALLY INFLECTED T-WAVE] MINIMAL ST DEPRESSION [0.025+ mV ST DEPRESSION] Compared to ECG 06/16/2023 00:39:11 ST (T wave) deviation now present Early repolarization now present Sinus tachycardia no longer present Incomplete right bundle-branch block no longer present Myocardial infarct finding no longer present Electronically Signed On 06-16-2023 16:44:48 STORAGE RECEIPT POSTER by Jose Alejandro Patterson M.D. [id number]
[2023-06-16 03:13] VITALS: BP 123/79; PULSE 96; O2SAT 94
[2023-06-16 04:32] VITALS: BP 123/79; PULSE 63; RESP 18; O2SAT 95
== END 2023-06-16 04:46 | disposition home or self-care (01) ==
PROVIDERS: Emergency Provider Emergency Medicine; PCP Family Medicine
DX: R07.89 Other chest pain (principal); Z79.02 Long term (current) use of antithrombotics/antiplatelets; Z79.82 Long term (current) use of aspirin; Z11.52 Encounter for screening for COVID-19; Z87.891 Personal history of nicotine dependence; I25.10 Atherosclerotic heart disease of native coronary artery without angina pectoris; I12.9 Hypertensive chronic kidney disease with stage 1 through stage 4 chronic kidney disease, or unspecified chronic kidney disease; N18.9 Chronic kidney disease, unspecified; J44.9 Chronic obstructive pulmonary disease, unspecified; E78.5 Hyperlipidemia, unspecified; Z86.73 Personal history of transient ischemic attack (TIA), and cerebral infarction without residual deficits
CPT/HCPCS: 36415; 71045; 80053; 84484; 85025; 85610; 87426; 87804; 93005; 99285

== ENCOUNTER → 2023-06-22 12:42 | Outpatient (BNVA) | payer MEDICARE, SELFPAY | PROVIDERS: PCP Family Medicine; Visit Provider Thoracic Surgery (Cardiothoracic Vascular Surgery) | DX: I65.22 Occlusion and stenosis of left carotid artery (principal); R01.1 Cardiac murmur, unspecified; Z87.891 Personal history of nicotine dependence; I12.9 Hypertensive chronic kidney disease with stage 1 through stage 4 chronic kidney disease, or unspecified chronic kidney disease; N18.9 Chronic kidney disease, unspecified | CPT/HCPCS: 99213 ==

== ENCOUNTER 2023-07-18 14:11 | Outpatient (CLI) | payer MEDICARE, SELFPAY ==
--- NOTE | 2023-07-18 14:45 | USCV_ITS ---
Hai Aparicio Age: 63 Gender: M : 1960 Exam Date: 07/18/2023 14:46 Ordering Phys: Quentin Little MD (Andy) ([email or web address]) Technologist: Exam Location: [facility] [place] Indication: chest pain BP: 131 / 72 HR: 91 Rhythm: Sinus Technical Quality: Adequate MEASUREMENTS (Male / Female) Normal Values 2D ECHO LV Diastolic Diameter PLAX 4.0 cm 4.2 - 5.9 / 3.9 - 5.3 cm LV Systolic Diameter PLAX 3.0 cm IVS Diastolic Thickness 1.1 cm 0.6 - 1.0 / 0.6 - 0.9 cm IVS Systolic Thickness 1.5 cm LVPW Diastolic Thickness 1.0 cm 0.6 - 1.0 / 0.6 - 0.9 cm LVPW Systolic Thickness 1.5 cm LVOT Diameter 2.0 cm LV Ejection Fraction 2D Teich 47.7 % LV Ejection Fraction MOD 2C 54.6 % LV Ejection Fraction 2C AL 54.8 % LA Diameter 3.8 cm IVC Diameter 1.5 cm M-MODE Aortic Annulus Diameter 3.6 cm LA Ao Ratio MM 1.2 MV E Point Septal Separation 1.1 cm DOPPLER AV Peak Velocity 84.7 cm/s LVOT Peak Velocity 80.0 cm/s AV Area Cont Eq vti 3.6 cm squared AV Area Cont Eq pk 3.0 cm squared MV Area PHT 4.5 cm squared Mitral E to A Ratio 0.8 MV E' Velocity 29.0 cm/s Mitral E to MV E' Ratio 5.4 Mitral E to LV E' Lateral Ratio 5.5 Mitral E to LV E' Septal Ratio 5.3 TR Peak Velocity 198.0 cm/s TR Peak Gradient 15.7 mmHg Right Atrial Pressure 3.0 mmHg Pulmonary Artery Systolic Pressu 18.7 mmHg RV Acceleration Time 0.1 s FINDINGS Left Ventricle Normal left ventricular cavity size. Normal left ventricular wall thickness. Mildly decreased left ventricular systolic function. Global left ventricular hypokinesis. Grade I/IV diastolic dysfunction (abnormal relaxation filling pattern), normal to mildly elevated filling pressures. Left ventricular ejection fraction is estimated at 40 %. Right Ventricle Normal right ventricular size and systolic function. Normal right ventricular systolic pressure. Right Atrium The right atrium is normal in size. Left Atrium The left atrium is normal in size. Mitral Valve Structurally normal mitral valve without significant stenosis or prolapse. There is no mitral regurgitation. Aortic Valve Structurally normal aortic valve without significant sclerosis or stenosis. There is no aortic regurgitation. Tricuspid Valve Structurally normal tricuspid valve without significant stenosis or regurgitation. Pulmonary artery systolic pressure is normal. Pulmonic Valve Pulmonic valve not well visualized. Pericardium Normal pericardium without effusion. Aorta Normal ascending aorta dimension. IVC The inferior vena cava appears normal. CONCLUSIONS Normal left ventricular cavity size. Normal left ventricular wall thickness. Mildly decreased left ventricular systolic function. Global left ventricular hypokinesis. Grade I/IV diastolic dysfunction (abnormal relaxation filling pattern), normal to mildly elevated filling pressures. Left ventricular ejection fraction is estimated at 40 %. From the previous study of June 09, 2018, the left ventricular function is now mildly depressed. Previously the ejection fraction was estimated at 55%. Dr. Chris Perez MD (Electronically Signed) Final Date: 18 July 2023 16:54 S
== END 2023-07-18 14:12 | disposition home or self-care (01) ==
LOC: RAD 14:12
PROVIDERS: PCP Family Medicine; Visit Provider Thoracic Surgery (Cardiothoracic Vascular Surgery)
DX: R06.02 Shortness of breath (principal)
CPT/HCPCS: 93306

== ENCOUNTER 2023-08-02 05:22 | Emergency (ER) | payer MEDICARE, SELFPAY ==
[2023-08-02 05:26] VITALS: BP 123/87; PULSE 96; RESP 18; TEMP 36.5; O2SAT 96; BMI 24.4
--- NOTE | 2023-08-02 05:28 | XRR_ITS ---
PROCEDURE INFORMATION: Exam: XR Chest Exam date and time: 08/02/2023 5:34 AM Age: 63 years old Clinical indication: Cough TECHNIQUE: Imaging protocol: Radiologic exam of the chest. Views: 1 view. COMPARISON: CR XR chest 1V portable [id number] 06/16/2023 12:56 AM FINDINGS: Lungs: Pulmonary hyperinflation consistent with COPD. No pulmonary consolidation. Pleural spaces: No pleural effusion or pneumothorax. Heart/Mediastinum: Normal in size. Bones/joints: No acute fracture is identified. XR/XR chest 1V portable [id number] IMPRESSION: 1. Pulmonary hyperinflation consistent with COPD. 2. No acute findings.
--- NOTE | 2023-08-02 05:35 | ED_ITS ---
HPI - URI/Sore Throat General: Chief Complaint: Upper Respiratory Infection Stated Complaint: Congestion,Sob Time Seen by Provider: 08/02/23 05:29 Source: patient Mode of arrival: ambulatory Limitations: no limitations History of Present Illness: 63-year-old male states over the last 3 days he has had cough congestion along with sore throat. States that his cough has been nonproductive has had nasal congestion as well. Denies any fever denies any shortness of breath he is in no distress here denies any worsening proving factors. Associated symptoms: Deny abdominal pain, chills, chest pain, diarrhea, fever(s), headache(s), nausea or vomiting Review of Systems Const: Denies: fever(s), chills, body aches or change in appetite ENMT: Reports: throat pain; Denies: dental pain Card: Denies: chest pain Resp: Reports: non-productive cough; Denies: dyspnea GI: Denies: abdominal pain, nausea, vomiting or diarrhea Musc: Denies: neck pain or back pain Skin/Breast: Denies: rash Neuro: Denies: headache(s) PFSH ED PFSH: Medical History Avascular necrosis of bones of both hips Chest pain HTN (hypertension) CAD (coronary artery disease) GERD (gastroesophageal reflux disease) PVD (peripheral vascular disease) Shortness of breath Palpitation COPD (chronic obstructive pulmonary disease) Hyperlipidemia Carotid stenosis Anxiety Umbilical hernia Hypoxia Epigastric abdominal pain Obstructive apnea Iliac artery occlusion CKD (chronic kidney disease) CVA (cerebral vascular accident) Surgical History Status post carotid surgery Hx of vasectomy Family History Other CAD (coronary artery disease) Cancer Social History Smoking and tobacco/nicotine status: former use of tobacco/nicotine Quit status (tobacco/nicotine): has quit using Year quit tobacco: 2009 - 2PPD x 37 Years Second hand smoke exposure: No Alcohol intake: never Substance/Drug Use: never Caregiver/support person: Yes Lives independently: Yes Household members: none Marital status: Unknown service: No Current occupational status: unemployed Previous occupational history: [employer] Do you think of yourself as: Straight/Heterosexual Current gender identity: Male Special karli needs: No Physical Exam Const: COMMON NORMALS: no acute distress, patient oriented x3 and healthy appearing HENMT: COMMON NORMALS: normocephalic and atraumatic HEAD & SCALP: normocephalic and atraumatic MOUTH: Normal oral and palatal mucosa present THROAT: posterior oropharynx normal Eye: COMMON NORMALS: conjunctivae normal CONJUNCTIVA: Yes conjunctivae normal Neck/C-Spine: COMMON NORMALS: full ROM and supple Chest: COMMONS NORMALS: normal inspection of the chest Resp: COMMON NORMALS: normal respiratory effort, No retractions, No use of accessory muscles and clear to auscultation bilaterally AUSCULTATION: clear to auscultation bilaterally Cardio: COMMON NORMALS: regular rate, regular rhythm and No murmurs present (Cardio) RATE: regular rate RHYTHM: regular rhythm Extremity: COMMON NORMALS: normal to inspection and full ROM Neuro: COMMON NORMALS: patient oriented x3, moves all extremities and no focal motor deficits Psych: COMMON NORMALS: mental status grossly normal, Normal thought process present and cooperative THOUGHT PROCESS: Normal thought process present Skin: COMMON NORMALS: no rashes or lesions noted and no wounds GENERAL SKIN EXAM: no rashes or lesions noted Course Vital Signs: Vital signs: Vital Signs Temperature 97.7 F 08/02/23 05:26 Pulse Rate 94 08/02/23 06:10 Respiratory Rate 20 H 08/02/23 05:57 Blood Pressure 140/85 08/02/23 06:10 Pulse Oximetry 94 08/02/23 06:10 Oxygen Delivery Me thod Room Air 08/02/23 05:57 MDM - URI/Sore Throat Medical Decision Making Patient presents here with cough congestion likely a viral URI he is well-appea ring here he is stable for discharge at this time return if worsening. Medical Records I reviewed the patient's medical records. Lab Data I reviewed the patient's lab results. Radiology Impressions Chest X-Ray 08/02/23 05:28 IMPRESSION: 1. Pulmonary hyperinflation consistent with COPD. 2. No acute findings. Laboratory Results Influenza Type A Ag negative (Negative) 08/02/23 05:34 Influenza Type B Ag negative (Negative) 08/02/23 05:34 SARS-CoV-2 Ag (Rapid) negative (Negative) 08/02/23 05:34 Group A Strep Rapid Negative (Negative) 08/02/23 05:42 All radiology interpretation(s) finalized by discharge Discharge Plan Discharge Patient Disposition: Home Clinical Impression: Upper respiratory infection Qualifiers: URI type: unspecified URI Qualified Code(s): J06.9 - Acute upper respiratory infection, unspecified Condition: Stable Prescriptions: No Action atorvastatin 40 mg tablet See Rx Instructions .ROUTE .COMPLEX Qty: 90 0RF Dose Instruction: TAKE 1 TABLET BY MOUTH ONCE DAILY IN THE EVENING Rx Instructions: TAKE 1 TABLET BY MOUTH ONCE DAILY IN THE EVENING budesonide-formoterol [Symbicort] 160-4.5 mcg/actuation HFA aerosol inhaler 2 puff inhalation BID Qty: 10.2 2RF tamsulosin 0.4 mg capsule 0.4 mg PO QAM Qty: 30 3RF acetaminophen [Tylenol Extra Strength] 500 mg Tablet 1,000 mg PO Q6H PRN (Reason: Pain) aspirin 81 mg Tablet,Delayed Release (Dr/Ec) 81 mg PO QAM albuterol sulfate 90 mcg/actuation HFA aerosol inhaler 2 inh inhalation Q4H PRN (Reason: shortness of breath or wheezing) Qty: 8.5 0RF clopidogrel 75 mg tablet 75 mg PO QAM cholecalciferol (vitamin D3) 1,250 mcg (50,000 unit) capsule 50,000 unit PO Q7D Rx Instructions: on Discharge Orders: Discharge ED (Routine); Ordered 08/02/23 Ordered By: Ruth Palm Referrals: Shabana Encarnacion MD [Primary Care Provider] - 4-7 days Discharge Diet: Advance as tolerated Discharge Activity: Resume usual activity Patient Instructions: Upper Respiratory Infection (ED) Coding Level of Care Code ED Manager Project Management for Kedar Mae
[2023-08-02] MEDS: dexamethasone 10 mg/mL INJ IM (05:43)
[2023-08-02 05:56] LABS: Rapid Strep A Test Negative (Negative)
[2023-08-02 05:57] VITALS: PULSE 90; RESP 20; O2SAT 96
[2023-08-02] MEDS: ipratropium-albuterol 3 mL Neb INHALATION (05:57)
[2023-08-02 05:59] LABS: Influenza A by IFA negative (Negative); Influenza B by IFA negative (Negative); SARS Covid-2 Antigen negative (Negative)
[2023-08-02 06:04] VITALS: PULSE 93
[2023-08-02 06:10] VITALS: BP 140/85; PULSE 94; O2SAT 94
== END 2023-08-02 06:11 | disposition home or self-care (01) ==
PROVIDERS: Emergency Provider Emergency Medicine; PCP Family Medicine
DX: J06.9 Acute upper respiratory infection, unspecified (principal); Z79.02 Long term (current) use of antithrombotics/antiplatelets; Z79.82 Long term (current) use of aspirin; Z11.52 Encounter for screening for COVID-19; I25.10 Atherosclerotic heart disease of native coronary artery without angina pectoris; J44.9 Chronic obstructive pulmonary disease, unspecified; E78.5 Hyperlipidemia, unspecified; I12.9 Hypertensive chronic kidney disease with stage 1 through stage 4 chronic kidney disease, or unspecified chronic kidney disease; N18.9 Chronic kidney disease, unspecified; Z86.73 Personal history of transient ischemic attack (TIA), and cerebral infarction without residual deficits; Z87.891 Personal history of nicotine dependence
CPT/HCPCS: 71045; 87081; 87426; 87804; 87880; 94640; 96372; 99284; J1100

== ENCOUNTER 2023-08-05 17:59 | Emergency (ER) | payer MEDICARE, SELFPAY ==
[2023-08-05 18:16] VITALS: BP 123/72; PULSE 116; RESP 18; TEMP 36.6; O2SAT 95; BMI 24.1
== END 2023-08-05 19:12 | disposition left against medical advice (07) ==
LOC: ER 18:07
PROVIDERS: Emergency Provider Family Medicine; PCP Family Medicine
DX: Z53.21 Procedure and treatment not carried out due to patient leaving prior to being seen by health care provider (principal)

== ENCOUNTER 2023-08-06 15:44 | Emergency (ER) | payer MEDICARE, SELFPAY ==
[2023-08-06 16:06] VITALS: BP 114/95; PULSE 120; RESP 18; TEMP 36.4; O2SAT 98
[2023-08-06 16:11] VITALS: BP 114/95; PULSE 123; RESP 20; O2SAT 99
--- NOTE | 2023-08-06 16:14 | ED_ITS ---
HPI - URI/Sore Throat General: Chief Complaint: Upper Respiratory Infection Stated Complaint: cough,congestion,SOB Time Seen by Provider: 08/06/23 15:57 History of Present Illness: Patient presents to the ER with complaints of shortness of breath. Patient says been seen a couple times for this and been given a shot of steroids that did not only lasted a couple days. Review of records he did have a chest x-ray influenza and COVID done couple days ago which was negative. He did get 10 mg Decadron IM. Patient then goes on to state he is out of his albuterol nebulizer and he has not been on prednisone for a while. Patient denies any fever or chills. Patient says he normally uses 2 L of oxygen at home at all times and here in ER he is on 1.5 to 2 L of oxygen and satting 98 to 99%. Review of Systems General: Reports: 10 or more systems reviewed and unremarkable except in HPI and below PFSH ED PFSH: Medical History Avascular necrosis of bones of both hips Chest pain HTN (hypertension) CAD (coronary artery disease) GERD (gastroesophageal reflux disease) PVD (peripheral vascular disease) Shortness of breath Palpitation COPD (chronic obstructive pulmonary disease) Hyperlipidemia Carotid stenosis Anxiety Umbilical hernia Hypoxia Epigastric abdominal pain Obstructive apnea Iliac artery occlusion CKD (chronic kidney disease) CVA (cerebral vascular accident) Surgical History Status post carotid surgery Hx of vasectomy Family History Other CAD (coronary artery disease) Cancer Social History Smoking and tobacco/nicotine status: former use of tobacco/nicotine Quit status (tobacco/nicotine): has quit using Year quit tobacco: 2009 - 2PPD x 37 Years Second hand smoke exposure: No Alcohol intake: never Substance/Drug Use: never Caregiver/support person: Yes Lives independently: Yes Household members: none Marital status: Unknown service: No Current occupational status: unemployed Previous occupational history: [employer] Do you think of yourself as: Straight/Heterosexual Current gender identity: Male Special karli needs: No Physical Exam Const: COMMON NORMALS: no acute distress, average body habitus, patient oriented x3, no limitations, healthy appearing, alert and well nourished HENMT: COMMON NORMALS: normocephalic, atraumatic, hearing grossly normal bilaterally, external ears normal, Normal external nose present, moist oral mucous membranes and oropharynx normal HEAD & SCALP: normocephalic and atraumatic NOSE: Normal external nose present EXTERNAL EAR: Yes external ears normal Neck/C-Spine: COMMON NORMALS: no JVD Chest: COMMONS NORMALS: normal inspection of the chest and normal palpation of entire chest wall Resp: COMMON NORMALS: normal respiratory effort, No retractions, No use of accessory muscles and clear to auscultation bilaterally AUSCULTATION: clear to auscultation bilaterally Cardio: COMMON NORMALS: no JVD, regular rate, regular rhythm, S1 normal heart sound present, S2 normal heart sound present, No gallops present (Cardio), No clicks present (Cardio), No murmurs present (Cardio) and No rub (Cardio) RATE: regular rate RHYTHM: regular rhythm HEART SOUNDS: S1 normal heart sound present and S2 normal heart sound present GI: COMMON NORMALS: Normal to inspection, nondistended, normoactive bowel sounds present, Soft to palpation, non-tender, No hepatosplenomegaly present and no masses PALPATION: Yes Soft to palpation and Yes No hepatosplenomegaly present Neuro: COMMON NORMALS: patient oriented x3 SENSORIUM/ORIENTATION: Yes alert Course Vital Signs: Vital signs: Vital Signs Temperature 97.6 F 08/06/23 16:36 Pulse Rate 123 H 08/06/23 16:36 Respiratory Rate 20 H 08/06/23 16:36 Blood Pressure 114/95 08/06/23 16:36 Pulse Oximetry 99 08/06/23 16:36 Oxygen Delivery Me thod Nasal Cannula 08/06/23 16:11 Oxygen Flow Rate 1.5 08/06/23 16:11 MDM - URI/Sore Throat Medical Decision Making Patient physical exam performed as well as review of the chart. It appears patient is having an acute exacerbation of his COPD more than likely with a viral upper respiratory infection. We will refill patient's albuterol nebulizer and put him on a course of prednisone. Patient be discharged home to follow-up with his PCP. Differential Diagnosis Likely upper respiratory infection; Unlikely otitis media, sinusitis, influenza or pharyngitis Medical Records I reviewed the patient's medical records. Lab Data I reviewed the patient's lab results. No radiology studies performed this visit Discharge Plan Discharge Patient Disposition: Home Clinical Impression: Upper respiratory infection Qualifiers: URI type: unspecified URI Qualified Code(s): J06.9 - Acute upper respiratory infection, unspecified COPD (chronic obstructive pulmonary disease) Qualifiers: COPD type: unspecified COPD Qualified Code(s): J44.9 - Chronic obstructive pulmonary disease, unspecified Condition: Stable Prescriptions: New prednisone 50 mg tablet 50 mg PO DAILY Qty: 5 0RF albuterol sulfate 2.5 mg/0.5 mL solution for nebulization 2.5 mg inhalation Q4H PRN (Reason: shortness of breath or wheezing) Qty: 30 0RF No Action atorvastatin 40 mg tablet See Rx Instructions .ROUTE .COMPLEX Qty: 90 0RF Dose Instruction: TAKE 1 TABLET BY MOUTH ONCE DAILY IN THE EVENING Rx Instructions: TAKE 1 TABLET BY MOUTH ONCE DAILY IN THE EVENING budesonide-formoterol [Symbicort] 160-4.5 mcg/actuation HFA aerosol inhaler 2 puff inhalation BID Qty: 10.2 2RF tamsulosin 0.4 mg capsule 0.4 mg PO QAM Qty: 30 3RF acetaminophen [Tylenol Extra Strength] 500 mg Tablet 1,000 mg PO Q6H PRN (Reason: Pain) aspirin 81 mg Tablet,Delayed Release (Dr/Ec) 81 mg PO QAM albuterol sulfate 90 mcg/actuation HFA aerosol inhaler 2 inh inhalation Q4H PRN (Reason: shortness of breath or wheezing) Qty: 8.5 0RF clopidogrel 75 mg tablet 75 mg PO QAM cholecalciferol (vitamin D3) 1,250 mcg (50,000 unit) capsule 50,000 unit PO Q7D Rx Instructions: on Discharge Orders: Discharge ED (Routine); Ordered 08/06/23 Ordered By: Jose Gordon Referrals: Shabana Encarnacion MD [Primary Care Provider] - 1 week Patient Instructions: COPD (Chronic Obstructive Pulmonary Disease) (ED), Upper Respiratory Infection - Adult Activity Restrictions/Additional Instructions: You have an upper respiratory infection along with your COPD. Since you have been out of your albuterol nebulizer treatment and have not been on prednisone in a while. We will place you back on a short course of prednisone and refill your albuterol nebulizer treatment. Please follow-up with your family practice physician within the next 7 days for further evaluation and treatment. Coding Level of Care Code ED [employer] [facility] Consultant for Kedar Mae
[2023-08-06 16:36] VITALS: BP 114/95; PULSE 123; RESP 20; TEMP 36.4; O2SAT 99
== END 2023-08-06 16:37 | disposition home or self-care (01) ==
PROVIDERS: Emergency Provider Emergency Medicine; PCP Family Medicine
DX: J06.9 Acute upper respiratory infection, unspecified (principal); J44.9 Chronic obstructive pulmonary disease, unspecified; Z79.02 Long term (current) use of antithrombotics/antiplatelets; Z79.82 Long term (current) use of aspirin; Z87.891 Personal history of nicotine dependence; I25.10 Atherosclerotic heart disease of native coronary artery without angina pectoris; E78.5 Hyperlipidemia, unspecified; I12.9 Hypertensive chronic kidney disease with stage 1 through stage 4 chronic kidney disease, or unspecified chronic kidney disease; N18.9 Chronic kidney disease, unspecified; Z86.73 Personal history of transient ischemic attack (TIA), and cerebral infarction without residual deficits
CPT/HCPCS: 99283

== ENCOUNTER 2023-09-03 09:45 | Emergency (ER) | payer MEDICARE, SELFPAY ==
[2023-09-03 09:51] VITALS: BP 149/85; PULSE 83; TEMP 36.6; O2SAT 97; BMI 24.4
[2023-09-03 10:08] VITALS: BP 152/76; PULSE 91; RESP 14; O2SAT 95
--- NOTE | 2023-09-03 10:14 | PC.PHAR ---
pt states his girlfriend helps him with his medications but states he knows what he takes-pt verified medications states he hasnt taken his flomax 0.4mg qam for 5 days states he doesnt think its working-
[2023-09-03 10:18] VITALS: BP 152/76; PULSE 81; RESP 13; O2SAT 98
--- NOTE | 2023-09-03 10:24 | ECG_ITS ---
[facility] Test Date: 2023-09-03 Pat Name: Hai Aparicio Department: Room: Gender: Male Transitional Care Nurse: : 1960 Requested By: Tay Reed Order Number: [id number] Collazo MD: Ivan Graves M.D. Measurements Intervals [place] Rate: 82 P: 64 TX: 153 QRS: 84 QRSD: 90 T: 69 QT: 344 QTc: 402 Interpretive Statements SINUS RHYTHM POSSIBLE RIGHT VENTRICULAR CONDUCTION DELAY [RSR (QR) IN V1/V2] INTERPRETATION BASED ON A DEFAULT AGE OF 40 YEARS Compared to ECG 06/16/2023 02:33:08 ST (T wave) deviation no longer present Early repolarization no longer present Electronically Signed On 09-03-2023 23:53:18 CDT by Ivan Graves M.D. [id number] f
--- NOTE | 2023-09-03 10:40 | ECG_ITS ---
[facility] Test Date: 2023-09-03 Pat Name: Hai Aparicio Department: Room: Gender: Male Can Bander Operator: : 1960 Requested By: Tay Reed Order Number: [id number] Collazo MD: Ivan Graves M.D. Measurements Intervals [place] Rate: 82 P: 64 NC: 153 QRS: 84 QRSD: 90 T: 69 QT: 344 QTc: 402 Interpretive Statements SINUS RHYTHM POSSIBLE RIGHT VENTRICULAR CONDUCTION DELAY [RSR (QR) IN V1/V2] Compared to ECG 06/16/2023 02:33:08 ST (T wave) deviation no longer present Early repolarization no longer present Electronically Signed On 09-03-2023 23:53:14 CDT by Ivan Graves M.D. [id number] f
--- NOTE | 2023-09-03 10:40 | XRR_ITS ---
PROCEDURE INFORMATION: Exam: XR Chest Exam date and time: 09/03/2023 10:44 AM Age: 63 years old Clinical indication: Pain; Chest pressure; Additional info: Chest pain TECHNIQUE: Imaging protocol: Radiologic exam of the chest. Views: 1 view. COMPARISON: CR (CHEST, ) 08/02/2023 5:34 AM FINDINGS: Lungs: No focal lung consolidation. The lungs are hyperinflated and hyperlucent compatible with chronic obstructive pulmonary disease. Left lung base atelectasis/scar. Pleural spaces: No pleural effusion. No pneumothorax. Heart/Mediastinum: Unremarkable. No cardiomegaly. Bones/joints: No acute bony abnormality. XR/XR chest 1V portable [id number] IMPRESSION: No focal lung consolidation.
[2023-09-03 10:46] LABS: Basophils # 0.1 10^3/uL (0.0-0.1); Basophils % 0.6 %; Eosinophils # 0.2 10^3/uL (0.0-0.8); Eosinophils % 2.4 %; Hematocrit 50.1 % (37-53); Lymphocytes # 1.9 10^3/uL (0.8-4.8); Lymphocytes % 18.9 %; Mean Corpuscular HGB Conc 32.1 g/dL (30-55); Mean Corpuscular Hemoglobin 28.5 pg (27-33); Mean Corpuscular Volume 88.7 fl (82-101); Mean Platelet Volume 10.7 fL (7.4-10.4); Monocytes # 0.9 10^3/uL (0.2-0.9); Monocytes % 9.3 %; Neutrophils # 6.87 10^3/uL (1.8-7.7); Neutrophils % 68.2 %; Nucleated Red Blood Cells % 0 %; Platelet Count 326 10^3/cmm (157-399); Red Blood Count 5.65 10^6/uL (3.85-5.65); Red Cell Distribution Width 14.2 % (12.1-15.1); White Blood Count 10.08 10^3/uL (3.29-11.43)
[2023-09-03 11:04] LABS: Troponin(5th) Baseline 12 ng/L (0-15)
[2023-09-03 11:11] LABS: Alanine Aminotransferase 19 U/L (0-41); Albumin Level 4.3 g/dL (3.5-5.2); Alkaline Phosphatase 169 U/L (40-130); Anion Gap 16.1 (5-19); Aspartate Amino Transferase 15 U/L (0-40); Blood Urea Nitrogen 11 mg/dL (8-23); Calcium 9.7 mg/dL (8.5-10.5); Carbon Dioxide 26 mmol/L (22-29); Chloride 104 mmol/L (98-107); Creatinine Clr Calc Pharmacy 78.0185; Globulin 2.5 g/dL (1.3-4.6); Glomerular Filtration Rate 67.8 mL/min (90-130); Glucose 106 mg/dL (65-115); Lipase 33 U/L (13-60); NT Pro B Type Natriuretic Pept 50 pg/mL (0-125); Osmolality Calculated 294 mOsm/kg (285-295); Potassium 4.1 mmol/L (3.5-5.1); Sodium 142 mmol/L (136-145); Total Bilirubin 0.3 mg/dL (0.15-1.2); Total Protein 6.8 g/dL (6.6-8.7)
--- NOTE | 2023-09-03 12:15 | ED_ITS ---
HPI - Chest Pain 2 General: Chief Complaint: Chest Pain Stated Complaint: chest pain Time Seen by Provider: 09/03/23 10:45 History of Present Illness: 63-year-old male presents with chief con cern of intermittent left-sided aching chest pains lasting a few seconds at a time. Patient reports he started experiencing them last night. No known aggravating or alleviating factors. It did not change with activity, deep breath, rest. He does not endorse any associated symptoms such as radiation, palpitations, syncope, lightheadedness, dizziness, sputum production, cough, shortness of breath, diaphoresis, weakness, jaw pain, arm pain, back pain, abdominal discomfort. Pain stopped this morning prior to arrival. He does have a history of coronary artery disease per his chart. Associated symptoms: Deny abdominal pain, dyspnea, fever(s), nausea, syncope or vomiting Review of Systems 2 General: Reports: 10 or more systems reviewed and unremarkable except in HPI and below Const: Denies: fever(s), chills or body aches Eyes: Denies: change in vision Card: Denies: edema or syncope Resp: Denies: dyspnea or productive cough GI: Denies: abdominal pain, nausea, vomiting or diarrhea : Denies: flank pain, dysuria or urinary frequency Musc: Denies: neck pain, back pain, extremity pain or extremity swelling Skin/Breast: Denies: rash or erythema Neuro: Denies: headache(s), numbness in extremities, weakness in extremities, lack of coordination or difficulty walking PFSH ED 2 PFSH: Medical History Avascular necrosis of bones of both hips Chest pain HTN (hypertension) CAD (coronary artery disease) GERD (gastroesophageal reflux disease) PVD (peripheral vascular disease) Shortness of breath Palpitation COPD (chronic obstructive pulmonary disease) Hyperlipidemia Carotid stenosis Anxiety Umbilical hernia Hypoxia Epigastric abdominal pain Obstructive apnea Iliac artery occlusion CKD (chronic kidney disease) CVA (cerebral vascular accident) Surgical History Status post carotid surgery Hx of vasectomy Family History Other CAD (coronary artery disease) Cancer Social History (Reviewed 08/06/23 @ 16:16 by MARIANO Montes Smoking and tobacco/nicotine status: former use of tobacco/nicotine Quit status (tobacco/nicotine): has quit using Year quit tobacco: 2010 - 2PPD x 37 Years Second hand smoke exposure: No Alcohol intake: never Substance/Drug Use: never Caregiver/support person: Yes Lives independently: Yes Household members: none Marital status: Unknown service: No Current occupational status: unemployed Previous occupational history: [employer] Do you think of yourself as: Straight/Heterosexual Current gender identity: Male Special karli needs: No Physical Exam 2 Const: COMMON NORMALS: no limitations, alert and well nourished EXAM LIMITATIONS: no altered mental status HENMT: COMMON NORMALS: normocephalic, atraumatic and external ears normal H EAD & SCALP: normocephalic and atraumatic EXTERNAL EAR: Yes external ears normal MOUTH: no muffled voice Eye: COMMON NORMALS: conjunctivae normal and no scleral icterus C ONJUNCTIVA: Yes conjunctivae normal Neck/C-Spine: COMMON NORMALS: no JVD GENERAL: Yes normal visual inspection and Yes trachea midline Chest: OTHER: Significantly tender in the left chest directly over where he says the pain is. I can reproduce it on 3 separate palpations Resp: COMMON NORMALS: normal respiratory effort, No use of accessory muscles and clear to auscultation bilaterally AUSCULTATION: clear to auscultation bilaterally Cardio: COMMON NORMALS: no JVD, regular rate and regular rhythm RATE: r egular rate RHYTHM: regular rhythm HEART SOUNDS: Murmur heart sound present GI: COMMON NORMALS: Soft to palpation and non-tender PALPATION: Yes Soft to palpation and No Guarding due to palpation present (GI) Extremity: COMMON NORMALS: normal to inspection Neuro: COMMON NORMALS: moves all extremities, no focal motor deficits and no sensory deficits noted SENSORIUM/ORIENTATION: Yes alert SPEECH: speech normal Psych: COMMON NORMALS: mental status grossly normal, Normal thought process present, cooperative, normal affect and speech normal SPEECH: Yes normal speech THOUGHT PROCESS: Normal thought process present Skin: COMMON NORMALS: no rashes or lesions noted, turgor normal and no jaundice GENERAL SKIN EXAM: no rashes or lesions noted and turgor normal Course 2 Vital Signs: Vital signs: Vital Signs Temperature 97.9 F 09/03/23 09:51 Pulse Rate 81 09/03/23 10:18 Respiratory Rate 13 09/03/23 10:18 Blood Pressure 152/76 09/03/23 10:18 Pulse Oximetry 98 09/03/23 10:18 Oxygen Delivery Me thod Room Air 09/03/23 10:18 MDM - Chest Pain Medical Decision Making 63-year-old male with intermittent left-sided chest discomfort without any associated symptoms. Patient does have significant reproducible chest wall tenderness. Overall, the character of his pain is atypical for cardiac. My interpretation of his EKG which was obtained at 9:51 AM shows a sinus rhythm, borderline right axis deviation, no concerning ST segment elevations, probably incomplete right bundle branch block, no ectopy, no concerning ischemic changes. Patient's troponin is normal. Chest x-ray no acute changes. Patient is not hypoxic. He does have mildly elevated blood pressure. He seems somewhat anxious. Going to give him 0.1 mg of clonidine to use both in the ER and up to 3 times a day at home as needed. Have asked him to measure his blood pressure twice a day for the next week and follow-up with his doctor. Patient is already taking aspirin and statin. Remainder of labs unremarkable. Lab Data 09/03/23 09:54 09/03/23 09:54 Radiology Impressions Chest X-Ray 09/03/23 10:40 IMPRESSION: No focal lung consolidation. Laboratory Results WBC 10.08 10^3/uL (3.29-11.43) 09/03/23 09:54 RBC 5.65 10^6/uL (3.85-5.65) 09/03/23 09:54 Hgb 16.10 g/dL (11.27-16.99) 09/03/23 09:54 Hct 50.1 % (37-53) 09/03/23 09:54 MCV 88.7 fl (82-101) 09/03/23 09:54 MCH 28.5 pg (27-33) 09/03/23 09:54 MCHC 32.1 g/dL (30-55) 09/03/23 09:54 RDW 14.2 % (12.1-15.1) 09/03/23 09:54 Plt Count 326 10^3/cmm (157-399) 09/03/23 09:54 MPV 10.7 fL (7.4-10.4) H 09/03/23 09:54 Neut % (Auto) 68.2 % 09/03/23 09:54 Lymph % (Auto) 18.9 % 09/03/23 09:54 [place] % (Auto) 9.3 % 09/03/23 09:54 Eos % (Auto) 2.4 % 09/03/23 09:54 Baso % (Auto) 0.6 % 09/03/23 09:54 Neut # (Auto) 6.87 10^3/uL (1.8-7.7) 09/03/23 09:54 Lymph # (Auto) 1.9 10^3/uL (0.8-4.8) 09/03/23 09:54 [place] # (Auto) 0.9 10^3/uL (0.2-0.9) 09/03/23 09:54 Eos # (Auto) 0.2 10^3/uL (0.0-0.8) 09/03/23 09:54 Baso # (Auto) 0.1 10^3/uL (0.0-0.1) 09/03/23 09:54 Nucleated RBC % (auto) 0 % 09/03/23 09:54 Nucleated RBCs # 0.0 /100WBC 09/03/23 09:54 Sodium 142 mmol/L (136-145) 09/03/23 09:54 Potassium 4.1 mmol/L (3.5-5.1) 09/03/23 09:54 Chloride 104 mmol/L (98-107) 09/03/23 09:54 Carbon Dioxide 26 mmol/L (22-29) 09/03/23 09:54 Anion Gap 16.1 (5-19) 09/03/23 09:54 BUN 11 mg/dL (8-23) 09/03/23 09:54 Creatinine 1.1 mg/dL (0.7-1.2) 09/03/23 09:54 GFR Calculation 67.8 mL/min (90-130) L 09/03/23 09:54 Glucose 106 mg/dL (65-115) 09/03/23 09:54 Calculated Osmolality 294 mOsm/kg (285-295) 09/03/23 09:54 Calcium 9.7 mg/dL (8.5-10.5) 09/03/23 09:54 Total Bilirubin 0.3 mg/dL (0.15-1.2) 09/03/23 09:54 AST 15 U/L (0-40) 09/03/23 09:54 ALT 19 U/L (0-41) 09/03/23 09:54 Alkaline Phosphatase 169 U/L (40-130) H 09/03/23 09:54 Troponin T Baseline 12 ng/L (0-15) 09/03/23 09:54 NT-Pro-B Natriuret Pep 50 pg/mL (0-125) 09/03/23 09:54 Total Protein 6.8 g/dL (6.6-8.7) 09/03/23 09:54 Albumin 4.3 g/dL (3.5-5.2) 09/03/23 09:54 Globulin 2.5 g/dL (1.3-4.6) 09/03/23 09:54 Lipase 33 U/L (13-60) 09/03/23 09:54 All radiology interpretation(s) finalized by discharge Discharge Plan Discharge Patient Disposition: Home Clinical Impression: Intermittent left-sided chest pain, Accelerated hypertension Condition: Stable Prescriptions: New clonidine HCl 0.1 mg tablet 0.1 mg PO Q8H PRN (Reason: hypertension) Qty: 20 0RF Rx Instructions: Take if blood pressure is persistently high (SBP >140 or DBP >90) No Action tamsulosin 0.4 mg capsule 0.4 mg PO QAM Qty: 30 3RF cholecalciferol (vitamin D3) 1,250 mcg (50,000 unit) capsule 50,000 unit PO Q7D Qty: 12 3RF Rx Instructions: on clopidogrel 75 mg tablet 75 mg PO QAM Qty: 30 2RF budesonide-formoterol [Symbicort] 160-4.5 mcg/actuation HFA aerosol inhaler 2 puff inhalation BID Qty: 10.2 2RF acetaminophen [Tylenol Extra Strength] 500 mg Tablet 1,000 mg PO Q6H PRN (Reason: Pain) aspirin 81 mg Tablet,Delayed Release (Dr/Ec) 81 mg PO QAM albuterol sulfate 2.5 mg/0.5 mL solution for nebulization 2.5 mg inhalation Q4H PRN (Reason: shortness of breath or wheezing) Qty: 30 0RF albuterol sulfate 90 mcg/actuation HFA aerosol inhaler 2 inh inhalation Q4H PRN (Reason: shortness of breath or wheezing) Qty: 8.5 0RF atorvastatin 40 mg tablet 40 mg PO BEDTIME Discharge Orders: Discharge ED (Routine); Ordered 09/03/23 Ordered By: Tay Reed Referrals: Shabana Encarnacion MD [Primary Care Provider] - 1-3 days (Chest pain) Discharge Activity: Increase activity as tolerated Patient Instructions: Chest Pain - Chest Wall, Chest Pain (ED), How to Take a Blood Pressure Reading (ED), Hypertension (ED) Activity Restrictions/Additional Instructions: Please read all discharge instructions and abide by recommendations and return precautions. Make an appointment to follow-up with your primary care doctor as directed for follow-up. Return to ER if getting worse or other emergent symptoms. Coding Level of Care Code ED Kitchen Supervisor for Kedar Mae
[2023-09-03 12:30] VITALS: BP 154/83
[2023-09-03] MEDS: cloNIDine 0.1 mg Tablet 0.100000000000000006 MG PO (12:30)
--- NOTE | 2023-09-04 08:37 | DCPLANNER ---
Message sent to Cardiology Patient was seen in ER 09/03/23 Needs follow up in 4-10 days per ER physician
== END 2023-09-03 12:43 | disposition home or self-care (01) ==
PROVIDERS: Emergency Provider Emergency Medicine; PCP Family Medicine
DX: R07.9 Chest pain, unspecified (principal); Z79.02 Long term (current) use of antithrombotics/antiplatelets; Z79.82 Long term (current) use of aspirin; Z87.891 Personal history of nicotine dependence; I25.10 Atherosclerotic heart disease of native coronary artery without angina pectoris; J44.9 Chronic obstructive pulmonary disease, unspecified; E78.5 Hyperlipidemia, unspecified; Z86.73 Personal history of transient ischemic attack (TIA), and cerebral infarction without residual deficits; I12.9 Hypertensive chronic kidney disease with stage 1 through stage 4 chronic kidney disease, or unspecified chronic kidney disease; N18.9 Chronic kidney disease, unspecified
CPT/HCPCS: 71045; 80053; 83690; 83880; 84484; 85025; 93005; 99285

== ENCOUNTER 2023-09-10 23:16 | Emergency (ER) | payer MEDICARE, SELFPAY ==
[2023-09-10 23:23] VITALS: BP 136/84; PULSE 86; RESP 17; TEMP 36.3; O2SAT 96; BMI 24.4
[2023-09-10 23:32] VITALS: BP 172/86; PULSE 81; RESP 14; O2SAT 96
--- NOTE | 2023-09-11 00:22 | ED_ITS ---
HPI - Ear Problem General: Chief complaint: Ear Stated complaint: Moth In Left Ear Time Seen by Provider: 09/10/23 23:29 History of Present Illness: 63-year-old male patient comes in today for complaints of a insect in his left ear canal. Patient appears nontoxic. Patient appears in mild discomfort. Associated symptoms: Reports ear or mastoid pain Review of Systems General: Reports: 10 or more systems reviewed and unremarkable except in HPI and below ENMT: Reports: ear or mastoid pain PFSH ED PFSH: Medical History Avascular necrosis of bones of both hips Chest pain HTN (hypertension) CAD (coronary artery disease) GERD (gastroesophageal reflux disease) PVD (peripheral vascular disease) Shortness of breath Palpitation COPD (chronic obstructive pulmonary disease) Hyperlipidemia Carotid stenosis Anxiety Umbilical hernia Hypoxia Epigastric abdominal pain Obstructive apnea Iliac artery occlusion CKD (chronic kidney disease) CVA (cerebral vascular accident) Surgical History Status post carotid surgery Hx of vasectomy Family History Other CAD (coronary artery disease) Cancer Social History Smoking and tobacco/nicotine status: former use of tobacco/nicotine Quit status (tobacco/nicotine): has quit using Year quit tobacco: 2009 - 2PPD x 37 Years Second hand smoke exposure: No Alcohol intake: never Substance/Drug Use: never Caregiver/support person: Yes Lives independently: Yes Household members: none Marital status: Unknown service: No Current occupational status: unemployed Previous occupational history: [employer] Do you think of yourself as: Straight/Heterosexual Current gender identity: Male Special karli needs: No Physical Exam Const: COMMON NORMALS: patient oriented x3 HENMT: COMMON NORMALS: normocephalic HEAD & SCALP: normocephalic EXTERNAL AUDITORY CANAL: Abnormal EAC present (Insect in left ear canal) Neck/C-Spine: COMMON NORMALS: full ROM Resp: COMMON NORMALS: normal respiratory effort Cardio: COMMON NORMALS: regular rate RATE: regular rate GI: COMMON NORMALS: non-tender Back/Pelvis: COMMON NORMALS: thoracic and lumbar spine normal to inspection Extremity: COMMON NORMALS: full ROM Neuro: COMMON NORMALS: patient oriented x3 Skin: COMMON NORMALS: turgor normal GENERAL SKIN EXAM: turgor normal Procedures FB Removal Ear Foreign Body Suspected: insect TM intact pre-procedure: yes If Insect Suspected: ear canal instilled with Lidocaine Foreign Body Removed: yes Foreign Body Removal Technique: instrumentation Tympanic Membrane Intact Post Procedure: Yes Patient Tolerated Procedure: well Complications: none Course Vital Signs: Vital signs: Vital Signs Temperature 97.4 F L 09/10/23 23:23 Pulse Rate 81 09/10/23 23:32 Respiratory Rate 14 09/10/23 23:32 Blood Pressure 172/86 09/10/23 23:32 Pulse Oximetry 96 09/10/23 23:32 Oxygen Delivery Me thod Room Air 09/10/23 23:23 MDM - Ear Medical Decision Making 63-year-old male patient comes in with a ball in his left ear canal. On exam we note a insect in his ear canal. Also some abrasions to the ear canal at the 5 o'clock position. Patient did endorse use of Q-tips at home. Differential diagnosis includes perforation of tympanic membrane, foreign body ear, otitis externa. After removal of foreign body, intact moth, reviewed instructions with patient for follow-up. Patient reported understanding agreed to plan. No radiology studies performed this visit Discharge Plan Discharge Patient Disposition: Home Clinical Impression: Foreign body in left ear Qualifiers: Encounter type: initial encounter Qualified Code(s): T16.2XXA - Foreign body in left ear, initial encounter Condition: Stable Prescriptions: No Action tamsulosin 0.4 mg capsule 0.4 mg PO QAM Qty: 30 3RF cholecalciferol (vitamin D3) 1,250 mcg (50,000 unit) capsule 50,000 unit PO Q7D Qty: 12 3RF Rx Instructions: on clopidogrel 75 mg tablet 75 mg PO QAM Qty: 30 2RF budesonide-formoterol [Symbicort] 160-4.5 mcg/actuation HFA aerosol inhaler 2 puff inhalation BID Qty: 10.2 2RF acetaminophen [Tylenol Extra Strength] 500 mg Tablet 1,000 mg PO Q6H PRN (Reason: Pain) aspirin 81 mg Tablet,Delayed Release (Dr/Ec) 81 mg PO QAM albuterol sulfate 2.5 mg/0.5 mL solution for nebulization 2.5 mg inhalation Q4H PRN (Reason: shortness of breath or wheezing) Qty: 30 0RF albuterol sulfate 90 mcg/actuation HFA aerosol inhaler 2 inh inhalation Q4H PRN (Reason: shortness of breath or wheezing) Qty: 8.5 0RF atorvastatin 40 mg tablet 40 mg PO BEDTIME clonidine HCl 0.1 mg tablet 0.1 mg PO Q8H PRN (Reason: hypertension) Qty: 20 0RF Rx Instructions: Take if blood pressure is persistently high (SBP >140 or DBP >90) Discharge Orders: Discharge ED (Routine); Ordered 09/11/23 Ordered By: Quentin Cain Referrals: Shabana Encarnacion MD [Primary Care Provider] - Discharge Diet: Usual diet Discharge Activity: Increase activity as tolerated Patient Instructions: Foreign Body - Ear Activity Restrictions/Additional Instructions: Follow-up with primary care in 3 days for recheck. Return to ED for new concerns. Coding Level of Care Code ED Health Information Managers for Kedar Mae
[2023-09-11 00:54] VITALS: BP 176/84; PULSE 82; RESP 14; O2SAT 94
== END 2023-09-11 00:55 | disposition home or self-care (01) ==
PROVIDERS: Emergency Provider Nurse Practitioner Family; PCP Family Medicine
DX: T16.2XXA Foreign body in left ear, initial encounter (principal); W44.F4XA Insect entering into or through a natural orifice, initial encounter; Z79.02 Long term (current) use of antithrombotics/antiplatelets; Z79.82 Long term (current) use of aspirin; Z87.891 Personal history of nicotine dependence; I25.10 Atherosclerotic heart disease of native coronary artery without angina pectoris; J44.9 Chronic obstructive pulmonary disease, unspecified; E78.5 Hyperlipidemia, unspecified; Z86.73 Personal history of transient ischemic attack (TIA), and cerebral infarction without residual deficits; I12.9 Hypertensive chronic kidney disease with stage 1 through stage 4 chronic kidney disease, or unspecified chronic kidney disease; N18.9 Chronic kidney disease, unspecified
CPT/HCPCS: 99282

== ENCOUNTER → 2024-01-01 16:50 | Outpatient (BNVA) | payer MEDICARE, SELFPAY | PROVIDERS: PCP Family Medicine; Visit Provider Family Medicine | DX: I10 Essential (primary) hypertension (principal); E78.2 Mixed hyperlipidemia; J44.9 Chronic obstructive pulmonary disease, unspecified; R01.1 Cardiac murmur, unspecified | CPT/HCPCS: 80053; 80061; 84443; 85025 ==

== ENCOUNTER 2024-01-03 19:49 | Emergency (ER) | payer MEDICARE, SELFPAY ==
--- NOTE | 2024-01-03 19:54 | ECG_ITS ---
[facility] Test Date: 2024-01-03 Pat Name: Hai Aparicio Department: Room: Gender: Male [employer]: : 1960 Requested By: Ruth Palm Order Number: [id number] Zay MD: Ivan Graves M.D. Measurements Intervals Pfeifer Rate: 108 P: 71 CO: 160 QRS: 89 QRSD: 86 T: 71 QT: 315 QTc: 423 Interpretive Statements SINUS TACHYCARDIA POSSIBLE LEFT ATRIAL ENLARGEMENT [-0.1mV P-WAVE IN V1/V2] ABNORMAL RHYTHM ECG Compared to ECG 09/03/2023 09:51:27 Sinus rhythm no longer present Electronically Signed On 01-04-2024 6:50:10 CDT by Ivan Graves M.D. [id number] f
[2024-01-03 19:55] VITALS: BP 132/86; PULSE 108; RESP 18; TEMP 36.2; O2SAT 97; BMI 24.9
--- NOTE | 2024-01-03 19:56 | XRR_ITS ---
PROCEDURE INFORMATION: Exam: XR Chest Exam date and time: 01/03/2024 8:25 PM Age: 63 years old Clinical indication: Pain; Chest pressure; Additional info: Cp TECHNIQUE: Imaging protocol: Radiologic exam of the chest. Views: 1 view. COMPARISON: CR XR chest 1V portable [id number] 09/03/2023 10:44 AM FINDINGS: Lungs: No consolidation. Chronic left basilar scarring. Pleural spaces: Unremarkable. No pleural effusion. No pneumothorax. Heart/Mediastinum: Unremarkable. No cardiomegaly. Bones/joints: Unremarkable. XR/XR chest 1V portable [id number] IMPRESSION: No acute findings.
--- NOTE | 2024-01-03 20:00 | ED_ITS ---
HPI - Chest Pain 2 General: Chief Complaint: Chest Pain Stated Complaint: Chest pain Time Seen by Provider: 01/03/24 19:56 Source: patient Mode of arrival: ambulatory Limitations: no limitations History of Present Illness: 63-year-old male who states that he has been having chest pain throughout the day states it is a sharp pain in his left chest. He rates the pain a 2 out of 10 currently he denies any increased shortness of breath denies any cough denies any nausea denies any diaphoresis. Associated symptoms: Deny abdominal pain, dyspnea, fever(s), nausea or vomiting Review of Systems 2 Const: Denies: fever(s), chills, body aches or change in appetite ENMT: Denies: throat pain or dental pain Card: Reports: chest pain Resp: Denies: dyspnea GI: Denies: abdominal pain, nausea, vomiting or diarrhea Musc: Denies: neck pain or back pain Skin/Breast: Denies: rash Neuro: Denies: headache(s) PFSH ED 2 PFSH: Medical History Avascular necrosis of bones of both hips Chest pain HTN (hypertension) CAD (coronary artery disease) GERD (gastroesophageal reflux disease) PVD (peripheral vascular disease) Shortness of breath Palpitation COPD (chronic obstructive pulmonary disease) Hyperlipidemia Carotid stenosis Anxiety Umbilical hernia Hypoxia Epigastric abdominal pain Obstructive apnea Iliac artery occlusion CKD (chronic kidney disease) CVA (cerebral vascular accident) Surgical History Status post carotid surgery Hx of vasectomy Family History Other CAD (coronary artery disease) Cancer Social History Smoking and tobacco/nicotine status: never used tobacco/nicotine Quit status (tobacco/nicotine): has quit using Year quit tobacco: 2009 - 2PPD x 37 Years Second hand smoke exposure: No Alcohol intake: never Substance/Drug Use: never Caregiver/support person: Yes Lives independently: Yes Household members: none Marital status: Unknown service: No Current occupational status: unemployed Previous occupational history: [employer] Do you think of yourself as: Straight/Heterosexual Current gender identity: Male Special karli needs: No Physical Exam 2 Const: COMMON NORMALS: no acute distress, patient oriented x3 and healthy appearing HENMT: COMMON NORMALS: normocephalic and atraumatic HEAD & SCALP: n ormocephalic and atraumatic Eye: COMMON NORMALS: Equal, round and reactive pupils present and EOMs intact bilaterally PUPIL: Yes Equal, round and reactive pupils present Neck/C-Spine: COMMON NORMALS: full ROM and supple Chest: COMMONS NORMALS: normal inspection of the chest and normal palpation of entire chest wall Resp: COMMON NORMALS: normal respiratory effort, No retractions, No use of accessory muscles and clear to auscultation bilaterally AUSCULTATION: clear to auscultation bilaterally Cardio: COMMON NORMALS: regular rhythm and No murmurs present (Cardio) R ATE: tachycardic RHYTHM: regular rhythm GI: COMMON NORMALS: Normal to inspection, nondistended, normoactive bowel sounds present, Soft to palpation, non-tender and no masses PALPATION: Yes Soft to palpation Extremity: COMMON NORMALS: normal to inspection and full ROM Neuro: COMMON NORMALS: patient oriented x3, moves all extremities and no focal motor deficits Psych: COMMON NORMALS: mental status grossly normal, Normal thought process present and cooperative THOUGHT PROCESS: Normal thought process present Skin: COMMON NORMALS: no rashes or lesions noted and no wounds GENERAL SKIN EXAM: no rashes or lesions noted Course 2 Vital Signs: Vital signs: Vital Signs Temperature 97.2 F L 01/03/24 19:55 Pulse Rate 108 H 01/03/24 19:55 Respiratory Rate 18 01/03/24 19:55 Blood Pressure 132/86 01/03/24 19:55 Pulse Oximetry 97 01/03/24 19:55 Oxygen Delivery Me thod Nasal Cannula 01/03/24 19:55 Oxygen Flow Rate 3 01/03/24 19:55 MDM - Chest Pain Medical Decision Making Patient presents for chest pains atypical in nature he is well-appearing here his troponin is negative no signs of ACS no signs of dissection or pulmonary embolism he stable for discharge follow-up with PCP return if worsening Medical Records I reviewed the patient's medical records. Lab Data I reviewed the patient's lab results. 01/03/24 20:15 01/03/24 20:15 Laboratory Results WBC 12.41 10^3/uL (3.29-11.43) H 01/03/24 20:15 RBC 5.39 10^6/uL (3.85-5.65) 01/03/24 20:15 Hgb 15.40 g/dL (11.27-16.99) 01/03/24 20:15 Hct 46.9 % (37-53) 01/03/24 20:15 MCV 87.0 fl (82-101) 01/03/24 20:15 MCH 28.6 pg (27-33) 01/03/24 20:15 MCHC 32.8 g/dL (30-55) 01/03/24 20:15 RDW 13.9 % (12.1-15.1) 01/03/24 20:15 Plt Count 310 10^3/cmm (157-399) 01/03/24 20:15 MPV 10.8 fL (7.4-10.4) H 01/03/24 20:15 Neut % (Auto) 70.9 % 01/03/24 20:15 Lymph % (Auto) 17.4 % 01/03/24 20:15 [place] % (Auto) 8.3 % 01/03/24 20:15 Eos % (Auto) 2.2 % 01/03/24 20:15 Baso % (Auto) 0.7 % 01/03/24 20:15 Neut # (Auto) 8.80 10^3/uL (1.8-7.7) H 01/03/24 20:15 Lymph # (Auto) 2.2 10^3/uL (0.8-4.8) 01/03/24 20:15 [place] # (Auto) 1.0 10^3/uL (0.2-0.9) H 01/03/24 20:15 Eos # (Auto) 0.3 10^3/uL (0.0-0.8) 01/03/24 20:15 Baso # (Auto) 0.1 10^3/uL (0.0-0.1) 01/03/24 20:15 Nucleated RBC % (auto) 0 % 01/03/24 20:15 Nucleated RBCs # 0.0 /100WBC 01/03/24 20:15 Sodium 143 mmol/L (136-145) 01/03/24 20:15 Potassium 4.0 mmol/L (3.5-5.1) 01/03/24 20:15 Chloride 105 mmol/L (98-107) 01/03/24 20:15 Carbon Dioxide 25 mmol/L (22-29) 01/03/24 20:15 Anion Gap 17.0 (5-19) 01/03/24 20:15 BUN 12 mg/dL (8-23) 01/03/24 20:15 Creatinine 0.9 mg/dL (0.7-1.2) 01/03/24 20:15 GFR Calculation 85.5 mL/min (90-130) L 01/03/24 20:15 Glucose 87 mg/dL (65-115) 01/03/24 20:15 Calculated Osmolality 295 mOsm/kg (285-295) 01/03/24 20:15 Calcium 9.7 mg/dL (8.5-10.5) 01/03/24 20:15 Total Bilirubin 0.4 mg/dL (0.15-1.2) 01/03/24 20:15 AST 16 U/L (0-40) 01/03/24 20:15 ALT 21 U/L (0-41) 01/03/24 20:15 Alkaline Phosphatase 165 U/L (40-130) H 01/03/24 20:15 Troponin T Baseline 11 ng/L (0-15) 01/03/24 20:15 Total Protein 6.8 g/dL (6.6-8.7) 01/03/24 20:15 Albumin 4.3 g/dL (3.5-5.2) 01/03/24 20:15 Globulin 2.5 g/dL (1.3-4.6) 01/03/24 20:15 Lipase 30 U/L (13-60) 01/03/24 20:15 All radiology interpretation(s) finalized by discharge EKG Data EKG 1: I personally reviewed and interpreted this EKG as follows: EKG interpretation date: 01/03/24 EKG interpretation time: 01:08 Interpretation: sinus tach hr [address] elevation qrs 86 qtc 379 Discharge Plan Discharge Patient Disposition: Home Clinical Impression: Chest pain Condition: Stable Prescriptions: No Action atorvastatin 40 mg tablet 40 mg PO BEDTIME Qty: 90 3RF cholecalciferol (vitamin D3) 1,250 mcg (50,000 unit) capsule 50,000 unit PO Q7D Qty: 12 3RF Rx Instructions: on budesonide-formoterol [Symbicort] 160-4.5 mcg/actuation HFA aerosol inhaler 2 puff inhalation BID Qty: 10.2 2RF Rx Instructions: patient requesting name brand clopidogrel 75 mg tablet 75 mg PO QAM Qty: 30 2RF acetaminophen [Tylenol Extra Strength] 500 mg Tablet 1,000 mg PO Q6H PRN (Reason: Pain) aspirin 81 mg Tablet,Delayed Release (Dr/Ec) 81 mg PO QAM albuterol sulfate 2.5 mg/0.5 mL solution for nebulization 2.5 mg inhalation Q4H PRN (Reason: shortness of breath or wheezing) Qty: 30 0RF albuterol sulfate 90 mcg/actuation HFA aerosol inhaler 2 inh inhalation Q4H PRN (Reason: shortness of breath or wheezing) Qty: 8.5 0RF Discharge Orders: Discharge ED (Routine); Ordered 01/03/24 Ordered By: Ruth Palm Referrals: Shabana Encarnacion MD [Primary Care Provider] - 4-7 days Discharge Diet: Advance as tolerated Discharge Activity: Resume usual activity Patient Instructions: Chest Pain (ED) Coding Level of Care Code ED Skin Care Instructor for Kedar Mae
[2024-01-03] MEDS: aspirin 81 mg Chew Tablet 324 MG PO (20:17)
--- NOTE | 2024-01-03 20:21 | PC.NURSE ---
Pt refused zofran and morphine at this time. Return witnessed by Qi.
[2024-01-03 20:29] LABS: Basophils # 0.1 10^3/uL (0.0-0.1); Basophils % 0.7 %; Eosinophils # 0.3 10^3/uL (0.0-0.8); Eosinophils % 2.2 %; Hematocrit 46.9 % (37-53); Lymphocytes # 2.2 10^3/uL (0.8-4.8); Lymphocytes % 17.4 %; Mean Corpuscular HGB Conc 32.8 g/dL (30-55); Mean Corpuscular Hemoglobin 28.6 pg (27-33); Mean Platelet Volume 10.8 fL (7.4-10.4); Monocytes % 8.3 %; Neutrophils % 70.9 %; Nucleated Red Blood Cells % 0 %; Platelet Count 310 10^3/cmm (157-399); Red Blood Count 5.39 10^6/uL (3.85-5.65); Red Cell Distribution Width 13.9 % (12.1-15.1); White Blood Count 12.41 10^3/uL (3.29-11.43)
[2024-01-03 20:44] LABS: Troponin(5th) Baseline 11 ng/L (0-15)
[2024-01-03 20:51] LABS: Alanine Aminotransferase 21 U/L (0-41); Albumin Level 4.3 g/dL (3.5-5.2); Alkaline Phosphatase 165 U/L (40-130); Aspartate Amino Transferase 16 U/L (0-40); Blood Urea Nitrogen 12 mg/dL (8-23); Calcium 9.7 mg/dL (8.5-10.5); Carbon Dioxide 25 mmol/L (22-29); Chloride 105 mmol/L (98-107); Creatinine Clr Calc Pharmacy 96.2294; Globulin 2.5 g/dL (1.3-4.6); Glomerular Filtration Rate 85.5 mL/min (90-130); Glucose 87 mg/dL (65-115); Lipase 30 U/L (13-60); Osmolality Calculated 295 mOsm/kg (285-295); Sodium 143 mmol/L (136-145); Total Bilirubin 0.4 mg/dL (0.15-1.2); Total Protein 6.8 g/dL (6.6-8.7)
[2024-01-04 00:24] VITALS: BP 122/90; PULSE 88; RESP 15; O2SAT 97
== END 2024-01-03 21:10 | disposition home or self-care (01) ==
PROVIDERS: Emergency Provider Emergency Medicine; PCP Family Medicine
DX: R07.9 Chest pain, unspecified (principal); R00.0 Tachycardia, unspecified; Z79.02 Long term (current) use of antithrombotics/antiplatelets; Z79.82 Long term (current) use of aspirin; Z87.891 Personal history of nicotine dependence; I12.9 Hypertensive chronic kidney disease with stage 1 through stage 4 chronic kidney disease, or unspecified chronic kidney disease; N18.9 Chronic kidney disease, unspecified; I25.10 Atherosclerotic heart disease of native coronary artery without angina pectoris; J44.9 Chronic obstructive pulmonary disease, unspecified; E78.5 Hyperlipidemia, unspecified; Z86.73 Personal history of transient ischemic attack (TIA), and cerebral infarction without residual deficits
CPT/HCPCS: 71045; 80053; 83690; 84484; 85025; 93005; 99285

== ENCOUNTER 2024-03-29 14:22 | Emergency (ER) | payer MEDICARE, SELFPAY ==
--- NOTE | 2024-03-29 14:29 | ECG_ITS ---
[facility] Test Date: 2024-03-29 Pat Name: Hai Aparicio Department: Room: Gender: Male Traffic Court Magistrate: : 1960 Requested By: Alf Pelaez Order Number: [id number] Zay MD: DICK KOENIG Measurements Intervals [place] Rate: 97 P: 83 MO: 156 QRS: 94 QRSD: 87 T: 68 QT: 331 QTc: 421 Interpretive Statements SINUS RHYTHM BORDERLINE RIGHT AXIS DEVIATION [QRS AXIS > 90] POSSIBLE RIGHT VENTRICULAR CONDUCTION DELAY [RSR (QR) IN V1/V2] Compared to ECG 01/03/2024 19:54:02 Sinus tachycardia no longer present Electronically Signed On 03-30-2024 18:10:26 CDT by DICK KOENIG [id number]
--- NOTE | 2024-03-29 14:29 | XR_ITS ---
WS: [id number] Portable AP upright chest, 03/29/2024 Clinical Data: cp Comparison: Portable chest, 01/03/2024 Findings: No nodules, masses or effusions are seen. The heart is normal. The pulmonary vascularity is not increased. No pneumonia or pneumothorax is seen. There is left basilar scarring. The diaphragms are flattened. The aortic arch and descending thoracic aorta show tortuosity and calcification. XR/XR chest 1V portable [id number] Impression: Atherosclerosis and hyperinflation.
[2024-03-29 14:31] VITALS: BP 123/88; PULSE 101; RESP 18; TEMP 36.5; O2SAT 96; BMI 24.4
[2024-03-29 14:55] LABS: Basophils # 0.1 10^3/uL (0.0-0.1); Basophils % 0.5 %; Eosinophils # 0.2 10^3/uL (0.0-0.8); Eosinophils % 1.9 %; Hematocrit 48.8 % (37-53); Lymphocytes # 1.9 10^3/uL (0.8-4.8); Lymphocytes % 17.1 %; Mean Corpuscular HGB Conc 31.6 g/dL (30-55); Mean Corpuscular Hemoglobin 28.4 pg (27-33); Mean Platelet Volume 10.4 fL (7.4-10.4); Monocytes # 0.9 10^3/uL (0.2-0.9); Monocytes % 8.3 %; Neutrophils # 7.86 10^3/uL (1.8-7.7); Neutrophils % 71.7 %; Nucleated Red Blood Cells % 0 %; Platelet Count 295 10^3/cmm (157-399); Red Blood Count 5.42 10^6/uL (3.85-5.65); Red Cell Distribution Width 14.1 % (12.1-15.1); White Blood Count 10.98 10^3/uL (3.29-11.43)
--- NOTE | 2024-03-29 15:11 | ED_ITS ---
HPI - Chest Pain 2 General: Chief Complaint: Chest Pain Stated Complaint: CP Time Seen by Provider: 03/29/24 14:36 Source: patient Mode of arrival: ambulatory Limitations: no limitations History of Present Illness: 64-year-old male well-known to ER states he started having some aching chest pain this morning he had multiple episodes of chest pain in the past he states similar. He denies any fevers denies any vomiting or diarrhea. Denies any worse improved factors. Associated symptoms: Deny abdominal pain, dyspnea, fever(s), nausea or vomiting Related Data Home Medications Medication Instructions Recorded Confirmed acetaminophen 500 mg tablet 1,000 mg PO Q6H PRN Pain 08/27/20 01/01/24 (Tylenol Extra Strength) aspirin 81 mg tablet,delayed 81 mg PO QAM 06/23/22 01/01/24 release Previous Rx's Medication Instructions Recorded albuterol sulfate 90 mcg/actuation 2 inh inhalation Q4H PRN shortness 07/15/22 aerosol inhaler of breath or wheezing #8.5 grams albuterol sulfate 2.5 mg/0.5 mL 2.5 mg (0.5 mL) inhalation Q4H PRN 08/06/23 solution for nebulization shortness of breath or wheezing #30 ea cholecalciferol (vitamin D3) 1,250 50,000 unit PO Q7D #12 caps 08/08/23 mcg (50,000 unit) capsule atorvastatin 40 mg tablet 40 mg PO BEDTIME #90 tabs 01/01/24 Symbicort 160 mcg-4.5 2 puff inhalation BID #10.2 grams 01/08/24 mcg/actuation HFA aerosol inhaler (budesonide-formoterol) clopidogrel 75 mg tablet 75 mg PO QAM #30 tabs 02/22/24 Allergies Allergy/AdvReac Type Severity Reaction Status Date / Time fluticasone [From Flonase] Allergy Unknown Verified 03/29/24 14:37 levofloxacin [From Levaquin] Allergy Unknown Verified 03/29/24 14:37 methylprednisolone Allergy Unknown Verified 03/29/24 14:37 [From Solu-Medrol] salmeterol AdvReac ADR-Nausea Verified 03/29/24 14:37 Review of Systems 2 Const: Denies: fever(s), chills, body aches or change in appetite ENMT: Denies: throat pain or dental pain Card: Reports: chest pain Resp: Denies: dyspnea GI: Denies: abdominal pain, nausea, vomiting or diarrhea Musc: Denies: neck pain or back pain Skin/Breast: Denies: rash Neuro: Denies: headache(s) PFSH ED 2 PFSH: Medical History Avascular necrosis of bones of both hips Chest pain HTN (hypertension) CAD (coronary artery disease) GERD (gastroesophageal reflux disease) PVD (peripheral vascular disease) Shortness of breath Palpitation COPD (chronic obstructive pulmonary disease) Hyperlipidemia Carotid stenosis Anxiety Umbilical hernia Hypoxia Epigastric abdominal pain Obstructive apnea Iliac artery occlusion CKD (chronic kidney disease) CVA (cerebral vascular accident) Surgical History Status post carotid surgery Hx of vasectomy Family History Other CAD (coronary artery disease) Cancer Social History Smoking and tobacco/nicotine status: never used tobacco/nicotine Quit status (tobacco/nicotine): has quit using Year quit tobacco: 2009 - 2PPD x 37 Years Second hand smoke exposure: No Alcohol intake: never Substance/Drug Use: never Caregiver/support person: Yes Lives independently: Yes Household members: none Marital status: Unknown service: No Current occupational status: unemployed Previous occupational history: [employer] Do you think of yourself as: Straight/Heterosexual Current gender identity: Male Special karli needs: No Physical Exam 2 Const: COMMON NORMALS: no acute distress, patient oriented x3 and healthy appearing HENMT: COMMON NORMALS: normocephalic and atraumatic HEAD & SCALP: n ormocephalic and atraumatic Eye: COMMON NORMALS: Equal, round and reactive pupils present and EOMs intact bilaterally PUPIL: Yes Equal, round and reactive pupils present Neck/C-Spine: COMMON NORMALS: full ROM and supple Chest: COMMONS NORMALS: normal inspection of the chest and normal palpation of entire chest wall Resp: COMMON NORMALS: normal respiratory effort, No retractions, No use of accessory muscles and clear to auscultation bilaterally AUSCULTATION: clear to auscultation bilaterally Cardio: COMMON NORMALS: regular rate, regular rhythm and No murmurs present (Cardio) RATE: regular rate RHYTHM: regular rhythm GI: COMMON NORMALS: Normal to inspection, nondistended, normoactive bowel sounds present, Soft to palpation, non-tender and no masses PALPATION: Yes Soft to palpation Extremity: COMMON NORMALS: normal to inspection and full ROM Neuro: COMMON NORMALS: patient oriented x3, moves all extremities and no focal motor deficits Psych: COMMON NORMALS: mental status grossly normal, Normal thought process present and cooperative THOUGHT PROCESS: Normal thought process present Skin: COMMON NORMALS: no rashes or lesions noted and no wounds GENERAL SKIN EXAM: no rashes or lesions noted Course 2 Vital Signs: Vital signs: Vital Signs Temperature 97.7 F 03/29/24 14:31 Pulse Rate 101 H 03/29/24 14:31 Respiratory Rate 18 03/29/24 14:31 Blood Pressure 123/88 03/29/24 14:31 Pulse Oximetry 96 03/29/24 14:31 Oxygen Delivery Me thod Nasal Cannula 03/29/24 14:31 Oxygen Flow Rate 2 03/29/24 14:31 MDM - Chest Pain Medical Decision Making Patient presents for chest pain with atypical nature he has a troponin here is negative he is stable for discharge has no signs of ACS no signs of PE he is follow-up with PCP and return if worsening. Medical Records I reviewed the patient's medical records. Lab Data I reviewed the patient's lab results. 03/29/24 14:47 03/29/24 14:47 Radiology Impressions Chest X-Ray 03/29/24 14:29 Impression: Atherosclerosis and hyperinflation. Laboratory Results WBC 10.98 10^3/uL (3.29-11.43) 03/29/24 14:47 RBC 5.42 10^6/uL (3.85-5.65) 03/29/24 14:47 Hgb 15.40 g/dL (11.27-16.99) 03/29/24 14:47 Hct 48.8 % (37-53) 03/29/24 14:47 MCV 90.0 fl (82-101) 03/29/24 14:47 MCH 28.4 pg (27-33) 03/29/24 14:47 MCHC 31.6 g/dL (30-55) 03/29/24 14:47 RDW 14.1 % (12.1-15.1) 03/29/24 14:47 Plt Count 295 10^3/cmm (157-399) 03/29/24 14:47 MPV 10.4 fL (7.4-10.4) 03/29/24 14:47 Neut % (Auto) 71.7 % 03/29/24 14:47 Lymph % (Auto) 17.1 % 03/29/24 14:47 [place] % (Auto) 8.3 % 03/29/24 14:47 Eos % (Auto) 1.9 % 03/29/24 14:47 Baso % (Auto) 0.5 % 03/29/24 14:47 Neut # (Auto) 7.86 10^3/uL (1.8-7.7) H 03/29/24 14:47 Lymph # (Auto) 1.9 10^3/uL (0.8-4.8) 03/29/24 14:47 [place] # (Auto) 0.9 10^3/uL (0.2-0.9) 03/29/24 14:47 Eos # (Auto) 0.2 10^3/uL (0.0-0.8) 03/29/24 14:47 Baso # (Auto) 0.1 10^3/uL (0.0-0.1) 03/29/24 14:47 Nucleated RBC % (auto) 0 % 03/29/24 14:47 Nucleated RBCs # 0.0 /100WBC 03/29/24 14:47 Sodium 141 mmol/L (136-145) 03/29/24 14:47 Potassium 3.9 mmol/L (3.5-5.1) 03/29/24 14:47 Chloride 105 mmol/L (98-107) 03/29/24 14:47 Carbon Dioxide 22 mmol/L (22-29) 03/29/24 14:47 Anion Gap 17.9 (5-19) 03/29/24 14:47 BUN 11 mg/dL (8-23) 03/29/24 14:47 Creatinine 0.9 mg/dL (0.7-1.2) 03/29/24 14:47 GFR Calculation 85.2 mL/min (90-130) L 03/29/24 14:47 Glucose 103 mg/dL (65-115) 03/29/24 14:47 Calculated Osmolality 292 mOsm/kg (285-295) 03/29/24 14:47 Calcium 9.2 mg/dL (8.5-10.5) 03/29/24 14:47 Total Bilirubin 0.5 mg/dL (0.15-1.2) 03/29/24 14:47 AST 14 U/L (0-40) 03/29/24 14:47 ALT 19 U/L (0-41) 03/29/24 14:47 Alkaline Phosphatase 154 U/L (40-130) H 03/29/24 14:47 Troponin T Baseline 9 ng/L (0-15) 03/29/24 14:47 Total Protein 7.1 g/dL (6.6-8.7) 03/29/24 14:47 Albumin 4.1 g/dL (3.5-5.2) 03/29/24 14:47 Globulin 3.0 g/dL (1.3-4.6) 03/29/24 14:47 All radiology interpretation(s) finalized by discharge Discharge Plan Discharge Patient Disposition: Home Clinical Impression: Chest pain Condition: Stable Prescriptions: No Action atorvastatin 40 mg tablet 40 mg PO BEDTIME Qty: 90 3RF clopidogrel 75 mg tablet 75 mg PO QAM Qty: 30 2RF cholecalciferol (vitamin D3) 1,250 mcg (50,000 unit) capsule 50,000 unit PO Q7D Qty: 12 3RF Rx Instructions: on budesonide-formoterol [Symbicort] 160-4.5 mcg/actuation HFA aerosol inhaler 2 puff inhalation BID Qty: 10.2 2RF Rx Instructions: patient requesting name brand acetaminophen [Tylenol Extra Strength] 500 mg Tablet 1,000 mg PO Q6H PRN (Reason: Pain) aspirin 81 mg Tablet,Delayed Release (Dr/Ec) 81 mg PO QAM albuterol sulfate 2.5 mg/0.5 mL solution for nebulization 2.5 mg inhalation Q4H PRN (Reason: shortness of breath or wheezing) Qty: 30 0RF albuterol sulfate 90 mcg/actuation HFA aerosol inhaler 2 inh inhalation Q4H PRN (Reason: shortness of breath or wheezing) Qty: 8.5 0RF Discharge Orders: Discharge ED (Routine); Ordered 03/29/24 Ordered By: Ruth Palm Referrals: Shabana Encarnacion MD [Primary Care Provider] - Discharge Diet: Advance as tolerated Discharge Activity: Resume usual activity Patient Instructions: Chest Pain (ED) Coding Level of Care Code ED Evening Sitter for Kedar Mae
[2024-03-29 15:27] LABS: Troponin(5th) Baseline 9 ng/L (0-15)
[2024-03-29 15:59] LABS: Alanine Aminotransferase 19 U/L (0-41); Albumin Level 4.1 g/dL (3.5-5.2); Alkaline Phosphatase 154 U/L (40-130); Anion Gap 17.9 (5-19); Aspartate Amino Transferase 14 U/L (0-40); Blood Urea Nitrogen 11 mg/dL (8-23); Calcium 9.2 mg/dL (8.5-10.5); Carbon Dioxide 22 mmol/L (22-29); Chloride 105 mmol/L (98-107); Creatinine Clr Calc Pharmacy 96.8513; Glomerular Filtration Rate 85.2 mL/min (90-130); Glucose 103 mg/dL (65-115); Osmolality Calculated 292 mOsm/kg (285-295); Potassium 3.9 mmol/L (3.5-5.1); Sodium 141 mmol/L (136-145); Total Bilirubin 0.5 mg/dL (0.15-1.2); Total Protein 7.1 g/dL (6.6-8.7)
[2024-03-29 16:26] VITALS: BP 153/95; PULSE 85; RESP 16; O2SAT 98
== END 2024-03-29 16:34 | disposition home or self-care (01) ==
PROVIDERS: Emergency Medicine; Emergency Provider Emergency Medicine; PCP Family Medicine
DX: R07.9 Chest pain, unspecified (principal); Z79.02 Long term (current) use of antithrombotics/antiplatelets; Z79.82 Long term (current) use of aspirin; Z87.891 Personal history of nicotine dependence; I12.9 Hypertensive chronic kidney disease with stage 1 through stage 4 chronic kidney disease, or unspecified chronic kidney disease; N18.9 Chronic kidney disease, unspecified; I25.10 Atherosclerotic heart disease of native coronary artery without angina pectoris; J44.9 Chronic obstructive pulmonary disease, unspecified; E78.5 Hyperlipidemia, unspecified; Z86.73 Personal history of transient ischemic attack (TIA), and cerebral infarction without residual deficits
CPT/HCPCS: 36415; 71045; 80053; 84484; 85025; 93005; 99285

== ENCOUNTER 2024-05-02 08:24 | Emergency (ER) | payer MEDICARE, SELFPAY ==
[2024-05-02] VITALS (7 sets, daily range): BP systolic 130–181; BP diastolic 65–100; PULSE 102–128; RESP 18–20; TEMP 36.8; O2SAT 95–99; BMI 23.7
--- NOTE | 2024-05-02 08:25 | XR_ITS ---
WS: [email or web address] Exam: XR chest 1V portable [id number] Date/Time of Exam: 05/02/2024 8:27 AM Reason For Exam: sob Comparison 03/29/2024. The lungs are hyperinflated and clear. Normal cardiomediastinal silhouette. No pleural effusions. Reg ional bony structures are intact. XR/XR chest 1V portable [id number] IMPRESSION: 1. Pulmonary hyperinflation. No acute process.
--- NOTE | 2024-05-02 08:30 | ED_ITS ---
HPI - SOB/Dyspnea 2 General: Chief Complaint: Shortness of Breath/Dyspnea Stated Complaint: SOB Time Seen by Provider: 05/02/24 08:25 Source: patient Mode of arrival: ambulatory Limitations: no limitations History of Present Illness: HPI Narrative: 64-year-old male history of COPD states he been having some shortness of breath this morning. He appears anxious as well. He is on his 2 L here his pulse ox 97% states had a slight cough and congestion he denies any pain. Associated symptoms: Deny abdominal pain, chest pain, fever(s), nausea or vomiting Related Data Home Medications Medication Instructions Recorded Confirmed acetaminophen 500 mg tablet 1,000 mg PO Q6H PRN Pain 08/27/20 05/02/24 (Tylenol Extra Strength) aspirin 81 mg tablet,delayed 81 mg PO QAM 06/23/22 05/02/24 release Previous Rx's Medication Instructions Recorded albuterol sulfate 2.5 mg/0.5 mL 2.5 mg (0.5 mL) inhalation Q4H PRN 08/06/23 solution for nebulization shortness of breath or wheezing #30 ea atorvastatin 40 mg tablet 40 mg PO BEDTIME #90 tabs 01/01/24 Symbicort 160 mcg-4.5 2 puff inhalation BID #10.2 grams 01/08/24 mcg/actuation HFA aerosol inhaler (budesonide-formoterol) clopidogrel 75 mg tablet 75 mg PO QAM #30 tabs 02/22/24 Allergies Allergy/AdvReac Type Severity Reaction Status Date / Time fluticasone [From Flonase] Allergy Unknown Verified 03/29/24 14:37 levofloxacin [From Levaquin] Allergy Unknown Verified 03/29/24 14:37 methylprednisolone Allergy Unknown Verified 03/29/24 14:37 [From Solu-Medrol] salmeterol AdvReac ADR-Nausea Verified 03/29/24 14:37 Review of Systems 2 Const: Denies: fever(s), chills, body aches or change in appetite Eyes: Denies: eye discomfort ENMT: Denies: throat pain or dental pain Card: Denies: chest pain Resp: Reports: dyspnea GI: Denies: abdominal pain, nausea, vomiting or diarrhea : Denies: dysuria Musc: Denies: neck pain or back pain Skin/Breast: Denies: rash Neuro: Denies: headache(s) PFSH ED 2 PFSH: Medical History Avascular necrosis of bones of both hips Chest pain HTN (hypertension) CAD (coronary artery disease) GERD (gastroesophageal reflux disease) PVD (peripheral vascular disease) Shortness of breath Palpitation COPD (chronic obstructive pulmonary disease) Hyperlipidemia Carotid stenosis Anxiety Umbilical hernia Hypoxia Epigastric abdominal pain Obstructive apnea Iliac artery occlusion CKD (chronic kidney disease) CVA (cerebral vascular accident) Surgical History Status post carotid surgery Hx of vasectomy Family History Other CAD (coronary artery disease) Cancer Social History Smoking and tobacco/nicotine status: never used tobacco/nicotine Quit status (tobacco/nicotine): has quit using Year quit tobacco: 2009 - 2PPD x 37 Years Second hand smoke exposure: No Alcohol intake: never Substance/Drug Use: never Caregiver/support person: Yes Lives independently: Yes Household members: none Marital status: Unknown service: No Current occupational status: unemployed Previous occupational history: [employer] Do you think of yourself as: Straight/Heterosexual Current gender identity: Male Special karli needs: No Physical Exam 2 Const: COMMON NORMALS: no acute distress, patient oriented x3 and healthy appearing HENMT: COMMON NORMALS: normocephalic and atraumatic HEAD & SCALP: n ormocephalic and atraumatic Eye: COMMON NORMALS: Equal, round and reactive pupils present and EOMs intact bilaterally PUPIL: Yes Equal, round and reactive pupils present Neck/C-Spine: COMMON NORMALS: full ROM and supple Chest: COMMONS NORMALS: normal inspection of the chest and normal palpation of entire chest wall Resp: COMMON NORMALS: normal respiratory effort, No retractions, No use of accessory muscles and clear to auscultation bilaterally AUSCULTATION: clear to auscultation bilaterally Cardio: COMMON NORMALS: regular rate, regular rhythm and No murmurs present (Cardio) RATE: regular rate RHYTHM: regular rhythm GI: COMMON NORMALS: Normal to inspection, nondistended, normoactive bowel sounds present, Soft to palpation, non-tender and no masses PALPATION: Yes Soft to palpation Extremity: COMMON NORMALS: normal to inspection and full ROM Neuro: COMMON NORMALS: patient oriented x3, moves all extremities and no focal motor deficits Psych: COMMON NORMALS: mental status grossly normal, Normal thought process present and cooperative THOUGHT PROCESS: Normal thought process present Skin: COMMON NORMALS: no rashes or lesions noted and no wounds GENERAL SKIN EXAM: no rashes or lesions noted Course 2 Vital Signs: Vital signs: Vital Signs Temperature 98.3 F 05/02/24 08:27 Pulse Rate 124 H 05/02/24 09:03 Respiratory Rate 20 H 05/02/24 08:46 Blood Pressure 130/73 05/02/24 09:03 Pulse Oximetry 95 05/02/24 09:03 Oxygen Delivery Me thod Nasal Cannula 05/02/24 09:03 Oxygen Flow Rate 2 05/02/24 09:03 MDM - SOB/Dyspnea Medical Decision Making Patient presents here with dyspnea likely COPD exacerbation he is improved here after breathing treatment workup here is negative D-dimer is negative he is in no distress here he stable for discharge follow-up with PCP return if worsening. Medical Records I reviewed the patient's medical records. Lab Data I reviewed the patient's lab results. 05/02/24 08:36 05/02/24 08:36 Labs/Radiology: Radiology Impressions Chest X-Ray 05/02/24 08:25 IMPRESSION: 1. Pulmonary hyperinflation. No acute process. Laboratory Results WBC 17.30 10^3/uL (3.29-11.43) H 05/02/24 08:36 RBC 5.59 10^6/uL (3.85-5.65) 05/02/24 08:36 Hgb 16.40 g/dL (11.27-16.99) 05/02/24 08:36 Hct 50.6 % (37-53) 05/02/24 08:36 MCV 90.5 fl (82-101) 05/02/24 08:36 MCH 29.3 pg (27-33) 05/02/24 08:36 MCHC 32.4 g/dL (30-55) 05/02/24 08:36 RDW 13.9 % (12.1-15.1) 05/02/24 08:36 Plt Count 330 10^3/cmm (157-399) 05/02/24 08:36 MPV 10.6 fL (7.4-10.4) H 05/02/24 08:36 Neut % (Auto) 78.8 % 05/02/24 08:36 Lymph % (Auto) 10.2 % 05/02/24 08:36 [place] % (Auto) 9.2 % 05/02/24 08:36 Eos % (Auto) 1.2 % 05/02/24 08:36 Baso % (Auto) 0.3 % 05/02/24 08:36 Neut # (Auto) 13.62 10^3/uL (1.8-7.7) H 05/02/24 08:36 Lymph # (Auto) 1.8 10^3/uL (0.8-4.8) 05/02/24 08:36 [place] # (Auto) 1.6 10^3/uL (0.2-0.9) H 05/02/24 08:36 Eos # (Auto) 0.2 10^3/uL (0.0-0.8) 05/02/24 08:36 Baso # (Auto) 0.1 10^3/uL (0.0-0.1) 05/02/24 08:36 Nucleated RBC % (auto) 0 % 05/02/24 08:36 Nucleated RBCs # 0.0 /100WBC 05/02/24 08:36 D-Dimer <= 0.27 ug/mLFEU (0-0.59) 05/02/24 08:36 Sodium 137 mmol/L (136-145) 05/02/24 08:36 Potassium 4.0 mmol/L (3.5-5.1) 05/02/24 08:36 Chloride 100 mmol/L (98-107) 05/02/24 08:36 Carbon Dioxide 25 mmol/L (22-29) 05/02/24 08:36 Anion Gap 16.0 (5-19) 05/02/24 08:36 BUN 10 mg/dL (8-23) 05/02/24 08:36 Creatinine 0.9 mg/dL (0.7-1.2) 05/02/24 08:36 GFR Calculation 85.2 mL/min (90-130) L 05/02/24 08:36 Glucose 116 mg/dL (65-115) H 05/02/24 08:36 Calculated Osmolality 284 mOsm/kg (285-295) L 05/02/24 08:36 Calcium 10.1 mg/dL (8.5-10.5) 05/02/24 08:36 Total Bilirubin 0.7 mg/dL (0.15-1.2) 05/02/24 08:36 AST 16 U/L (0-40) 05/02/24 08:36 ALT 18 U/L (0-41) 05/02/24 08:36 Alkaline Phosphatase 191 U/L (40-130) H 05/02/24 08:36 NT-Pro-B Natriuret Pep 89 pg/mL (0-125) 05/02/24 08:36 Total Protein 7.4 g/dL (6.6-8.7) 05/02/24 08:36 Albumin 4.0 g/dL (3.5-5.2) 05/02/24 08:36 Globulin 3.4 g/dL (1.3-4.6) 05/02/24 08:36 Coronavirus (PCR) Negative (Negative) 05/02/24 08:37 Influenza A (PCR) Negative (Negative) 05/02/24 08:37 Influenza Type B (PCR) Negative (Negative) 05/02/24 08:37 RSV (PCR) Negative (Negative) 05/02/24 08:37 All radiology interpretation(s) finalized by discharge EKG Data EKG 1: I personally reviewed and interpreted this EKG as follows: EKG Interpretation Date: 05/02/24 EKG interpretation time: 08:32 Interpretation: sinus tach hr [address] elevation qrs 86 qtc 410 Discharge Plan Discharge Patient Disposition: Home Clinical Impression: Acute exacerbation of chronic obstructive airways disease Prescriptions: No Action atorvastatin 40 mg tablet 40 mg PO BEDTIME Qty: 90 3RF clopidogrel 75 mg tablet 75 mg PO QAM Qty: 30 2RF budesonide-formoterol [Symbicort] 160-4.5 mcg/actuation HFA aerosol inhaler 2 puff inhalation BID Qty: 10.2 2RF Rx Instructions: patient requesting name brand acetaminophen [Tylenol Extra Strength] 500 mg Tablet 1,000 mg PO Q6H PRN (Reason: Pain) aspirin 81 mg Tablet,Delayed Release (Dr/Ec) 81 mg PO QAM albuterol sulfate 2.5 mg/0.5 mL solution for nebulization 2.5 mg inhalation Q4H PRN (Reason: shortness of breath or wheezing) Qty: 30 0RF Discharge Orders: Discharge ED (Routine); Ordered 05/02/24 Ordered By: Ruth Palm Referrals: Shabana Encarnacion MD [Primary Care Provider] - 4-7 days Discharge Diet: Advance as tolerated Discharge Activity: Resume usual activity Patient Instructions: COPD (Chronic Obstructive Pulmonary Disease) (ED) Coding Level of Care Code ED Die Maker Electronic for Kedar Mae
--- NOTE | 2024-05-02 08:32 | ECG_ITS ---
[facility] Test Date: 2024-05-02 Pat Name: Hai Aparicio Department: Room: Gender: Male Launch Leader: : 1960 Requested By: Ruth Palm Order Number: [id number] Collazo MD: Ivan Graves M.D. Measurements Intervals [place] Rate: 112 P: 81 [place]: 132 QRS: 95 QRSD: 86 T: 73 QT: 344 QTc: 470 Interpretive Statements SINUS TACHYCARDIA BORDERLINE RIGHT AXIS DEVIATION [QRS AXIS > 90] POSSIBLE RIGHT VENTRICULAR CONDUCTION DELAY [RSR (QR) IN V1/V2] NONSPECIFIC ST & T-WAVE ABNORMALITY Compared to ECG 03/29/2024 14:23:58 T-wave abnormality now present Sinus rhythm no longer present Electronically Signed On 05-04-2024 10:30:38 CONSULTING DATABASE ADMINISTRATOR by Ivan Graves M.D. [email or web address]
[2024-05-02] MEDS: dexamethasone 10 mg/mL INJ IVP (08:38)
[2024-05-02] MEDS: LORazepam 2 mg/mL INJ 1 mL 0.5 MG IVP (08:38)
[2024-05-02 08:45] LABS: Basophils # 0.1 10^3/uL (0.0-0.1); Basophils % 0.3 %; Eosinophils # 0.2 10^3/uL (0.0-0.8); Eosinophils % 1.2 %; Hematocrit 50.6 % (37-53); Lymphocytes # 1.8 10^3/uL (0.8-4.8); Lymphocytes % 10.2 %; Mean Corpuscular HGB Conc 32.4 g/dL (30-55); Mean Corpuscular Hemoglobin 29.3 pg (27-33); Mean Corpuscular Volume 90.5 fl (82-101); Mean Platelet Volume 10.6 fL (7.4-10.4); Monocytes # 1.6 10^3/uL (0.2-0.9); Monocytes % 9.2 %; Neutrophils # 13.62 10^3/uL (1.8-7.7); Neutrophils % 78.8 %; Nucleated Red Blood Cells % 0 %; Platelet Count 330 10^3/cmm (157-399); Red Blood Count 5.59 10^6/uL (3.85-5.65); Red Cell Distribution Width 13.9 % (12.1-15.1)
[2024-05-02] MEDS: ipratropium-albuterol 3 mL Neb INHALATION (08:52)
[2024-05-02 09:09] LABS: Alanine Aminotransferase 18 U/L (0-41); Alkaline Phosphatase 191 U/L (40-130); Aspartate Amino Transferase 16 U/L (0-40); Blood Urea Nitrogen 10 mg/dL (8-23); Calcium 10.1 mg/dL (8.5-10.5); Carbon Dioxide 25 mmol/L (22-29); Chloride 100 mmol/L (98-107); Creatinine Clr Calc Pharmacy 95.7733; Globulin 3.4 g/dL (1.3-4.6); Glomerular Filtration Rate 85.2 mL/min (90-130); Glucose 116 mg/dL (65-115); NT Pro B Type Natriuretic Pept 89 pg/mL (0-125); Osmolality Calculated 284 mOsm/kg (285-295); Sodium 137 mmol/L (136-145); Total Bilirubin 0.7 mg/dL (0.15-1.2); Total Protein 7.4 g/dL (6.6-8.7)
[2024-05-02 09:13] LABS: D Dimer <= 0.27 ug/mLFEU (0-0.59)
[2024-05-02 09:32] LABS: Covid PCR NEGATIVE (Negative); Influenza A NEGATIVE (Negative); Influenza B NEGATIVE (Negative); Respiratory Syncytial Virus Ce NEGATIVE (Negative)
== END 2024-05-02 10:07 | disposition home or self-care (01) ==
PROVIDERS: Emergency Provider Emergency Medicine; PCP Family Medicine
DX: J44.1 Chronic obstructive pulmonary disease with (acute) exacerbation (principal); Z79.02 Long term (current) use of antithrombotics/antiplatelets; Z79.82 Long term (current) use of aspirin; Z11.52 Encounter for screening for COVID-19; Z87.891 Personal history of nicotine dependence; I12.9 Hypertensive chronic kidney disease with stage 1 through stage 4 chronic kidney disease, or unspecified chronic kidney disease; N18.9 Chronic kidney disease, unspecified; I25.10 Atherosclerotic heart disease of native coronary artery without angina pectoris; Z86.73 Personal history of transient ischemic attack (TIA), and cerebral infarction without residual deficits
CPT/HCPCS: 0241U; 71045; 80053; 83880; 85025; 85378; 93005; 94640; 96374; 96375; 99285; J1100; J2060

== ENCOUNTER 2024-07-27 16:13 | Emergency (ER) | payer MEDICARE, SELFPAY ==
--- NOTE | 2024-07-27 16:16 | XRR_ITS ---
PROCEDURE INFORMATION: Exam: XR Chest Exam date and time: 07/27/2024 4:23 PM Age: 64 years old Clinical indication: Other: Congestion; Additional info: Cough TECHNIQUE: Imaging protocol: Radiologic exam of the chest. Views: 1 view. COMPARISON: CR XR chest 1V portable [id number] 05/02/2024 8:35 AM FINDINGS: Lungs: No consolidation. Similar hyperinflated lungs. Pleural spaces: No pleural effusion. No pneumothorax. Heart/Mediastinum: No cardiomegaly. Bones/joints: No acute findings. XR/XR chest 1V portable [id number] IMPRESSION: No acute chest findings.
[2024-07-27 16:19] VITALS: BP 110/71; PULSE 128; RESP 18; TEMP 36.9; O2SAT 95; BMI 23.1
--- NOTE | 2024-07-27 17:03 | ECG_ITS ---
[facility]: 2024-07[facility]27 Pat Name: Hai Aparicio Department: Room: Gender: Male Assistant Food Service Manager: : 1960 Requested By: Ruth Palm Order Number: [id number] Reading MD: DICK KOENIG Measurements Intervals [place] Rate: 127 P: 77 SD: 144 QRS: 96 QRSD: 81 T: 74 QT: 335 QTc: 487 Interpretive Statements SINUS TACHYCARDIA BORDERLINE RIGHT AXIS DEVIATION [QRS AXIS > 90] POSSIBLE RIGHT VENTRICULAR CONDUCTION DELAY [RSR (QR) IN V1/V2] SEPTAL MYOCARDIAL INFARCTION , OF INDETERMINATE AGE [40+ ms Q WAVE IN V1/V2] Compared to ECG 05/02/2024 08:32:21 Myocardial infarct finding now present T-wave abnormality no longer present Electronically Signed On 07-27-2024 19:14:05 CUSTOMER SERVICE REPRESENTATIVE by DICK KOENIG [email or web address]
[2024-07-27 17:06] LABS: Influenza A POSITIVE (Negative); Influenza B NEGATIVE (Negative); Respiratory Syncytial Virus Ce NEGATIVE (Negative); SARS-CoV-2 PCR NEGATIVE (Negative)
[2024-07-27 18:00] VITALS: BP 119/85; PULSE 116; O2SAT 97
--- NOTE | 2024-07-27 18:31 | W.ED.URI ---
HPI - URI/Sore Throat General: Chief Complaint: Upper Respiratory Infection Stated Complaint: chest conjestion Time Seen by Provider: 07/27/24 18:07 History of Present Illness: This patient is a 64-year-old white male who presents to the emergency department with cough and congestion for the past 2 days. He is unsure if he has been running a fever. He does have diffuse aches and pains. Associated symptoms: Reports nasal congestion Related Data Home Medications ?Medication ?Instructions ?Recorded ?Confirmed acetaminophen 500 mg tablet 1,000 mg PO Q6H PRN Pain 08/27/20 05/03/24 (Tylenol Extra Strength) aspirin 81 mg tablet,delayed 81 mg PO QAM 06/23/22 05/03/24 release Previous Rx's ?Medication ?Instructions ?Recorded albuterol sulfate 2.5 mg/0.5 mL 2.5 mg (0.5 mL) inhalation Q4H PRN 08/06/23 solution for nebulization shortness of breath or wheezing #30 ea atorvastatin 40 mg tablet 40 mg PO BEDTIME #90 tabs 01/01/24 Symbicort 160 mcg-4.5 2 puff inhalation BID #10.2 grams 01/08/24 mcg/actuation HFA aerosol inhaler (budesonide-formoterol) clopidogrel 75 mg tablet 75 mg PO QAM #30 tabs 02/22/24 amoxicillin 875 mg-potassium 1 tab PO BID 10 days #20 tabs 05/03/24 clavulanate 125 mg tablet metoprolol tartrate 25 mg tablet 12.5 mg (1/2 x 25 mg) PO BID #60 05/03/24 tabs prednisone 20 mg tablet 40 mg (2 x 20 mg) PO DAILY 5 days 05/03/24 #10 tabs Allergies Allergy/AdvReac Type Severity Reaction Status Date / Time fluticasone (From Flonase) Allergy Unknown Verified 03/29/24 14:37 levofloxacin (From Levaquin) Allergy Unknown Verified 03/29/24 14:37 methylprednisolone (From Allergy Unknown Verified 03/29/24 14:37 Solu-Medrol) salmeterol AdvReac ADR-Nausea Verified 03/29/24 14:37 Review of Systems General: Reports: 10 or more systems reviewed and unremarkable except in HPI and below ENMT: Reports: nasal congestion Resp: Reports: non-productive cough PFSH ED PFSH: Medical History Avascular necrosis of bones of both hips Chest pain HTN (hypertension) CAD (coronary artery disease) GERD (gastroesophageal reflux disease) PVD (peripheral vascular disease) Shortness of breath Palpitation COPD (chronic obstructive pulmonary disease) Hyperlipidemia Carotid stenosis Anxiety Umbilical hernia Hypoxia Epigastric abdominal pain Obstructive apnea Iliac artery occlusion CKD (chronic kidney disease) CVA (cerebral vascular accident) Surgical History Status post carotid surgery Hx of vasectomy Family History Other CAD (coronary artery disease) Cancer Social History Smoking and tobacco/nicotine status: never used tobacco/nicotine Quit status (tobacco/nicotine): has quit using Year quit tobacco: 2009 - 2PPD x 37 Years Second hand smoke exposure: No Alcohol intake: never Substance/Drug Use: never Caregiver/support person: Yes Lives independently: Yes Household members: none Marital status: Unknown service: No Current occupational status: unemployed Previous occupational history: [employer] Do you think of yourself as: Straight/Heterosexual Current gender identity: Male Special karli needs: No Physical Exam Const: COMMON NORMALS: no acute distress, patient oriented x3 and no limitations GENERAL APPEARANCE: cooperative and comfortable HENMT: COMMON NORMALS: normocephalic, atraumatic, moist oral mucous membranes and oropharynx normal HEAD & SCALP: normal to inspection, normocephalic and atraumatic FACE & SINUS: normal facial exam NOSE: Nasal discharge present Eye: COMMON NORMALS: Equal, round and reactive pupils present, EOMs intact bilaterally and conjunctivae normal GENERAL EYE: appearance normal, both eyes and all related structures CONJUNCTIVA: Yes conjunctivae normal PUPIL: Yes Equal, round and reactive pupils present Neck/C-Spine: COMMON NORMALS: supple and no JVD Chest: COMMONS NORMALS: normal inspection of the chest Resp: COMMON NORMALS: normal respiratory effort and clear to auscultation bilaterally AUSCULTATION: clear to auscultation bilaterally Cardio: COMMON NORMALS: no JVD, regular rhythm, No gallops present (Cardio), No murmurs present (Cardio) and No rub (Cardio) RATE: tachycardic RHYTHM: regular rhythm GI: COMMON NORMALS: Normal to inspection, nondistended, normoactive bowel sounds present, Soft to palpation and non-tender AUSCULTATION: Yes normoactive bowel sounds PALPATION: Yes Soft to palpation : COMMON NORMALS: Yes no CVA tenderness BLADDER/KIDNEY EXAM: Yes no CVA tenderness Back/Pelvis: COMMON NORMALS: no CVA tenderness and thoracic and lumbar spine normal to inspection Extremity: COMMON NORMALS: normal to inspection Neuro: COMMON NORMALS: patient oriented x3 and CN's II-XII intact bilaterally Psych: COMMON NORMALS: mental status grossly normal, Normal thought process present and cooperative THOUGHT PROCESS: Normal thought process present Skin: COMMON NORMALS: no rashes or lesions noted, turgor normal and no jaundice GENERAL SKIN EXAM: no rashes or lesions noted and turgor normal Course Vital Signs: Vital signs: Vital Signs Temperature 98.4 F 07/27/24 16:19 Pulse Rate 128 H 07/27/24 16:19 Respiratory Rate 18 07/27/24 16:19 Blood Pressure 110/71 07/27/24 16:19 Pulse Oximetry 95 07/27/24 16:19 Oxygen Delivery Me thod Nasal Cannula 07/27/24 16:19 Oxygen Flow Rate 2 07/27/24 16:19 MDM - URI/Sore Throat Medical Decision Making Chest x-ray does not reveal any infiltrates or pleural effusions. EKG revealed mild sinus tachycardia. No ST segment abnormalities. Patient tested positive for influenza A. Recommended he take [id number] cough and cold medications. Push fluids get some rest. Follow-up with primary care physician next week if no improvement. He was discharged in stable condition. Lab Data Radiology Impressions Chest X-Ray 07/27/24 16:16 IMPRESSION: No acute chest findings. Laboratory Results Coronavirus (PCR) Negative (Negative) 07/27/24 16:23 Influenza A (PCR) Positive (Negative) 07/27/24 16:23 Influenza Type B (PCR) Negative (Negative) 07/27/24 16:23 RSV (PCR) Negative (Negative) 07/27/24 16:23 All radiology interpretation(s) finalized by discharge Discharge Plan Discharge Patient Disposition: Home Clinical Impression: Influenza A Condition: Stable Prescriptions: No Action atorvastatin 40 mg tablet 40 mg PO BEDTIME Qty: 90 3RF clopidogrel 75 mg tablet 75 mg PO QAM Qty: 30 2RF prednisone 20 mg tablet 40 mg PO DAILY 5 Days Qty: 10 0RF amoxicillin-pot clavulanate 875-125 mg tablet 1 tab PO BID 10 Days Qty: 20 0RF metoprolol tartrate 25 mg tablet 12.5 mg PO BID Qty: 60 0RF budesonide-formoterol [Symbicort] 160-4.5 mcg/actuation HFA aerosol inhaler 2 puff inhalation BID Qty: 10.2 2RF Rx Instructions: patient requesting name brand acetaminophen [Tylenol Extra Strength] 500 mg Tablet 1,000 mg PO Q6H PRN (Reason: Pain) aspirin 81 mg Tablet,Delayed Release (Dr/Ec) 81 mg PO QAM albuterol sulfate 2.5 mg/0.5 mL solution for nebulization 2.5 mg inhalation Q4H PRN (Reason: shortness of breath or wheezing) Qty: 30 0RF Discharge Orders: Discharge ED (Routine); Ordered 07/27/24 Ordered By: Mathew Langston Referrals: Samantha Newell FNP [Primary Care Provider] - Patient Instructions: Influenza (ED) Print Language: Telugu Coding Level of Care Code ED [employer] Specialist for Kedar Mae
[2024-07-27 18:51] VITALS: BP 157/79; PULSE 130; O2SAT 96
== END 2024-07-27 18:52 | disposition home or self-care (01) ==
PROVIDERS: Emergency Medicine; Emergency Provider Emergency Medicine; PCP Nurse Practitioner Family
DX: J10.1 Influenza due to other identified influenza virus with other respiratory manifestations (principal); Z11.52 Encounter for screening for COVID-19; Z79.82 Long term (current) use of aspirin; Z79.02 Long term (current) use of antithrombotics/antiplatelets; Z86.73 Personal history of transient ischemic attack (TIA), and cerebral infarction without residual deficits; J44.9 Chronic obstructive pulmonary disease, unspecified; E78.5 Hyperlipidemia, unspecified; I25.10 Atherosclerotic heart disease of native coronary artery without angina pectoris; I12.9 Hypertensive chronic kidney disease with stage 1 through stage 4 chronic kidney disease, or unspecified chronic kidney disease; N18.9 Chronic kidney disease, unspecified
CPT/HCPCS: 71045; 87637; 93005; 99284

== ENCOUNTER 2024-08-24 17:57 | Emergency (ER) | payer MEDICARE, SELFPAY ==
[2024-08-24 18:06] VITALS: BP 102/65; PULSE 109; RESP 18; TEMP 36.3; O2SAT 96
--- NOTE | 2024-08-24 18:09 | ECG_ITS ---
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: : 1960 Requested By: Tere Mahmood Order Number: [id number] Zay MD: DICK KOENIG Measurements Intervals Baggs Rate: 103 P: 75 AL: 150 QRS: 91 QRSD: 82 T: 73 QT: 315 QTc: 414 Interpretive Statements SINUS TACHYCARDIA BORDERLINE RIGHT AXIS DEVIATION [QRS AXIS > 90] POSSIBLE RIGHT VENTRICULAR CONDUCTION DELAY [RSR (QR) IN V1/V2] SEPTAL MYOCARDIAL INFARCTION , OF INDETERMINATE AGE [40+ ms Q WAVE IN V1/V2] Compared to ECG 07/27/2024 17:37:03 No significant changes Electronically Signed On 08-26-2024 18:10:36 CDT by DICK KOENIG [id number]
--- NOTE | 2024-08-24 18:18 | XRR_ITS ---
PROCEDURE INFORMATION: Exam: XR Chest Exam date and time: 08/24/2024 6:30 PM Age: 64 years old Clinical indication: Chest pressure; Chest pain; HX lt carotid endarterectomy 2022 TECHNIQUE: Imaging protocol: Radiologic exam of the chest. Views: 1 view. COMPARISON: CR (CHEST, ) 07/27/2024 4:23 PM FINDINGS: Lungs: Similar pulmonary hypoinflation with left basilar atelectasis/scarring. No focal airspace disease. Pleural spaces: Unremarkable. No pleural effusion. No pneumothorax. Heart/Mediastinum: Unremarkable. No cardiomegaly. Vasculature: Atherosclerotic aortic calcifications. Bones/joints: Unremarkable. XR/XR chest 1V portable [id number] IMPRESSION: No acute findings.
--- NOTE | 2024-08-24 18:21 | W.ED.CHESTPA ---
HPI - Chest Pain General: Chief Complaint: Chest Pain Stated Complaint: chest and lft arm pain Time Seen by Provider: 08/24/24 18:13 History of Present Illness: 64-year-old man with a history of chronic chest pain, hypertension, coronary artery disease (although he tells me he has not had a heart attack or stents in the past), stroke, COPD and chronic hypoxemic respiratory failure on 2 L nasal cannula at all times who presents the emergency room with some left shoulder pain with no chest pain but is concerned about his heart. He had flu a few weeks ago. He has had some cough. No increased oxygen requirements. No altered mental status. No vomiting. No abdominal pain. Related Data Home Medications ?Medication ?Instructions ?Recorded ?Confirmed acetaminophen 500 mg tablet 1,000 mg PO Q6H PRN Pain 08/27/20 05/03/24 (Tylenol Extra Strength) aspirin 81 mg tablet,delayed 81 mg PO QAM 06/23/22 05/03/24 release Previous Rx's ?Medication ?Instructions ?Recorded albuterol sulfate 2.5 mg/0.5 mL 2.5 mg (0.5 mL) inhalation Q4H PRN 08/06/23 solution for nebulization shortness of breath or wheezing #30 ea atorvastatin 40 mg tablet 40 mg PO BEDTIME #90 tabs 01/01/24 Symbicort 160 mcg-4.5 2 puff inhalation BID #10.2 grams 01/08/24 mcg/actuation HFA aerosol inhaler (budesonide-formoterol) amoxicillin 875 mg-potassium 1 tab PO BID 10 days #20 tabs 05/03/24 clavulanate 125 mg tablet metoprolol tartrate 25 mg tablet 12.5 mg (1/2 x 25 mg) PO BID #60 05/03/24 tabs prednisone 20 mg tablet 40 mg (2 x 20 mg) PO DAILY 5 days 05/03/24 #10 tabs clopidogrel 75 mg tablet 75 mg PO QAM #30 tabs 08/20/24 Allergies Allergy/AdvReac Type Severity Reaction Status Date / Time fluticasone (From Flonase) Allergy Unknown Verified 08/24/24 18:09 levofloxacin (From Levaquin) Allergy Unknown Verified 08/24/24 18:09 methylprednisolone (From Allergy Unknown Verified 08/24/24 18:09 Solu-Medrol) salmeterol AdvReac ADR-Nausea Verified 08/24/24 18:09 Review of Systems Narrative: Constitutional symptoms: Negative except as documented in HPI. Skin symptoms: Negative except as documented in HPI. Eye symptoms: Negative except as documented in HPI. ENMT symptoms: Negative except as documented in HPI. Respiratory symptoms: Negative except as documented in HPI. Cardiovascular symptoms: Negative except as documented in HPI. Gastrointestinal symptoms: Negative except as documented in HPI. Genitourinary symptoms: Negative except as documented in HPI. Musculoskeletal symptoms: Negative except as documented in HPI. Neurologic symptoms: Negative except as documented in HPI. Psychiatric symptoms: Negative except as documented in HPI. Endocrine symptoms: Negative except as documented in HPI. PFSH ED PFSH: Medical History Avascular necrosis of bones of both hips Chest pain HTN (hypertension) CAD (coronary artery disease) GERD (gastroesophageal reflux disease) PVD (peripheral vascular disease) Shortness of breath Palpitation COPD (chronic obstructive pulmonary disease) Hyperlipidemia Carotid stenosis Anxiety Umbilical hernia Hypoxia Epigastric abdominal pain Obstructive apnea Iliac artery occlusion CKD (chronic kidney disease) CVA (cerebral vascular accident) Surgical History Status post carotid surgery Hx of vasectomy Family History Other CAD (coronary artery disease) Cancer Social History Smoking and tobacco/nicotine status: never used tobacco/nicotine Quit status (tobacco/nicotine): has quit using Year quit tobacco: 2009 - 2PPD x 37 Years Second hand smoke exposure: No Alcohol intake: never Substance/Drug Use: never Caregiver/support person: Yes Lives independently: Yes Household members: none Marital status: Unknown service: No Current occupational status: unemployed Previous occupational history: [employer] Do you think of yourself as: Straight/Heterosexual Current gender identity: Male Special karli needs: No Physical Exam Narrative: EXAM NARRATIVE: General: Alert, no acute distress. Skin: Warm, dry. Head: Normocephalic, atraumatic. Neck: Supple, trachea midline. Eye: Extraocular movements are intact. Ears, nose, mouth and throat: mucosa moist. Cardiovascular: Regular, Normal peripheral perfusion. Respiratory: Lungs are clear to auscultation, respirations are non-labored, breath sounds are equal, Symmetrical chest wall expansion. Gastrointestinal: Soft, Nontender, Non distended Musculoskeletal: Normal ROM, no deformity. Neurological: Alert and oriented, No focal neurological deficit observed. Psychiatric: Cooperative, appropriate mood & affect. Course Vital Signs: Vital signs: Vital Signs Temperature 97.4 F L 08/24/24 18:06 Pulse Rate 98 08/24/24 18:39 Respiratory Rate 18 08/24/24 18:06 Blood Pressure 118/91 08/24/24 18:39 Pulse Oximetry 95 08/24/24 18:39 Oxygen Delivery Me thod Room Air 08/24/24 18:39 Oxygen Flow Rate 2 08/24/24 18:06 MDM - Chest Pain Medical Decision Making Differential diagnosis for patient with chest pain includes but is not limited to and based on the above HPI, review of systems and physical exam: Pneumonia. unstable angina. angina. Acute coronary syndrome / [place]. Pulmonary embolism. Costochondritis / musculoskeletal. Pleurisy. Pericarditis. Esophageal spasm. Pancreatis. Cholecystitis. Orders placed to evaluate differential diagnosis based on the above differential, HPI and physical exam EKG: Time 1808. Rate 103. Sinus tachycardia, No ST-T changes, no ectopy, normal HI & QRS intervals, This was reviewed and interpreted by myself the ER physician at 1804. Lab Review: Laboratory results were reviewed and interpreted by myself the emergency room physician. Mild leukocytosis. No anemia. No renal failure. Troponin is negative. Chest x-ray: No acute process. No infiltrate. No pneumothorax. This was reviewed and interpreted by myself the emergency room physician. I also reviewed the radiology report. I reviewed the patient's medical record. Reexamination: Patient remained stable. No increased work of breathing. No altered mental status. No focal motor deficits. Assessment and plan: Shoulder pain ?Toradol in the emergency room. - Discharged home - Discussed plan with patient. Answered any questions. - Evaluation and treatment of this problem were appropriate in the emergency setting. Lab Data 08/24/24 18:18 08/24/24 18:18 Laboratory Results WBC 12.33 10^3/uL (3.29-11.43) H 08/24/24 18:18 RBC 5.57 10^6/uL (3.85-5.65) 08/24/24 18:18 Hgb 15.60 g/dL (11.27-16.99) 08/24/24 18:18 Hct 49.1 % (37-53) 08/24/24 18:18 MCV 88.2 fl (82-101) 08/24/24 18:18 MCH 28.0 pg (27-33) 08/24/24 18:18 MCHC 31.8 g/dL (30-55) 08/24/24 18:18 RDW 14.7 % (12.1-15.1) 08/24/24 18:18 Plt Count 275 10^3/cmm (157-399) 08/24/24 18:18 MPV 11.1 fL (7.4-10.4) H 08/24/24 18:18 Neut % (Auto) 71.9 % 08/24/24 18:18 Lymph % (Auto) 17.0 % 08/24/24 18:18 Mineral % (Auto) 9.1 % 08/24/24 18:18 Eos % (Auto) 1.0 % 08/24/24 18:18 Baso % (Auto) 0.5 % 08/24/24 18:18 Neut # (Auto) 8.87 10^3/uL (1.8-7.7) H 08/24/24 18:18 Lymph # (Auto) 2.1 10^3/uL (0.8-4.8) 08/24/24 18:18 Mineral # (Auto) 1.1 10^3/uL (0.2-0.9) H 08/24/24 18:18 Eos # (Auto) 0.1 10^3/uL (0.0-0.8) 08/24/24 18:18 Baso # (Auto) 0.1 10^3/uL (0.0-0.1) 08/24/24 18:18 Nucleated RBC % (auto) 0 % 08/24/24 18:18 Nucleated RBCs # 0.0 /100WBC 08/24/24 18:18 Sodium 141 mmol/L (136-145) 08/24/24 18:18 Potassium 3.9 mmol/L (3.5-5.1) 08/24/24 18:18 Chloride 104 mmol/L (98-107) 08/24/24 18:18 Carbon Dioxide 25 mmol/L (22-29) 08/24/24 18:18 Anion Gap 15.9 (5-19) 08/24/24 18:18 BUN 9 mg/dL (8-23) 08/24/24 18:18 Creatinine 0.8 mg/dL (0.7-1.2) 08/24/24 18:18 GFR Calculation 97.6 mL/min (90-130) 08/24/24 18:18 Glucose 93 mg/dL (65-115) 08/24/24 18:18 Calculated Osmolality 290 mOsm/kg (285-295) 08/24/24 18:18 Calcium 9.8 mg/dL (8.5-10.5) 08/24/24 18:18 Total Bilirubin 0.6 mg/dL (0.15-1.2) 08/24/24 18:18 AST 15 U/L (0-40) 08/24/24 18:18 ALT 19 U/L (0-41) 08/24/24 18:18 Alkaline Phosphatase 149 U/L (40-130) H 08/24/24 18:18 Troponin T Baseline 15 ng/L (0-15) 08/24/24 18:18 NT-Pro-B Natriuret Pep 102 pg/mL (0-125) 08/24/24 18:18 Total Protein 7.2 g/dL (6.6-8.7) 08/24/24 18:18 Albumin 4.3 g/dL (3.5-5.2) 08/24/24 18:18 Globulin 2.9 g/dL (1.3-4.6) 08/24/24 18:18 All radiology interpretation(s) finalized by discharge Discharge Plan Discharge Patient Disposition: Home Clinical Impression: Shoulder pain Condition: Stable Prescriptions: No Action atorvastatin 40 mg tablet 40 mg PO BEDTIME Qty: 90 3RF prednisone 20 mg tablet 40 mg PO DAILY 5 Days Qty: 10 0RF amoxicillin-pot clavulanate 875-125 mg tablet 1 tab PO BID 10 Days Qty: 20 0RF metoprolol tartrate 25 mg tablet 12.5 mg PO BID Qty: 60 0RF budesonide-formoterol [Symbicort] 160-4.5 mcg/actuation HFA aerosol inhaler 2 puff inhalation BID Qty: 10.2 2RF Rx Instructions: patient requesting name brand clopidogrel 75 mg tablet 75 mg PO QAM Qty: 30 0RF acetaminophen [Tylenol Extra Strength] 500 mg Tablet 1,000 mg PO Q6H PRN (Reason: Pain) aspirin 81 mg Tablet,Delayed Release (Dr/Ec) 81 mg PO QAM albuterol sulfate 2.5 mg/0.5 mL solution for nebulization 2.5 mg inhalation Q4H PRN (Reason: shortness of breath or wheezing) Qty: 30 0RF Discharge Orders: Discharge ED (Routine); Ordered 08/24/24 Ordered By: Tere Lara Referrals: Samantha Newell FNP [Primary Care Provider] - Discharge Diet: Usual diet Discharge Activity: Increase activity as tolerated Patient Instructions: Opioid Safety, Pain Management Activity Restrictions/Additional Instructions: Thank you for choosing [facility] for your healthcare needs today. Please realize this is an emergency room and that we are providing you with a medical screening exam and this may not be complete and all inclusive of all the testing and or work up that you may need to determine your ailment or severity of your illness. You have been screened and evaluated and felt safe for discharge. Health conditions do change or evolve sometimes and as such it is important that you follow up with your Primary Doctor to be re checked, 3-5 days is a general good time frame for follow up. 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
[2024-08-24 18:35] LABS: Basophils # 0.1 10^3/uL (0.0-0.1); Basophils % 0.5 %; Eosinophils # 0.1 10^3/uL (0.0-0.8); Hematocrit 49.1 % (37-53); Lymphocytes # 2.1 10^3/uL (0.8-4.8); Mean Corpuscular HGB Conc 31.8 g/dL (30-55); Mean Corpuscular Volume 88.2 fl (82-101); Mean Platelet Volume 11.1 fL (7.4-10.4); Monocytes # 1.1 10^3/uL (0.2-0.9); Monocytes % 9.1 %; Neutrophils # 8.87 10^3/uL (1.8-7.7); Neutrophils % 71.9 %; Nucleated Red Blood Cells % 0 %; Platelet Count 275 10^3/cmm (157-399); Red Blood Count 5.57 10^6/uL (3.85-5.65); Red Cell Distribution Width 14.7 % (12.1-15.1); White Blood Count 12.33 10^3/uL (3.29-11.43)
[2024-08-24 18:39] VITALS: BP 118/91; PULSE 98; O2SAT 95
[2024-08-24 18:44] LABS: Troponin(5th) Baseline 15 ng/L (0-15)
[2024-08-24 19:06] LABS: Alanine Aminotransferase 19 U/L (0-41); Albumin Level 4.3 g/dL (3.5-5.2); Alkaline Phosphatase 149 U/L (40-130); Anion Gap 15.9 (5-19); Aspartate Amino Transferase 15 U/L (0-40); Blood Urea Nitrogen 9 mg/dL (8-23); Calcium 9.8 mg/dL (8.5-10.5); Carbon Dioxide 25 mmol/L (22-29); Chloride 104 mmol/L (98-107); Creatinine Clr Calc Pharmacy 106.5322; Globulin 2.9 g/dL (1.3-4.6); Glomerular Filtration Rate 97.6 mL/min (90-130); Glucose 93 mg/dL (65-115); NT Pro B Type Natriuretic Pept 102 pg/mL (0-125); Osmolality Calculated 290 mOsm/kg (285-295); Potassium 3.9 mmol/L (3.5-5.1); Sodium 141 mmol/L (136-145); Total Bilirubin 0.6 mg/dL (0.15-1.2); Total Protein 7.2 g/dL (6.6-8.7)
[2024-08-24 19:39] VITALS: BP 143/83; PULSE 94; O2SAT 95
[2024-08-24 20:10] VITALS: BP 151/77; PULSE 92; O2SAT 95
== END 2024-08-24 20:11 | disposition home or self-care (01) ==
PROVIDERS: Emergency Provider Emergency Medicine; PCP Nurse Practitioner Family
DX: M25.512 Pain in left shoulder (principal); Z79.02 Long term (current) use of antithrombotics/antiplatelets; Z87.891 Personal history of nicotine dependence; Z86.73 Personal history of transient ischemic attack (TIA), and cerebral infarction without residual deficits; J44.9 Chronic obstructive pulmonary disease, unspecified; I25.10 Atherosclerotic heart disease of native coronary artery without angina pectoris; I12.9 Hypertensive chronic kidney disease with stage 1 through stage 4 chronic kidney disease, or unspecified chronic kidney disease; N18.9 Chronic kidney disease, unspecified; Z99.81 Dependence on supplemental oxygen
CPT/HCPCS: 71045; 80053; 83880; 84484; 85025; 93005; 99285

== ENCOUNTER → 2024-09-02 14:58 | Outpatient (BNVA) | payer MEDICARE, SELFPAY | PROVIDERS: PCP Nurse Practitioner Family; Visit Provider Nurse Practitioner Family | DX: R30.0 Dysuria (principal) | CPT/HCPCS: 80053; 80061; 81000; 84443; 85025; G0103 ==

== ENCOUNTER 2024-09-11 14:59 | Emergency (ER) | payer MEDICARE, SELFPAY ==
--- NOTE | 2024-09-11 15:00 | ECG_ITS ---
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 Measurements Intervals Stout Rate: 83 P: 77 FL: 151 QRS: 89 QRSD: 76 T: 83 QT: 353 QTc: 417 Interpretive Statements SINUS RHYTHM WITH SINUS ARRHYTHMIA SEPTAL MYOCARDIAL INFARCTION , OF INDETERMINATE AGE [40+ ms Q WAVE IN V1/V2] Compared to ECG 08/24/2024 18:04:07 Sinus tachycardia no longer present Myocardial infarct finding still present Electronically Signed On 09-14-2024 18:20:13 CDT by Ivan Graves M.D. [email or web address]
--- NOTE | 2024-09-11 15:00 | XR_ITS ---
WS: [id number] XR chest 1V portable [id number] REASON FOR EXAM: cp FINDINGS: The chest is unchanged compared to 08/24/2024. Mild tortuosity the thoracic aorta with mild arch calcification. Calcified granulomatous disease in both hemithoraces. No acute pulmonary parenchymal or pleural abnormality. Mild degenerative spondylosis in the mid and lower thoracic spine. XR/XR chest 1V portable [id number] IMPRESSION: Stable chest without acute abnormality.
[2024-09-11 15:01] VITALS: BP 139/72; PULSE 84; RESP 20; TEMP 36.4; O2SAT 98
--- NOTE | 2024-09-11 15:03 | ED_ITS ---
HPI - Chest Pain 2 General: Chief Complaint: Chest Pain Stated Complaint: Chest Pain Time Seen by Provider: 09/11/24 14:59 Source: patient and EMS Mode of arrival: EMS Limitations: no limitations History of Present Illness: 64-year-old male well-known to the ER love s history of chronic chest pain states he started having chest pain today while driving it was a pressure pain he is received nitro and aspirin and route states pain is much improved currently 1 out of 10 denies any radiation denies any nausea denies any diaphoresis. Associated symptoms: Deny abdominal pain, dyspnea, fever(s), nausea or vomiting Related Data Home Medications ?Medication ?Instructions ?Recorded ?Confirmed acetaminophen 500 mg tablet 1,000 mg PO Q6H PRN Pain 0 08/27/20 09/11/24 (Tylenol Extra Strength) aspirin 81 mg tablet,delayed 81 mg PO QAM 06/23/2208/06 release budesonide-formoterol HFA 160 2 puff inhalation BID 09/11/24 mcg-4.5 mcg/actuation aerosol inhaler (Symbicort) Previous Rx's ?Medication ?Instructions ?Recorded albuterol sulfate 2.5 mg/0.5 mL 2.5 mg (0.5 mL) inhala tion Q4H PRN 08/06/23 solution for nebulization shortness of breath or wheez ing #30 ea atorvastatin 40 mg tablet 40 mg PO BEDTIME #30 tabs clopidogrel 75 mg tablet 75 mg PO QAM #30 tabs fluticasone fur. 200 mcg-umeclid 1 inh inhalation ISABELA Y #60 ea 09/02/24 62.5 mcg-vilant 25 mcg inhalat.powder (Trelegy Ellipta) Allergies Allergy/AdvReac Type Severity Reaction Status Date / Time fluticasone (From Flonase) Allergy Unknown Verified 09/11/24 13:41 levofloxacin (From Levaquin) Allergy Unknown Verified 09/11/24 13:41 methylprednisolone (From Allergy Unknown Verified 09/11/24 13:41 Solu-Medrol) salmeterol AdvReac ADR-Nausea Verified 09/11/24 13:41 Review of Systems 2 Const: Denies: fever(s), chills, body aches or change in appetite ENMT: Denies: throat pain or dental pain Card: Reports: chest pain Resp: Denies: dyspnea GI: Denies: abdominal pain, nausea, vomiting or diarrhea : Denies: dysuria Musc: Denies: neck pain or back pain Skin/Breast: Denies: rash Neuro: Denies: headache(s) PFSH ED 2 PFSH: Medical History Avascular necrosis of bones of both hips Chest pain HTN (hypertension) CAD (coronary artery disease) GERD (gastroesophageal reflux disease) PVD (peripheral vascular disease) Shortness of breath Palpitation COPD (chronic obstructive pulmonary disease) Hyperlipidemia Carotid stenosis Anxiety Umbilical hernia Hypoxia Epigastric abdominal pain Obstructive apnea Iliac artery occlusion CKD (chronic kidney disease) CVA (cerebral vascular accident) Surgical History Status post carotid surgery Hx of vasectomy Family History Other CAD (coronary artery disease) Cancer Social History Smoking and tobacco/nicotine status: never used tobacco/nicotine Quit status (tobacco/nicotine): has quit using Year quit tobacco: 2009 - 2PPD x 37 Years Second hand smoke exposure: No Alcohol intake: never Substance/Drug Use: never Caregiver/support person: Yes Lives independently: Yes Household members: none Marital status: Unknown service: No Current occupational status: unemployed 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 Do you think of yourself as: Straight/Heterosexual Current gender identity: Male Special karli needs: No Physical Exam 2 Const: COMMON NORMALS: no acute distress, patient oriented x3 and healthy appearing HENMT: COMMON NORMALS: normocephalic and atraumatic HEAD & SCALP: n ormocephalic and atraumatic Eye: COMMON NORMALS: conjunctivae normal CONJUNCTIVA: Yes conjunctivae normal Neck/C-Spine: COMMON NORMALS: full ROM and supple Chest: COMMONS NORMALS: normal inspection of the chest Resp: COMMON NORMALS: normal respiratory effort, No retractions, No use of accessory muscles and clear to auscultation bilaterally AUSCULTATION: clear to auscultation bilaterally Cardio: COMMON NORMALS: regular rate, regular rhythm and No murmurs present (Cardio) RATE: regular rate RHYTHM: regular rhythm GI: COMMON NORMALS: Normal to inspection, nondistended, normoactive bowel sounds present, Soft to palpation, non-tender and no masses PALPATION: Yes Soft to palpation Extremity: COMMON NORMALS: normal to inspection and full ROM Neuro: COMMON NORMALS: patient oriented x3, moves all extremities and no focal motor deficits Psych: COMMON NORMALS: mental status grossly normal, Normal thought process present and cooperative THOUGHT PROCESS: Normal thought process present Skin: COMMON NORMALS: no rashes or lesions noted and no wounds GENERAL SKIN EXAM: no rashes or lesions noted Course 2 Vital Signs: Vital signs: Vital Signs Temperature 97.6 F 09/11/24 15:01 Pulse Rate 72 09/11/24 18:10 Respiratory Rate 16 09/11/24 18:10 Blood Pressure 126/70 09/11/24 18:10 Pulse Oximetry 94 09/11/24 18:10 Oxygen Delivery Me thod Room Air 09/11/24 15:51 MDM - Chest Pain Medical Decision Making Patient presents for chest pain is atypical in nature to her troponins negative no signs of ACS he has no signs of dissection or pulmonary embolism he stable for discharge follow-up PCP return if worsening. Medical Records I reviewed the patient's medical records. Lab Data I reviewed the patient's lab results. 09/11/24 15:17 09/11/24 15:17 Radiology Impressions Chest X-Ray 09/11/24 15:00 IMPRESSION: Stable chest without acute abnormality. Laboratory Results WBC 11.23 10^3/uL (3.29-11.43) 09/11/24 15:17 RBC 4.96 10^6/uL (3.85-5.65) 09/11/24 15:17 Hgb 14.30 g/dL (11.27-16.99) 09/11/24 15:17 Hct 45.0 % (37-53) 09/11/24 15:17 MCV 90.7 fl (82-101) 09/11/24 15:17 MCH 28.8 pg (27-33) 09/11/24 15:17 MCHC 31.8 g/dL (30-55) 09/11/24 15:17 RDW 15.3 % (12.1-15.1) H 09/11/24 15:17 Plt Count 309 10^3/cmm (157-399) 09/11/24 15:17 MPV 10.2 fL (7.4-10.4) 09/11/24 15:17 Neut % (Auto) 73.4 % 09/11/24 15:17 Lymph % (Auto) 16.3 % 09/11/24 15:17 [place] % (Auto) 8.3 % 09/11/24 15:17 Eos % (Auto) 1.1 % 09/11/24 15:17 Baso % (Auto) 0.5 % 09/11/24 15:17 Neut # (Auto) 8.24 10^3/uL (1.8-7.7) H 09/11/24 15:17 Lymph # (Auto) 1.8 10^3/uL (0.8-4.8) 09/11/24 15:17 [place] # (Auto) 0.9 10^3/uL (0.2-0.9) 09/11/24 15:17 Eos # (Auto) 0.1 10^3/uL (0.0-0.8) 09/11/24 15:17 Baso # (Auto) 0.1 10^3/uL (0.0-0.1) 09/11/24 15:17 Nucleated RBC % (auto) 0 % 09/11/24 15:17 Nucleated RBCs # 0.0 /100WBC 09/11/24 15:17 Sodium 140 mmol/L (136-145) 09/11/24 15:17 Potassium 4.3 mmol/L (3.5-5.1) 09/11/24 15:17 Chloride 103 mmol/L (98-107) 09/11/24 15:17 Carbon Dioxide 28 mmol/L (22-29) 09/11/24 15:17 Anion Gap 13.3 (5-19) 09/11/24 15:17 BUN 13 mg/dL (8-23) 09/11/24 15:17 Creatinine 0.9 mg/dL (0.7-1.2) 09/11/24 15:17 GFR Calculation 85.2 mL/min (90-130) L 09/11/24 15:17 Glucose 94 mg/dL (65-115) 09/11/24 15:17 Calculated Osmolality 290 mOsm/kg (285-295) 09/11/24 15:17 Calcium 9.3 mg/dL (8.5-10.5) 09/11/24 15:17 Total Bilirubin 0.4 mg/dL (0.15-1.2) 09/11/24 15:17 AST 16 U/L (0-40) 09/11/24 15:17 ALT 21 U/L (0-41) 09/11/24 15:17 Alkaline Phosphatase 132 U/L (40-130) H 09/11/24 15:17 Troponin T Baseline 13 ng/L (0-15) 09/11/24 15:17 Troponin T 120 Minute 11.77 ng/L (0-15) 09/11/24 16:55 Delta Troponin T -1.23 ABS# (0-10) L 09/11/24 16:55 Total Protein 6.6 g/dL (6.6-8.7) 09/11/24 15:17 Albumin 4.3 g/dL (3.5-5.2) 09/11/24 15:17 Globulin 2.3 g/dL (1.3-4.6) 09/11/24 15:17 Lipase 28 U/L (13-60) 09/11/24 15:17 All radiology interpretation(s) finalized by discharge EKG Data EKG 1: I personally reviewed and interpreted this EKG as follows: EKG interpretation date: 09/11/24 EKG interpretation time: 15:08 Interpretation: nsr hr [address] elevation qrs 76 qtc 393 Discharge Plan Discharge Patient Disposition: Home Clinical Impression: Atypical chest pain Condition: Stable Prescriptions: No Action Joaolelinh Ellipta 200-62.5-25 mcg blister with device 1 inh inhalation DAILY Qty: 60 2RF clopidogrel 75 mg tablet 75 mg PO QAM Qty: 30 5RF atorvastatin 40 mg tablet 40 mg PO BEDTIME Qty: 30 5RF acetaminophen [Tylenol Extra Strength] 500 mg Tablet 1,000 mg PO Q6H PRN (Reason: Pain) aspirin 81 mg Tablet,Delayed Release (Dr/Ec) 81 mg PO QAM albuterol sulfate 2.5 mg/0.5 mL solution for nebulization 2.5 mg inhalation Q4H PRN (Reason: shortness of breath or wheezing) Qty: 30 0RF budesonide-formoterol [Symbicort] 160-4.5 mcg/actuation HFA aerosol inhaler 2 puff INHALATION BID Discharge Orders: Discharge ED (Routine); Ordered 09/11/24 Ordered By: Ruth Palm Referrals: Samantha Newell FNP [Primary Care Provider] - Discharge Diet: Advance as tolerated Discharge Activity: Resume usual activity Patient Instructions: Chest Pain (ED) Print Language: Venezuelan Coding Level of Care Code ED Mathematics Faculty Member for Kedar Mae
[2024-09-11 15:24] LABS: Basophils # 0.1 10^3/uL (0.0-0.1); Basophils % 0.5 %; Eosinophils # 0.1 10^3/uL (0.0-0.8); Eosinophils % 1.1 %; Lymphocytes # 1.8 10^3/uL (0.8-4.8); Lymphocytes % 16.3 %; Mean Corpuscular HGB Conc 31.8 g/dL (30-55); Mean Corpuscular Hemoglobin 28.8 pg (27-33); Mean Corpuscular Volume 90.7 fl (82-101); Mean Platelet Volume 10.2 fL (7.4-10.4); Monocytes # 0.9 10^3/uL (0.2-0.9); Monocytes % 8.3 %; Neutrophils # 8.24 10^3/uL (1.8-7.7); Neutrophils % 73.4 %; Nucleated Red Blood Cells % 0 %; Platelet Count 309 10^3/cmm (157-399); Red Blood Count 4.96 10^6/uL (3.85-5.65); Red Cell Distribution Width 15.3 % (12.1-15.1); White Blood Count 11.23 10^3/uL (3.29-11.43)
[2024-09-11] MEDS: morphine 4 mg/mL SDV 1 mL IVP (15:40)
[2024-09-11 15:41] LABS: Troponin(5th) Baseline 13 ng/L (0-15)
[2024-09-11 15:42] LABS: Alanine Aminotransferase 21 U/L (0-41); Albumin Level 4.3 g/dL (3.5-5.2); Alkaline Phosphatase 132 U/L (40-130); Anion Gap 13.3 (5-19); Aspartate Amino Transferase 16 U/L (0-40); Blood Urea Nitrogen 13 mg/dL (8-23); Calcium 9.3 mg/dL (8.5-10.5); Carbon Dioxide 28 mmol/L (22-29); Chloride 103 mmol/L (98-107); Creatinine Clr Calc Pharmacy 94.6953; Globulin 2.3 g/dL (1.3-4.6); Glomerular Filtration Rate 85.2 mL/min (90-130); Glucose 94 mg/dL (65-115); Lipase 28 U/L (13-60); Osmolality Calculated 290 mOsm/kg (285-295); Potassium 4.3 mmol/L (3.5-5.1); Sodium 140 mmol/L (136-145); Total Bilirubin 0.4 mg/dL (0.15-1.2); Total Protein 6.6 g/dL (6.6-8.7)
[2024-09-11 15:51] VITALS: BP 139/72; PULSE 84; RESP 16; O2SAT 99
--- NOTE | 2024-09-11 17:00 | ECG_ITS ---
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: : 1960 Requested By: Ruth Palm Order Number: [id number] Zay MD: DICK KOENIG Measurements Intervals [place] Rate: 57 P: 73 IN: 157 QRS: 87 QRSD: 83 T: 83 QT: 386 QTc: 379 Interpretive Statements SINUS BRADYCARDIA SEPTAL MYOCARDIAL INFARCTION , OF INDETERMINATE AGE [40+ ms Q WAVE IN V1/V2] Compared to ECG 09/11/2024 15:08:34 Sinus rhythm no longer present Sinus arrhythmia no longer present Myocardial infarct finding still present Electronically Signed On 09-15-2024 21:54:50 CDT by DICK KOENIG [email or web address]
[2024-09-11 17:41] LABS: Troponin 5 2HR 11.77 ng/L (0-15)
[2024-09-11 17:42] LABS: Troponin 5 2HR Delta -1.23 ABS# (0-10)
[2024-09-11 18:10] VITALS: BP 126/70; PULSE 72; RESP 16; O2SAT 94
== END 2024-09-11 18:12 | disposition home or self-care (01) ==
PROVIDERS: Emergency Provider Emergency Medicine; PCP Nurse Practitioner Family
DX: R07.89 Other chest pain (principal); Z79.82 Long term (current) use of aspirin; Z79.02 Long term (current) use of antithrombotics/antiplatelets; Z87.891 Personal history of nicotine dependence; Z86.73 Personal history of transient ischemic attack (TIA), and cerebral infarction without residual deficits; J44.9 Chronic obstructive pulmonary disease, unspecified; E78.5 Hyperlipidemia, unspecified; I25.10 Atherosclerotic heart disease of native coronary artery without angina pectoris; I12.9 Hypertensive chronic kidney disease with stage 1 through stage 4 chronic kidney disease, or unspecified chronic kidney disease; N18.9 Chronic kidney disease, unspecified
CPT/HCPCS: 36415; 71045; 80053; 83690; 84484; 85025; 93005; 96374; 99285; J2270

== ENCOUNTER 2024-10-25 09:55 | Emergency (ER) | payer MEDICARE, SELFPAY ==
--- NOTE | 2024-10-25 10:02 | XR_ITS ---
WS: [id number] Exam: XR chest 1V portable [id number] Date/Time of Exam: 10/25/2024 10:14 AM Reason For Exam: chest pain Comparison 09/11/2024. The lungs are clear and fully expanded. Normal cardiomediastinal silhouette. No pleural effusions. Bony structures are intact. A vascular graft noted in the region of the RIGHT common carotid artery. XR/XR chest 1V portable [id number] IMPRESSION: 1. No acute cardiopulmonary finding. No change.
--- NOTE | 2024-10-25 10:02 | ECG_ITS ---
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 Measurements Intervals [place] Rate: 91 P: 67 LA: 150 QRS: 86 QRSD: 90 T: 79 QT: 351 QTc: 433 Interpretive Statements SINUS RHYTHM SEPTAL MYOCARDIAL INFARCTION , OF INDETERMINATE AGE [40+ ms Q WAVE IN V1/V2] Compared to ECG 09/11/2024 16:31:31 Sinus bradycardia no longer present Myocardial infarct finding still present Electronically Signed On 10-26-2024 12:00:54 CDT by Mitch Dudley M.D. [id number] [id number]
[2024-10-25 10:05] VITALS: BP 125/81; PULSE 90; RESP 16; TEMP 36.6; O2SAT 92; BMI 23.1
--- NOTE | 2024-10-25 10:13 | W.ED.CHESTPA ---
HPI - Chest Pain General: Chief Complaint: Chest Pain Stated Complaint: cp Time Seen by Provider: 10/25/24 10:02 Source: patient Mode of arrival: ambulatory Limitations: no limitations History of Present Illness: Patient is a 64-year-old male who is well-known to our facility here for complaints of left-sided chest pain that began at the crack down . States he took two Tylenol without relief. Patient has a longstanding history of chronic chest pain. Other PMH includes hypertension, stroke, COPD and previous carotid endarterectomy. Patient states he has had a mild cough. Previous documentation stating patient presents 2L oxygen continuously but he arrives without oxygen satting at 92% on room air. Patient has had very poor outpatient follow-up following his emergency department visits. He has several canceled cardiology appointments. MD complaint: chest pain Onset (ago): hour(s) Timing of current episode: constant Prior episodes: Yes Onset: during rest Pain location: left chest Pain radiation: none Severity: moderate Quality: sharp Relieving factors: nothing Exacerbating factors: palpation and movement Associated symptoms: Reports other (cough); Deny abdominal pain, dyspnea, fever(s), nausea, palpitations, syncope or vomiting Treatment prior to arrival: other (tylenol) Risk Factors: Coronary artery disease risk factors: smoking history and hypertension Thoracic aortic dissection risk factors: none Related Data Home Medications ?Medication ?Instructions ?Recorded ?Confirmed aspirin 81 mg tablet,delayed 81 mg PO QAM 06/23/22 10/25/24 release budesonide-formoterol HFA 160 2 puff inhalation BID 09/11/24 10/25/24 mcg-4.5 mcg/actuation aerosol inhaler (Symbicort) Previous Rx's ?Medication ?Instructions ?Recorded atorvastatin 40 mg tablet 40 mg PO BEDTIME #30 tabs 09/02/24 clopidogrel 75 mg tablet 75 mg PO QAM #30 tabs 09/02/24 Allergies Allergy/AdvReac Type Severity Reaction Status Date / Time fluticasone (From Flonase) Allergy Unknown Verified 09/11/24 13:41 levofloxacin (From Levaquin) Allergy Unknown Verified 09/11/24 13:41 methylprednisolone (From Allergy Unknown Verified 09/11/24 13:41 Solu-Medrol) salmeterol AdvReac ADR-Nausea Verified 09/11/24 13:41 Review of Systems Const: Denies: fever(s), chills, body aches, fatigue or malaise ENMT: Denies: throat pain or odynophagia Card: Reports: chest pain; Denies: palpitations, irregular heart rhythm, edema, swelling of feet/ankles, lightheadedness, syncope, pre-syncope, dyspnea on exertion, orthopnea, leg pain with exertion or acrocyanosis Resp: Reports: non-productive cough and chest congestion; Denies: dyspnea or pain on inspiration GI: Denies: abdominal pain, nausea, vomiting or diarrhea : Denies: flank pain, dysuria or hematuria Musc: Denies: neck pain, back pain, extremity pain, extremity swelling, joint pain or joint swelling Skin/Breast: Denies: rash Neuro: Denies: headache(s), numbness in extremities, weakness in extremities, sensory changes or dizziness PFSH ED PFSH: Medical History Avascular necrosis of bones of both hips Chest pain HTN (hypertension) CAD (coronary artery disease) GERD (gastroesophageal reflux disease) PVD (peripheral vascular disease) Shortness of breath Palpitation COPD (chronic obstructive pulmonary disease) Hyperlipidemia Carotid stenosis Anxiety Umbilical hernia Hypoxia Epigastric abdominal pain Obstructive apnea Iliac artery occlusion CKD (chronic kidney disease) CVA (cerebral vascular accident) Surgical History Status post carotid surgery Hx of vasectomy Family History Other CAD (coronary artery disease) Cancer Social History Smoking and tobacco/nicotine status: never used tobacco/nicotine Quit status (tobacco/nicotine): has quit using Year quit tobacco: 2009 - 2PPD x 37 Years Second hand smoke exposure: No Alcohol intake: never Substance/Drug Use: never Caregiver/support person: Yes Lives independently: Yes Household members: none Marital status: Unknown service: No Current occupational status: unemployed Previous occupational history: [employer] Do you think of yourself as: Straight/Heterosexual Current gender identity: Male Special karli needs: No Physical Exam Const: COMMON NORMALS: no acute distress, average body habitus, patient oriented x3, no limitations, healthy appearing, alert and well nourished GENERAL APPEARANCE: cooperative ORIENTATION/CONSCIOUSNESS: Yes awake, Yes oriented to person, Yes oriented to place and Yes oriented to time HENMT: COMMON NORMALS: normocephalic and atraumatic HEAD & SCALP: normal to inspection, normocephalic and atraumatic Neck/C-Spine: COMMON NORMALS: full ROM, no lymphadenopathy, no meningeal signs, no JVD and No carotid bruits Chest: COMMONS NORMALS: normal inspection of the chest OTHER: TTP L anterior chest wall-palpation directly reproduces pain Resp: COMMON NORMALS: normal respiratory effort and clear to auscultation bilaterally AUSCULTATION: clear to auscultation bilaterally Cardio: COMMON NORMALS: no JVD, regular rate and regular rhythm RATE: regular rate RHYTHM: regular rhythm GI: COMMON NORMALS: Normal to inspection, nondistended, normoactive bowel sounds present, Soft to palpation, non-tender, No hepatosplenomegaly present and no masses PALPATION: Yes Soft to palpation and Yes No hepatosplenomegaly present : COMMON NORMALS: Yes no CVA tenderness BLADDER/KIDNEY EXAM: Yes no CVA tenderness Back/Pelvis: COMMON NORMALS: no CVA tenderness and thoracic and lumbar spine normal to inspection Extremity: COMMON NORMALS: normal to inspection, capillary refill normal, no calf tenderness and no pedal edema GENERAL: Yes normal exam except as noted Neuro: DOUGLAS COMA SCALE: document GCS findings Douglas coma scale eye opening: Spontaneous [place] coma scale verbal response: Orientated [place] coma scale motor response: Obey commands [place] coma scale total score: 15 COMMON NORMALS: patient oriented x3, CN's II-XII intact bilaterally, moves all extremities, no focal motor deficits, no sensory deficits noted and gait normal SENSORIUM/ORIENTATION: Yes alert, Yes oriented to person, Yes oriented to place and Yes oriented to time MENINGEAL SIGNS: Yes no meningeal signs Skin: COMMON NORMALS: no rashes or lesions noted GENERAL SKIN EXAM: no rashes or lesions noted Course Vital Signs: Vital signs: Vital Signs Temperature 97.9 F 10/25/24 10:05 Pulse Rate 68 10/25/24 13:27 Respiratory Rate 20 H 10/25/24 13:03 Blood Pressure 137/76 10/25/24 13:27 Pulse Oximetry 93 10/25/24 13:27 Oxygen Delivery Me thod Room Air 10/25/24 10:05 MDM - Chest Pain Medical Decision Making Patient appears in no acute distress. His vital signs are stable. Blood work overall is unremarkable. He has normal baseline and 2-hour troponins. EKGs are nonischemic. CXR is unremarkable. Chest pain is reproducible. I think cardiology etiology is unlikely although he does have risk factors for cardiac disease. I would like him to follow-up with cardiology although he has been noncompliant with this previously. Return precautions discussed. Otherwise he can follow-up with primary care next week. Medical Records I reviewed the patient's medical records. Lab Data I reviewed the patient's lab results. 10/25/24 10:20 10/25/24 10:20 Radiology Impressions Chest X-Ray 10/25/24 10:02 IMPRESSION: 1. No acute cardiopulmonary finding. No change. Laboratory Results WBC 12.49 10^3/uL (3.29-11.43) H 10/25/24 10:20 RBC 5.17 10^6/uL (3.85-5.65) 10/25/24 10:20 Hgb 14.90 g/dL (11.27-16.99) 10/25/24 10:20 Hct 46.5 % (37-53) 10/25/24 10:20 MCV 89.9 fl (82-101) 10/25/24 10:20 MCH 28.8 pg (27-33) 10/25/24 10:20 MCHC 32.0 g/dL (30-55) 10/25/24 10:20 RDW 14.7 % (12.1-15.1) 10/25/24 10:20 Plt Count 283 10^3/cmm (157-399) 10/25/24 10:20 MPV 10.5 fL (7.4-10.4) H 10/25/24 10:20 Neut % (Auto) 76.7 % 10/25/24 10:20 Lymph % (Auto) 11.8 % 10/25/24 10:20 [place] % (Auto) 9.2 % 10/25/24 10:20 Eos % (Auto) 1.3 % 10/25/24 10:20 Baso % (Auto) 0.5 % 10/25/24 10:20 Neut # (Auto) 9.58 10^3/uL (1.8-7.7) H 10/25/24 10:20 Lymph # (Auto) 1.5 10^3/uL (0.8-4.8) 10/25/24 10:20 [place] # (Auto) 1.2 10^3/uL (0.2-0.9) H 10/25/24 10:20 Eos # (Auto) 0.2 10^3/uL (0.0-0.8) 10/25/24 10:20 Baso # (Auto) 0.1 10^3/uL (0.0-0.1) 10/25/24 10:20 Nucleated RBC % (auto) 0 % 10/25/24 10:20 Nucleated RBCs # 0.0 /100WBC 10/25/24 10:20 Sodium 143 mmol/L (136-145) 10/25/24 10:20 Potassium 3.8 mmol/L (3.5-5.1) 10/25/24 10:20 Chloride 105 mmol/L (98-107) 10/25/24 10:20 Carbon Dioxide 24 mmol/L (22-29) 10/25/24 10:20 Anion Gap 17.8 (5-19) 10/25/24 10:20 BUN 7 mg/dL (8-23) L 10/25/24 10:20 Creatinine 0.9 mg/dL (0.7-1.2) 10/25/24 10:20 GFR Calculation 85.2 mL/min (90-130) L 10/25/24 10:20 Glucose 106 mg/dL (65-115) 10/25/24 10:20 Calculated Osmolality 294 mOsm/kg (285-295) 10/25/24 10:20 Calcium 9.4 mg/dL (8.5-10.5) 10/25/24 10:20 Total Bilirubin 0.6 mg/dL (0.15-1.2) 10/25/24 10:20 AST 12 U/L (0-40) 10/25/24 10:20 ALT 16 U/L (0-41) 10/25/24 10:20 Alkaline Phosphatase 157 U/L (40-130) H 10/25/24 10:20 Troponin T Baseline 14 ng/L (0-15) 10/25/24 10:20 Troponin T 120 Minute 12.81 ng/L (0-15) 10/25/24 12:12 Delta Troponin T -1.19 ABS# (0-10) L 10/25/24 12:12 Total Protein 6.4 g/dL (6.6-8.7) L 10/25/24 10:20 Albumin 4.1 g/dL (3.5-5.2) 10/25/24 10:20 Globulin 2.3 g/dL (1.3-4.6) 10/25/24 10:20 All radiology interpretation(s) finalized by discharge Discharge Plan Discharge Patient Disposition: Home Clinical Impression: Chest pain Qualifiers: Chest pain type: other chest pain Qualified Code(s): R07.89 - Other chest pain Condition: Stable Prescriptions: No Action clopidogrel 75 mg tablet 75 mg PO QAM Qty: 30 5RF atorvastatin 40 mg tablet 40 mg PO BEDTIME Qty: 30 5RF aspirin 81 mg Tablet,Delayed Release (Dr/Ec) 81 mg PO QAM budesonide-formoterol [Symbicort] 160-4.5 mcg/actuation HFA aerosol inhaler 2 puff INHALATION BID Discharge Orders: Discharge ED (Routine); Ordered 10/25/24 Ordered By: Viv Foreman Referrals: Samantha Newell FNP [Primary Care Provider, Family Practice] Patient Instructions: Chest Pain (DC) Activity Restrictions/Additional Instructions: As we discussed, your workup here in the emergency department was unremarkable. Chest x-ray was normal. Your baseline repeat troponins were normal. EKGs with no ischemia. Recommend he follow-up with primary care next week. Will also place a case management referral to get you set up with cardiology. 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
[2024-10-25 10:25] LABS: Basophils # 0.1 10^3/uL (0.0-0.1); Basophils % 0.5 %; Eosinophils # 0.2 10^3/uL (0.0-0.8); Eosinophils % 1.3 %; Hematocrit 46.5 % (37-53); Lymphocytes # 1.5 10^3/uL (0.8-4.8); Lymphocytes % 11.8 %; Mean Corpuscular Hemoglobin 28.8 pg (27-33); Mean Corpuscular Volume 89.9 fl (82-101); Mean Platelet Volume 10.5 fL (7.4-10.4); Monocytes # 1.2 10^3/uL (0.2-0.9); Monocytes % 9.2 %; Neutrophils # 9.58 10^3/uL (1.8-7.7); Neutrophils % 76.7 %; Nucleated Red Blood Cells % 0 %; Platelet Count 283 10^3/cmm (157-399); Red Blood Count 5.17 10^6/uL (3.85-5.65); Red Cell Distribution Width 14.7 % (12.1-15.1); White Blood Count 12.49 10^3/uL (3.29-11.43)
[2024-10-25 10:36] VITALS: BP 125/81; PULSE 82; RESP 16; O2SAT 95
[2024-10-25 10:45] LABS: Alanine Aminotransferase 16 U/L (0-41); Albumin Level 4.1 g/dL (3.5-5.2); Alkaline Phosphatase 157 U/L (40-130); Anion Gap 17.8 (5-19); Aspartate Amino Transferase 12 U/L (0-40); Blood Urea Nitrogen 7 mg/dL (8-23); Calcium 9.4 mg/dL (8.5-10.5); Carbon Dioxide 24 mmol/L (22-29); Chloride 105 mmol/L (98-107); Creatinine Clr Calc Pharmacy 94.6953; Globulin 2.3 g/dL (1.3-4.6); Glomerular Filtration Rate 85.2 mL/min (90-130); Glucose 106 mg/dL (65-115); Osmolality Calculated 294 mOsm/kg (285-295); Potassium 3.8 mmol/L (3.5-5.1); Sodium 143 mmol/L (136-145); Total Bilirubin 0.6 mg/dL (0.15-1.2); Total Protein 6.4 g/dL (6.6-8.7)
[2024-10-25 10:46] LABS: Troponin(5th) Baseline 14 ng/L (0-15)
[2024-10-25] MEDS: ketorolac 30 mg/mL INJ IVP (10:53)
[2024-10-25] MEDS: nitroglycerin 0.4 mg sublingual Tablet SUBLINGUAL (11:44)
[2024-10-25 12:06] VITALS: BP 122/82; PULSE 73; RESP 14; O2SAT 96
[2024-10-25 12:49] LABS: Troponin 5 2HR 12.81 ng/L (0-15)
[2024-10-25 12:50] LABS: Troponin 5 2HR Delta -1.19 ABS# (0-10)
[2024-10-25 13:00] VITALS: BP 122/82; PULSE 83; RESP 18; O2SAT 97
[2024-10-25 13:03] VITALS: RESP 20; O2SAT 95
[2024-10-25] MEDS: morphine 4 mg/mL SDV 1 mL IVP (13:03)
[2024-10-25] MEDS: ondansetron 2 mg/ML SDV 2 mL 4 MG IVP (13:03)
[2024-10-25 13:27] VITALS: BP 137/76; PULSE 68; O2SAT 93
== END 2024-10-25 13:28 | disposition home or self-care (01) ==
PROVIDERS: Emergency Provider Physician Assistant; PCP Nurse Practitioner Family
DX: R07.89 Other chest pain (principal); Z79.82 Long term (current) use of aspirin; Z87.891 Personal history of nicotine dependence; J44.9 Chronic obstructive pulmonary disease, unspecified; I25.10 Atherosclerotic heart disease of native coronary artery without angina pectoris; E78.5 Hyperlipidemia, unspecified; I12.9 Hypertensive chronic kidney disease with stage 1 through stage 4 chronic kidney disease, or unspecified chronic kidney disease; N18.9 Chronic kidney disease, unspecified; Z86.73 Personal history of transient ischemic attack (TIA), and cerebral infarction without residual deficits
CPT/HCPCS: 36415; 71045; 80053; 84484; 85025; 93005; 96374; 96375; 99285; J1885; J2270; J2405; J9999

== ENCOUNTER 2024-12-03 13:43 | Outpatient (CLI) | payer MEDICARE, SELFPAY ==
--- NOTE | 2024-12-03 15:30 | USCV_ITS ---
Hai Aparicio Age: 64 Gender: M : 1960 Exam Date: 12/03/2024 14:04 Ordering Phys: Samantha Newell POTATO BUCKER Technologist: R Exam Location: [facility] [place] Indication: stenosis/RIGHT ICA stent Risk Factors: Previous Vascular Surgery: Right Brachial BP: / Left Brachial BP: / Right Left Velocity (cm/s) Spectral Plaque Velocity (cm/s) Spectral Plaque Syst/Diast Broadening Syst/Diast Broadening 101.80/12.40 Prox CCA 84.50 / 13.40 70.70/ 12.40 Mid CCA 55.60 / 8.30 41.10/ 9.40 Distal CCA / 32.70/ 8.70 Prox ICA 60.20 / 6.30 41.70/ 12.00 Mid ICA 24.80 / 5.60 64.00/ 20.30 Distal ICA 55.20 / 15.60 65.90 ECA 103.80 1.60 ICA/CCA 0.70 Antegrade Vertebral Antegrade 22.80/ 6.30 cm/s 25.10/ 15.60 cm/s Tri Subclavian [place] 115.0 98.60 0 FINDINGS Comparison:. 05/24/23 Left ICA stent is patent. No significant elevation of systolic or diastolic velocities. Mild carotid atherosclerosis. Antegrade vertebral arteries. CONCLUSIONS Bilateral ICA stenosis less than 50%. Patent left ICA stent. Bilateral antegrade vertebral arteries. Dr. Nadine Alaniz DO (Electronically Signed) Final Date: 03 December 2024 14:41 S
== END 2024-12-03 13:44 | disposition home or self-care (01) ==
PROVIDERS: PCP Nurse Practitioner Family; Visit Provider Nurse Practitioner Family
DX: I65.23 Occlusion and stenosis of bilateral carotid arteries (principal)
CPT/HCPCS: 93880

== ENCOUNTER 2024-12-12 20:52 | Emergency (ER) | payer MEDICARE, SELFPAY ==
--- OUTSIDE RECORDS SUMMARY | 2024-07-27 04:00 | XMS_ITS ---
Author Organization [facility] Address [address] [place] [address] Care Team Providers Care Fuel Quality Tech Name Role Phone Migration, Provider Unavailable Unavailable REASON FOR VISIT EMR-Mario Encounters Encounter Location Date Provider Diagnosis [facility] [address] [place] [address] 07/27/2024 Provider Migration Plan Of Treatment No Information Progress Notes * Hai AMIN TDOB:1960 (64 yo M)Acc No.[id number]:07/27/2024 Patient: Amy Hai BARNEY :1960 A ge:64 Y S ex:Male Address:[address], [place], [id number] Subjective: * Chief Complaints: * E MR-Mario * * Date:
--- OUTSIDE RECORDS SUMMARY | 2024-07-28 04:00 | XMS_ITS ---
Author Organization [facility] Address [address] [place] [address] Care Team Providers Care Remotely Piloted Vehicle Controller Name Role Phone Migration, Provider Unavailable Unavailable REASON FOR VISIT EMR-Mario Encounters Encounter Location Date Provider Diagnosis [facility] [address] [place] [address] 07/28/2024 Provider Migration Plan Of Treatment No Information Progress Notes * Hai AMIN TDOB:1960 (64 yo M)Acc No.[id number]:07/28/2024 Patient: Amy BARNEY Hai Angus :1960 A ge:64 Y S ex:Male Address:[address], [place], [address] Subjective: * Chief Complaints: * E MR-Mario * Hospitalization/Major Diagno stic Procedure: CHF/CM : LVH, Diastolic Dysfunction - 02/23/2012 02/23/2012 Valve/Congen : Mild MR - 02/23/2012 02/23/2012 * * Date:
[2024-12-12 20:55] VITALS: BP 111/78; PULSE 103; RESP 18; TEMP 36.6; O2SAT 96; BMI 24.1
--- OUTSIDE RECORDS SUMMARY | 2024-12-12 21:02 | XMS_ITS | Patient Health Record ---
Author Organization [facility] Address [address] [place] [address] Care Team Providers Care Expeller Operator Name Role Phone Migration, Provider Unavailable Unavailable Reason For Referral No Information Encounters Encounter Location Date Provider Diagnosis [facility] [address] [place] [address] 07/27/2024 Provider Migration [facility] [address] [place] [address] 07/28/2024 Provider Migration Plan Of Treatment No Information Insurance Providers Payer Name Payer Address Payer Phone Subscriber Number Group Number Insured Name Patient Relationship to Insured Coverage Start Date Coverage End Date Medicare [address] [place] [address] [id number] Hai Aparicio Self - patient is the insured Medical (General) History Hospitalization History Reason Date(Month/Year) CHF/CM : LVH, Diastolic Dysfunction - 02/23/2012 Valve/Congen : Mild MR - 02/23/20122011
--- OUTSIDE RECORDS SUMMARY | 2024-12-12 21:02 | XMS_ITS | Encounter Summary ---
Author Organization [facility] Address [address] [place] [address] Care Team Providers Care Worldwide Chief Creative Officer Name Role Phone Kathy Pantoja BIODIESEL PROCESSING TECHNICIAN Primary Care Provider [phone] Encounter Details Date Type Department Care Team (Latest Contact Info) Description 02/18/2004 Outpatient Historical HIS [facility] Parveen Beckwith MD [address] [place] [address] PERIPH VASCULAR DIS NOS (Primary Dx) Social History Tobacco Use Types Packs/Day Years Used Date Smoking Tobacco: Never Assessed Sex and Gender Information Value Date Recorded Sex Assigned at Not on file 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
--- OUTSIDE RECORDS SUMMARY | 2024-12-12 21:02 | XMS_ITS | Clinical Summary ---
Author Organization [facility] Address [address] [place] [address] Phone Care Team Providers Care Communications Advisor Name Role Phone Kathy Pantoja Anai RÍOS Primary Care Provider [phone] Allergies Active Allergy Reactions Criticality Noted Date Comments Fluticasone Propion-Salmeterol Other (See Comments) 12/24/2018 Causes patient to throw PACs Levofloxacin Other (See Comments) 12/24/2018 Cant remember Methylprednisolone Sodium Succ Other (See Comments) 12/24/2018 Does not remember. Medications aspirin (ELLEN CHEWABLE) 81 mg Oral Chew Take 81 mg by mouth daily. Active amLODIPine (NORVASC) 10 mg tablet Take 7.5 mg by mouth daily. Active albuterol (PROVENTIL,VENTOL IN) 2.5 mg /3 mL (0.083 %) Solution for Nebulization Take 2.5 mg by inhalation every 4 hours as needed for Shortness of Breath. Active budesonide-formot johann (SYMBICORT) 160-4.5 mcg/actuation HFA Aerosol Inhaler Take 2 Puffs by inhalation daily. Active albuterol HFA 90 mcg inhaler Take 2 Puffs by inhalation every 6 hours as needed for Shortness of Breath. Active acetaminophen (TYLENOL) 500 mg tablet Take 500 mg by mouth every 8 hours as needed. Active Active Problems Problem Noted Date Diagnosed Date Chest pain 12/24/2018 COPD (chronic obstructive pulmonary disease) Immunizations Immunization Administration Dates Next Due (TDVAX)(7 YRS UP) TETANUS AN D DIPHTHERIA TOXOIDS, ADSORBED (2 LF OF TETANUS TOXOID AND 2 LF OF DIPHTHERIA TOXOID), 0.5ML (PF), IM 11/01/2001 Family History Medical History Relation Name Comments COPD Brother Valvular Heart Disease Brother Alzheimer's Disease Father Hypertension Mother Seizures Mother Relation Name Status Comments Brother Father Mother Alive Social History Tobacco Use Types Packs/Day Years Used Date Smoking Tobacco: Former Cigarettes 2 37 0 07/29/1972 - 07/29/2009 Smokeless Tobacco: Never Alcohol Use Standard Drinks/Week Comments Never 0 (1 standard drink = 0.6 oz pur e alcohol) Feeling Safe Answer Date Recorded Within the last year, have y ou been afraid of your partner or ex-partner? No 12/24/2018 Within the last year, have y ou been humiliated or emotionally abused in other ways by your partner or ex-partner? No Within the last year, have y ou been kicked, hit, slapped, or otherwise physically hurt by your partner or ex-partner? No 12/24/2018 Within the last year, have y ou been raped or forced to have any kind of sexual activity by your partner or ex-partner? No 12/24/2018 Social Connections Answer Date Recorded In a typical week, how many times do you talk on the phone with family, friends, or neighbors? More than three times a week 12/24/2018 How often do you get togethe r with friends or relatives? More than three times a week 12/24/2018 How often do you attend chur ch or moravian services? Never 12/24/2018 Do you belong to any clubs o r organizations such as anabaptist groups, unions, fraternal or athletic groups, or school groups? No 12/24/2018 How often do you attend meet ings of the clubs or organizations you belong to? Never 12/24/2018 Are you , , di vorced, , never , or living with a partner? Living with partner 12/24/2018 Financial Resource Strain Answer Date R ecorded How hard is it for you to pa y for the very basics like food, housing, medical care, and heating? Not hard at all 12/24/2018 Food Insecurity Answer Date Recorded Within the past 12 months, y ou worried that your food would run out before you got the money to buy more. Never true 12/25/19 19 Within the past 12 months, t he food you bought just didn't last and you didn't have money to get more. Never true 12/24/2018 Transportation Needs Answer Date Record ed In the past 12 months, has l ack of transportation kept you from medical appointments or from getting medications? No 12/10 In the past 12 months, has l ack of transportation kept you from meetings, work, or from getting things needed for daily living? No 12/24/2018 Education Answer Date Recorded What is the highest level of school you have completed or the highest degree you have received? 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 Gender Identity Not on file Sexual Orientation Not on file Occupation Industry Job Start Date Job End Date Not on file Not on file Not on file Not on file Last Filed Vital Signs Vital Sign Reading Time Taken Comments Blood Pressure 125/72 12/26/2018 8:03 AM CDT Pulse 90 12/26/2018 11:49 AM CDT Temperature 36.3 C (97.3 F) 12/26/2018 8:03 AM CDT Respiratory Rate 20 12/26/2018 11:49 AM CDT Oxygen Saturation 95% 12/26/2018 8:03 AM CDT Inhaled Oxygen Concentration - - Weight 78.7 kg (173 lb 8 oz) 12/26/2018 4:12 AM CDT Height 185.4 cm (6' 1 ) 12/25/2018 3:21 AM CDT Body Mass Index 22.89 12/25/2018 3:21 AM CDT Plan of Treatment Health Maintenance Due Date Last Done Comments DTAP/TDAP/TD VACCINES (1 - Tdap) 11/02/2001 11/02/19 02 COLORECTAL SCREENING 2006 Colorectal Cancer Screening 2006 FIT-DNA Q 3 years 2006 FIT/FOBT Q 1 year 2006 Flex Sig/CT Colonography Q 5 years 2006 ZOSTER VACCINE (1 of 2) 2011 RSV VACCINE (60+ or ) (1 - Risk 60-74 years 1-dose series) 2021 INFLUENZA VACCINE (#1) 2025 Insurance MEDICARE PART A AND B Advance Directives For more information, please contact: [phone] * Full Code (Latest Code Status on File) Date Activated Date Inactivated Comments 12/24/2018 9:19 PM 12/26/2018 8:08 PM Care Teams Communications Advisor Relationship Specialty Start Date End Date Kathy Pantoja NP [facility] [place] [address] PCP - General NURSE PRACTITIONER 02/14/13
--- OUTSIDE RECORDS SUMMARY | 2024-12-12 21:02 | XMS_ITS | Clinical Summary ---
Author Organization [facility] Address [address] [place]: Epic Prelude ADT [place] [address] Care Team Providers Care Manuscript Editor Name Role Phone Kathy Pantoja WELD TECHNICIAN Primary Care Provider [phone] Allergies Active Allergy Reactions Criticality Noted Date Comments Fluticasone Propion-Salmeterol Other (See Comments) 12/24/2018 Causes patient to throw PACs Levofloxacin Other (See Comments) 12/24/2018 Cant remember Methylprednisolone Sodium Succ Other (See Comments) 12/24/2018 Does not remember. Medications albuterol sulfate 90 mcg/Actuation inhaler Take 2 Puffs by inhalation every 6 hours as needed for Shortness of Breath. 9 Active albuterol (PROVENTIL,VENTOL IN) 2.5 mg /3 mL (0.083 %) Solution for Nebulization Take 2.5 mg by inhalation every 4 hours as needed for Shortness of Breath. 9 Active amLODIPine (NORVASC) 10 mg tablet Take 7.5 mg by mouth daily. 9 Active acetaminophen (TYLENOL) 500 mg tablet Take 500 mg by mouth every 8 hours as needed. 9 Active budesonide-formot Dae (SYMBICORT) 160-4.5 mcg/actuation HFA Aerosol Inhaler Take 2 Puffs by inhalation daily. 9 Active Active Problems Problem Noted Date Diagnosed [...] Years Used Date Smoking Tobacco: Former Cigarettes Q uit: 07/29/2009 Smokeless Tobacco: Never Alcohol Use Standard [...] week 12/24/2018 How often do you attend [facility] or methodist services? Never 12/24/2018 Do you belong to any clubs o r organizations such as buddhism groups, unions, fraternal or athletic groups, or [...] things needed for daily living? 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 Gender Identity Not on file Sexual Orientation Not on file Last Filed Vital Signs Vital Sign Reading Time Taken Comments Blood Pressure 125/72 12/26/2018 8:03 AM CDT Pulse 90 12/26/2018 11:49 AM CDT Temperature 36.3 C (97.3 F) 12/26/2018 8:03 AM CDT Respiratory Rate 20 12/26/2018 11:49 AM CDT Oxygen Saturation - - Inhaled Oxygen Concentration - - Weight 78.7 [...] 2006 ZOSTER VACCINE (1 of 2) 2011 INFLUENZA VACCINE (#1) 2025 RSV VACCINE (60+ or ) (1 - 1-dose 75+ series) 2036 Care Teams Manuscript Editor Relationship Specialty Start Date End Date Kathy Pantoja NP [address] [address] PCP - General NURSE PRACTITIONER 02/14/13
--- OUTSIDE RECORDS SUMMARY | 2024-12-12 21:03 | XMS_ITS | Patient Health Record ---
Author Organization [facility] Address [address] [place] [address] Care Team Providers Care Spinner Concrete Pipe Name Role Phone Saurabh Mcintyre Primary Care Provider [phone] Allergies Allergen (clinical drug ingredient) Drug/Non Drug Allergy documented on EMR Reaction Allergy Type Onset Date Status fluticasone / salmeterol Advair Diskus Unknown Drug Allerg y Active Levaquin (levoFLOXacin) Unknown Drug Allergy Active levofloxacin levoFLOXacin Unknown Drug Allergy A ctive methylprednisolone methylPREDNISolone Unknown Drug Allergy Active fluticasone Fluticasone Unknown Drug Allergy Act kathy salmeterol Salmeterol Unknown Drug Allergy Activ e Reason For Referral No Information Medications Medication SIG (Take, Route, Frequency, Duration) Notes Start Date End Date Status Flexeril 5 MG 1 tablet at bedtime as needed Orally Once a day for 30 days 01/31/2020 Active Pantoprazole Sodium 40 MG 1 tablet Orall y Once a day Not-Taking Symbicort 160-4.5 MCG/ACT 2 puffs Inhala tion Twice a day Active Acetaminophen 500 MG 1 tablet Orally onc e daily Active amLODIPine Besylate 5 MG 1 tablet Orally Once a day Active Protonix 40 MG 1 tablet Orally Once a day for 30 day(s) 05/26/2022 Active Aspirin 81 81 MG 1 tablet Orally Once a day Active Albuterol Sulfate (2.5 MG/3ML) 0.083% 3 ml as needed Inhalation every 4 hours Not-Taking Immunizations Vaccine Route Administration Date Status Comme nts Flu vaccine no Preserv 3 and > Unknown 02/21/2018 Admin istered Influenza (whole), CPT 05528 Inactive Unknown 05/15/2014 Administered Td (adult), absorbed Unknown 06/13/2018 Administered Social History Tobacco Use: Social History Observation Description Date Details (start date - stop date) Former Smoker NA - NA xTobacco Use/Smoking Question Answer Notes Are you a former smoker How long has it been since you last smoked? > 10 years Alcohol Screen (Audit-C) Question Answer Notes Did you have a drink containing alcohol in the p ast year? No Points 0 Interpretation Negative Problems Problem Type SNOMED Code ICD Code Onset Dates Problem Status W/U Status Risk Notes Problem 42438115 Other chronic pa in (G89.29) Active confirmed Problem 300682862 Gastroesophageal reflux disease without esophagitis (K21.9) Active confirmed Problem Shortness of breath (516517943) Shortness of breath (R06.02) Active confirmed [id number] 6773- Problem Chest pain (91045119) Chest pain, unspecified (R07.9) Active confirmed [id number] 6773-Sn omed Descrip tion:Ch est pain Problem Benign essential hypertension (9648573) Essential hypertension, benign (401.1) 01/09/20 19 Problem resolved confirmed [id number] 911- Problem General weakness (36146830) Generalized weakness (780.79) 06/27/19 06 Problem resolved confirmed [id number] 911- Problem Acute exacerbation of chronic obstructive airways disease (197447323) Acute exacerbation of chronic obstructive pulmonary disease (COPD) (491.21) 06/27/19 06 Problem resolved confirmed [id number] 911- Problem Pain in limb (69962320) Leg pain (729.5) 06/27/19 06 Problem resolved confirmed [id number] 911- Problem Acute pericarditis associated with another disorder (543185666) Acute pericarditis in disease classified elsewhere (420.0) 06/27/19 06 Problem resolved confirmed [id number] 911- Problem COPD - Chronic obstructive pulmonary disease (02491529) COPD (496) 01/09/20 19 Problem resolved confirmed [id number] 911- Problem Hip pain (06836639) Hip pain (719.45) 01/09/20 19 Problem resolved confirmed [id number] 911- Plan Of Treatment No Information Insurance Providers Payer Name Payer Address Payer Phone Subscriber Number Group Number Insured Name Patient Relationship to Insured Coverage Start Date Coverage End Date [place] [address] [address] [place] [address] [id number] Hai Young Self - patient is the insured Medical (General) History Medical History History ICD Code COPD Coccidioidomycosis Enthesopathy GERD Hx of colitis; GI bleed Hypertension Peptic ulcer disease Meningitis 1994 anxiety avascular necrosis of bones of both hips CAD CKD CVA carotid stenosis chest pain epigastric abdominal pain hyperlipidemia hypoxia Iliac artery occlusion obstructive apnea PVD palpitations shortness of breath umbilical hernia Surgical History Surgery Date(Month/Year) Vasectomy 1990 status post carotid surgery Hospitalization History Reason Date(Month/Year) Colitis; GI bleed C-Dif
[2024-12-12] MEDS: rabies vaccine 2.5 unit SDV IM (21:39)
[2024-12-12] MEDS: rabies IG 300 unit/mL SDV 1 mL 1620 UNIT IM (21:42)
--- NOTE | 2024-12-12 22:16 | W.ED.ANIMALB ---
HPI - Animal Bite General: Chief Complaint: Animal Bite Stated Complaint: Bit R foot by Raccon Time Seen by Provider: 12/12/24 21:02 History of Present Illness: 64-year-old male patient presents to the emergency department with a raccoon bite to his foot. Patient states it barely broke the skin but he did have some bleeding and was unsure if he needed antibiotics. Patient denies any other trauma or injury. Related Data Home Medications ?Medication ?Instructions ?Recorded ?Confirmed aspirin 81 mg tablet,delayed 81 mg PO QAM 06/23/22 10/25/24 release Previous Rx's ?Medication ?Instructions ?Recorded atorvastatin 40 mg tablet 40 mg PO BEDTIME #30 tabs 09/02/24 clopidogrel 75 mg tablet 75 mg PO QAM #30 tabs 09/02/24 budesonide-formoterol HFA 160 2 puff inhalation BID #10.2 grams 12/09/24 mcg-4.5 mcg/actuation aerosol inhaler (Symbicort) amoxicillin 875 mg-potassium 1 tab PO BID 7 days #14 tabs 12/12/24 clavulanate 125 mg tablet Allergies Allergy/AdvReac Type Severity Reaction Status Date / Time fluticasone (From Flonase) Allergy Unknown Verified 12/12/24 21:00 levofloxacin (From Levaquin) Allergy Unknown Verified 12/12/24 21:00 methylprednisolone (From Allergy Unknown Verified 12/12/24 21:00 Solu-Medrol) salmeterol AdvReac ADR-Nausea Verified 12/12/24 21:00 Review of Systems General: Reports: 10 or more systems reviewed and unremarkable except in HPI and below PFSH ED PFSH: Medical History Avascular necrosis of bones of both hips Chest pain HTN (hypertension) CAD (coronary artery disease) GERD (gastroesophageal reflux disease) PVD (peripheral vascular disease) Shortness of breath Palpitation COPD (chronic obstructive pulmonary disease) Hyperlipidemia Carotid stenosis Anxiety Umbilical hernia Hypoxia Epigastric abdominal pain Obstructive apnea Iliac artery occlusion CKD (chronic kidney disease) CVA (cerebral vascular accident) Surgical History Status post carotid surgery Hx of vasectomy Family History Other CAD (coronary artery disease) Cancer Social History Smoking and tobacco/nicotine status: never used tobacco/nicotine Quit status (tobacco/nicotine): has quit using Year quit tobacco: 2010 - 2PPD x 37 Years Second hand smoke exposure: No Alcohol intake: never Substance/Drug Use: never Caregiver/support person: Yes Lives independently: Yes Household members: none Marital status: Unknown service: No Current occupational status: unemployed Previous occupational history: [employer] [place] [employer] Do you think of yourself as: Straight/Heterosexual Current gender identity: Male Special karli needs: No Physical Exam Const: COMMON NORMALS: no acute distress, patient oriented x3, no limitations and alert Resp: COMMON NORMALS: normal respiratory effort, No retractions, No use of accessory muscles and clear to auscultation bilaterally AUSCULTATION: clear to auscultation bilaterally Cardio: COMMON NORMALS: regular rate and regular rhythm RATE: regular rate RHYTHM: regular rhythm Neuro: COMMON NORMALS: patient oriented x3 SENSORIUM/ORIENTATION: Yes alert Skin: NARRATIVE SKIN EXAM: Abrasion with a punctate puncture wound to the top of the right foot at the base of the great toe minimal erythema noted Course Vital Signs: Vital signs: Vital Signs Temperature 97.8 F 12/12/24 20:55 Pulse Rate 103 H 12/12/24 20:55 Respiratory Rate 18 12/12/24 20:55 Blood Pressure 111/78 12/12/24 20:55 Pulse Oximetry 96 12/12/24 20:55 Oxygen Delivery Me thod Nasal Cannula 12/12/24 20:55 MDM - Animal Bite Medical Decision Making 64-year-old male patient presents to the emergency department with a raccoon bite to his foot. Patient states it barely broke the skin but he did have some bleeding and was unsure if he needed antibiotics. Patient denies any other trauma or injury. Wound was cleaned and dressed antibiotics initiated rabies vaccination initiated patient tolerated well wound care instructions were advised home care instructions reviewed as well as follow-up and return precautions patient is nvi distally All radiology interpretation(s) finalized by discharge Discharge Plan Discharge Patient Disposition: Home Clinical Impression: Bite by animal Condition: Stable Prescriptions: New amoxicillin-pot clavulanate 875-125 mg tablet 1 tab PO BID 7 Days Qty: 14 0RF No Action clopidogrel 75 mg tablet 75 mg PO QAM Qty: 30 5RF atorvastatin 40 mg tablet 40 mg PO BEDTIME Qty: 30 5RF budesonide-formoterol [Symbicort] 160-4.5 mcg/actuation HFA aerosol inhaler 2 puff INHALATION BID Qty: 10.2 2RF aspirin 81 mg Tablet,Delayed Release (Dr/Ec) 81 mg PO QAM Discharge Orders: Discharge ED (Routine); Ordered 12/12/24 Ordered By: Olimpia Horta Referrals: Samantha Newell FNP [Primary Care Provider, Family Practice] Discharge Diet: Advance as tolerated Discharge Activity: Increase activity as tolerated Patient Instructions: Rabies Vaccine (By injection) (Imovax Rabies, RabAvert), Opioid Safety, Pain Management, Patient Portal & Justin Instructions Activity Restrictions/Additional Instructions: Return to ER if You have trouble walking or moving your legs. You have joint pain, muscle pain, or muscle weakness within 1 month of a tick bite. You have a fever, chills, headache, or rash. Keep wound clean and dry. Please return to ER for additional vaccine doses on day 3,7 14, 28 Print Language: Macedonian Coding Level of Care Code ED Canoe Builder for Kedar Mae
== END 2024-12-12 22:25 | disposition home or self-care (01) ==
PROVIDERS: Emergency Provider Registered Nurse; PCP Nurse Practitioner Family
DX: S91.352A Open bite, left foot, initial encounter (principal); W55.51XA Bitten by raccoon, initial encounter; Z20.3 Contact with and (suspected) exposure to rabies; Z29.14 Encounter for prophylactic rabies immune globulin; Z79.02 Long term (current) use of antithrombotics/antiplatelets; Z79.82 Long term (current) use of aspirin; Z87.891 Personal history of nicotine dependence; I25.10 Atherosclerotic heart disease of native coronary artery without angina pectoris; Z86.73 Personal history of transient ischemic attack (TIA), and cerebral infarction without residual deficits; E78.5 Hyperlipidemia, unspecified; J44.9 Chronic obstructive pulmonary disease, unspecified; I12.9 Hypertensive chronic kidney disease with stage 1 through stage 4 chronic kidney disease, or unspecified chronic kidney disease; N18.9 Chronic kidney disease, unspecified
CPT/HCPCS: 90375; 90471; 90675; 96372; 99283; J9999

== ENCOUNTER 2024-12-15 12:11 | Emergency (ER) | payer MEDICARE, SELFPAY ==
--- OUTSIDE RECORDS SUMMARY | 2024-07-27 04:00 | XMS_ITS ---
Author Organization [facility] Address [address] [place] [address] Care Team Providers Care Liner Roll Changer Name Role Phone Migration, Provider Unavailable Unavailable REASON FOR VISIT EMR-Mario Encounters Encounter Location Date Provider Diagnosis [facility] [address] [place] [address] 07/27/2024 Provider Migration Plan Of Treatment No Information Progress Notes * Hai AMIN TDOB:1960 (64 yo M)Acc No.[id number]:07/27/2024 Patient: Amy Hai BARNEY :1960 A ge:64 Y S ex:Male Address:[address], [place], [address] Subjective: * Chief Complaints: * E MR-Mario * * Date:
--- OUTSIDE RECORDS SUMMARY | 2024-07-28 04:00 | XMS_ITS ---
Author Organization [facility] Address [address] [place] [address] Care Team Providers Care Eye Glass Frame Polisher Name Role Phone Migration, Provider Unavailable Unavailable REASON FOR VISIT EMR-Mario Encounters Encounter Location Date Provider Diagnosis [facility] [address] [place] [address] 07/28/2024 Provider Migration Plan Of Treatment No Information Progress Notes * Hai AMNI TDOB:1960 (64 yo M)Acc No.[id number]:07/28/2024 Patient: Amy BARNEY Hai Angus :1960 A ge:64 Y S ex:Male Address:[address], [place], [address] Subjective: * Chief Complaints: * E MR-Mario * Hospitalization/Major Diagno stic Procedure: CHF/CM : LVH, Diastolic Dysfunction - 02/23/2012 02/23/2012 Valve/Congen : Mild MR - 02/23/2012 02/23/2012 * * Date:
--- OUTSIDE RECORDS SUMMARY | 2024-12-15 12:17 | XMS_ITS | Clinical Summary ---
Author Organization [facility] Address [address] [place]: Epic Prelude ADT [place] [address] Care Team Providers Care Bliss Press Operator Name Role Phone Kathy Pantoja HOSPITALITY INTERN Primary Care Provider [phone] Allergies Active Allergy Reactions Criticality Noted Date [...] week 12/24/2018 How often do you attend [facility] or jain services? 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
--- OUTSIDE RECORDS SUMMARY | 2024-12-15 12:17 | XMS_ITS | Encounter Summary ---
Author Organization [facility] Address [address] [place] [address] Care Team Providers Care Senior Director Of Global [employer] Solutions Name Role Phone Kathy Pantoja GAS SYSTEM OPERATOR Primary Care Provider [phone] Encounter Details Date Type Department Care Team (Latest Contact Info) Description 02/18/2004 Outpatient Historical HIS [facility] Parveen Beckwith MD [address] [place] [address] PERIPH VASCULAR DIS NOS (Primary Dx) Social History Tobacco Use Types Packs/Day Years Used Date Smoking Tobacco: Never Assessed Sex and Gender Information Value Date Recorded Sex Assigned at Not on file 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
--- OUTSIDE RECORDS SUMMARY | 2024-12-15 12:17 | XMS_ITS | Clinical Summary ---
Author Organization [facility] Address [address] [place] [address] Phone Care Team Providers Care Court Crier Name Role Phone Kathy Pantoja Anai RÍOS Primary Care Provider Allergies Active Allergy Reactions Criticality Noted Date [...] often do you attend chur ch or hindu services? 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
--- OUTSIDE RECORDS SUMMARY | 2024-12-15 12:17 | XMS_ITS | Patient Health Record ---
Author Organization [facility] Address [address] [facility] [address] Care Team Providers Care Salesperson Corsets Name Role Phone Saurabh Mcintyre Primary Care Provider [phone] Allergies Allergen (clinical drug ingredient) Drug/Non Drug [...] Unknown 02/21/2018 Admin istered Influenza (whole), CPT 19189 Inactive Unknown 05/15/2014 Administered Td (adult), absorbed [...] Problem Status W/U Status Risk Notes Problem 67044663 Other chronic pa in (G89.29) Active confirmed Problem 685842641 Gastroesophageal reflux disease without esophagitis (K21.9) Active confirmed Problem Shortness of breath (512817334) Shortness of breath (R06.02) Active confirmed Mario-[id number] 6773- Problem Chest pain (95115647) Chest pain, unspecified (R07.9) Active confirmed Mario-[id number] 6773-Sn omed Descrip tion:Ch est pain Problem Benign essential hypertension (1645931) Essential hypertension, benign (401.1) 01/09/20 19 Problem resolved confirmed [id number] 911- Problem General weakness (90414926) Generalized weakness (780.79) 06/27/19 06 Problem resolved confirmed [id number] 911- Problem Acute exacerbation of chronic obstructive airways disease (005647739) Acute exacerbation of chronic obstructive pulmonary disease (COPD) (491.21) 06/27/19 06 Problem resolved confirmed [id number] 911- Problem Pain in limb (82373151) Leg pain (729.5) 06/27/19 06 Problem resolved confirmed [id number] 911- Problem Acute pericarditis associated with another disorder (825338511) Acute pericarditis in disease classified elsewhere (420.0) 06/27/19 06 Problem resolved confirmed [id number] 911- Problem COPD - Chronic obstructive pulmonary disease (27102917) COPD (496) 01/09/20 19 Problem resolved confirmed [id number] 911- Problem Hip pain (72229139) Hip pain (719.45) 01/09/20 19 Problem resolved confirmed [id number] 911- Plan Of Treatment No Information Insurance Providers Payer Name Payer Address Payer Phone Subscriber Number Group Number Insured Name Patient Relationship to Insured Coverage Start Date Coverage End Date [place] [address] [address] [place] [address] [id number] Hai Young Self - patient is the [...]
--- OUTSIDE RECORDS SUMMARY | 2024-12-15 12:17 | XMS_ITS | Patient Health Record ---
Author Organization [facility] Address [address] [place] [address] Care Team Providers Care Mold Carrier Name Role Phone Migration, Provider Unavailable Unavailable Reason For Referral No Information Encounters Encounter Location Date Provider Diagnosis [facility] [address] [place] [address] 07/27/2024 Provider Migration [facility] [address] [place] [address] 07/28/2024 Provider Migration Plan Of Treatment No Information Insurance Providers Payer Name Payer Address Payer Phone Subscriber Number Group Number Insured Name Patient Relationship to Insured Coverage Start Date Coverage End Date Medicare [address] [place] [address] [id number] Hai Aparicio Self - patient is the insured Medical (General) History Hospitalization History Reason Date(Month/Year) CHF/CM : LVH, Diastolic Dysfunction - 02/23/2012 Valve/Congen : Mild MR - 02/23/20122011
[2024-12-15 12:25] VITALS: BP 109/78; PULSE 96; RESP 18; TEMP 36.6; O2SAT 96; BMI 23.7
--- NOTE | 2024-12-15 12:52 | W.ED.RECABL ---
HPI - Recheck/Abnormal Lab/Rx General: Chief Complaint: Recheck/Abnormal Lab/Rx Stated Complaint: rabies follow up Time Seen by Provider: 12/15/24 12:39 History of Present Illness: 64-year-old male presents emergency room for second series of rabies vaccinations after a bite from raccoon in his foot. No signs of infection at the site of the bite. He is completing a course of Augmentin for the bite. Related Data Home Medications ?Medication ?Instructions ?Recorded ?Confirmed aspirin 81 mg tablet,delayed 81 mg PO QAM 06/23/22 10/25/24 release Previous Rx's ?Medication ?Instructions ?Recorded atorvastatin 40 mg tablet 40 mg PO BEDTIME #30 tabs 09/02/24 clopidogrel 75 mg tablet 75 mg PO QAM #30 tabs 09/02/24 budesonide-formoterol HFA 160 2 puff inhalation BID #10.2 grams 12/09/24 mcg-4.5 mcg/actuation aerosol inhaler (Symbicort) Allergies Allergy/AdvReac Type Severity Reaction Status Date / Time fluticasone (From Flonase) Allergy Unknown Verified 12/15/24 12:28 levofloxacin (From Levaquin) Allergy Unknown Verified 12/15/24 12:28 methylprednisolone (From Allergy Unknown Verified 12/15/24 12:28 Solu-Medrol) salmeterol AdvReac ADR-Nausea Verified 12/15/24 12:28 [facility] ED PFSH: Medical History Avascular necrosis of bones of both hips Chest pain HTN (hypertension) CAD (coronary artery disease) GERD (gastroesophageal reflux disease) PVD (peripheral vascular disease) Shortness of breath Palpitation COPD (chronic obstructive pulmonary disease) Hyperlipidemia Carotid stenosis Anxiety Umbilical hernia Hypoxia Epigastric abdominal pain Obstructive apnea Iliac artery occlusion CKD (chronic kidney disease) CVA (cerebral vascular accident) Surgical History Status post carotid surgery Hx of vasectomy Family History Other CAD (coronary artery disease) Cancer Social History Smoking and tobacco/nicotine status: never used tobacco/nicotine Quit status (tobacco/nicotine): has quit using Year quit tobacco: 2010 - 2PPD x 37 Years Second hand smoke exposure: No Alcohol intake: never Substance/Drug Use: never Caregiver/support person: Yes Lives independently: Yes Household members: none Marital status: Unknown service: No Current occupational status: unemployed Previous occupational history: [employer] Do you think of yourself as: Straight/Heterosexual Current gender identity: Male Special karli needs: No Physical Exam Const: COMMON NORMALS: no acute distress GENERAL APPEARANCE: cooperative and comfortable ORIENTATION/CONSCIOUSNESS: Yes awake HENMT: COMMON NORMALS: normocephalic, atraumatic and hearing grossly normal bilaterally HEAD & SCALP: normocephalic and atraumatic Resp: COMMON NORMALS: normal respiratory effort and No retractions Extremity: COMMON NORMALS: normal to inspection, capillary refill normal, no clubbing, cyanosis or edema, no calf tenderness and no pedal edema Course Vital Signs: Vital signs: Vital Signs Temperature 97.9 F 12/15/24 12:25 Pulse Rate 98 12/15/24 13:08 Respiratory Rate 16 12/15/24 13:08 Blood Pressure 112/84 12/15/24 13:08 Pulse Oximetry 98 12/15/24 13:08 Oxygen Delivery Me thod Room Air 12/15/24 12:25 MDM - Recheck/Abnormal Lab/Rx Medical Decision Making No signs of infection at the bite site. Second rabies vaccination given. Patient encouraged to complete full course Medical Records I reviewed the patient's medical records. Lab Data I reviewed the patient's lab results. No radiology studies performed this visit Discharge Plan Discharge Patient Disposition: Home Clinical Impression: Rabies vaccine administered Condition: Stable Prescriptions: No Action clopidogrel 75 mg tablet 75 mg PO QAM Qty: 30 5RF atorvastatin 40 mg tablet 40 mg PO BEDTIME Qty: 30 5RF budesonide-formoterol [Symbicort] 160-4.5 mcg/actuation HFA aerosol inhaler 2 puff INHALATION BID Qty: 10.2 2RF aspirin 81 mg Tablet,Delayed Release (Dr/Ec) 81 mg PO QAM Discharge Orders: Discharge ED (Routine); Ordered 12/15/24 Ordered By: Elvis Sharma Referrals: Samantha Newell FNP [Primary Care Provider, Family Practice] Discharge Diet: Usual diet Discharge Activity: Resume usual activity Patient Instructions: Opioid Safety, Pain Management, Patient Portal & Justin Instructions Activity Restrictions/Additional Instructions: Thank you for choosing [facility] for your healthcare needs today. It is very important that you follow up as instructed or that you return to the Emergency Department should you have concerns or if your condition changes or worsens in any way. Complete the prescribed course of postexposure rabies vaccination. Print Language: South African Coding Level of Care Code ED Hat Liner for Kedar Mae
[2024-12-15] MEDS: rabies vaccine 2.5 unit SDV IM (13:04)
[2024-12-15 13:08] VITALS: BP 112/84; PULSE 98; RESP 16; O2SAT 98
== END 2024-12-15 13:09 | disposition home or self-care (01) ==
PROVIDERS: Emergency Provider Family Medicine; PCP Nurse Practitioner Family
DX: Z20.3 Contact with and (suspected) exposure to rabies (principal); Z29.14 Encounter for prophylactic rabies immune globulin; Z79.82 Long term (current) use of aspirin; Z87.891 Personal history of nicotine dependence; Z86.73 Personal history of transient ischemic attack (TIA), and cerebral infarction without residual deficits; I25.10 Atherosclerotic heart disease of native coronary artery without angina pectoris; E78.5 Hyperlipidemia, unspecified; J44.9 Chronic obstructive pulmonary disease, unspecified; I12.9 Hypertensive chronic kidney disease with stage 1 through stage 4 chronic kidney disease, or unspecified chronic kidney disease; N18.9 Chronic kidney disease, unspecified
CPT/HCPCS: 90471; 90675; 99283

== ENCOUNTER 2024-12-26 09:45 | Oncology outpatient (recurring) (ONCR) | payer MEDICARE, SELFPAY ==
[2024-12-19] MEDS: rabies vaccine 2.5 unit SDV IM (14:51)
[2024-12-19 14:57] VITALS: BP 129/92; PULSE 89; RESP 17; TEMP 36.8; O2SAT 96
[2024-12-26] MEDS: rabies vaccine 2.5 unit SDV IM (09:48)
== END 2025-01-09 23:59 | disposition home or self-care (01) ==
PROVIDERS: PCP Nurse Practitioner Family; Visit Provider Registered Nurse
DX: Z53.9 Procedure and treatment not carried out, unspecified reason (principal); Z23 Encounter for immunization; Z20.3 Contact with and (suspected) exposure to rabies; T14.8XXA Other injury of unspecified body region, initial encounter; X58.XXXA Exposure to other specified factors, initial encounter
CPT/HCPCS: 90471; 90675

== ENCOUNTER 2025-02-16 14:14 | Emergency (ER) | payer MEDICARE, SELFPAY ==
--- OUTSIDE RECORDS SUMMARY | 2024-07-27 04:00 | XMS_ITS ---
Author Organization [facility] Address [address] [place] [address] Care Team Providers Care Director Of Marketing Name Role Phone Migration, Provider Unavailable Unavailable REASON FOR VISIT EMR-Mario Encounters Encounter Location Date Provider Diagnosis [facility] [address] [place] [address] 07/27/2024 Provider Migration Plan Of Treatment No Information Progress Notes * Hai AMIN TDOB:1960 (64 yo M)Acc No.[id number]:07/27/2024 Patient: Amy Hai BARNEY :1960 A ge:64 Y S ex:Male Address:[address], [place], [address] Subjective: * Chief Complaints: * E MR-Mario * * Date:
--- OUTSIDE RECORDS SUMMARY | 2024-07-28 04:00 | XMS_ITS ---
Author Organization [facility] Address [address] [place] [address] Care Team Providers Care Gasoline Finisher Name Role Phone Migration, Provider Unavailable Unavailable REASON FOR VISIT EMR-Mario Encounters Encounter Location Date Provider Diagnosis [facility] [address] [place] [address] 07/28/2024 Provider Migration Plan Of Treatment No Information Progress Notes * Hai AMIN TDOB:1960 (64 yo M)Acc No.[id number]:07/28/2024 Patient: Amy BARNEY Hai Angus :1960 A ge:64 Y S ex:Male Address:[address], [place], [address] Subjective: * Chief Complaints: * E MR-Mario * Hospitalization/Major Diagno stic Procedure: CHF/CM : LVH, Diastolic Dysfunction - 02/23/2012 02/23/2012 Valve/Congen : Mild MR - 02/23/2012 02/23/2012 * * Date:
--- OUTSIDE RECORDS SUMMARY | 2025-02-16 14:18 | XMS_ITS | Patient Health Record ---
Author Organization [facility] Address [address] [place] [address] Care Team Providers Care Cake Press Operator Name Role Phone Saurabh Mcintyre Primary Care Provider Allergies Allergen (clinical drug ingredient) Drug/Non Drug [...] Date End Date Status Flexeril 5 MG Tablet 1 tablet at bedtime as needed Orally Once a day; Duration: 30 days 01/31/2020 Active Pantoprazole Sodium 40 MG Tablet Delayed Release 1 tablet Orally Once a day Not-Taking Symbicort 160-4.5 MCG/ACT Aerosol 2 puffs Inhalation Twice a day Active Acetaminophen 500 MG Tablet 1 tablet Orally once daily Active amLODIPine Besylate 5 MG Tablet 1 tablet Orally Once a day Active Protonix 40 MG Tablet Delayed Release 1 tablet Orally Once a day; Duration: 30 day(s) 05/26/2022 Active Aspirin 81 81 MG Tablet Chewable 1 tablet Orally Once a day Active Albuterol Sulfate (2.5 MG/3ML) 0.083% Nebulization Solution 3 ml as needed Inhalation every 4 hours Not-Taking Immunizations Vaccine Route Administration Date Status Comme nts Flu vaccine no Preserv 3 and > Unknown 02/21/2018 Admin istered Influenza (whole), CPT 00704 Inactive Unknown 05/15/2014 Administered Td (adult), absorbed Unknown 06/13/2018 Administered Social History Tobacco Use: Social History Observation Description Date Details (start date - stop date) Former Smoker NA - NA Social History Drugs/Alcohol: Social Info Question Answer Notes Alcohol Screen (Audit-C) Did you have a drink containing alcohol in the past year? No Points 0 Interpretation Negative Drugs Have you used drugs other than those for medical reasons in the past 12 months? No Tobacco Use: Social Info Question Answer Notes xTobacco Use/Smoking Are you a former smoker How long has it been since you last smoked? > 10 years Additional Details Category Social Info Options Details Drugs/Alcohol: Do you smoke marijuana? De nies zzMigrated Social History Migrated Social History Smoking Status:Ex-smoker (finding) Problems Problem Type SNOMED Code ICD Code Onset Dates Problem Status W/U Status Risk Notes Problem Chronic pain (32442613) Other chronic pain (G89.29) Active confirmed Problem Gastroesophageal reflux disease without esophagitis (752175397) Gastroesophageal reflux disease without esophagitis (K21.9) Active confirmed Problem Shortness of breath (117963720) Shortness of breath (R06.02) Active confirmed Mario-103 6773- Problem Chest pain (97490782) Chest pain, unspecified (R07.9) Active confirmed Mario-103 6773-Sn omed Descrip tion:Ch est pain Problem Benign essential hypertension (2731873) Essential hypertension, benign (401.1) 019 Problem resolved confirmed [id number] 911- Problem General weakness (01276003) Generalized weakness (780.79) 006 Problem resolved confirmed [id number] 911- Problem Acute exacerbation of chronic obstructive airways disease (311445847) Acute exacerbation of chronic obstructive pulmonary disease (COPD) (491.21) 006 Problem resolved confirmed [id number] 911- Problem Pain in limb (92597810) Leg pain (729.5) 006 Problem resolved confirmed [id number] 911- Problem Acute pericardit is in disease classified elsewhere (420.0) 006 Problem resolved confirmed [id number] 911- Problem COPD - Chronic obstructive pulmonary disease (14268564) COPD (496) 019 Problem resolved confirmed [id number] 911- Problem Hip pain (27641160) Hip pain (719.45) 019 Problem resolved confirmed [id number] 911- Plan Of Treatment No Information Insurance Providers Payer Name Payer Address Payer Phone Subscriber Number Group Number Insured Name Patient Relationship to Insured Coverage Start Date [place]age End Date [place] [address] [address] [place] [address] [id number] Hai Young Self - patient is the [...]
--- OUTSIDE RECORDS SUMMARY | 2025-02-16 14:18 | XMS_ITS | Clinical Summary ---
Author Organization [facility] Address [address] [place]: Epic Prelude ADT [place] [address] Care Team Providers Care Reagent Tender Helper Name Role Phone Kathy Pantoja FIELD MARKETING TEAM LEADER Primary Care Provider [phone] Allergies Active Allergy Reactions Criticality Noted Date [...] week 12/24/2018 How often do you attend [facility] or pentecostal services? Never 12/24/2018 Do you belong to any clubs o r organizations such as confucianist groups, unions, fraternal or athletic groups, or [...] on file Legal Sex Male 1:59 PM SENIOR CLIMATE ADVISOR Gender Identity Not on file Sexual Orientation [...] - 1-dose 75+ series) 2036 Care Teams Reagent Tender Helper Relationship Specialty Start Date End Date Kathy Pantoja NP [address] [place] [address] PCP - General NURSE PRACTITIONER 02/14/13
--- OUTSIDE RECORDS SUMMARY | 2025-02-16 14:18 | XMS_ITS | Clinical Summary ---
Author Organization [facility] Address [address] [place] [address] Phone Care Team Providers Care Retail Department Manager Name Role Phone Kathy Pantoja MICHOACANO Primary Care Provider [phone] Allergies Active Allergy Reactions Criticality Noted Date [...] often do you attend chur ch or samaritan services? Never 12/24/2018 Do you belong to any clubs o r organizations such as episcopalian groups, unions, fraternal or athletic groups, or [...] on file Legal Sex Male 2:57 AM BOAT DECKHAND Gender Identity Not on file Sexual Orientation [...] Advance Directives For more information, please contact: [phone] * Full Code (Latest Code Status on File) Date Activated Date Inactivated Comments 12/24/2018 9:19 PM 12/26/2018 8:08 PM Care Teams Retail Department Manager Relationship Specialty Start Date End Date Kathy Pantoja NP [facility] [place] [address] PCP - General NURSE PRACTITIONER 02/14/13
--- OUTSIDE RECORDS SUMMARY | 2025-02-16 14:18 | XMS_ITS | Encounter Summary ---
Author Organization [facility] Address [address] [place] [address] Care Team Providers Care Dietary Internship Name Role Phone Kathy Pantoja SEAL EXTRUSION OPERATOR Primary Care Provider [phone] Encounter Details Date Type Department Care Team (Latest Contact Info) Description 02/18/2004 Outpatient Historical [facility] [place] [place] [facility] Parveen Beckwith MD [address] [place] [address] PERIPH VASCULAR DIS NOS (Primary Dx) Social History Tobacco Use Types Packs/Day Years Used Date Smoking Tobacco: Never Assessed Sex and Gender Information Value Date Recorded Sex Assigned at Not on file Legal Sex Male 2:57 AM 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
--- OUTSIDE RECORDS SUMMARY | 2025-02-16 14:18 | XMS_ITS | Patient Health Record ---
Author Organization [facility] Address [address] [place] [address] Care Team Providers Care Boiler Technician Name Role Phone Migration, Provider Unavailable Unavailable Reason For Referral No Information Encounters Encounter Location Date Provider Diagnosis [facility] [address] [place] [address] 07/27/2024 Provider Migration [facility] [address] [place] [address] 07/28/2024 Provider Migration Plan Of Treatment No Information Insurance Providers Payer Name Payer Address Payer Phone Subscriber Number Group Number Insured Name Patient Relationship to Insured Coverage Start Date Coverage End Date Medicare [address] [place] [address] [id number] Hai Aparicio Self - patient is the insured Medical (General) History Hospitalization History Reason Date(Month/Year) CHF/CM : LVH, Diastolic Dysfunction - 02/23/2012 Valve/Congen : Mild MR - 02/23/20122011
[2025-02-16 14:25] VITALS: BP 153/86; PULSE 88; TEMP 36.4; O2SAT 96
--- NOTE | 2025-02-16 14:25 | W.ED.ABDPA2 ---
HPI - Abdominal Pain General: Chief Complaint: Abdominal Pain Stated Complaint: abd pain Time Seen by Provider: 02/16/25 14:15 Source: patient Mode of arrival: ambulatory Limitations: no limitations History of Present Illness: 64-year-old male states has been having some abdominal pain over the last 2 days. States been cramping type pain in his epigastrium he denies any fevers he is rates his pain a 4 out of 10 denies any vomiting denies any diarrhea. Denies any worse improved factors. Associated Symptoms: Denies chills, diarrhea, fever(s), nausea and vomiting Related Data Home Medications ?Medication ?Instructions ?Recorded ?Confirmed aspirin 81 mg tablet,delayed 81 mg PO QAM 06/23/22 02/16/25 release Previous Rx's ?Medication ?Instructions ?Recorded atorvastatin 40 mg tablet 40 mg PO BEDTIME #30 tabs 09/02/24 clopidogrel 75 mg tablet 75 mg PO QAM #30 tabs 09/02/24 budesonide-formoterol HFA 160 2 puff inhalation BID #10.2 grams 01/29/25 mcg-4.5 mcg/actuation aerosol inhaler (Symbicort) pantoprazole 40 mg tablet,delayed 40 mg PO DAILY #60 tabs 02/16/25 release (Protonix) Allergies Allergy/AdvReac Type Severity Reaction Status Date / Time fluticasone (From Flonase) Allergy Unknown Verified 02/16/25 14:27 levofloxacin (From Levaquin) Allergy Unknown Verified 02/16/25 14:27 methylprednisolone (From Allergy Unknown Verified 02/16/25 14:27 Solu-Medrol) salmeterol AdvReac ADR-Nausea Verified 02/16/25 14:27 Review of Systems Const: Denies: fever(s), chills, body aches or change in appetite ENMT: Denies: throat pain or dental pain Card: Denies: chest pain Resp: Denies: dyspnea GI: Reports: abdominal pain; Denies: nausea, vomiting or diarrhea Musc: Denies: neck pain or back pain Skin/Breast: Denies: rash Neuro: Denies: headache(s) PFSH ED PFSH: Medical History Avascular necrosis of bones of both hips Chest pain HTN (hypertension) CAD (coronary artery disease) GERD (gastroesophageal reflux disease) PVD (peripheral vascular disease) Shortness of breath Palpitation COPD (chronic obstructive pulmonary disease) Hyperlipidemia Carotid stenosis Anxiety Umbilical hernia Hypoxia Epigastric abdominal pain Obstructive apnea Iliac artery occlusion CKD (chronic kidney disease) CVA (cerebral vascular accident) Surgical History Status post carotid surgery Hx of vasectomy Family History Other CAD (coronary artery disease) Cancer Social History Smoking and tobacco/nicotine status: never used tobacco/nicotine Quit status (tobacco/nicotine): has quit using Year quit tobacco: 2009 - 2PPD x 37 Years Second hand smoke exposure: No Alcohol intake: never Substance/Drug Use: never Caregiver/support person: Yes Lives independently: Yes Household members: none Marital status: Unknown service: No Current occupational status: unemployed Previous occupational history: [employer] Do you think of yourself as: Straight/Heterosexual Current gender identity: Male Special karli needs: No Physical Exam Const: COMMON NORMALS: no acute distress, patient oriented x3 and healthy appearing HENMT: COMMON NORMALS: normocephalic and atraumatic HEAD & SCALP: normocephalic and atraumatic Eye: COMMON NORMALS: Equal, round and reactive pupils present and EOMs intact bilaterally PUPIL: Yes Equal, round and reactive pupils present Neck/C-Spine: COMMON NORMALS: full ROM and supple Chest: COMMONS NORMALS: normal inspection of the chest and normal palpation of entire chest wall Resp: COMMON NORMALS: normal respiratory effort, No retractions, No use of accessory muscles and clear to auscultation bilaterally AUSCULTATION: clear to auscultation bilaterally Cardio: COMMON NORMALS: regular rate, regular rhythm and No murmurs present (Cardio) RATE: regular rate RHYTHM: regular rhythm GI: COMMON NORMALS: Normal to inspection, nondistended, normoactive bowel sounds present, Soft to palpation, non-tender and no masses PALPATION: Yes Soft to palpation Extremity: COMMON NORMALS: normal to inspection and full ROM Neuro: COMMON NORMALS: patient oriented x3, moves all extremities and no focal motor deficits Psych: COMMON NORMALS: mental status grossly normal, Normal thought process present and cooperative THOUGHT PROCESS: Normal thought process present Skin: COMMON NORMALS: no rashes or lesions noted and no wounds GENERAL SKIN EXAM: no rashes or lesions noted Course Vital Signs: Vital signs: Vital Signs Temperature 97.6 F 02/16/25 14:25 Pulse Rate 88 02/16/25 14:25 Blood Pressure 153/86 02/16/25 14:25 Pulse Oximetry 96 02/16/25 14:25 Oxygen Delivery Me thod Room Air 02/16/25 14:25 MDM - Abdominal Pain Medical Decision Making Patient presents with abdominal pain he feels improved here blood work is normal abdominal exam is benign no signs of cholecystitis no signs of appendicitis likely gastritis we will start him on Protonix he is to follow-up with PCP return if worsening he understands agrees to plan. Medical Records I reviewed the patient's medical records. Lab Data I reviewed the patient's lab results. 02/16/25 14:41 02/16/25 14:41 Labs/Radiology: Laboratory Results WBC 10.97 10^3/uL (3.29-11.43) 02/16/25 14:41 RBC 5.36 10^6/uL (3.85-5.65) 02/16/25 14:41 Hgb 15.10 g/dL (11.27-16.99) 02/16/25 14:41 Hct 46.5 % (37-53) 02/16/25 14:41 MCV 86.8 fl (82-101) 02/16/25 14:41 MCH 28.2 pg (27-33) 02/16/25 14:41 MCHC 32.5 g/dL (30-55) 02/16/25 14:41 RDW 14.0 % (12.1-15.1) 02/16/25 14:41 Plt Count 261 10^3/cmm (157-399) 02/16/25 14:41 MPV 10.2 fL (7.4-10.4) 02/16/25 14:41 Neut % (Auto) 74.5 % 02/16/25 14:41 Lymph % (Auto) 12.9 % 02/16/25 14:41 Ray % (Auto) 8.6 % 02/16/25 14:41 Eos % (Auto) 2.5 % 02/16/25 14:41 Baso % (Auto) 0.9 % 02/16/25 14:41 Neut # (Auto) 8.17 10^3/uL (1.8-7.7) H 02/16/25 14:41 Lymph # (Auto) 1.4 10^3/uL (0.8-4.8) 02/16/25 14:41 Ray # (Auto) 0.9 10^3/uL (0.2-0.9) 02/16/25 14:41 Eos # (Auto) 0.3 10^3/uL (0.0-0.8) 02/16/25 14:41 Baso # (Auto) 0.1 10^3/uL (0.0-0.1) 02/16/25 14:41 Nucleated RBC % (auto) 0 % 02/16/25 14:41 Nucleated RBCs # 0.0 /100WBC 02/16/25 14:41 Sodium 138 mmol/L (136-145) 02/16/25 14:41 Potassium 3.9 mmol/L (3.5-5.1) 02/16/25 14:41 Chloride 102 mmol/L (98-107) 02/16/25 14:41 Carbon Dioxide 26 mmol/L (22-29) 02/16/25 14:41 Anion Gap 13.9 (5-19) 02/16/25 14:41 BUN 9 mg/dL (8-23) 02/16/25 14:41 Creatinine 0.9 mg/dL (0.7-1.2) 02/16/25 14:41 Glucose 101 mg/dL (65-115) 02/16/25 14:41 Calculated Osmolality 285 mOsm/kg (285-295) 02/16/25 14:41 Calcium 9.6 mg/dL (8.5-10.5) 02/16/25 14:41 Total Bilirubin 0.5 mg/dL (0.15-1.2) 02/16/25 14:41 AST 12 U/L (0-40) 02/16/25 14:41 ALT 13 U/L (0-41) 02/16/25 14:41 Total Protein 7.0 g/dL (6.6-8.7) 02/16/25 14:41 Albumin 4.0 g/dL (3.5-5.2) 02/16/25 14:41 Globulin 3.0 g/dL (1.3-4.6) 02/16/25 14:41 Lipase 32 U/L (13-60) 02/16/25 14:41 No radiology studies performed this visit Discharge Plan Discharge Patient Disposition: Home Clinical Impression: Abdominal pain Condition: Stable Prescriptions: New pantoprazole [Protonix] 40 mg tablet,delayed release (DR/EC) 40 mg PO DAILY Qty: 60 0RF No Action clopidogrel 75 mg tablet 75 mg PO QAM Qty: 30 5RF atorvastatin 40 mg tablet 40 mg PO BEDTIME Qty: 30 5RF budesonide-formoterol [Symbicort] 160-4.5 mcg/actuation HFA aerosol inhaler 2 puff INHALATION BID Qty: 10.2 2RF aspirin 81 mg Tablet,Delayed Release (Dr/Ec) 81 mg PO QAM Discharge Orders: Discharge ED (Routine); Ordered 02/16/25 Ordered By: Ruth Palm Referrals: Samantha Newell FNP [Primary Care Provider, Family Practice] - 4-7 days Discharge Diet: Advance as tolerated Discharge Activity: Resume usual activity Patient Instructions: Abdominal Pain (ED) Print Language: Yoruba Coding Level of Care Code ED Signals Collection Technician for Kedar Mae
[2025-02-16 14:51] LABS: Hematocrit 46.5 % (37-53); Hemoglobin 15.10 g/dL (11.27-16.99); Mean Corpuscular HGB Conc 32.5 g/dL (30-55); Mean Corpuscular Hemoglobin 28.2 pg (27-33); Mean Corpuscular Volume 86.8 fl (82-101); Nucleated Red Blood Cells % 0 %; Platelet Count 261 10^3/cmm (157-399); Red Blood Count 5.36 10^6/uL (3.85-5.65); White Blood Count 10.97 10^3/uL (3.29-11.43)
[2025-02-16 15:08] LABS: Alanine Aminotransferase 13 U/L (0-41); Albumin Level 4.0 g/dL (3.5-5.2); Alkaline Phosphatase 159 U/L (40-130); Anion Gap 13.9 (5-19); Aspartate Amino Transferase 12 U/L (0-40); Blood Urea Nitrogen 9 mg/dL (8-23); Calcium 9.6 mg/dL (8.5-10.5); Carbon Dioxide 26 mmol/L (22-29); Chloride 102 mmol/L (98-107); Creatinine Clr Calc Pharmacy 94.1335; Globulin 3.0 g/dL (1.3-4.6); Glucose 101 mg/dL (65-115); Lipase 32 U/L (13-60); Osmolality Calculated 285 mOsm/kg (285-295); Potassium 3.9 mmol/L (3.5-5.1); Sodium 138 mmol/L (136-145); Total Protein 7.0 g/dL (6.6-8.7)
[2025-02-16] MEDS: ondansetron hcl ODT 4 mg Tab PO (15:20)
[2025-02-16] MEDS: lidocaine 2% viscous 15 ML, aluminum-mag hydrox-simethicon 30 ML, sucralfate oral liq 1 GM PO (15:20)
[2025-02-16 15:24] VITALS: BP 93/73; PULSE 84; O2SAT 96
== END 2025-02-16 15:27 | disposition home or self-care (01) ==
PROVIDERS: Emergency Provider Emergency Medicine; PCP Nurse Practitioner Family
DX: R10.9 Unspecified abdominal pain (principal); Z79.02 Long term (current) use of antithrombotics/antiplatelets; Z79.82 Long term (current) use of aspirin; Z87.891 Personal history of nicotine dependence; I25.10 Atherosclerotic heart disease of native coronary artery without angina pectoris; J44.9 Chronic obstructive pulmonary disease, unspecified; E78.5 Hyperlipidemia, unspecified; Z86.73 Personal history of transient ischemic attack (TIA), and cerebral infarction without residual deficits; I12.9 Hypertensive chronic kidney disease with stage 1 through stage 4 chronic kidney disease, or unspecified chronic kidney disease; N18.9 Chronic kidney disease, unspecified
CPT/HCPCS: 36415; 80053; 83690; 85025; 99283; J9999; Q0162

== ENCOUNTER → 2025-05-14 10:07 | Outpatient (BNVA) | payer MEDICARE, SELFPAY | PROVIDERS: PCP Nurse Practitioner Family; Visit Provider Internal Medicine | DX: J44.9 Chronic obstructive pulmonary disease, unspecified (principal); J96.10 Chronic respiratory failure, unspecified whether with hypoxia or hypercapnia; Z99.81 Dependence on supplemental oxygen; Z87.891 Personal history of nicotine dependence; T78.40XA Allergy, unspecified, initial encounter; X58.XXXA Exposure to other specified factors, initial encounter | CPT/HCPCS: 36415; 85025; 86003; 99204; Q3014 ==

== ENCOUNTER 2025-05-20 12:13 | Outpatient (CLI) | payer MEDICARE, SELFPAY ==
[2025-05-20 12:59] VITALS: PULSE 110; RESP 18; O2SAT 94
== END 2025-05-20 12:14 | disposition home or self-care (01) ==
LOC: RT 12:16
PROVIDERS: PCP Nurse Practitioner Family; Visit Provider Internal Medicine
DX: J44.9 Chronic obstructive pulmonary disease, unspecified (principal)
CPT/HCPCS: 94060; 94726; 94729; J7613